=== PATIENT | female | born 1940 | race Caucasian/White ===

== ENCOUNTER 2017-09-26 18:44 | Inpatient (IN) | payer MEDICARE ==
[2017-09-26 21:34] LABS: ABS Basophils 0 10^3/ul (0-0.2); ABS Eosinophils 0.1 10^3/ul (0-0.6); ABS Lymphocytes 1.8 10^3/ul (1.0-4.8); ABS Monocytes 0.7 10^3/ul (0-0.8); ABS Neutrophils 5.5 10^3/ul (1.5-7.7); ABS Nucleated RBC 0 10^3/ul; Eosinophil % 0.9 % (0-6); Hematocrit 44 % (35-47); Hemoglobin 15.3 g/dl (12.0-16.0); Lymphocyte % 22.1 % (25-47); Mean Corpuscular HGB Conc 35 g/dl (31-36); Mean Corpuscular Hemoglobin 31 pg (27-31); Mean Corpuscular Volume 88 fL (80-97); Mean Platelet Volume 9.8 um3 (7.4-10.4); Nucleated Red Blood Cells % 0.1; Platelet Count 215 10^3/ul (150-450); Red Blood Count 5.01 10^6/ul (4.0-5.4); Red Cell Distribution Width 14 % (10.5-15); White Blood Count 8.1 10^3/ul (3.5-10.8)
[2017-09-26 21:49] LABS: EGFR Non-African American 68.6 (>60)
[2017-09-26 22:56] LABS: Urine Appearance Clear; Urine Blood Negative (Negative); Urine Color Straw; Urine Ketones Negative (Negative); Urine Protein Negative (Negative); Urine Specific Gravity 1.035 (1.010-1.030); Urine Urobilinogen Negative (Negative)
[2017-09-26] MEDS ORDERED: NS 0.9% 1000 ML* 1,000 ML IV ONE (23:07)
[2017-09-26] MEDS ORDERED: Insulin REGULAR(*) 1 UNITS UNIT IV PUSH ONE (23:09)
[2017-09-27] MEDS ORDERED: Lisinopril TAB* 10 MG PO SCH
[2017-09-27] MEDS ORDERED: hydrALAZINE IV* 20 MG/ML VIAL IV SLOW PU PRN (00:01)
[2017-09-27] MEDS ORDERED: Dextrose 50% Syringe 50 ML* 25 GM/50 ML SYRINGE IV PUSH PRN (00:02)
--- NOTE | 2017-09-27 02:53 | HP ---
HISTORY AND PHYSICAL: DATE OF ADMISSION: 09/26/17 PRIMARY CARE PROVIDER: Keerthi Gottlieb MD ADMITTING PROVIDER: Janusz Abreu MD CHIEF COMPLAINT: Family concern for being able to be safe at home given severe Alzheimer's disease, which is progressive; hypertensive urgency; hyperglycemia. HISTORY OF PRESENT ILLNESS: Lori Pressley is a 76-year-old female with past medical history of hypertension, non-insulin dependent diabetes mellitus, severe Alzheimer's disease which has been progressive, who was brought in by daughter for concern for her safe living environment. Patient;s Naveen has cancer and is unstable on his feet. They have been receiving private health aides Friday through Friday between 10am to 12pm and between 4pm and 6pm to try to help with their meds and make sure they are eating food, however, there has been even with this, strong concern by daughter that the patient has been not taking the meds as they have apparently been found in various locations in the house. The patient has been increasingly incontinent of urine , refusing to wear any diaper Depends and urinating all over the floors, spends 18 hours a day sleeping or in bed, the rest of the time awake in bed or staring off out the window. The patient denies any acute complaints today. Per daughter , Carlyn Beckham, who is her healthcare proxy after Naveen, the patient' s is increasingly worried about the patient's agitation and anger. She has been lashing out and is concerned for denial of some of her problems in terms of taking care of her and meeting her activities of daily living. She does reportedly dress herself and feed herself. The daughter is concerned that she has been losing weight. At [facility] emergency room, her workup was significant for blood glucoses of 404 and blood pressures of 200/114. She was referred to hospitalist service for admission for hypertensive urgency, hyperglycemia uncontrolled in the setting of suspected unsafe home environment in the setting of severe progressive Alzheimer's disease. Daughter is wanting to seek alternative living arrangements where there is more support in a structured environment. PAST MEDICAL HISTORY: Hypertension, severe Alzheimer's disease, hyperlipidemia , vitamin D deficiency, vitamin B12 deficiency, former smoker (approximately 5 to 10 pack years, quit in 1970s or 80s). Diabetes non-insulin dependent. MEDICATIONS: Include: 1. Lisinopril 10 mg a day. 2. Atorvastatin 40 mg p.o. q.h.s. 3. Metformin 1000 mg p.o. b.i.d. 4. Alendronate sodium 70 mg each week. 5. Aricept 10 mg p.o. daily. ALLERGIES: No known drug allergies. SOCIAL HISTORY: The patient is a former smoker approximately 5 to 10 pack years , quit in the 1970s or 1980s. Lives in a 2 bedroom house with her Naveen who has been diagnosed with cancer and is now frail. She was formerly a moderate alcohol drinker, now a minimal alcohol drinker. Her medical surrogate is Naveen followed by daughter Carlyn Beckham. She has never filled out a MOLST form and will not state her preference for code status at this time. REVIEW OF SYSTEMS: A complete 14-point review of systems is negative except as per HPI. She denies any chest pain, shortness of breath, cough, fevers, chills , nausea, vomiting, diarrhea, constipation, abdominal pain, headaches, rashes, vision changes. PHYSICAL EXAMINATION GENERAL APPEARANCE: No acute distress, lying in hospital bed. VITAL SIGNS: Temperature 97.4; pulse rate 65; respiratory rate 12 to 24; satting 99 to 100% on room air; blood pressure initially 180/57, increased to 200/114. HEENT: Normocephalic, atraumatic. Pupils equally round and reactive to light. Extraocular motions intact. Moist mucous membranes. No cervical lymphadenopathy. No scleral icterus. NECK: Supple. PULMONARY: Clear to auscultation bilaterally with no wheezing, rales, or rhonchi. CARDIOVASCULAR: Regular rate and rhythm. No murmurs, rubs or gallops. ABDOMEN: Soft, nontender, nondistended. EXTREMITIES: Warm, well perfused. No peripheral edema. NEUROLOGIC: Cranial nerves II through XII intact. Ux Developer Designer strength 5/5. Hip flexion 5/5, dorsi and plantarflexion 5/5. Sensation is intact bilaterally. She is oriented to name and hospital and town of [place]. She knows her date of , she does not know the current year or president of [facility] or the name of the hospital. SKIN: No lesions. No rashes. DIAGNOSTIC STUDIES/LAB DATA: White count 8.1, hemoglobin 15.3, hematocrit 44, MCV 88, platelets 215,000. Sodium 135, potassium 4.2, chloride 96, carbon dioxide 32, BUN 15, creatinine 0.81, glucose 404, total bili 0.9, AST 13, ALT 13 , alk phos 66, albumin 4.8. Urinalysis: Specific gravity 1.035, trace leukocyte esterase, 1+ bacteria, 3+ glucose. Imaging: None. ASSESSMENT AND PLAN: Lori Pressley is a 76-year-old female with severe dementia, hypertension, non-insulin dependent diabetes, presenting with concern for inability to take care of herself at home despite 4 hours total each weekday of private health aides and two daughters who visit on each weekend day. She is presenting with hypertensive urgency with blood pressures 200s/114 and hyperglycemia to the 400s. For her high blood pressure, we will continue her lisinopril 10, add hydralazine 10 mg IV q.2 hours p.r.n. for blood pressures above 180. Blood pressures have started to improve. For her non- insulin-dependent diabetes mellitus, we will add on A1c level, last was 7.2 in 2010. Put her on moderate dose of sliding scale insulin q.achs. She is status post 5 units of regular insulin in the emergency room. Put her on a carbohydrate consistent diet that is heart healthy as well. We will get physical therapy and occupational therapy to evaluate her and we will need to utlize our case management resources to try to arrange alternative living situation, potentially for instance [facility] might be appropriate. For her hyperlipidemia, we will continue her atorvastatin 40 mg daily. Her medical surrogate is her , Naveen Pressley. She is not willing to make a code status decision at this point in time. We will have to follow up in the morning with Naveen. [id number]/[facility] #: [id number] [facility]
[2017-09-27 07:14] LABS: EGFR Non-African American 88.4 (>60)
[2017-09-27] MEDS: Lisinopril TAB* 10 MG PO SCH (08:15)
[2017-09-27] MEDS: Insulin LISPRO* 1 UNITS UNIT SUBCUT SCH ×4 (08:15→21:35)
[2017-09-27] MEDS: Donepezil TAB* 5 MG PO SCH (08:15)
[2017-09-27] MEDS ORDERED: Alendronate (NF) 70 MG TAB PO SCH (09:00)
[2017-09-27] MEDS ORDERED: Magnesium Sulfate IV* 3 GM in NS 0.9% 100 ML* 100 ML IVPB ONE (09:12)
[2017-09-27] MEDS ORDERED: Potassium Chloride LIQUID* 20 MEQ PACKET PO ONE (09:16)
--- NOTE | 2017-09-27 15:00 | PN ---
Subjective Date of Service: 09/27/17 Interval History: Patient in no distress but very confused today which family states is at baseline. Unable to give date, location, month, year. Patient able to walk without assistance. Patient denies F/C, N/V, abdominal pain, diarrhea, CP, SOB, or other pain. Discussed plan with family and they have not come to a decision about where they would like her to go at this time. Family History: Unchanged from Admission Social History: Unchanged from Admission Past Medical History: Unchanged from Admission Objective Active Medications: Atorvastatin Calcium (Lipitor*) 40 mg PO BEDTIME [facility] Dextrose (D50w Syringe 50 Ml*) 12.5 gm IV PUSH .FOR FS < 60 - SS PRN PRN Reason: FS < 60 Donepezil HCl (Aricept Tab*) 10 mg PO DAILY [facility] Last Admin: 09/27/17 08:15 Dose: 10 mg Hydralazine HCl (Apresoline Iv*) 10 mg IV SLOW PU Q2H PRN PRN Reason: SYSTOLIC BP GREATER THAN: Insulin Human Lispro (Humalog*) 0 units SUBCUT ACHS [facility] PRN Reason: Protocol Last Admin: 09/27/17 12:17 Dose: 1 unit Lisinopril (Prinivil Tab*) 20 mg PO DAILY [facility] Last Admin: 09/27/17 08:15 Dose: 20 mg Vital Signs - 8 hr 09/27/17 09/27/17 09/27/17 07:00 07:15 08:00 Temperature 97.8 F 97.8 F Pulse Rate 81 81 Respiratory 16 16 16 Rate Blood Pressure 169/76 169/76 (mmHg) O2 Sat by Pulse 97 Oximetry 09/27/17 11:52 Temperature 98.4 F Pulse Rate 82 Respiratory 18 Rate Blood Pressure 154/79 (mmHg) O2 Sat by Pulse 95 Oximetry Oxygen Devices in Use Now: None Appearance: Patient is a 76yo female who appears stated age and is sitting in the bed in NAD. Eyes: No Scleral Icterus, PERRLA Ears/Nose/Mouth/Throat: NL Teeth, Lips, Gums, Clear Oropharnyx, Mucous Membranes Moist Neck: NL Appearance and Movements; NL JVP, Trachea Midline Respiratory: Symmetrical Chest Expansion and Respiratory Effort, Clear to Auscultation Cardiovascular: NL Sounds; No Murmurs; No JVD, RRR, No Edema Abdominal: NL Sounds; No Tenderness; No Distention, No Hepatosplenomegaly Lymphatic: No Cervical Adenopathy Extremities: No Edema, No Clubbing, Cyanosis Skin: No Rash or Ulcers, No Nodules or Sclerosis Neurological: NL Sensation, NL Gait, NL Muscle Strength and Tone, - - CN II-XII intact. Alert and Oriented only to self. Result Diagrams: 09/26/17 21:15 09/27/17 06:24 Assess/Plan/Problems-Billing Assessment: Patient is a 76yo female with a PMH for HTN and advanced dementia who is admitted with hyperglycemia and hypertension which are improving. - Patient Problems (1) Hypertensive urgency Current Visit: Yes Status: Acute Code(s): I16.0 - HYPERTENSIVE URGENCY SNOMED Code(s): 013039025 Comment: Improving, likely due to medication non-compliance. Increased Lisinopril, continue Hydralazine PRN. (2) Diabetes mellitus Current Visit: Yes Status: Acute Code(s): E11.9 - TYPE 2 DIABETES MELLITUS WITHOUT COMPLICATIONS SNOMED Code(s): 30723898 Comment: BG 400 on admission. Improving and well controlled with SSI. Will reintroduce metformin and add on Januvia. Would be candidate for third oral agent in conjunction with dietary control for a trial period before switching to Insulin. (3) Dementia Current Visit: Yes Status: Acute Code(s): F03.90 - UNSPECIFIED DEMENTIA WITHOUT BEHAVIORAL DISTURBANCE SNOMED Code(s): 86195076 Comment: Supportive Care, will likely need RADHA or SLF at discharge. (4) Hyperlipidemia Current Visit: Yes Status: Acute Code(s): E78.5 - HYPERLIPIDEMIA, UNSPECIFIED SNOMED Code(s): 61147875 Comment: Continue Lipitor (5) Vitamin D deficiency Current Visit: Yes Status: Acute Code(s): E55.9 - VITAMIN D DEFICIENCY, UNSPECIFIED SNOMED Code(s): 61166914 Comment: Continue Vitamin D. (6) Vitamin B12 deficiency Current Visit: Yes Status: Acute Code(s): E53.8 - DEFICIENCY OF OTHER SPECIFIED B GROUP VITAMINS SNOMED Code(s): 984477982 Comment: Not on Supplementation. Not likely cause or contributor to dementia. (7) Full code status Current Visit: Yes Status: Acute Code(s): Z78.9 - OTHER SPECIFIED HEALTH STATUS SNOMED Code(s): 827486877 (8) DVT prophylaxis Current Visit: Yes Status: Acute Code(s): ZTQ4165 - SNOMED Code(s): 988064719 Comment: Ambulation and HSQ. Status and Disposition: Inpatient, likely discharge to [facility] or SNF.
[2017-09-27] MEDS: CMC: SitaGLIPtin (NF) 25 MG TAB PO SCH (17:17)
[2017-09-27] MEDS: Heparin VIAL(*) 5000 UNITS/ML VIAL (FIVE THOUSAND) SUBCUT SCH (21:35)
[2017-09-27] MEDS: Atorvastatin* 40 MG TAB PO SCH (21:35)
[2017-09-27] MEDS: metFORMIN* 1,000 MG TAB PO SCH (21:35)
--- NOTE | 2017-09-27 22:15 | ED ---
Garrett Mendez Nilda, scribed for Louie Mcknight MD on 09/26/17 at 2313 . HPI Diabetic - HPI Summary HPI Summary: This patient is a 76 year old F presenting to [facility] accompanied by family with a chief complaint of constant urinary frequency and urinary incontinence for the past few days, per daughter. The patient rates the pain 0/10 in severity. Symptoms aggravated by DM medication noncompliance, and alleviated by nothing. Patient denies CP, abd pain, back pain, KENNEDY, and blurry vision. Family notes PMHx includes DM (noncompliant with Metformin BID 1000mg), Alzheimers, and UTI. NKDA. Daughter states family gives pt medications but pt hides them around the house. Daughter notes they are trying to get her into assisted care because she has defecated and urinated in bed and all over the house. has metastatic cancer and is unable to care for pt. - History Of Current Complaint Chief Complaint: EDGeneral Time Seen by Provider: 09/26/17 22:15 Hx Obtained From: Patient, Family/Standards Analyst - daughter Onset/Duration: Sudden Onset, Lasting Days, Still Present Timing: Constant Character: Alert Aggravating: Non-compliant Alleviating: Nothing Related History: Other - DM noncompliant with medications - Allergies/Home Medications Allergies/Adverse Reactions: Allergies Allergy/AdvReac Type Severity Reaction Status Date / Time No Known Allergies Allergy Verified 09/26/17 22:24 Home Medications: Home Medications Alendronate Sodium [Alendronate Sodium] 70 mg PO DAILY 09/26/17 [History Confirmed 09/26/17] Donepezil HCl [Aricept] 10 mg PO DAILY 09/26/17 [History Confirmed 09/26/17] metFORMIN* [Glucophage 1000 MG TAB *] 1,000 mg PO BID 09/26/17 [History Confirmed 09/26/17] PMH/Surg Hx/FS Hx/Imm Hx Endocrine/Hematology History: Reports: Hx Diabetes Denies: Hx Thyroid Disease Cardiovascular History: Reports: Hx Hypertension Denies: Hx Pacemaker/ICD Respiratory History: Denies: Hx Asthma, Hx Chronic Obstructive Pulmonary Disease (COPD) GI History: Denies: Hx Ulcer History: Denies: Hx Dialysis, Hx Renal Disease Musculoskeletal History: Reports: Hx Osteoporosis Denies: Hx Rheumatoid Arthritis Sensory History: Denies: Hx Hearing Aid Neurological History: Reports: Other Neuro Impairments/Disorders - Alzheimer's Psychiatric History: Denies: Hx Panic Disorder - Cancer History Hx Chemotherapy: No Hx Radiation Therapy: No - Surgical History Surgery Procedure, Year, and Place: Left knee meniscus surgery. [facility] SURG. CATARACT - Lt EYE - Immunization History Date of Tetanus Vaccine: unk Date of Influenza Vaccine: utd Infectious Disease History: No Infectious Disease History: Denies: Hx Hepatitis, Hx Human Immunodeficiency Virus (HIV), Traveled Outside the [place] in Last 30 Days - Social History Alcohol Use: Rare Substance Use Type: Reports: None Smoking Status (MU): Former Smoker Review of Systems Negative: Blurred Vision Negative: Chest Pain Positive: Other - bowel incontinence. Negative: Abdominal Pain Positive: frequency, incontinence Positive: Other - negative back pain Negative: Headache All Other Systems Reviewed And Are Negative: Yes Physical Exam - Summary Physical Exam Summary: GENERAL: Patient is a well developed and nourished F who is lying comfortable in the stretcher. Patient is not in any acute respiratory distress. HEAD AND FACE: Normocephalic EYES: PERRLA, EOMI x 2. EARS: Hearing grossly intact. MOUTH: Oropharynx within normal limits. NECK: Supple, trachea is midline, no adenopathy, no JVD, no carotid bruit. CHEST: Symmetric, no tenderness at palpation LUNGS: Clear to auscultation bilaterally. No wheezing or crackles. CVS: Regular rate and rhythm, S1 and S2 present, no murmurs or gallops appreciated. ABDOMEN: Soft, non-tender. Bowel sounds are normal. No abdominal abnormal pulsations. EXTREMITIES: Full ROM in all major joints, no edema, no cyanosis or clubbing. NEURO: Alert and oriented x 1. Cranial nerves 2-12 grossly intact. No acute neurological deficits. Speech is normal. SKIN: Dry and warm Triage Information Reviewed: Yes Vital Signs On Initial Exam: Initial Vitals Temp Pulse Resp BP Pulse Ox 96.6 F 77 16 180/57 98 09/26/17 18:48 09/26/17 18:48 09/26/17 18:48 09/26/17 18:48 09/26/17 18:48 Vital Signs Reviewed: Yes Diagnostics - Vital Signs Vital Signs Temp Pulse Resp BP Pulse Ox 09/26/17 22:25 65 24 200/114 100 09/26/17 22:23 12 09/26/17 20:49 97.4 F 77 186/97 99 09/26/17 18:48 96.6 F 77 16 180/57 98 - Laboratory Lab Results: Lab Results 09/26/17 09/26/17 09/26/17 Range/Units 21:15 21:15 22:25 WBC 8.1 (3.5-10.8) 10^3/ul RBC 5.01 (4.0-5.4) 10^6/ul Hgb 15.3 (12.0-16.0) g/dl Hct 44 (35-47) % MCV 88 (80-97) fL MCH 31 (27-31) pg MCHC 35 (31-36) g/dl RDW 14 (10.5-15) % Plt Count 215 (150-450) 10^3/ul MPV 9.8 (7.4-10.4) um3 Neut % (Auto) 67.9 (38-83) % Lymph % (Auto) 22.1 L (25-47) % [place] % (Auto) 8.6 H (0-7) % Eos % (Auto) 0.9 (0-6) % Baso % (Auto) 0.5 (0-2) % Absolute Neuts (auto) 5.5 (1.5-7.7) 10^3/ul Absolute Lymphs (auto) 1.8 (1.0-4.8) 10^3/ul Absolute Monos (auto) 0.7 (0-0.8) 10^3/ul Absolute Eos (auto) 0.1 (0-0.6) 10^3/ul Absolute Basos (auto) 0 (0-0.2) 10^3/ul Absolute Nucleated RBC 0 10^3/ul Nucleated RBC % 0.1 Sodium 135 L (139-145) mmol/L Potassium 4.2 (3.5-5.0) mmol/L Chloride 96 L (101-111) mmol/L Carbon Dioxide 32 (22-32) mmol/L Anion Gap 7 (2-11) mmol/L BUN 15 (6-24) mg/dL Creatinine 0.81 (0.51-0.95) mg/dL Est GFR ( Amer) 88.2 (>60) Est GFR (Non-Af Amer) 68.6 (>60) BUN/Creatinine Ratio 18.5 (8-20) Glucose 404 H (70-100) mg/dL Calcium 10.5 H (8.6-10.3) mg/dL Total Bilirubin 0.90 (0.2-1.0) mg/dL AST 13 (13-39) U/L ALT 13 (7-52) U/L Alkaline Phosphatase 66 (34-104) U/L Total Protein 7.7 (6.4-8.9) g/dL Albumin 4.8 (3.2-5.2) g/dL Globulin 2.9 (2-4) g/dL Albumin/Globulin Ratio 1.7 (1-3) Urine Color Straw Urine Appearance Clear Urine pH 7.0 (5-9) Ur Specific [place] 1.035 H (1.010-1.030) Urine Protein Negative (Negative) Urine Ketones Negative (Negative) Urine Blood Negative (Negative) Urine Nitrate Negative (Negative) Urine Bilirubin Negative (Negative) Urine Urobilinogen Negative (Negative) Ur Leukocyte Esterase Trace A (Negative) Urine WBC (Auto) Trace(0-5/hpf) (Absent) Urine RBC (Auto) 1+(3-5/hpf) A (Absent) Urine Bacteria 1+ A (Absent) Urine Glucose 3+(>=500 mg/dl) A (Negative) Urine Ascorbic Acid * A (Negative) Result Diagrams: 09/26/17 21:15 09/26/17 21:15 Lab Statement: Any lab studies that have been ordered have been reviewed, and results considered in the medical decision making process. Re-Evaluation - Re-Evaluation First Eval Re-Evaluation Time: 23:57 Comment: Discussed results and admission plan with pt and family. Diabetic Course/Dx - Course Assessment/Plan: 76 y/o F with Hx Alzheimers Disease, DM and should be on Metformin who has been brought in by family for urinary frequency, incontinence. Family is concerned pt is not safe at home anymore and needs to be placed. Work up remarkable for blood glucose 400. UA shows no evidence of UTI. Pt was treated with IV fluids, insulin. Pt was subsequently admitted to hospitalist for placement. Case discussed with Dr. Abreu. Results discussed in great detail with pt and family who were at bedside. Pt stable upon admission. - Diagnoses Provider Diagnoses: Hyperglycemia - Physician Notifications Discussed Care Of Patient With: Janusz Abreu - hospitalist Time Discussed With Above Provider: 23:57 Instructed by Provider To: Admit As Inpatient Discharge - Sign-Out/Discharge Documenting (check all that apply): Discharge - admit - Discharge Plan Condition: Stable Disposition: ADMITTED TO [facility] documentation as recorded by the Garrett cutler Nilda accurately reflects the service I personally performed and the decisions made by me, Louie Mcknight MD.
[2017-09-28] MEDS: Heparin VIAL(*) 5000 UNITS/ML VIAL (FIVE THOUSAND) SUBCUT SCH ×3 (05:28→21:29)
[2017-09-28 06:29] LABS: EGFR Non-African American 72.7 (>60)
[2017-09-28] MEDS: metFORMIN* 1,000 MG TAB PO SCH ×2 (08:44→21:29)
[2017-09-28] MEDS: Insulin LISPRO* 1 UNITS UNIT SUBCUT SCH ×4 (08:45→20:06)
[2017-09-28] MEDS: Donepezil TAB* 5 MG PO SCH (08:45)
[2017-09-28] MEDS: CMC: SitaGLIPtin (NF) 25 MG TAB PO SCH (08:45)
[2017-09-28] MEDS: Lisinopril TAB* 10 MG PO SCH (08:45)
--- NOTE | 2017-09-28 10:16 | PN ---
Subjective Date of Service: 09/28/17 Interval History: Patient has been agitated overnight. Had an episode where she was leaning to the right when she was walking with a negative CT scan of head. Patient also indicates that she may have been having pain in lower back but denies it. Complains of pain in right shoulder but this is intermittent. Patient denies F/C , CP, SOB, palpitations, dizziness, abdominal pain, dysuria, or other pain. Patient was found to be in sinus tachycardia without associated symptoms. Patient has not had tachycardia on previous vital signs. Family History: Unchanged from Admission Social History: Unchanged from Admission Past Medical History: Unchanged from Admission Objective Active Medications: Atorvastatin Calcium (Lipitor*) 40 mg PO BEDTIME [facility] Last Admin: 09/27/17 21:35 Dose: 40 mg Dextrose (D50w Syringe 50 Ml*) 12.5 gm IV PUSH .FOR FS < 60 - SS PRN PRN Reason: FS < 60 Donepezil HCl (Aricept Tab*) 10 mg PO DAILY [facility] Last Admin: 09/28/17 08:45 Dose: 10 mg Heparin Sodium (Porcine) (Heparin Vial(*)) 5,000 units SUBCUT Q8HR [facility] Last Admin: 09/28/17 05:28 Dose: 5,000 units Hydralazine HCl (Apresoline Iv*) 10 mg IV SLOW PU Q2H PRN PRN Reason: SYSTOLIC BP GREATER THAN: Insulin Human Lispro (Humalog*) 0 units SUBCUT ACHS [facility] PRN Reason: Protocol Last Admin: 09/28/17 08:45 Dose: 4 unit Lisinopril (Prinivil Tab*) 20 mg PO DAILY [facility] Last Admin: 09/28/17 08:45 Dose: 20 mg Metformin HCl (Glucophage*) 1,000 mg PO BID [facility] Last Admin: 09/28/17 08:44 Dose: 1,000 mg Sitagliptin Phosphate (Januvia (Nf)) 50 mg PO DAILY [facility] Last Admin: 09/28/17 08:45 Dose: 50 mg Vital Signs - 8 hr 09/28/17 09/28/17 09/28/17 03:53 07:56 08:04 Temperature 97.5 F 97.8 F Pulse Rate 86 119 Respiratory 16 16 18 Rate Blood Pressure 136/73 129/88 (mmHg) O2 Sat by Pulse 98 100 Oximetry Oxygen Devices in Use Now: None Appearance: Patient is a 76yo female who appears stated age and is sitting in the bed in NAD. Eyes: No Scleral Icterus, PERRLA Ears/Nose/Mouth/Throat: NL Teeth, Lips, Gums, Clear Oropharnyx, Mucous Membranes Moist Neck: NL Appearance and Movements; NL JVP, Trachea Midline Respiratory: Symmetrical Chest Expansion and Respiratory Effort, Clear to Auscultation Cardiovascular: NL Sounds; No Murmurs; No JVD, RRR, No Edema Abdominal: NL Sounds; No Tenderness; No Distention, No Hepatosplenomegaly Lymphatic: No Cervical Adenopathy Extremities: No Edema, No Clubbing, Cyanosis Skin: No Rash or Ulcers, No Nodules or Sclerosis Neurological: NL Sensation, NL Gait, NL Muscle Strength and Tone, - - A/Ox1. CN II-XII intact. Result Diagrams: 09/26/17 21:15 09/28/17 05:42 Additional Lab and Data: Lab Results Assess/Plan/Problems-Billing Assessment: Patient is a 76yo female with a PMH for HTN and advanced dementia who is admitted with hyperglycemia and hypertension which are improving. - Patient Problems (1) Hypertensive urgency Current Visit: Yes Status: Acute Code(s): I16.0 - HYPERTENSIVE URGENCY SNOMED Code(s): 348542560 Comment: Normotensive now, likely due to medication non-compliance. Increased Lisinopril. Hydralazine PRN. (2) Diabetes mellitus Current Visit: Yes Status: Acute Code(s): E11.9 - TYPE 2 DIABETES MELLITUS WITHOUT COMPLICATIONS SNOMED Code(s): 89032314 Comment: BG 400 on admission. Improving and well controlled with SSI. Will reintroduce metformin and add on Januvia. Would be candidate for third oral agent in conjunction with dietary control for a trial period before switching to Insulin. (3) Dementia Current Visit: Yes Status: Acute Code(s): F03.90 - UNSPECIFIED DEMENTIA WITHOUT BEHAVIORAL DISTURBANCE SNOMED Code(s): 09170287 Comment: Supportive Care, will likely need RADHA or SLF at discharge. Patient had an episode of leaning to the right while walking with no other neurological deficits. No CT head normal, unable to elaborate on this, likely due to possible back pain. (4) Hyperlipidemia Current Visit: Yes Status: Acute Code(s): E78.5 - HYPERLIPIDEMIA, UNSPECIFIED SNOMED Code(s): 34069936 Comment: Continue Lipitor (5) Tachycardia Current Visit: Yes Status: Acute Code(s): R00.0 - TACHYCARDIA, UNSPECIFIED SNOMED Code(s): 2130217 Comment: Patient persistently tachycardic this AM up to 132 with regular rate. EKG shows sinus tachycardia with LAD, LVH and LAE. Will monitor on telemetry and encourage oral intake in case this is due to dehydration. (6) Vitamin D deficiency Current Visit: Yes Status: Acute Code(s): E55.9 - VITAMIN D DEFICIENCY, UNSPECIFIED SNOMED Code(s): 25773785 Comment: Continue Vitamin D. (7) Vitamin B12 deficiency Current Visit: Yes Status: Acute Code(s): E53.8 - DEFICIENCY OF OTHER SPECIFIED B GROUP VITAMINS SNOMED Code(s): 730920052 Comment: Not on Supplementation. Not likely cause or contributor to dementia. (8) Full code status Current Visit: Yes Status: Acute Code(s): Z78.9 - OTHER SPECIFIED HEALTH STATUS SNOMED Code(s): 956508144 (9) DVT prophylaxis Current Visit: Yes Status: Acute Code(s): UFK1263 - SNOMED Code(s): 452510997 Comment: Ambulation and HSQ. Status and Disposition: Inpatient, likely discharge to [facility] or SNF.
--- NOTE | 2017-09-28 10:17 | RAD ---
Indication: Gait abnormality and confusion. CT of the brain was performed without IV contrast. Ventricular structures are midline. No midline shift is noted. There is central and cortical atrophy noted. There is no evidence of intracranial hemorrhage. No other high or low density lesion is identified. Periventricular lucency consistent with chronic ischemic White matter change is noted. Mastoid air cells and paranasal sinuses are unremarkable. IMPRESSION: Central and cortical atrophy. Chronic ischemic White matter change. No intracranial mass or hemorrhage is noted.
[2017-09-28] MEDS ORDERED: LORazepam INJ* 2 MG/ML 1 ML VIAL IV PUSH ONE (10:55)
[2017-09-28] MEDS ORDERED: LORazepam INJ* 2 MG/ML 1 ML VIAL ONE (10:57)
[2017-09-28] MEDS: Atorvastatin* 40 MG TAB PO SCH (21:29)
[2017-09-29] MEDS: Heparin VIAL(*) 5000 UNITS/ML VIAL (FIVE THOUSAND) SUBCUT SCH (05:47)
[2017-09-29] MEDS: Insulin LISPRO* 1 UNITS UNIT SUBCUT SCH ×2 (07:49→12:47)
[2017-09-29] MEDS: metFORMIN* 1,000 MG TAB PO SCH (10:08)
[2017-09-29] MEDS: Lisinopril TAB* 10 MG PO SCH (10:08)
[2017-09-29] MEDS: CMC: SitaGLIPtin (NF) 25 MG TAB PO SCH (10:08)
[2017-09-29] MEDS: Donepezil TAB* 5 MG PO SCH (10:09)
--- NOTE | 2017-09-29 11:45 | RAD ---
HISTORY: Hypertensive urgency, rule out TB COMPARISONS: None VIEWS: 1: frontal portable view of the chest at 11:25 AM FINDINGS: LINES AND TUBES: None. CARDIOMEDIASTINAL SILHOUETTE: The cardiomediastinal silhouette is normal for portable technique. PLEURA: The costophrenic angles are sharp. No pleural abnormalities are noted. LUNG PARENCHYMA: The lungs are clear. ABDOMEN: The upper abdomen is clear. There is no subphrenic gas. BONES AND SOFT TISSUES: No bone or soft tissue abnormalities are noted. IMPRESSION: NO ACTIVE CARDIOPULMONARY DISEASE. NO RADIOGRAPHIC EVIDENCE OF PULMONARY PARENCHYMAL TUBERCULOSIS.
[2017-09-29 11:54] VITALS: BP 130/58
--- NOTE | 2017-09-29 13:24 | RAD ---
INDICATION: Right posterior chest wall mass. COMPARISON: There are no prior studies available for comparison. TECHNIQUE: Multiple real-time images of the right posterior chest wall were obtained with attention to a palpable abnormality. FINDINGS: In the region of the patient's palpable abnormality in the posterior chest may there is a superficial hypoechoic soft tissue mass measuring 11.5 x 0.9 x 5.8 cm. IMPRESSION: THERE IS A SOLID MASS IN THE POSTERIOR CHEST WALL DESCRIBED. THIS MAY REPRESENT A LIPOMA ALTHOUGH THE IMAGING CHARACTERISTICS ARE NONSPECIFIC. THIS CAN BE FURTHER EVALUATED WITH A CT OR MRI OF THE CHEST CLINICALLY NEEDED.
--- NOTE | 2017-09-30 00:20 | DS ---
CC: Keerthi Gottlieb MD; Dr. Sonja Pope* DISCHARGE SUMMARY: DATE OF ADMISSION: 09/26/17 DATE OF DISCHARGE: 09/29/17 PRIMARY CARE PROVIDER: Keerthi Gottlieb MD MY ATTENDING WHILE IN THE HOSPITAL: Dr. Sonja Pope* (dictated by FATOU Pruitt). PRIMARY DISCHARGE DIAGNOSES: 1. Alzheimer's dementia. 2. Hypertensive urgency. 3. Hyperglycemia due to type 2 diabetes mellitus. SECONDARY DISCHARGE DIAGNOSES: 1. Hyperlipidemia. 2. Vitamin D deficiency. 3. B12 deficiency. STUDIES DONE WHILE IN THE HOSPITAL: EKG from 09/28/17 read as sinus tachycardia , rate of 107, left axis deviation, left ventricular hypertrophy, left atrial enlargement, left axis deviation, no other abnormalities. Brain CT from read as central and cortical atrophy, chronic ischemic white matter change, no intracranial mass or hemorrhage is noted. Chest ultrasound from 09/29/17 read as there is a solid mass in the posterior chest wall as described, this may represent lipoma, although the imaging characteristics are nonspecific thus can be further evaluated with CT or MRI of the chest as clinically needed. Chest x-ray from 09/29/17 read as no active cardiopulmonary disease, no evidence of pulmonary parenchymal tuberculosis. MEDICATIONS: At discharge: 1. Lipitor 40 mg p.o. at bedtime. 2. Jardiance 10 mg p.o. daily. 3. Lisinopril 20 mg p.o. daily. 4. Januvia 50 mg p.o. daily. 5. Alendronate 70 mg p.o. weekly. 6. Donepezil 10 mg p.o. daily. 7. Metformin 1000 mg p.o. b.i.d. New medications at discharge: 1. Jardiance. 2. Lisinopril. 3. Januvia. Medications discontinued at discharge: Lisinopril 10 mg p.o. daily. HOSPITAL COURSE: This is a brief summary of the patient's presentation. For more details, please see the history and physical from Dr. Janusz Abreu on . In brief, the patient is a 76-year-old female with past medical history significant for the above, who came in due to being unable to take care of herself at home, not taking meds, not eating food. The patient was also found to be increasingly incontinent of urine and spending increasing amount for sleeping. The patient was supposed to be taking care of her , who has stage IV cancer and has been not capable of doing this. The patient came into the emergency department and had blood pressure of 200/114 and glucose of 404 due to unsafe living environment and high blood pressure and blood sugar. The patient was admitted to the hospital. The patient's blood pressure and glucoses were easily controlled using her home metformin. The introduction of Januvia and sliding scale insulin while in the hospital. The patient had a hemoglobin A1c of 10.1. The patient was very confused while in the hospital. The patient had an episode of tachycardia, believed to be related to agitation, which resolved when the patient was able to be calmed. The patient had an episode where she was leaning to her right and she walked. The patient had a CT of her head. The patient had no neurological deficits. The patient sustained to be due to pain as the patient was also grasping that side; however, the patient never verbalized pain and had no obvious deformity or tenderness. The patient was found to have a mass on her posterior chest wall, which had no ultrasound as above. When discussed this with patient's family, this was found to be a chronic mass. The patient had a chest x-ray to rule out tuberculosis for admission to [facility] where she was discharged on 09/29/17 to the Memory Unit. The patient's laboratory data while in the hospital showed increased glucoses and decreased magnesium, which was replaced and remained normal. The patient had trace leukocyte esterase in her urine and a negative culture. PHYSICAL EXAMINATION ON DAY OF DISCHARGE: General: The patient is a 76-year- old female who appears stated age and sitting comfortably in the bed, in no acute distress. Vital Signs: At the time of discharge, temperature 98.1, pulse rate 86, respiratory rate 16, oxygen saturation 95% on room air, blood pressure 130/58. HEENT: Head: Normocephalic, atraumatic. Sclerae anicteric. No conjunctival injection. Nasal mucosa is moist. Oral mucosa moist. No oropharyngeal erythema, discharge, or exudate. Neck: Supple, nontender. No lymphadenopathy. No carotid bruits auscultated. No JVD. Cardiac: Regular rate and rhythm. No clicks, murmurs, gallops, or rubs. Pulses 2+ in the bilateral dorsalis pedis, posterior tibialis, and radial areas. No bilateral lower extremity edema noted. No calf tenderness. Respiratory: Clear to auscultation bilaterally. No wheezes, rales, or rhonchi. Good air exchange bilaterally. Abdomen: Soft, nontender, nondistended. Bowel sounds present and normoactive in all 4 quadrants. No hepatosplenomegaly. No abdominal bruits auscultated. Genitourinary: No suprapubic or CVA tenderness. Skin: Clean, dry, and intact. No rash. Lipoma mobile and nonerythematous and is in the right posterior chest. Neuro: Cranial nerves II through XII intact. No focal deficits. The patient is alert and oriented to self and speaks nonsensically. She is somewhat communicative and follows instructions. Psychiatric: Generally pleasant and cooperative with occasional agitative outbursts. DISCHARGE PLAN: The patient will be discharged to [facility]. The patient and family are in agreement with this plan. For patient's blood pressure, her lisinopril was increased and this brought her blood pressure down to normal range with no episodes of hypotension. For patient's diabetes even though her hemoglobin A1c was 10.1, a trial will be given to diet and exercise in a controlled environment as well as continue her on her metformin, which she most likely was not taken as well as starting her on Januvia and Jardiance. This medication regimen should be adjusted as needed by patient's primary care provider whom she should follow up with in 1 week. The patient should engage in activity as tolerated. The patient should have a consistent carbohydrate diet. The patient continued to have a heart-healthy diet. The patient should return to the hospital for alarming symptoms such as chest pain, shortness of breath, falls with injury. TIME SPENT: Approximately 60 minutes were spent on this discharge, 30 of which were spent [id number] with the patient obtaining history and physical and discussing treatment plan with her and her family. FATOU PRUITT [id number]/[facility] #: [id number] JOSE
== END 2017-09-29 13:30 | disposition home or self-care (01) | DRG 305 ==
LOC: ED 18:44 → MED 23:59
PROVIDERS: ADMIT Internal Medicine; ATTEND Internal Medicine
DX: I16.0 Hypertensive urgency (principal); E11.65 Type 2 diabetes mellitus with hyperglycemia; G30.9 Alzheimer's disease, unspecified; F02.80 Dementia in other diseases classified elsewhere, unspecified severity, without behavioral disturbance, psychotic disturbance, mood disturbance, and anxiety; I10 Essential (primary) hypertension; E78.5 Hyperlipidemia, unspecified; E55.9 Vitamin D deficiency, unspecified; E53.8 Deficiency of other specified B group vitamins; R91.8 Other nonspecific abnormal finding of lung field; R41.0 Disorientation, unspecified; R26.9 Unspecified abnormalities of gait and mobility; R00.0 Tachycardia, unspecified; Z87.891 Personal history of nicotine dependence; Z79.84 Long term (current) use of oral hypoglycemic drugs; Z79.899 Other long term (current) drug therapy
CPT/HCPCS: 36415; 70450; 71045; 76604; 80048; 80053; 81003; 81015; 83036; 83735; 85025; 87077; 87086; 93005; 99284; A9270-GY; G8978-GP-CI; G8979-GP-CI; G8980-GP-CI; G8987-GO-CI; G8988-GO-CI; G8989-GO-CI; J1644; J2060; J3475

== ENCOUNTER 2017-09-30 03:40 | Emergency (ER) | payer MEDICARE ==
[2017-09-30 04:30] VITALS: BP 139/61
--- NOTE | 2017-09-30 04:36 | ED ---
Silke Mendez Rebecca, scribed for Paul Lamb MD on 09/30/17 at 0353 . Laceration/Wound HPI - HPI Summary HPI Summary: Pt is a 76 y/o F who presents to ED from [facility] with a lip laceration s/p fall. Per family member, the pt had been running from staff when she fell and caught her lip on a railing. 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 Denies any other head trauma or other injuries as a result of the fall. Negative LOC. Tetanus UTD. - History of Current Complaint Stated Complaint: LIP LAC Time Seen by Provider: 09/30/17 03:49 Hx Obtained From: Patient Mechanism of Injury: Other - Fell Onset/Duration: Still Present Current Severity: Mild Pain Intensity: 3 Pain Scale Used: 0-10 Numeric Associated Signs & Symptoms: Negative - Additional Pertinent History Primary Care Physician: [id number] - Allergy/Home Medications Allergies/Adverse Reactions: Allergies Allergy/AdvReac Type Severity Reaction Status Date / Time No Known Allergies Allergy Verified 09/26/17 22:24 PMH/Surg Hx/FS Hx/Imm Hx Endocrine/Hematology History: Reports: Hx Diabetes, Other Endocrine/ Hematological Disorders - Vit D&B12 deficient Denies: Hx Thyroid Disease Cardiovascular History: Reports: Hx Hypertension Denies: Hx Pacemaker/ICD Respiratory History: Denies: Hx Asthma, Hx Chronic Obstructive Pulmonary Disease (COPD) GI History: Denies: Hx Ulcer History: Denies: Hx Dialysis, Hx Renal Disease Musculoskeletal History: Reports: Hx Osteoporosis Denies: Hx Rheumatoid Arthritis Sensory History: Denies: Hx Contacts or Glasses, Hx Hearing Aid Opthamlomology History: Denies: Hx Contacts or Glasses Neurological History: Reports: Hx Dementia, Other Neuro Impairments/Disorders - Alzheimer's Denies: Hx Seizures Psychiatric History: Denies: Hx Panic Disorder - Cancer History Hx Chemotherapy: No Hx Radiation Therapy: No - Surgical History Surgery Procedure, Year, and Place: Left knee meniscus surgery. [facility] - [facility] E[facility] - Immunization History Date of Tetanus Vaccine: unk Date of Influenza Vaccine: utd Infectious Disease History: No Infectious Disease History: Denies: Hx Hepatitis, Hx Human Immunodeficiency Virus (HIV), Traveled Outside the [place] in Last 30 Days - Family History Known Family History: Positive: Cardiac Disease, Diabetes - Social History Alcohol Use: Rare Substance Use Type: Reports: None Smoking Status (MU): Former Smoker Review of Systems Positive: Other - Lip laceration s/p fall Neurological: Other - NEGATIVE: LOC All Other Systems Reviewed And Are Negative: Yes Physical Exam - Summary Physical Exam Summary: Appearance: Well appearing, no pain distress Skin: warm, dry, some old bruising on the left elbow Head/face: normal Eyes: EOMI, ANDRES ENT: gaping 5 mm wound on the side of the lip, no underlying dental injury Neck: supple, non-tender Respiratory: CTA, breath sounds present Cardiovascular: RRR, pulses symmetrical Abdomen: non-tender, soft Bowel Sounds: present Musculoskeletal: normal, strength/ROM intact, no pain in hips Neuro: normal, sensory motor intact, A&Ox3 Triage Information Reviewed: Yes Vital Signs On Initial Exam: Initial Vitals Temp Pulse Resp BP Pulse Ox 97.6 F 89 18 151/66 99 09/30/17 03:44 09/30/17 03:44 09/30/17 03:44 09/30/17 03:44 09/30/17 03:44 Vital Signs Reviewed: Yes Procedures - Laceration/Wound Repair 1 Location: face Description: Irregular Anesthesia: 1.0%, Lido - 0.5 cc Length, Depth and Shape: 5 mm Betadine Prep?: No Irrigated w/ Saline (ccs): 20 Laceration/Wound Explored: clean, no foreign body removed Closure: Single Layer Suture Type: Other - 5-0 monocryl, simple interrupted. Number of Sutures: 2 Diagnostics - Vital Signs Vital Signs Temp Pulse Resp BP Pulse Ox 09/30/17 03:44 97.6 F 89 18 151/66 99 - Laboratory Lab Statement: Any lab studies that have been ordered have been reviewed, and results considered in the medical decision making process. Re-Evaluation - Re-Evaluation First Eval Re-Evaluation Time: 04:10 Comment: Suturing of laceration. Laceration Repair Course/Dx - Course Course Of Treatment: simple lac repair. Td utd. No sign of more serious head injury. D/C back to SNF. - Clinical Impression Provider Diagnoses: Facial laceration Discharge - Sign-Out/Discharge Documenting (check all that apply): Discharge/Admit/Transfer - Discharge - Discharge Plan Condition: Good Disposition: LONG TERM FACILITY Patient Education Materials: Laceration (ED) Referrals: Keerthi Gottlieb MD [Primary Care Provider] - Additional Instructions: Keep sutures clean and dry. Return with concern for infection. Sutures should not have to be removed. Will dissolve. - Billing Disposition and Condition Condition: STABLE Disposition: HOME The documentation as recorded by the Silke cutler Rebecca accurately reflects the service I personally performed and the decisions made by me, Paul Lamb MD.
== END 2017-09-30 04:28 ==
LOC: ED 03:40
DX: S01.511A Laceration without foreign body of lip, initial encounter (principal); W19.XXXA Unspecified fall, initial encounter; Y92.9 Unspecified place or not applicable; Z87.891 Personal history of nicotine dependence
CPT/HCPCS: 12011; 99282

== ENCOUNTER 2018-08-07 12:46 | Inpatient (IN) | payer MEDICARE ==
--- OUTSIDE RECORDS SUMMARY | 2018-08-07 13:18 | XMS REPORT | Continuity of Care Document ---
:1940 External Reference #:[id number] Author Name JamaPreeti gutierrez Care Team Providers Name Role Phone Keerthi Gottlieb MD Primary Care Physician Unavailable Payers Date Identification Numbers Payment Provider Subscriber Effective: Policy Number: [id number] [facility] Ashley Urbina Huan 2016 Options PayID: [id number] [address] [address] Attn: [place] [address] Expires: 2017 Policy Number: [facility] Ashley Corteslucila [id number] PayID: [id number] [address] [place] [address] Advance Directives Description No Information Available Problems Date Description Provider Status Onset: 02/18/2011 Type 2 diabetes mellitus Brent Lew M.D. Active Onset: 02/18/2011 Benign essential hypertension Brent Lew M.D. Active Onset: 02/18/2011 Pure hypercholesterolemia Brent Lew M.D. Active Onset: 07/07/2014 Tubular adenoma Keerthi Gottlieb M.D. Active Onset: Alzheimer's disease Raúl Mackey MD Active Family History Description No Information Available Social History Type Date Description Comments Sex Unknown Marital Status Lives With Lauryn at [place] in Memory care unit Tobacco Use Start: Unknown Never Smoked Cigarettes ETOH Use Rarely consumes alcohol Tobacco Use Start: Unknown End: Patient is a former smoker Unknown Smoking Status Reviewed: 08/03/18 Patient is a former smoker Exercise Type/Frequency Exercises regularly Exercise Type/Frequency walks 1 mile every day Allergies, Adverse Reactions, Alerts Date Description Reaction Status Severity Comments 11/08/2014 Cipro Active 04/20/2007 Cipro Inactive Medications Medication Date Status Form Strength Qnty SIG Indications Ordering Provider Check Blood 03/11 Active twice a Keerthi day Lavonne Gottlieb Shingrix 02/02 Active Suspension 50mcg 1unit intramuscu Rec s lar x 1 yvette Gottlieb M.D. repeat in 4 months Caltrate 600+D 02/02 Active Tablets 600-800mg 60tab 1 by mouth M81.0 -Unit s once a rasheed Gottlieb M.DAbby Vitamin D3 11/05 Active Capsules 1000Unit 90cap 1 by mouth s every day Lavonne Gottlieb Jardiance 10/23 Active Tablets 25mg 90tab take 1 s tablet Chery, once a day M.DAbby Lisinopril 09/30 Active Tablets 20mg 90tab 1 by mouth R51 Keerthi /2018 s every day Lavonne Gottlieb Alendronate 06/30 Active Tablets 70mg 4tabs take 1 M81.0 Brent Fuentes Sodium tablet by ingris Lew.DAbby weekly Metformin HCL 01/28 Active Tablets 1000mg 180ta 1 by mouth E11.65 Brent Fuentes /2015 bs twice a rasheed Lew M.DAbby Donepezil HCL 05/09 Active Tablets 10mg 90tab 1 tab by Raúl Davis /2014 s mouth Key daily M.DAbby Atorvastatin 04/07 Active Tablets 40mg 90tab take 1 Brent Fuentes Calcium s tablet by ingris Lew M.DAbby daily Tylenol Active Tablets 325mg 100ta po prn bs Cyanocobalamin Active Tablets Sub 1000mcg 90tab take one Keerthi /0000 s tablet Gottlieb daily M.DAbby Vitamin C ER Active Tablets ER 1000mg 1 by mouth Unknown /0000 every day Jardiance 09/30 Hx Tablets 10mg 90tab 1 by mouth Brent EAbby /2017 s every Louann, - night M.DAbby 10/23 Lipitor 09/30 Hx Tablets 40mg 90tab 1 by mouth Brent Fuentes s at bedtime Gina Lew M.D. 10/06 Januvia 09/30 Hx Tablets 50mg 90tab 1 by mouth Brent Fuentes s every day Gina Lew M.D. 10/23 Lisinopril 06/30 Hx Tablets 10mg 90tab 1 by mouth R51 Keerthi /2018 s every day Gina Gottlieb M.D. 09/30 Namenda XR 04/08 Hx Caps ER 28mg 30cap 1 by mouth G30.1 Raúl S. 24HR s every day Gina Mackey M.D. 04/08 Memantine HCL 04/08 Hx Tablets 10mg 180ta 1 tab by G30.1 . bs mouth Key, - twice a M.D. Augmentin 03/25 Hx Tablets 500-125mg 14tab 1 tablet R35.0 Luis Carlos s every 12 Seven, CPA TAX - hours x 7 Macrobid 03/21 Hx Capsules 100mg 14cap one R35.0 Luis Carlos s capsule Seven, CPA TAX - twice a 03/25 day x days Phenazopyridine 03/21 Hx Tablets 100mg 10tab 1 tablet Luis Carlos HCL s by mouth Seven, CPA TAX - three 03/24 times day as needed for 3 days. Namenda 03/07 Hx Tablets 5(28)-10( 1pack follow G30.1 Raúl S. Titration 21)mg instructio Key, - ns on M.D. 04/08 titration pack Alendronate 05/30 Hx Tablets 70mg 12tab take 1 M81.0 Keerthi s tablet by Chery, - mouth M.D. 03/06 Metformin HCL 05/30 Hx Tablets 500mg 180ta 1 by mouth E11.65 bs bid X 1 Chery, - week then M.D. 01/28 1 tb in Am and 1 tab in PM Donepezil HCL 11/08 Hx Tablets 5mg 90tab 1 every Raúl S. /2014 s day Gina Mackey M.D. 05/09 Fosamax 08/16 Hx Tablets 70mg 12tab one tablet 733.01 s weekly Gina Gottlieb M.D. 11/08 Fluconazole 08/16 Hx Tablets 100mg 2tabs 1 tab po 112.1 daily x 2 Gina Gottlieb.DAbby 10/07 Metformin HCL 08/16 Hx Tablets 500mg 30tab Take 1 250.00 s tablet by Chery - mouth M.DAbby 05/30 every Amlodipine 04/07 Hx Tablets 10mg 30tab take 1 Keerthi Bes s tablet by Chery - mouth M.DAbby 06/30 Doxycycline 10/07 Hx Capsules 100mg 2caps 2 tab X 1 911.4 cl Gina Gottlieb M.D. 04/01 Norvasc 08/19 Hx Tablets 10mg 90tab 1 po qd s Gina Gottlieb M.D. 09/13 Fosamax 08/19 Hx Tablets 70mg 12tab one tablet 733.01 s weekly Gina Gottlieb M.D. 08/16 Lisinopril 08/19 Hx Tablets 5mg 90tab take 1 I10 s tablet by Chery - ingris M.DAbby 06/30 Ergocalciferol 04/20 Hx Capsules [id number] 8caps 1 tab by mouth Gina Gottlieb every week M.DAbby 04/01 Norvasc 04/15 Hx Tablets 10mg 90tab 1 po qd s Gina Gottlieb M.D. 08/19 Fosamax 04/15 Hx Tablets 70mg 12tab one tablet 733.01 s weekly Gina Gottlieb M.D. 08/19 Lisinopril 04/15 Hx Tablets 2.5mg 90tab 1 po qd 401.9 s Gina Gottlieb M.D. 08/19 Lisinopril 03/04 Hx Tablets 5mg 60tab 1 po qd 401.9 Gina Beckham M.D. 04/15 Metformin HCL 07/10 Hx Tablets 500mg 90tab 1 po daily Gina Beckham M.D. 04/21 Ureacin-20 07/10 Hx Cream 20% 113.4 apply on 00gm soles of Chery, - feet every M.DAbby 08/16 Physical Therapy 07/04 Hx 20uni pt Brent E. ts evaluation Louann, - and Lavonne 06/06 treatment for l low back/leg pain Lipitor 06/20 Hx Tablets 40mg 90tab 1 po hs Gina Beckham M.D. 05/03 Norvasc 03/27 Hx Tablets 10mg 90tab 1 po qd Brent E. Gina Figueroa M.D. 04/15 Simvastatin 02/21 Hx Tablets 80mg 90tab 1 po qhs Brent E. Gina Figueroa M.D. 06/20 Simvastatin 10/29 Hx Tablets 20mg 90tab 1 PO qhs Brent E. s to be Louann, - taken with M.D. 02/21 40 mg. /2007 Simvastatin 10/29 Hx Tablets 40mg 90tab 1 PO QHS Brent E. s to be Louann, - taken with M.D. 02/21 20 mg. /2007 tablet Simvastatin 10/19 Hx Tablets 40mg 90tab 1 PO QHS Brent E. Gina Figueroa M.D. 10/29 Lipitor 04/20 Hx Tablets 40mg 135ta 1 06/10 tabs Brent E. /2006 bs po Gina Lew M.D. 10/19 Glyburide 04/20 Hx Tablets 5mg 60tab take 1 s tablet by Cotton, - mouth once M.D. 08/28 a day Lipitor Hx Tablets 20mg 90tab 1tab po hs Brent E. / Gina Figueroa M.D. 04/20 Norvasc Hx Tablets 5mg 90tab 1 po qd Brent E. / Gina Figueroa M.D. 03/27 Fosamax Hx Tablets 70mg 4tabs Q Week Barken, With 8 Oz MD Luis - Water And 04/20 DO Not Lay Down For One Hour After Aspirin Hx Tablets 81mg 100ta 1 PO QHS Gottlieb, 0000 Gina Murray MD 02/02 Avandia Hx Tablets 8mg 90tab 1 po qd Brent E. /0000 Gina Figueroa M.D. 06/13 Abilify Hx Tablets 10mg 1 po qd Unknown /0000 - 08/19 Multivitamins Hx Capsules 30cap 1 by mouth Unknown /0000 s every day - 02/02 Vitamin C Hx Capsules 1000mg 90cap 1 by mouth Keerthi /0000 s every day Gina Gottlieb M.D. 12/02 Vitamin D3 Super Hx Capsules 1000Unit 1 by mouth Unknown Strength /0000 every day - 11/05 Januvia Hx Tablets 50mg 1 by mouth Unknown /0000 every day - 10/26 Medications Administered in Office Medication Date Status Form Strength Qnty SIG Indications Ordering Provider Technetium TC Administered Injection Teja Davis [id number] 017 DO Miko Tetrofosmin, FACC Per Unit Dose Up To 40 Millicuries Immunizations CPT Code Status Date Vaccine Lot # [id number] Given 03/21/2017 Influenza Virus Vaccine, Quadrivalent, Split, [id number] Preservative Free 31898 Given 05/30/2016 Tdap - Tetanus/Diptheria/Acellular Pertussis [id number] 78482 Given 02/15/2016 Influenza Virus Vaccine, Quadrivalent, Split, Preservative Free 05187 Given 05/30/2015 Pneumococcal Conjugate Vaccine 13 Valent For [id number] Intramuscular Use 35685 Given 03/04/2015 Influenza Virus Vaccine, Quadrivalent, Split, Preservative Free 51926 Given 05/03/2013 Pneumonia Vaccine [id number] 14038 Given 03/27/2013 Flu Vaccine Split Virus Preservative Free For Indiv 3Yr Older Q2038 Given 03/04/2012 Fluzone Vaccine [id number] 57788 Given 07/10/2011 Zoster (Zostavax) [id number] Q2038 Given 02/18/2011 Fluzone Vaccine [id number] 52135 Given 06/13/2010 Influenza Virus 3Yrs & Over [id number] Q2038 Given 06/13/2010 Fluzone Vaccine 71124 Given 07/04/2009 Influenza Virus Vaccine, Pandemic Formulation 37532 Given 07/04/2009 Influenza Virus 3Yrs & Over 93665 Given 02/22/2008 Pneumonia Vaccine 34178 Given 10/19/2007 Pneumonia Vaccine 62783 Given 10/19/2007 Pneumonia Vaccine 39553 Given 10/19/2007 Pneumonia Vaccine [id number] 60849 Given 04/13/2007 Influenza Virus 3Yrs & Over 56305 Given 04/13/2007 Influenza Virus 3Yrs & Over 65989 Given 04/13/2007 Influenza Virus 3Yrs & Over [id number] 76334 Given 08/01/2003 Td (History By Patient) 02165 Given 03/26/1999 Pneumovax (History By Patient) Vital Signs Date Vital Result Comment 08/03/2018 10:34am Height 62 inches 5'2" Weight 113.00 lb Heart Rate 77 /min BP Systolic Sitting 110 mmHg BP Diastolic Sitting 63 mmHg O2 % BldC Oximetry 97 % BMI (Body Mass Index) 20.7 kg/m2 07/13/2018 9:55am Height 62 inches 5'2" Weight 113.00 lb Heart Rate 84 /min BP Systolic 116 mmHg BP Diastolic 68 mmHg BMI (Body Mass Index) 20.7 kg/m2 02/02/2018 9:58am Height 62 inches 5'2" Weight 116.00 lb Heart Rate 76 /min BP Systolic Sitting 120 mmHg BP Diastolic Sitting 62 mmHg O2 % BldC Oximetry 94 % BMI (Body Mass Index) 21.2 kg/m2 10/27/2017 1:58pm Height 62 inches 5'2" Weight 124.00 lb Heart Rate 80 /min BP Systolic 120 mmHg BP Diastolic 58 mmHg Respiratory Rate 16 /min BMI (Body Mass Index) 22.7 kg/m2 10/23/2017 9:38am Height 62 inches 5'2" Weight 121.00 lb Heart Rate 74 /min BP Systolic Sitting 122 mmHg BP Diastolic Sitting 66 mmHg O2 % BldC Oximetry 94 % BMI (Body Mass Index) 22.1 kg/m2 10/06/2017 4:16pm Weight 123.50 lb Heart Rate 75 /min BP Systolic 134 mmHg BP Diastolic 73 mmHg O2 % BldC Oximetry 98 % 07/08/2017 3:51pm Height 62 inches 5'2" Weight 114.50 lb Heart Rate 80 /min BP Systolic 107 mmHg BP Diastolic 78 mmHg Respiratory Rate 16 /min BMI (Body Mass Index) 20.9 kg/m2 06/30/2017 11:32am Weight 116.00 lb Heart Rate 78 /min BP Systolic Sitting 120 mmHg BP Diastolic Sitting 62 mmHg Respiratory Rate 14 /min O2 % BldC Oximetry 96 % 03/31/2017 9:04am Weight 120.00 lb Heart Rate 80 /min BP Systolic Sitting 120 mmHg BP Diastolic Sitting 72 mmHg O2 % BldC Oximetry 95 % 03/21/2017 12:58pm Weight 121.00 lb Heart Rate 88 /min BP Systolic Sitting 134 mmHg BP Diastolic Sitting 68 mmHg Body Temperature 97.4 F O2 % BldC Oximetry 98 % 03/07/2017 11:28am Height 62 inches 5'2" Weight 118.38 lb Heart Rate 80 /min BP Systolic 132 mmHg BP Diastolic 72 mmHg BMI (Body Mass Index) 21.6 kg/m2 09/30/2016 8:47am Weight 115.00 lb Heart Rate 68 /min BP Systolic Sitting 126 mmHg BP Diastolic Sitting 80 mmHg Respiratory Rate 15 /min O2 % BldC Oximetry 98 % 05/30/2016 10:49am Weight 113.12 lb Heart Rate 70 /min BP Systolic 100 mmHg BP Diastolic 60 mmHg Body Temperature 97.4 F O2 % BldC Oximetry 98 % 01/29/2016 1:36pm Weight 115.00 lb with shoes Heart Rate 72 /min BP Systolic Sitting 140 mmHg BP Diastolic Sitting 82 mmHg O2 % BldC Oximetry 97 % 11/08/2015 11:31am Height 62 inches 5'2" Weight 115.00 lb Heart Rate 72 /min BP Systolic Sitting 128 mmHg BP Diastolic Sitting 68 mmHg Respiratory Rate 14 /min BMI (Body Mass Index) 21.0 kg/m2 08/29/2015 10:20am Weight 122.00 lb Heart Rate 68 /min BP Systolic Sitting 140 mmHg BP Diastolic Sitting 56 mmHg O2 % BldC Oximetry 98 % 05/30/2015 10:57am Height 62 inches 5'2" Weight 122.00 lb Heart Rate 87 /min BP Systolic Sitting 138 mmHg BP Diastolic Sitting 62 mmHg Body Temperature 96.7 F Pain Level 0 O2 % BldC Oximetry 95 % BMI (Body Mass Index) 22.3 kg/m2 05/09/2015 10:39am Height 62 inches 5'2" Weight 122.00 lb Heart Rate 72 /min BP Systolic Sitting 144 mmHg BP Diastolic Sitting 82 mmHg Respiratory Rate 16 /min BMI (Body Mass Index) 22.3 kg/m2 11/08/2014 10:49am Height 62 inches 5'2" Weight 124.00 lb Heart Rate 76 /min BP Systolic Sitting 122 mmHg BP Diastolic Sitting 66 mmHg Respiratory Rate 16 /min BMI (Body Mass Index) 22.7 kg/m2 12/20/2013 10:46am Weight 127.00 lb Heart Rate 66 /min BP Systolic Sitting 122 mmHg BP Diastolic Sitting 78 mmHg 11/15/2013 10:31am Weight 129.00 lb Heart Rate 66 /min BP Systolic Sitting 128 mmHg BP Diastolic Sitting 84 mmHg 11/09/2013 11:10am Height 62 inches 5'2" Weight 128.00 lb Heart Rate 72 /min BP Systolic Sitting 116 mmHg BP Diastolic Sitting 60 mmHg Respiratory Rate 16 /min BMI (Body Mass Index) 23.4 kg/m2 11/08/2013 10:40am Weight 128.00 lb Heart Rate 80 /min BP Systolic Sitting 128 mmHg BP Diastolic Sitting 82 mmHg Body Temperature 98.9 F 10/20/2013 1:23pm Height 62 inches 5'2" Weight 131.00 lb Heart Rate 80 /min BP Systolic Sitting 128 mmHg BP Diastolic Sitting 62 mmHg Respiratory Rate 16 /min BMI (Body Mass Index) 24.0 kg/m2 09/14/2013 2:11pm Height 62 inches 5'2" Weight 130.00 lb Heart Rate 72 /min BP Systolic Sitting 130 mmHg BP Diastolic Sitting 68 mmHg Respiratory Rate 16 /min BMI (Body Mass Index) 23.8 kg/m2 08/16/2013 10:24am Weight 131.00 lb Heart Rate 90 /min BP Systolic Sitting 138 mmHg did not take meds yet BP Diastolic Sitting 81 mmHg did not take meds yet Body Temperature 97.2 F 05/03/2013 2:03pm Weight 132.50 lb Heart Rate 70 /min BP Systolic Sitting 124 mmHg BP Diastolic Sitting 60 mmHg 04/01/2013 1:58pm Weight 131.00 lb Heart Rate 86 /min BP Systolic Sitting 130 mmHg BP Diastolic Sitting 78 mmHg 10/07/2012 3:04pm Height 62.5 inches 5'2.50" Weight 130.00 lb Heart Rate 72 /min BP Systolic Sitting 150 mmHg BP Diastolic Sitting 70 mmHg BMI (Body Mass Index) 23.4 kg/m2 09/02/2012 9:40am Height 62.75 inches 5'2.75" Weight 129.00 lb Heart Rate 73 /min BP Systolic Sitting 130 mmHg BP Diastolic Sitting 72 mmHg BMI (Body Mass Index) 23.0 kg/m2 08/19/2012 10:04am Height 62.75 inches 5'2.75" Weight 129.00 lb Heart Rate 88 /min BP Systolic Sitting 146 mmHg BP Diastolic Sitting 72 mmHg BMI (Body Mass Index) 23.0 kg/m2 05/11/2012 10:42am Height 62.75 inches 5'2.75" Weight 130.00 lb Heart Rate 72 /min BP Systolic Sitting 124 mmHg BP Diastolic Sitting 68 mmHg BMI (Body Mass Index) 23.2 kg/m2 04/15/2012 9:34am Height 62.75 inches 5'2.75" Weight 124.00 lb Heart Rate 68 /min BP Systolic Sitting 142 mmHg BP Diastolic Sitting 82 mmHg BMI (Body Mass Index) 22.1 kg/m2 03/04/2012 10:02am Height 62.75 inches 5'2.75" Weight 128.00 lb Heart Rate 84 /min BP Systolic Sitting 156 mmHg BP Diastolic Sitting 80 mmHg BMI (Body Mass Index) 22.9 kg/m2 07/10/2011 8:20am Height 62.75 inches 5'2.75" Weight 127.00 lb Heart Rate 80 /min BP Systolic Sitting 155 mmHg BP Diastolic Sitting 90 mmHg BMI (Body Mass Index) 22.7 kg/m2 06/12/2011 8:42am Height 63 inches 5'3" Weight 128.00 lb Heart Rate 80 /min BP Systolic Sitting 148 mmHg l BP Diastolic Sitting 72 mmHg l BMI (Body Mass Index) 22.7 kg/m2 05/08/2011 8:48am Height 63 inches 5'3" Weight 125.00 lb Heart Rate 60 /min BP Systolic Sitting 125 mmHg BP Diastolic Sitting 82 mmHg BMI (Body Mass Index) 22.1 kg/m2 02/18/2011 1:55pm Height 63 inches 5'3" Weight 128.50 lb Heart Rate 80 /min BP Systolic Sitting 132 mmHg BP Diastolic Sitting 70 mmHg BMI (Body Mass Index) 22.8 kg/m2 01/08/2011 8:52am Height 62 inches 5'2" Weight 127.00 lb Heart Rate 81 /min BP Systolic 148 mmHg BP Diastolic 80 mmHg BMI (Body Mass Index) 23.2 kg/m2 06/13/2010 9:38am Weight 127.00 lb Heart Rate 80 /min BP Systolic Sitting 154 mmHg BP Diastolic Sitting 84 mmHg 12/12/2009 10:21am Weight 128.00 lb Heart Rate 76 /min BP Systolic Sitting 140 mmHg BP Diastolic Sitting 76 mmHg 07/04/2009 11:15am Heart Rate 76 /min BP Systolic Sitting 140 mmHg BP Diastolic Sitting 76 mmHg 06/20/2009 11:10am Weight 129.00 lb Heart Rate 72 /min BP Systolic Sitting 142 mmHg BP Diastolic Sitting 74 mmHg 03/27/2009 9:58am Height 62.5 inches 5'2.50" Weight 127.00 lb down 9# Heart Rate 76 /min BP Systolic Sitting 158 mmHg BP Diastolic Sitting 74 mmHg BMI (Body Mass Index) 22.9 kg/m2 09/12/2008 10:42am BP Systolic Sitting 180 mmHg Repeat BP at 10:43: 148/80 BP Diastolic Sitting 100 mmHg Repeat BP at 10:43: 148/80 02/22/2008 10:51am Height 62.5 inches 5'2.50" Weight 136.00 lb Heart Rate 72 /min BP Systolic Sitting 148 mmHg BP Diastolic Sitting 82 mmHg BMI (Body Mass Index) 24.5 kg/m2 11/24/2007 3:36pm Height 62.5 inches 5'2.50" Heart Rate 72 /min BP Systolic Sitting 114 mmHg BP Diastolic Sitting 72 mmHg 04/20/2007 12:02pm Height 62.5 inches 5'2.50" Weight 137.00 lb Heart Rate 84 /min BP Systolic Sitting 120 mmHg BP Diastolic Sitting 80 mmHg BMI (Body Mass Index) 24.7 kg/m2 Results Test Date Facility Test Result H/L Range Note Laboratory test 08/03/2018 [facility] Hemoglobin A1c 6.6 5-7 finding Urinalysis Profile 03/10/2018 [facility] Urine Color Yellow [address] [place] [address] [phone] Urine Appearance Clear Urine Specific [place] 1.035 High 1.010-1.030 Urine pH 5.0 N 5-9 Urine Urobilinogen Negative Negative Urine Ketones Negative Negative Urine Protein Negative Negative Urine Leukocytes Trace Abnormal Negative Urine Blood Negative Negative * * Abnormal Negative 2 Urine Nitrite Negative Negative Urine Bilirubin Negative Negative Urine Glucose 3+(>=500 mg/dL) Abnormal Negative Urine White Blood Cell Trace(0-5/hpf) Absent Urine Red Blood Cell Absent Absent Urine Bacteria Absent Absent Urine Squamous Epithelial Cell Present Abnormal Absent Urine Culture And 03/10/2018 [facility] Urine Culture SEE RESULT [address] [place], [place] [id number] [phone] Laboratory test 02/02/2018 [facility] In House Hemoglobin A1c 6.7 5-7 finding Lipid Profile 10/23/2017 [facility] Triglycerides 143 mg/dL 4, 5 (Trig/Chol/HDL) [address] [place] [address] [phone] Cholesterol 160 mg/dL 6 HDL Cholesterol 46.9 mg/dL 7 LDL Cholesterol 85 mg/dL 8 Laboratory test 09/27/2017 [facility] Point of Care 198 mg/dL High 70-100 [address] [place] [address] [phone] Urinalysis 09/26/2017 [facility] Urine Color Straw Profile [address] [place] [address] [phone] Urine Appearance Clear Urine Specific [place] 1.035 High 1.010-1.030 Urine pH 7.0 N 5-9 Urine Urobilinogen Negative Negative Urine Ketones Negative Negative Urine Protein Negative Negative Urine Leukocytes Trace Abnormal Negative Urine Blood Negative Negative * * Abnormal Negative 10 Urine Nitrite Negative Negative Urine Bilirubin Negative Negative Urine Glucose 3+(>=500 mg/dL) Abnormal Negative Urine White Blood Cell Trace(0-5/hpf) Absent Urine Red Blood Cell 1+(3-5/hpf) Abnormal Absent Urine Bacteria 1+ Abnormal Absent Urine Culture And 09/26/2017 [facility] Urine Culture SEE RESULT [address] [place] [address] [phone] CBC Auto Diff 09/26/2017 [facility] White Blood 8.1 10^3/uL N 3.5-[address] Count 0.8 [place] [address] [phone] Red Blood Count 5.01 10^6/uL N 4.0-5.4 Hemoglobin 15.3 g/dL N 12.0-16.0 Hematocrit 44 % N 35-47 Mean Corpuscular Volume 88 fL N 80-97 Mean Corpuscular Hemoglobin 31 pg N 27-31 Mean Corpuscular HGB Conc 35 g/dL N 31-36 Red Cell Distribution Width 14 % N 10.5-15 Platelet Count 215 10^3/uL N 150-450 Mean Platelet Volume 9.8 um3 N 7.4-10.4 Abs Neutrophils 5.5 10^3/uL N 1.5-7.7 Abs Lymphocytes 1.8 10^3/uL N 1.0-4.8 Abs Monocytes 0.7 10^3/uL N 0-0.8 Abs Eosinophils 0.1 10^3/uL N 0-0.6 Abs Basophils 0 10^3/uL N 0-0.2 Abs Nucleated RBC 0 10^3/uL Granulocyte % 67.9 % N 38-83 Lymphocyte % 22.1 % Low 25-47 Monocyte % 8.6 % High 0-7 Eosinophil % 0.9 % N 0-6 Basophil % 0.5 % N 0-2 Nucleated Red Blood Cells % 0.1 Comp Metabolic Panel 09/26/2017 [facility] Sodium 135 mmol/L Low 139-[address] [place] [address] [phone] Potassium 4.2 mmol/L N 3.5-5.0 Chloride 96 mmol/L Low 101-111 Co2 Carbon Dioxide 32 mmol/L N 22-32 Anion Gap 7 mmol/L N 2-11 Glucose 404 mg/dL High 70-100 Blood Urea Nitrogen 15 mg/dL N 6-24 Creatinine 0.81 mg/dL N 0.51-0.95 BUN/Creatinine Ratio 18.5 N 8-20 Calcium 10.5 mg/dL High 8.6-10.3 Total Protein 7.7 g/dL N 6.4-8.9 Albumin 4.8 g/dL N 3.2-5.2 Globulin 2.9 g/dL N 2-4 Albumin/Globulin Ratio 1.7 N 1-3 Total Bilirubin 0.90 mg/dL N 0.2-1.0 Alkaline Phosphatase 66 U/L N 34-104 Alt 13 U/L N 7-52 Ast 13 U/L N 13-39 Egfr Non- 68.6 >60 Egfr 88.2 >60 12 Laboratory test 09/26/2017 [facility] Hemoglobin A1c 10.5 % High 4.0-5.6 [address] (Glyco HGB) [place] [address] [phone] Laboratory test 06/30/2017 [facility] Hemoglobin A1c 7.5 High 5-7 finding Urine 04/05/2017 [facility] Ur Microalbumin < 15.[address] (mg/L) mg/[place] [address] [phone] Urine Creatinine 96.74 mg/dL N Urine Microalbumin/Creatinine TNP ug/mg N <31 14 Urinalysis Profile 04/05/2017 [facility] Urine Color Yellow N [address] [place] [address] [phone] Urine Appearance Clear N Urine Specific [place] 1.030 N 1.010-1.030 Urine pH 5.0 N 5-9 Urine Urobilinogen Negative N Negative Urine Ketones Negative N Negative Urine Protein Negative N Negative Urine Leukocytes Trace Abnormal Negative Urine Blood 1+ Abnormal Negative Urine Nitrite Negative N Negative Urine Bilirubin Negative N Negative Urine Glucose 3+(>=500 mg/dL) Abnormal Negative Urine White Blood Cell Trace(0-5/hpf) N Absent Urine Red Blood Cell Trace(0-2/hpf) N Absent Urine Bacteria Absent N Absent Urine Squamous Epithelial Cell Present Abnormal Absent Urine Culture And 04/05/2017 [facility] Urine Culture SEE RESULT [address] [place] [address] [phone] Laboratory test 03/31/2017 [facility] Hemoglobin A1c 9.4 High 5-7 finding Urine Culture And 03/21/2017 [facility] Urine Culture SEE RESULT [address] [place] [address] [phone] Ua Routine 03/21/2017 [facility] Ua Specific 1.005 [place] Ua PH 6 Ua Color yellow Ua Appera clear Ua WBC trace Ua Protein negative Ua Glucose 1000 Ua Ketones negative Ua Bilirubin negative Ua Urobilinogen 1 Ua Nitrite negative Ua Occult Blood large Lipid Profile 10/10/2016 [facility] Triglycerides 62 mg/dL N 17 (Trig/Chol/HDL) [address] [place] [address] [phone] Cholesterol 159 mg/dL N 18 HDL Cholesterol 41.3 mg/dL N 19 LDL Cholesterol 105 mg/dL N 20 Basic Metabolic Panel 10/10/2016 [facility] Sodium 141 mmol/L N 133-145 [address] [place] [address] [phone] Potassium 4.0 mmol/L N 3.5-5.0 Chloride 103 mmol/L N 101-111 Co2 Carbon Dioxide 33 mmol/L High 22-32 Anion Gap 5 mmol/L N 2-11 Glucose 116 mg/dL High 70-100 Blood Urea Nitrogen 25 mg/dL High 6-24 Creatinine 0.66 mg/dL N 0.51-0.95 BUN/Creatinine Ratio 37.9 High 8-20 Calcium 9.9 mg/dL N 8.6-10.3 Egfr Non- 87.1 N >60 Egfr 112.0 N >60 21 Laboratory test 09/30/2016 [facility] Hemoglobin A1c 6.6 5-7 finding Laboratory test 05/30/2016 [facility] Hemoglobin A1c 7.0 5-7 finding Comp Metabolic Panel 08/31/2015 [facility] Sodium 140 mmol/L N 133-145 [address] [place] [address] [phone] Potassium 3.8 mmol/L N 3.5-5.0 Chloride 102 mmol/L N 101-111 Co2 Carbon Dioxide 34 mmol/L High 22-32 Anion Gap 4 mmol/L N 2-11 Glucose 96 mg/dL N 70-100 Blood Urea Nitrogen 18 mg/dL N 6-24 Creatinine 0.64 mg/dL N 0.51-0.95 BUN/Creatinine Ratio 28.1 High 8-20 Calcium 9.9 mg/dL N 8.6-10.3 Total Protein 6.3 g/dL Low 6.4-8.9 Albumin 4.4 g/dL N 3.2-5.2 Globulin 1.9 g/dL Low 2-4 Albumin/Globulin Ratio 2.3 N 1-3 Total Bilirubin 1.00 mg/dL N 0.2-1.0 Alkaline Phosphatase 41 U/L N 34-104 Alt 20 U/L N 7-52 Ast 16 U/L N 13-39 Egfr Non- 90.5 N >60 Egfr 116.3 N >60 22 Lipid Profile 08/31/2015 [facility] Triglycerides 90 mg/dL N 23 (Trig/Chol/HDL) [address] [place] [address] [phone] Cholesterol 159 mg/dL N 24 HDL Cholesterol 47.6 mg/dL N 25 LDL Cholesterol 93 mg/dL N 26 Laboratory test 08/29/2015 [facility] Hemoglobin A1c 5.5 5-7 finding Urine Microalbumin 08/29/2015 [facility] Ur Microalbumin 9.0 mg/ L N Random [address] (mg/L) [place] [address] [phone] Urine Creatinine 108.12 mg/dL N Urine Microalbumin/Creatinine 8.3 ug/mg N <31 Laboratory test 05/30/2015 [facility] Hemoglobin A1c 9.8 High 5-7 finding Surgical 07/04/2014 [facility] S RUN DATE: [address] 07/05/ [place] [address] <SEE NOTE> [phone] Laboratory test 11/15/2013 [facility] Hemoglobin A1c 6.9 5-7 finding Creatinine 10/08/2013 [facility] Creatinine 0.64 mg/dL N 0.51- 0.[address] [place] [address] [phone] Egfr Non- 91.0 N >60 Egfr 117.0 N >60 28 Laboratory test finding 10/08/2013 TSH (Thyroid Stimulating 1.08 IU/mL N 0.34-5.60 Horm) Vitamin B12 350 pg/mL N 180-914 29 Free T4 1.04 ng/mL N 0.61-1.12 Laboratory test 08/16/2013 [facility] Hemoglobin A1c 7.6 High 5-7 finding Vitamin D, 25 07/12/2013 [facility] 25-Hydroxy Vitamin 5.3 ng/ mL Hydroxy [address] D[address] [place] [address] [phone] 25-Hydroxy Vitamin D3 31 ng/mL 25-Hydroxy Vitamin D Total 36 ng/mL 30 Lipid Profile 07/12/2013 [facility] Triglycerides 67 mg/dL 40 -200 (Trig/Chol/HDL) [address] [place] [address] [phone] Cholesterol 184 mg/dL Less than 200 HDL Cholesterol 58 mg/dL 40-60 31 Cholesterol/HDL Ratio 3.2 Average 1-4.44 LDL Cholesterol 112.6 High Less Than 100 32 Basic Metabolic Panel 07/12/2013 [facility] Sodium 139 mmol/L 133-[address] [place] [address] [phone] Potassium 4.1 mmol/L 3.5-5.0 Chloride 103 mmol/L 101-111 Co2 Carbon Dioxide 30.0 mmol/L 22-32 Anion Gap 6.0 mmol/L 2-11 Glucose 150 mg/dL High 70-100 Blood Urea Nitrogen 16 mg/dL 6-24 Creatinine 0.70 mg/dL 0.50-1.40 BUN/Creatinine Ratio 22.9 High 8-20 Calcium 9.7 mg/dL 8.1-9.9 Egfr Non- 82.0 >60 Egfr 105.5 >60 33 Urine Microalbumin 04/01/2013 [facility] Ur Microalbumin 7.0 mg/ L [address] (mg/L) [place] [address] [phone] Urine Creatinine 53.8 mg/dL Urine Microalbumin/Creatinine 13.0 Less Than 31 Laboratory test 04/01/2013 [facility] Hemoglobin A1c 7.5 High 5-7 finding HIV 1/2 AB 09/02/2012 [facility] HIV 1 2 Nonreactive Nonreactive [address] [place] [address] [phone] Syphilis Screen 09/02/2012 [facility] Syphilis IgG Nonreactive Nonreactive [address] [place] [address] [phone] RPR TNP Nonreactive RPR Titer TNP Pediatric/Maternal NO Laboratory test 09/02/2012 [facility] TSH (Thyroid 1.00 0.34- 5.[address] Stimulating miu/[place] [address] Horm) [phone] Vitamin B12 391 pg/mL 180-914 Vitamin D, 25 09/02/2012 [facility] 25-Hydroxy Vitamin 11 ng/mL Hydroxy [address] D[address] [place] [address] [phone] 25-Hydroxy Vitamin D3 19 ng/mL 25-Hydroxy Vitamin D Total 30 ng/mL 37 Laboratory test 09/02/2012 [facility] Hemoglobin A1c 7.1 High 5-7 finding Bilrubin And 05/11/2012 [facility] Total Bilirubin 1.2 mg/dL 0.4-1.5 Indirect [address] [place] [address] [phone] Direct Bilirubin 0.1 mg/dL 0.1-0.5 Indirect Bilirubin 1.1 mg/dL High 0.3-1.0 Pthi 04/16/2012 [facility] PTH Intact 3.3 PMOL/L 1.3-9.0 [address] [place] [address] [phone] Calcium (PTH Intact) 10.0 mg/dL High 8.1-9.9 Vitamin D, 25 04/16/2012 [facility] 25-Hydroxy Vitamin <4.0 ng/ mL Hydroxy [address] [address] [phone] 25-Hydroxy Vitamin D3 30 ng/mL 25-Hydroxy Vitamin D Total 30 ng/mL 38 Lipid Profile 04/16/2012 [facility] Triglycerides 60 mg/dL 40 -200 (Trig/Chol/HDL) [address] [place] [address] [phone] Cholesterol 193 mg/dL Less than 200 39 HDL Cholesterol 64 mg/dL High 40-60 40 Cholesterol/HDL Ratio 3.0 AVERAGE 1-4.44 LDL Cholesterol 117.0 mg/dL High Less Than 100 41 Comp Metabolic Panel 04/16/2012 [facility] Sodium 139 mmol/L 133-145 [address] [place] [address] [phone] Potassium 4.0 mmol/L 3.5-5.0 Chloride 102 mmol/L 101-111 Co2 Carbon Dioxide 30.0 mmol/L 22-32 Anion Gap 7.0 mmol/L 2-11 Glucose 116 mg/dL High 70-100 Blood Urea Nitrogen 13 mg/dL 6-24 Creatinine 0.50 mg/dL 0.50-1.40 BUN/Creatinine Ratio 26.0 High 8-20 Calcium 9.6 mg/dL 8.1-9.9 Total Protein 6.6 GM/DL 6.2-8.1 Albumin 4.5 GM/DL 3.2-5.2 Globulin 2.1 GM/DL 2-4 Albumin/Globulin Ratio 2.1 1-3 Total Bilirubin 1.4 mg/dL High 0.1-1.0 42 Alkaline Phosphatase 60 U/L 30-110 Alt 24 U/L 14-54 Ast 21 U/L 12-42 Egfr Non- 121.3 >60 Egfr 156.0 >60 43 Urine Microalbumin 04/15/2012 [facility] Ur Microalbumin 8.0 mg/ L [address] (Mg/L) [place] [address] [phone] Urine Creatinine 112.0 mg/dL Urine Microalbumin/Creatinine 7.1 UG/MG Less Than 31 Laboratory test 03/04/2012 [facility] Hemoglobin A1c 6.9 5-7 finding Laboratory test 07/10/2011 [facility] Hemoglobin A1c 7.4 High 5-7 finding Syphilis Screen 06/12/2011 [facility] RPR NON-REACT Nonreactive [address] [place] [address] [phone] RPR Titer TNP Pediatric/Maternal NO Laboratory test finding 06/12/2011 [facility] BUN 20 mg/dL 6- [address] [place] [address] [phone] CPK (Creatine Kinase) 82 U/L 0-170 Laboratory test 02/04/2011 [facility] Hemoglobin A1c 7.2 % High Less [address] Than 6[address]0 [place] [address] [phone] CBC Auto Diff 02/04/2011 [facility] White Blood 4.8 CUMM 4.8- 10.[address] [place] [address] [phone] Red Cell Count 4.49 CUMM 4.2-5.4 Hemoglobin 14.1 g/dL 12.0-16.0 Hematocrit 40 % 35-47 Mean Corpuscular Volume 90 um3 79-97 Mean Corpuscular Hemoglob 31 pg 27-31 Mean Corpuscular HGB Cone 35 g/dL 32-36 Redcell Distribution WDTH 14 % 10.5-15 Platelet Count 169 CUMM 150-450 Mean Platelet Volume 11.6 um3 High 7.4-10.4 Gran % 68.4 % 38-83 Lymph % 20.8 % Low 25-47 Mononuclear % 8.7 % 1-9 Eosinophil % 1.8 % 0-6 Basophil % 0.3 % 0-2 Abs Lymphs 1.0 1.0-4.8 Abs Mononuclear 0.4 0-0.8 Absolute Neutrophil Count 3.3 1.5-7.7 Abs Eosinophils 0.1 0-0.6 Abs Basophils 0 0-0.2 Lipid Profile 02/04/2011 [facility] Triglyceride 90 mg/dL 40- 200 (Trig/Chol/HDL) [address] [place] [address] [phone] Cholesterol 180 mg/dL Less Than 200 46 High Density Lipoprotein 51 mg/dL 40-60 47 Cholesterol/HDL Ratio 3.53 AVERAGE 1-4.44 Low Density Lipoprotein 111 mg/dL High Less Than 100 48 Comp Metabolic Panel 02/04/2011 [facility] Sodium 139 mmol/L 135-145 [address] [place] [address] [phone] Potassium 3.5 mmol/L 3.5-5.0 Chloride 103 mmol/L 101-111 Co2 (Carbon Dioxide) 30.0 mmol/L 22-32 Anion Gap 6.0 mmol/L 2-11 49 Glucose 115 mg/dL High 70-100 BUN 15 mg/dL 6-24 Creatinine 0.5 mg/dL Low 0.50-1.40 One Over Creatinine 2.00 BUN/Creatinine Ratio 30.0 High 8-20 Calcium 9.6 mg/dL 8.1-9.9 Total Protein 6.6 GM/DL 6.2-8.1 Albumin 4.5 GM/DL 3.2-5.2 Globulin 2.1 GM/DL 2-4 Albumin/Globulin Ratio 2.1 1-3 Bilirubin Total 1.2 mg/dL 0.4-1.5 50 Alkaline Phosphatase 57 U/L 30-110 Alt (SGPT) 18 U/L 14-54 Ast (Sgot) 16 U/L 12-42 eGFR Non- 121.6 > 60 eGFR 156.4 > [address] [facility] 02/04/2011 [facility] TSH 1.90 MIU/ML 0.34- 5.60 Panel [address] [place] [address] [phone] Basic Metabolic 06/06/2010 [facility] Sodium 138 mmol/L 135- 145 Panel [address] [place] [address] [phone] Potassium 3.7 mmol/L 3.5-5.0 Chloride 104 mmol/L 101-111 Co2 (Carbon Dioxide) 30.0 mmol/L 22-32 Anion Gap 4.0 mmol/L 2-11 52 Glucose 107 mg/dL High 70-100 BUN 19 mg/dL 6-24 Creatinine 0.60 mg/dL 0.50-1.40 One Over Creatinine 1.60 BUN/Creatinine Ratio 31.7 High 8-20 Calcium 9.6 mg/dL 8.1-9.9 eGFR Non- 105.0 > 60 eGFR 127.1 > 60 53 Laboratory test 06/06/2010 [facility] Hemoglobin A1c 6.7 % High Less Than 54 finding [address] [facility] 6.0 [place] [address] [phone] Lipid Profile 06/06/2010 [facility] Triglyceride 79 mg/dL 40- 200 (Trig/Chol/HDL) [address] [place] [address] [phone] Cholesterol 178 mg/dL Less Than 200 55 High Density Lipoprotein 44 mg/dL 40-60 56 Cholesterol/HDL Ratio 4.05 AVERAGE 1-4.44 Low Density Lipoprotein 118 mg/dL High Less Than 100 57 Laboratory test finding 06/06/2010 [facility] Ast (Sgot) 20 U/L 12-42 [address] [place] [address] [phone] Alt (SGPT) 23 U/L 14-54 [facility] 12/06/2009 [facility] TSH 1.40 MIU/ML 0.34- 5.60 Panel [address] [place] [address] [phone] CMP Panel 12/06/2009 [facility] Sodium 136 mmol/L 135-145 [address] [place] [address] [phone] Potassium 4.1 mmol/L 3.5-5.0 Chloride 101 mmol/L 101-111 Co2 (Carbon Dioxide) 29.0 mmol/L 22-32 Anion Gap 6.0 mmol/L 2-11 58 Glucose 120 mg/dL High 70-100 59 BUN 17 mg/dL 6-24 Creatinine 0.60 mg/dL 0.50-1.40 One Over Creatinine 1.60 BUN/Creatinine Ratio 28.3 High 8-20 Calcium 9.3 mg/dL 8.1-9.9 60 Total Protein 6.3 GM/DL 6.2-8.1 Albumin 4.3 GM/DL 3.2-5.2 Globulin 2.0 GM/DL 2-4 Albumin/Globulin Ratio 2.2 1-3 Bilirubin Total 1.2 mg/dL 0.4-1.5 61 Alkaline Phosphatase 47 U/L 30-110 Alt (SGPT) 20 U/L 14-54 Ast (Sgot) 21 U/L 12-42 eGFR Non- 105.0 > 60 eGFR 127.1 > 60 62 Lipid Panel 12/06/2009 [facility] Triglyceride 90 mg/dL 40- [address] [place] [address] [phone] Cholesterol 192 mg/dL Less Than 200 63 High Density Lipoprotein 47 mg/dL 40-60 64 Cholesterol/HDL Ratio 4.09 AVERAGE 1-4.44 Low Density Lipoprotein 127 mg/dL High Less Than 100 65 CBC W/Manual 12/06/2009 [facility] White Blood 4.1 CUMM Low 4.8-10.[address] [place] [address] [phone] Red Cell Count 4.40 CUMM 4.2-5.4 Hemoglobin 13.4 g/dL 12.0-16.0 Hematocrit 40 % 35-47 Mean Corpuscular Volume 90 um3 79-97 Mean Corpuscular Hemoglob 31 pg 27-31 Mean Corpuscular HGB Cone 34 g/dL 32-36 Redcell Distribution WDTH 13 % 10.5-15 Platelet Count 159 CUMM 150-450 Mean Platelet Volume 10.8 um3 High 7.4-10.4 Polysegmented Neutrophil 66 % 38-83 Lymphocyte 22 % Low 25-47 Monocyte 8 % 0-13 Eosinophil 4 % 0-6 Absolute Neutrophil Count 2.7 RBC Morphology NORMAL Laboratory test 12/06/2009 [facility] Hemoglobin A1c 6.4 % High Less [address] [place] [address] [phone] Surgical 06/28/2009 [facility] Surgical ------- [address] Pathology ------- [place] [address] -- <SEE [phone] NOTE> Lipid Profile 06/13/2009 [facility] Triglyceride 77 40-200 68 (Trig/Chol/HDL) [address] mg/[place] [address] [phone] Cholesterol 211 mg/dL High Less Than 200 69 High Density Lipoprotein 55 mg/dL 40-60 70 Cholesterol/HDL Ratio 3.84 AVERAGE 1-4.44 Low Density Lipoprotein 141 mg/dL High Less Than 100 71 Comp Metabolic Panel 03/22/2009 [facility] Sodium 139 mmol/L 135-[address] [place] [address] [phone] Potassium 4.2 mmol/L 3.5-5.0 Chloride 104 mmol/L 101-111 Co2 (Carbon Dioxide) 30.0 mmol/L 22-32 Anion Gap 5.0 mmol/L 2-11 72 Glucose 77 mg/dL 70-100 73 BUN 20 mg/dL 6-24 Creatinine 0.60 mg/dL 0.50-1.40 One Over Creatinine 1.60 BUN/Creatinine Ratio 33.3 High 8-20 Calcium 10.0 mg/dL High 8.1-9.9 74 Total Protein 6.3 GM/DL 6.2-8.1 Albumin 4.4 GM/DL 3.2-5.2 Globulin 1.9 GM/DL Low 2-4 Albumin/Globulin Ratio 2.3 1-3 Bilirubin Total 1.2 mg/dL 0.4-1.5 75 Alkaline Phosphatase 41 U/L 30-110 Alt (SGPT) 16 U/L 14-54 Ast (Sgot) 18 U/L 12-42 eGFR Non- 105.4 > 60 eGFR 127.5 > 60 76 Lipid Profile 03/22/2009 [facility] Triglyceride 81 mg/dL 40- 200 (Trig/Chol/HDL) [address] [place] [address] [phone] Cholesterol 202 mg/dL High Less Than 200 77 High Density Lipoprotein 53 mg/dL 40-60 78 Cholesterol/HDL Ratio 3.81 AVERAGE 1-4.44 Low Density Lipoprotein 133 mg/dL High Less Than 100 79 Laboratory test 03/22/2009 [facility] TSH 1.09 MIU/ML 0.34- 5.[address] [place] [address] [phone] CBC With Manual 03/22/2009 [facility] White Blood 4.4 CUMM Low 4.8-10.[address] [place] [address] [phone] Red Cell Count 4.19 CUMM Low 4.2-5.4 Hemoglobin 12.6 g/dL 12.0-16.0 Hematocrit 38 % 35-47 Mean Corpuscular Volume 90 um3 79-97 Mean Corpuscular Hemoglob 30 pg 27-31 Mean Corpuscular HGB Cone 34 g/dL 32-36 Redcell Distribution WDTH 13 % 10.5-15 Platelet Count 168 CUMM 150-450 Mean Platelet Volume 10.2 um3 7.4-10.4 Polysegmented Neutrophil 64 % 38-83 Lymphocyte 23 % Low 25-47 Monocyte 9 % 0-13 Eosenophil 4 % 0-6 Absolute Neutrophil Count 2.8 Anisocytosis SLIGHT Laboratory test 03/22/2009 [facility] Hemoglobin A1c 6.3 % High Less Than [address] 6[address] [place] [address] [phone] Lipid Profile 09/12/2008 [facility] Triglyceride 113 40-200 (Trig/Chol/HDL) [address] mg/dL [place], [place] [phone] Cholesterol 202 mg/dL High Less Than 200 81 High Density Lipoprotein 51 mg/dL 40-60 82 Cholesterol/HDL Ratio 3.96 AVERAGE 1-4.44 Low Density Lipoprotein 128 mg/dL High Less Than 100 83 Laboratory test 09/12/2008 [facility] Glucose 121 mg/dL High 70-100 [address] [place] [address] [phone] Hemoglobin A1c 6.5 % High <6.0 85 Lipid Profile 07/18/2008 [facility] Triglyceride 137 mg/dL 40 -200 86 (Trig/Chol/HDL) [address] [place] [address] [phone] Cholesterol 206 mg/dL High Less Than 200 87 High Density Lipoprotein 49 mg/dL 40-60 88 Cholesterol/HDL Ratio 4.20 AVERAGE 1-4.44 Low Density Lipoprotein 130 mg/dL High Less Than 100 89 Liver Function 07/18/2008 [facility] Total Protein 6.3 GM/DL 6.2-8.[address] [place] [address] [phone] Albumin 4.2 GM/DL 3.2-5.2 Globulin 2.1 GM/DL 2-4 Albumin/Globulin Ratio 2.0 1-3 Bilirubin Total 1.0 mg/dL 0.4-1.5 Bilirubin Direct 0.1 mg/dL 0.1-0.5 Indirect Bilirubin 0.9 mg/dL High 0.1-0.75 Alkaline Phosphatase 43 U/L 30-110 Alt (SGPT) 16 U/L 14-54 Ast (Sgot) 17 U/L 12-42 Laboratory test 07/18/2008 [facility] Glucose 141 mg/dL High 70-100 90 finding [address] [place] [address] [phone] Hemoglobin A1c 6.7 % High <6.0 91 Lipid Profile 04/18/2008 [facility] Triglyceride 109 mg/dL 40 -200 92 (Trig/Chol/HDL) [address] [place] [address] [phone] Cholesterol 207 mg/dL High Less Than 200 93 High Density Lipoprotein 44 mg/dL 40-60 94 Cholesterol/HDL Ratio 4.70 AVERAGE High 1-4.44 Low Density Lipoprotein 141 mg/dL High Less Than 100 95 Laboratory test finding 04/18/2008 [facility] Alt (SGPT) 18 U/L 14-54 [address] [place] [address] [phone] Ast (Sgot) 19 U/L 12-42 Basic Metabolic Panel 02/15/2008 [facility] Sodium 141 mmol/L 135-145 96 [address] [place] [address] [phone] Potassium 4.4 mmol/L 3.5-5.0 Chloride 106 mmol/L 101-111 Co2 (Carbon Dioxide) 31.0 mmol/L 22-32 Anion Gap 4.0 mmol/L 2-11 97 Glucose 60 mg/dL Low 70-100 98 BUN 21 mg/dL 6-24 Creatinine 0.8 mg/dL 0.5-1.4 One Over Creatinine 1.25 BUN/Creatinine Ratio 26.3 High 8-20 Calcium 9.8 mg/dL 8.1-9.9 99 Laboratory test finding 02/15/2008 [facility] Alt (SGPT) 18 U/L 14-54 [address] [place] [address] [phone] Ast (Sgot) 20 U/L 12-42 Hemoglobin A1c 6.6 % High <6.0 100 Lipid Profile 02/15/2008 [facility] Triglyceride 120 mg/dL 40 -200 (Trig/Chol/HDL) [address] [place] [address] [phone] Cholesterol 222 mg/dL High Less Than 200 101 High Density Lipoprotein 44 mg/dL 40-60 102 Cholesterol/HDL Ratio 5.05 AVERAGE High 1-4.44 Low Density Lipoprotein 154 mg/dL High Less Than 100 103 Laboratory test 10/12/2007 [facility] Alt (SGPT) 24 U/L 14- 54 104 finding [address] [place] [address] [phone] Ast (Sgot) 23 U/L 12-42 Hemoglobin A1c 6.4 % High <6.0 105 Lipid Profile 10/12/2007 [facility] Triglyceride 96 mg/dL 40- 200 (Trig/Chol/HDL) [address] [place] [address] [phone] Cholesterol 235 mg/dL High Less Than 200 106 High Density Lipoprotein 47 mg/dL 40-60 107 Cholesterol/HDL Ratio 5.00 AVERAGE High 1-4.44 Low Density Lipoprotein 169 mg/dL High Less Than 100 108 Basic Metabolic Panel 10/12/2007 [facility] Sodium 140 mmol/L 135-145 [address] [place] [address] [phone] Potassium 5.3 mmol/L High 3.5-5.0 Chloride 106 mmol/L 101-111 Co2 (Carbon Dioxide) 31.0 mmol/L 22-32 Anion Gap 3.0 mmol/L 2-11 109 Glucose 129 mg/dL High 70-105 BUN 15 mg/dL 6-24 Creatinine 0.7 mg/dL 0.5-1.4 One Over Creatinine 1.42 BUN/Creatinine Ratio 21.4 High 8-20 Calcium 9.8 mg/dL 8.7-10.2 CBC W/ Electronic 04/13/2007 [facility] White Blood 4.5 CUMM Low 4.8-10.8 [address] [place] [address] [phone] Abs Basophils 0 0-0.2 Abs Eosinophils 0 0-0.6 Absolute Neutrophil Count 3.0 1.5-7.7 Abs Lymphs 1.0 1.0-4.8 Abs Mononuclear 0.4 0-0.8 Basophil % 0.4 % 0-2 Hematocrit 38 % 35-47 Hemoglobin 13.1 g/dL 12.0-16.0 Eosinophil % 0.8 % 0-6 Gran % 66.8 % 38-83 Lymph % 22.7 % 20-45 Mean Corpuscular HGB Cone 34 g/dL 32-36 Mean Corpuscular Hemoglob 31 pg 27-31 Mean Corpuscular Volume 90 um3 79-97 Mean Platelet Volume 10.4 um3 7.4-10.4 Mononuclear % 9.3 % High 1-9 Platelet Count 187 CUMM 150-450 Red Cell Count 4.23 CUMM 4.2-5.4 Redcell Distribution WDTH 14 % 10.5-15 Laboratory test 04/13/2007 [facility] TSH 0.79 MIU/ML 0.34- 5.60 [address] [place], [place] [address] [phone] Lipid Profile 04/13/2007 [facility] Cholestero 5.72 High 1- 4.44 (Trig/Chol/HDL) [address] l/[place] [address] Ratio [phone] Cholesterol 286 mg/dL High Less Than 200 112 Triglyceride 130 mg/dL 40-200 High Density Lipoprotein 50 mg/dL 40-60 Low Density Lipoprotein 210 mg/dL High Less Than 100 113 Comp Metabolic Panel 04/13/2007 [facility] One Over Creatinine 1.[address] [place], [place] [id number] [phone] Anion Gap 5.0 mmol/L 2-11 114 Albumin/Globulin Ratio 2.0 1-3 Albumin 4.2 GM/DL 3.2-5.2 Alkaline Phosphatase 39 U/L 30-110 Alt (SGPT) 18 U/L 14-54 Ast (Sgot) 20 U/L 12-42 BUN 21 mg/dL 6-24 Calcium 9.4 mg/dL 8.7-10.2 Chloride 99 mmol/L Low 101-111 Co2 (Carbon Dioxide) 30.0 mmol/L 22-32 Globulin 2.1 GM/DL 2-4 Glucose 152 mg/dL High 70-105 Potassium 4.3 mmol/L 3.5-5.0 Sodium 134 mmol/L Low 135-145 Bilirubin Total 0.8 mg/dL 0.4-1.5 Total Protein 6.3 GM/DL 6.2-8.1 BUN/Creatinine Ratio 30.0 High 8-20 Creatinine 0.7 mg/dL 0.5-1.4 1 [id number] 2 *Ascorbic acid is present which may interfere with detection of blood. 3 SEE RESULT BELOW Name: SHANEASHLEEASHLEY C : [address]: Keerthi Gottlieb MD Acct: [id number] Unit: [id number] AGE: 77 Location: [facility] Re03/10/18 SEX: F Status: REG REF SPEC: [id number] ABDIRASHID: 03/10/18-[address] [facility] [address]: Keerthi Gottlieb MD REQ: [id number] RECD: 03/10/18 STATUS: COMP _ SOURCE: URINE SPDESC: ORDERED: Urine Culture Procedure Result Reported Site Urine Culture Final 03/11/18- 1320 ML Organism 1 STREP GROUP B [place] Count 10-25,000 (Moderate) CFU/ML Organism 2 NORMAL GERRY [place] Count 10-25,000 (Moderate) CFU/ML Susceptibility testing of penicillins and other B-lactams approved by FDA for treatment of Streptococcus pyogenes (Group A Strep) and Streptococcus agalactiae (Group B Strep) is not necessary for clinical purposes and need not be done routinely, since as with vancomycin, resistant strains have not been recognized. (CLSI D454-P27;p.66) Positive isolates will be saved for one week. Please call the Microbiology Laboratory if further susceptibility testing is needed. * ML - Main Lab . END OF REPORT DEPARTMENT OF PATHOLOGY, [address] [place] [address] Cortes Cormier M.D. Director [facility] # [id number] Desirable: <150 Borderline High: 150-199 High: 200-499 Very High: >500 6 Desirable: <200 Borderline High: 200-239 High: >239 7 Low: <40 Desirable: 40-60 High: >60 8 Desirable: <100 Near Optimal: 100-129 Borderline High: 130-159 High: 160-189 Very High: >189 9 Preschool Assistant Principal: [id number] *Ascorbic acid is present which may interfere with detection of blood. 11 SEE RESULT BELOW Name: ASHLEY PRESSLEY : [address]: Sonja Grayson MD Acct: [id number] Unit: [id number] AGE: 76 Location: [place] [address]-01 Re09/26/17 SEX: F Status: ADM IN SPEC: [id number] ABDIRASHID: 09/26/[address] [facility] [address]: Rc LAINEZ REQ: [id number] RECD: 09/26/17 STATUS: EVARISTO REILLY DR: Keerthi Mcknight MD _ SOURCE: URINE SPDESC: ORDERED: Urine Culture Procedure Result Reported Site Urine Culture Final 09/28/17- 1038 ML Organism 1 STREP GROUP B [place] Count 25-50,000 (Moderate) CFU/ML Susceptibility testing of penicillins and other B-lactams approved by FDA for treatment of Streptococcus pyogenes (Group A Strep) and Streptococcus agalactiae (Group B Strep) is not necessary for clinical purposes and need not be done routinely, since as with vancomycin, resistant strains have not been recognized. (CLSI C477-G00;p.66) Positive isolates will be saved for one week. Please call the Microbiology Laboratory if further susceptibility testing is needed. * ML - Main Lab . END OF REPORT DEPARTMENT OF PATHOLOGY, [address] [place] [address] Cortes Cormier M.D. Director [facility] # [id number] 12 Because ethnic data is not always readily available, this report includes an eGFR for both -Americans and non- Americans. The National Kidney Disease Education Program (NKDEP) does not endorse the use of the MDRD equation for patients that are not between the ages of 18 and 70, are , have extremes of body size, muscle mass, or nutritional status, or are non- or non-. According to the National Kidney Foundation, irrespective of diagnosis, the stage of the disease is based on the level of kidney function: Stage Description GFR(mL/min/1.73 m(2)) 1 Kidney damage with normal or decreased GFR 90 2 Kidney damage with mild decrease in GFR 60-89 3 Moderate decrease in GFR 30-59 4 Severe decrease in GFR 15-29 5 Kidney failure <15 (or dialysis) 13 Therapeutic target for the treatment of diabetes mellitus patients is <7% HBA1C, and in selective patients <6.0%. Please refer to [place] [employer] diabetic care guidelines for further information. 14 Unable to calculate due to low microalbumin 15 SEE RESULT BELOW Name: ASHLEY PRESSLEY : [address]: Keerthi Gottlieb MD Acct: [id number] Unit: [id number] AGE: 76 Location: [facility] Re04/05/17 SEX: F Status: REG REF SPEC: [id number] ABDIRASHID: 04/05/[address]: Keerthi Gottlieb MD REQ: [id number] RECD: 04/05/17 STATUS: COMP _ SOURCE: URINE SPDESC: ORDERED: Urine Culture Procedure Result Reported Site Urine Culture Final 04/06/17- 1210 ML No growth of clinically significant organisms * ML - [facility] ([facility]) . END OF REPORT * ML=Testing performed at Main Lab DEPARTMENT OF PATHOLOGY, [address] [place], [place] [address] Cortes Cormier M.D. Director [facility] # [id number] 16 SEE RESULT BELOW Name: SHANEASHLEEASHLEY : [address]: Luis Carlos Amezcua NP Acct: [id number] Unit: [id number] AGE: 76 Location: [facility] Re03/21/17 SEX: F Status: REG REF SPEC: [id number] ABDIRASHID: 03/21/17[facility] DR: Luis Carlos Amezcua NP REQ: [id number] RECD: 03/21/17 STATUS: COMP _ SOURCE: URINE SPDESC: ORDERED: Urine Culture COMMENTS: [id number] Procedure Result Reported Site Urine Culture Final 03/24/17- 0820 ML Organism 1 ESCHERICHIA COLI [place] Count 10-25,000 (Moderate) CFU/ML Organism 2 STREP GROUP B [place] Count >100,000 (Many) CFU/ML Organism 3 NORMAL GERRY [place] Count 25-50,000 (Moderate) CFU/ML Susceptibility testing of penicillins and other B-lactams approved by FDA for treatment of Streptococcus pyogenes (Group A Strep) and Streptococcus agalactiae (Group B Strep) is not necessary for clinical purposes and need not be done routinely, since as with vancomycin, resistant strains have not been recognized. (CLSI X913-K94;p.66) Positive isolates will be saved for one week. Please call the Microbiology Laboratory if further susceptibility testing is needed. 1. ESCHERICHIA COLI M.I.C. RX --------- ------ Ampicillin 8 S Cefazolin <=4 S Cefepime <=1 S Ceftriaxone <=1 S Ciprofloxacin <=0.25 S Gentamicin <=1 S CONTINUED ON NEXT PAGE * ML=Testing performed at Main Lab DEPARTMENT OF PATHOLOGY, [address] [place] [address] Cortes Cormier M.D. Director [facility] # [id number] Patient: HUANDIONGarcia Mcgee [id number] (Continued) Specimen: [id number] Collected: 03/21/17 Received: 03/21/17 (Continued) Procedure Result Reported Site Urine Culture Final (continued) 03/24/17819 1. ESCHERICHIA COLI (continued) M.I.C. RX --------- ------ Levofloxacin <=0.12 S Meropenem <=0.25 S Nitrofurantoin <=16 S Tetracycline 2 S Pipercillin/Tazobactam <=4 S Trimethoprim/Sulfamethoxazole <=20 S Amoxicillin/Clavulanic Acid 4 S Aztreonam <=1 S Contact the Microbiology Department for any additional antibiotic reporting. * ML - MAIN LAB ([facility]) . END OF REPORT * ML=Testing performed at Main Lab DEPARTMENT OF PATHOLOGY, [address] [place] [address] Cortes Cormier M.D. Director [facility] # [id number] 17 Desirable <150 Borderline high 150-199 High 200-499 Very High >500 18 Desirable <200 Borderline high 200-239 High >239 19 Low <40 Desirable: 40-60 High: >60 20 Desirable: <100 mg/dL Near Optimal: 100-129 mg/dL Borderline High: 130-159 mg/dL High: 160-189 mg/dL Very High: >189 mg/dL 21 Because ethnic data is not always readily available, this report includes an eGFR for both -Americans and non- Americans. The National Kidney Disease Education Program (NKDEP) does not endorse the use of the MDRD equation for patients that are not between the ages of 18 and 70, are , have extremes of body size, muscle mass, or nutritional status, or are non- or non-. According to the National Kidney Foundation, irrespective of diagnosis, the stage of the disease is based on the level of kidney function: Stage Description GFR(mL/min/1.73 m(2)) 1 Kidney damage with normal or decreased GFR 90 2 Kidney damage with mild decrease in GFR 60-89 3 Moderate decrease in GFR 30-59 4 Severe decrease in GFR 15-29 5 Kidney failure <15 (or dialysis) 22 Because ethnic data is not always readily available, this report includes an eGFR for both -Americans and non- Americans. The National Kidney Disease Education Program (NKDEP) does not endorse the use of the MDRD equation for patients that are not between the ages of 18 and 70, are , have extremes of body size, muscle mass, or nutritional status, or are non- or non-. According to the National Kidney Foundation, irrespective of diagnosis, the stage of the disease is based on the level of kidney function: Stage Description GFR(mL/min/1.73 m(2)) 1 Kidney damage with normal or decreased GFR 90 2 Kidney damage with mild decrease in GFR 60-89 3 Moderate decrease in GFR 30-59 4 Severe decrease in GFR 15-29 5 Kidney failure <15 (or dialysis) 23 Desirable <150 Borderline high 150-199 High 200-499 Very High >500 24 Desirable <200 Borderline high 200-239 High >239 25 Low <40 Desirable: 40-60 High: >60 26 Desirable: <100 mg/dL Near Optimal: 100-129 mg/dL Borderline High: 130-159 mg/dL High: 160-189 mg/dL Very High: >189 mg/dL 27 RUN DATE: 07/05/14 [facility] LAB LIVE PAGE 1 RUN TIME: [address] [place] [id number] Specimen Inquiry Name: ASHLEY PRESSLEY : [address]: Sachin Bunch MD Acct: [id number] Unit: [id number] AGE: 73 Location: [facility] Re07/04/14 SEX: F Status: REG REF SPEC: [id number] ABDIRASHID: [id number]/[id number] [facility] DR: Sachin Bunch MD REQ: [id number] RECD: 07/04/14 STATUS: FAMILIA REILLY DR: Keerthi Gottlieb MD _ ORDERED: LEVEL IV FINAL DIAGNOSIS Colon, ileocecal nodule, biopsy: -- Tubular adenoma. -- No high grade dysplasia or malignancy. CLINICAL HISTORY Screening colonoscopy with personal history of colon polyps. Usual bowel habit - every day with no blood. Negative family history for colorectal carcinoma POST-OPERATIVE DIAGNOSIS Screening colonoscopy to cecum with ease - ileocecal valve sessile; right colon polyp GROSS DESCRIPTION The specimen is received in formalin labeled, Ileocecal Nodule, and consists of a 0.5 x 0.4 x 0.1 cm aggregate of multiple herrera-pink irregular soft tissue fragments, which is submitted entirely in one cassette. Signed (signature on file) Cortes Cormier MD 1356 END OF REPORT * ML=Testing performed at Main Lab DEPARTMENT OF PATHOLOGY, [address] [place] [address] Cortes Cormier M.D. Director [facility] # [id number] 28 Because ethnic data is not always readily available, this report includes an eGFR for both -Americans and non- Americans. The National Kidney Disease Education Program (NKDEP) does not endorse the use of the MDRD equation for patients that are not between the ages of 18 and 70, are , have extremes of body size, muscle mass, or nutritional status, or are non- or non-. According to the National Kidney Foundation, irrespective of diagnosis, the stage of the disease is based on the level of kidney function: Stage Description GFR(mL/min/1.73 m(2)) 1 Kidney damage with normal or decreased GFR 90 2 Kidney damage with mild decrease in GFR 60-89 3 Moderate decrease in GFR 30-59 4 Severe decrease in GFR 15-29 5 Kidney failure <15 (or dialysis) 29 Normal Range 180 to 914 Indeterminate Range 145 to 180 Deficient Range <145 30 -- REFERENCE VALUE -- 25-HYDROXY D TOTAL (D2+D3) Optimum levels in the healthy population are 20-50, patients with bone disease may benefit from higher levels within this range. Test Performed by: [place] [address] Configuration Manager: Gabriel Montana III, M.D. 31 HDL Interpretation: Undesirable: High Risk: Less than 40 mg/dL Desirable: Low Risk: Greater than 60 mg/dL 32 LDL Interpretation: Low Risk Optimal Level: LDL Less than 100 mg/dL Near or Above Optimal: LDL 100-129 mg/dL Borderline High Risk: LDL 130-159 mg/dL High Risk: LDL 160-189 mg/dL Very High Risk: LDL Greater than 189 mg/dL 33 Because ethnic data is not always readily available, this report includes an eGFR for both -Americans and non- Americans. The National Kidney Disease Education Program (NKDEP) does not endorse the use of the MDRD equation for patients that are not between the ages of 18 and 70, are , have extremes of body size, muscle mass, or nutritional status, or are non- or non-. According to the National Kidney Foundation, irrespective of diagnosis, the stage of the disease is based on the level of kidney function: Stage Description GFR(mL/min/1.73 m(2)) 1 Kidney damage with normal or decreased GFR 90 2 Kidney damage with mild decrease in GFR 60-89 3 Moderate decrease in GFR 30-59 4 Severe decrease in GFR 15-29 5 Kidney failure <15 (or dialysis) 34 Microalbuminuria in a random sample is defined as: Microalbumin/Creatinine ratio of 30-299 ug/mg. 35 It is recognized that currently available assays for the detection of antibodies to HIV-1 and/or HIV-2 may not detect all infected individuals. HIV antibodies may be undetectable in some stages of the infection and in some clinical conditions. The performance of this assay has not been established for populations of infants or children. Assayed by Chemiluminescence Microparticle Immunoassay on the Siemens Advia Centaur CP. Values obtained with different methods or kits cannot be used interchangeably.The diagnostic specificity of the ADVIA Centaur 1/O/2 Enhanced assay in the low risk population was 99.90% (6052/6058) with a 95% confidence interval of 99.78 to 99.96%. 36 Warning: A positive result is not useful for establishing a diagnosis of syphilis. In most situations, such a result may reflect a prior treated infection; a negative result can exclude a diagnosis of syphilis except for incubating or early primary disease. 37 -- REFERENCE VALUE -- 25-HYDROXY D TOTAL (D2+D3) Optimum levels in the normal population are 25-80 Test Performed by: [place] [address] Configuration Manager: Gabriel Montana III, M.D. 38 -- REFERENCE VALUE -- 25-HYDROXY D TOTAL (D2+D3) Optimum levels in the normal population are 25-80 Test Performed by: [place] [address] Configuration Manager: Gabriel Montana III, M.D. R 39 Desirable: Less than 200 MG/DL Borderline-High Risk: 200-239 MG/DL High-Risk: 240 MG/DL and over 40 HDL Interpretation: Undesirable: High Risk: Less than 40 MG/DL Desirable: Low Risk: Greater than 60 MG/DL 41 LDL Interpretation: Low Risk Optimal Level: LDL Less than 100 MG/DL Near or Above Optimal: LDL 100-129 MG/DL Borderline High Risk: LDL 130-159 MG/DL High Risk: LDL 160-189 MG/DL Very High Risk: LDL Greater than 189 MG/DL 42 A metabolite of Naproxen, O-desmethylnaproxen, has been shown to interfere with the Dorothy- method for measuring total bilirubin. Samples from patients who have taken Naproxen have shown spurious elevation in total bilirubin levels. 43 Because ethnic data is not always readily available, this report includes an eGFR for both -Americans and non- Americans. The National Kidney Disease Education Program (NKDEP) does not endorse the use of the MDRD equation for patients that are not between the ages of 18 and 70, are , have extremes of body size, muscle mass, or nutritional status, or are non- or non-. According to the National Kidney Foundation, irrespective of diagnosis, the stage of the disease is based on the level of kidney function: Stage Description GFR(mL/min/1.73 m(2)) 1 Kidney damage with normal or decreased GFR 90 2 Kidney damage with mild decrease in GFR 60-89 3 Moderate decrease in GFR 30-59 4 Severe decrease in GFR 15-29 5 Kidney failure <15 (or dialysis) 44 Microalbuminuria in a random sample is defined as: Microalbumin/Creatinine ratio of 30-299 ug/mg. 45 THERAPEUTIC TARGET FOR THE TREATMENT OF DIABETES MELLITUS PATIENTS IS <7% HBA1C, AND IN SELECTIVE PATIENTS <6.0%. PLEASE REFER TO [place] DIABETIC CARE GUIDELINES FOR FURTHER INFORMATION. 46 CHOLESTEROL INTERPRETATION: Desirable: Less than 200 MG/DL Borderline-High Risk: 200-239 MG/DL High-Risk: 240 MG/DL and over 47 HDL INTERPRETATION: Undesirable: High Risk: Less than 40 MG/DL Desirable: Low Risk: Greater than 60 MG/DL 48 LDL INTERPRETATION: Low Risk Optimal Level: LDL Less than 100 MG/DL Near or Above Optimal: LDL 100-129 MG/DL Borderline High Risk: LDL 130-159 MG/DL High Risk: LDL 160-189 MG/DL Very High Risk: LDL Greater than 189 MG/DL 49 Anion gap measurement may be of limited value in the presence of any alkalosis, especially in a combined acid base disorder. . 50 A metabolite of Naproxen, O-desmethylnaproxen, has been shown to interfere with the Jendrassik-Vasyl method for measuring total bilirubin. Samples from patients who have taken Naproxen have shown spurious elevation in total bilirubin levels. 51 Because ethnic data is not always readily available, this report includes an eGFR for both -Americans and non- Americans. The National Kidney Disease Education Program (NKDEP) does not endorse the use of the MDRD equation for patients that are not between the ages of 18 and 70, are , have extremes of body size, muscle mass, or nutritional status, or are non- or non-. According to the National Kidney Foundation, irrespective of diagnosis, the stage of the disease is based on the level of kidney function: Stage Description GFR(mL/min/1.73 m(2)) 1 Kidney damage with normal or decreased GFR 90 2 Kidney damage with mild decrease in GFR 60-89 3 Moderate decrease in GFR 30-59 4 Severe decrease in GFR 15-29 5 Kidney failure <15 (or dialysis) 52 Anion gap measurement may be of limited value in the presence of any alkalosis, especially in a combined acid base disorder. . 53 Because ethnic data is not always readily available, this report includes an eGFR for both -Americans and non- Americans. The National Kidney Disease Education Program (NKDEP) does not endorse the use of the MDRD equation for patients that are not between the ages of 18 and 70, are , have extremes of body size, muscle mass, or nutritional status, or are non- or non-. According to the National Kidney Foundation, irrespective of diagnosis, the stage of the disease is based on the level of kidney function: Stage Description GFR(mL/min/1.73 m(2)) 1 Kidney damage with normal or decreased GFR 90 2 Kidney damage with mild decrease in GFR 60-89 3 Moderate decrease in GFR 30-59 4 Severe decrease in GFR 15-29 5 Kidney failure <15 (or dialysis) 54 THERAPEUTIC TARGET FOR THE TREATMENT OF DIABETES MELLITUS PATIENTS IS <7% HBA1C, AND IN SELECTIVE PATIENTS <6.0%. PLEASE REFER TO [place] DIABETIC CARE GUIDELINES FOR FURTHER INFORMATION. 55 CHOLESTEROL INTERPRETATION: Desirable: Less than 200 MG/DL Borderline-High Risk: 200-239 MG/DL High-Risk: 240 MG/DL and over 56 HDL INTERPRETATION: Undesirable: High Risk: Less than 40 MG/DL Desirable: Low Risk: Greater than 60 MG/DL 57 LDL INTERPRETATION: Low Risk Optimal Level: LDL Less than 100 MG/DL Near or Above Optimal: LDL 100-129 MG/DL Borderline High Risk: LDL 130-159 MG/DL High Risk: LDL 160-189 MG/DL Very High Risk: LDL Greater than 189 MG/DL 58 Anion gap measurement may be of limited value in the presence of any alkalosis, especially in a combined acid base disorder. . 59 Note change in reference range as of 01/28/08. The change was based on recommendations from the [place] [employer]. 60 Please note change in reference range effective 07 . 61 A metabolite of Naproxen, O-desmethylnaproxen, has been shown to interfere with the Jendrassik-Vasyl method for measuring total bilirubin. Samples from patients who have taken Naproxen have shown spurious elevation in total bilirubin levels. 62 Because ethnic data is not always readily available, this report includes an eGFR for both -Americans and non- Americans. The National Kidney Disease Education Program (NKDEP) does not endorse the use of the MDRD equation for patients that are not between the ages of 18 and 70, are , have extremes of body size, muscle mass, or nutritional status, or are non- or non-. According to the National Kidney Foundation, irrespective of diagnosis, the stage of the disease is based on the level of kidney function: Stage Description GFR(mL/min/1.73 m(2)) 1 Kidney damage with normal or decreased GFR 90 2 Kidney damage with mild decrease in GFR 60-89 3 Moderate decrease in GFR 30-59 4 Severe decrease in GFR 15-29 5 Kidney failure <15 (or dialysis) 63 CHOLESTEROL INTERPRETATION: Desirable: Less than 200 MG/DL Borderline-High Risk: 200-239 MG/DL High-Risk: 240 MG/DL and over 64 HDL INTERPRETATION: Undesirable: High Risk: Less than 40 MG/DL Desirable: Low Risk: Greater than 60 MG/DL 65 LDL INTERPRETATION: Low Risk Optimal Level: LDL Less than 100 MG/DL Near or Above Optimal: LDL 100-129 MG/DL Borderline High Risk: LDL 130-159 MG/DL High Risk: LDL 160-189 MG/DL Very High Risk: LDL Greater than 189 MG/DL 66 THERAPEUTIC TARGET FOR THE TREATMENT OF DIABETES MELLITUS PATIENTS IS <7% HBA1C, AND IN SELECTIVE PATIENTS <6.0%. PLEASE REFER TO [place] DIABETIC CARE GUIDELINES FOR FURTHER INFORMATION. 67 ---- RUN DATE: 06/30/09 [facility] NMI LIVE PAGE 1 RUN TIME: 1206 Specimen Inquiry RUN USER: INTERFACE -- Name: ASHLEY PRESSLEY Everardo Status: REG REF Re06/28/09 Age/Sex: 68/F Unit#: [id number] Location: [address] [place] [address].B. : [birth year] -- Specimen: [id number] SOUT Spec Date: 06/28/[address]: Sachin jenkins MD Spec Type: SURGICAL P Received: 06/29/09-1032 Copies to: Brent Lew III, MD SPECIMEN 1) BIOPSY SIGMOID NODULE AT 35 CM 2) BIOPSY DISTAL RECTAL POLYP AT 2 CM HISTORY POST-OP DIAGNOSIS: Moderate sigmoid diverticulosis, colon nodules CLINICAL INFORMATION: Colon polyps, negative family history, denies GI sy mptoms GROSS DESCRIPTION 1) Specimen received in formalin labelled Ashley Shaneashlee, Sigmoid Nodule at 35 cm. and consists of one fragment of herrera-brown tissue measuring 0.3 x 0.3 x 0.3 cm. Submitted entirely, one cassette labelled one. 2) Specimen received in formalin labelled Ashley Petrillose, Distal Rectal Polyp and consists of three fragments of herrera-yellow tissue, each measuring 0.2 x 0.2 x 0.2 cm. Submitted entirely, one cassette labelled two. DIAGNOSIS 1) Colon, sigmoid nodule at 35 cm., biopsy: Hyperplastic polyp. 2) Colon, distal rectal polyp at 2 cm., biopsy: Hyperplastic polyp. Signed Electronically by: CORTES CORMIER MD 06/30/09 1205 -- -- DEPARTMENT OF PATHOLOGY, [address] [place] [address] [facility] Permit #[id number] Cortes Cormier M.D. Director Cassy Gaitan M.D. Publications Editor Dir wright -- 68 PATIENT MAY HAVE RESULTS PER DOCTOR'S AUTHORIZATION. Questions regarding this report should be directed to your doctor. 69 CHOLESTEROL INTERPRETATION: Desirable: Less than 200 MG/DL Borderline-High Risk: 200-239 MG/DL High-Risk: 240 MG/DL and over 70 HDL INTERPRETATION: Undesirable: High Risk: Less than 40 MG/DL Desirable: Low Risk: Greater than 60 MG/DL 71 LDL INTERPRETATION: Low Risk Optimal Level: LDL Less than 100 MG/DL Near or Above Optimal: LDL 100-129 MG/DL Borderline High Risk: LDL 130-159 MG/DL High Risk: LDL 160-189 MG/DL Very High Risk: LDL Greater than 189 MG/DL 72 Anion gap measurement may be of limited value in the presence of any alkalosis, especially in a combined acid base disorder. . 73 Note change in reference range as of 01/28/08. The change was based on recommendations from the [place] [employer]. 74 Please note change in reference range effective 07 . 75 A metabolite of Naproxen, O-desmethylnaproxen, has been shown to interfere with the Jendrassik-Hazleton method for measuring total bilirubin. Samples from patients who have taken Naproxen have shown spurious elevation in total bilirubin levels. 76 Because ethnic data is not always readily available, this report includes an eGFR for both -Americans and non- Americans. The National Kidney Disease Education Program (NKDEP) does not endorse the use of the MDRD equation for patients that are not between the ages of 18 and 70, are , have extremes of body size, muscle mass, or nutritional status, or are non- or non-. According to the National Kidney Foundation, irrespective of diagnosis, the stage of the disease is based on the level of kidney function: Stage Description GFR(mL/min/1.73 m(2)) 1 Kidney damage with normal or decreased GFR 90 2 Kidney damage with mild decrease in GFR 60-89 3 Moderate decrease in GFR 30-59 4 Severe decrease in GFR 15-29 5 Kidney failure <15 (or dialysis) 77 CHOLESTEROL INTERPRETATION: Desirable: Less than 200 MG/DL Borderline-High Risk: 200-239 MG/DL High-Risk: 240 MG/DL and over 78 HDL INTERPRETATION: Undesirable: High Risk: Less than 40 MG/DL Desirable: Low Risk: Greater than 60 MG/DL 79 LDL INTERPRETATION: Low Risk Optimal Level: LDL Less than 100 MG/DL Near or Above Optimal: LDL 100-129 MG/DL Borderline High Risk: LDL 130-159 MG/DL High Risk: LDL 160-189 MG/DL Very High Risk: LDL Greater than 189 MG/DL 80 THERAPEUTIC TARGET FOR THE TREATMENT OF DIABETES MELLITUS PATIENTS IS <7% HBA1C, AND IN SELECTIVE PATIENTS <6.0%. PLEASE REFER TO [place] [employer] DIABETIC CARE GUIDELINES FOR FURTHER INFORMATION. 81 CHOLESTEROL INTERPRETATION: Desirable: Less than 200 MG/DL Borderline-High Risk: 200-239 MG/DL High-Risk: 240 MG/DL and over 82 HDL INTERPRETATION: Undesirable: High Risk: Less than 40 MG/DL Desirable: Low Risk: Greater than 60 MG/DL 83 LDL INTERPRETATION: Low Risk Optimal Level: LDL Less than 100 MG/DL Near or Above Optimal: LDL 100-129 MG/DL Borderline High Risk: LDL 130-159 MG/DL High Risk: LDL 160-189 MG/DL Very High Risk: LDL Greater than 189 MG/DL 84 Note change in reference range as of 01/28/08. The change was based on recommendations from the [place] [employer]. 85 THERAPEUTIC TARGET FOR THE TREATMENT OF DIABETES MELLITUS PATIENTS IS <7% HBA1C, AND IN SELECTIVE PATIENTS <6.0%. PLEASE REFER TO [place] [employer] DIABETIC CARE GUIDELINES FOR FURTHER INFORMATION. 86 FASTING PATIENT MAY HAVE RESULTS PER DOCTOR'S AUTHORIZATION. Questions regarding this report should be directed to your doctor. 87 CHOLESTEROL INTERPRETATION: Desirable: Less than 200 MG/DL Borderline-High Risk: 200-239 MG/DL High-Risk: 240 MG/DL and over 88 HDL INTERPRETATION: Undesirable: High Risk: Less than 40 MG/DL Desirable: Low Risk: Greater than 60 MG/DL 89 LDL INTERPRETATION: Low Risk Optimal Level: LDL Less than 100 MG/DL Near or Above Optimal: LDL 100-129 MG/DL Borderline High Risk: LDL 130-159 MG/DL High Risk: LDL 160-189 MG/DL Very High Risk: LDL Greater than 189 MG/DL 90 Note change in reference range as of 01/28/08. The change was based on recommendations from the [place] [employer]. 91 THERAPEUTIC TARGET FOR THE TREATMENT OF DIABETES MELLITUS PATIENTS IS <7% HBA1C, AND IN SELECTIVE PATIENTS <6.0%. PLEASE REFER TO [place] [employer] DIABETIC CARE GUIDELINES FOR FURTHER INFORMATION. 92 FASTING PATIENT MAY HAVE RESULTS PER DOCTOR'S AUTHORIZATION. Questions regarding this report should be directed to your doctor. 93 CHOLESTEROL INTERPRETATION: Desirable: Less than 200 MG/DL Borderline-High Risk: 200-239 MG/DL High-Risk: 240 MG/DL and over 94 HDL INTERPRETATION: Undesirable: High Risk: Less than 40 MG/DL Desirable: Low Risk: Greater than 60 MG/DL 95 LDL INTERPRETATION: Low Risk Optimal Level: LDL Less than 100 MG/DL Near or Above Optimal: LDL 100-129 MG/DL Borderline High Risk: LDL 130-159 MG/DL High Risk: LDL 160-189 MG/DL Very High Risk: LDL Greater than 189 MG/DL 96 PATIENT MAY HAVE RESULTS PER DOCTOR'S AUTHORIZATION. Questions regarding this report should be directed to your doctor. 97 Anion gap measurement may be of limited value in the presence of any alkalosis, especially in a combined acid base disorder. . 98 Note change in reference range as of 01/28/08. The change was based on recommendations from the [place] [employer]. 99 Please note change in reference range effective 07 . 100 THERAPEUTIC TARGET FOR THE TREATMENT OF DIABETES MELLITUS PATIENTS IS <7% HBA1C, AND IN SELECTIVE PATIENTS <6.0%. PLEASE REFER TO [place] DIABETIC CARE GUIDELINES FOR FURTHER INFORMATION. 101 CHOLESTEROL INTERPRETATION: Desirable: Less than 200 MG/DL Borderline-High Risk: 200-239 MG/DL High-Risk: 240 MG/DL and over 102 HDL INTERPRETATION: Undesirable: High Risk: Less than 40 MG/DL Desirable: Low Risk: Greater than 60 MG/DL 103 LDL INTERPRETATION: Low Risk Optimal Level: LDL Less than 100 MG/DL Near or Above Optimal: LDL 100-129 MG/DL Borderline High Risk: LDL 130-159 MG/DL High Risk: LDL 160-189 MG/DL Very High Risk: LDL Greater than 189 MG/DL 104 FASTING PATIENT MAY HAVE RESULTS PER DOCTOR'S AUTHORIZATION. Questions regarding this report should be directed to your doctor. 105 THERAPEUTIC TARGET FOR THE TREATMENT OF DIABETES MELLITUS PATIENTS IS <7% HBA1C, AND IN SELECTIVE PATIENTS <6.0%. PLEASE REFER TO [facility] DIABETIC CARE GUIDELINES FOR FURTHER INFORMATION. 106 CHOLESTEROL INTERPRETATION: Desirable: Less than 200 MG/DL Borderline-High Risk: 200-239 MG/DL High-Risk: 240 MG/DL and over 107 HDL INTERPRETATION: Undesirable: High Risk: Less than 40 MG/DL Desirable: Low Risk: Greater than 60 MG/DL 108 LDL INTERPRETATION: Low Risk Optimal Level: LDL Less than 100 MG/DL Near or Above Optimal: LDL 100-129 MG/DL Borderline High Risk: LDL 130-159 MG/DL High Risk: LDL 160-189 MG/DL Very High Risk: LDL Greater than 189 MG/DL 109 Anion gap measurement may be of limited value in the presence of any alkalosis, especially in a combined acid base disorder. . 110 PATIENT MAY HAVE RESULTS PER DOCTOR'S AUTHORIZATION. Questions regarding this report should be directed to your doctor. 111 FASTING PATIENT MAY HAVE RESULTS PER DOCTOR'S AUTHORIZATION. Questions regarding this report should be directed to your doctor. 112 Classification: High . 113 CALCULATED LDL APPROXIMATES THE VALUE OF A DIRECT LDL MEASUREMENT. Classification: Very High . 114 Anion gap measurement may be of limited value in the presence of any alkalosis, especially in a combined acid base disorder. . Procedures Date Code Description Status 09/28/2017 27653 EKG, Interpretation Only Completed 05/08/2017 [id number] Mammogram Completed 06/12/2016 79723 Stress Test Completed 06/12/2016 68433 Myocardial Perfusion Imaging Tomographic (Spect) Completed Multiple Studies 05/30/2016 13405 EKG Tracing & Interpretation Completed 07/18/2015 [id number] Diabetic Retinal Eye Exam Completed 06/22/2015 [id number] Bone Mineral Density Test Completed 06/22/2015 [id number] Mammogram Completed 07/04/2014 [id number] Colonoscopy Completed 02/14/2014 [id number] Mammogram Completed 02/04/2013 83492 EKG, Interpretation Only Completed 01/15/2013 [id number] Diabetic Retinal Eye Exam Completed 03/19/2012 [id number] Bone Mineral Density Test Completed 11/01/2011 [id number] Mammogram Completed 03/01/2011 91340 Arthroscopy,Knee,Meniscectomy Media & Lateral Completed 03/01/2011 77825 Arthroscopy,Knee,Meniscectomy Media & Lateral Completed 06/25/2004 [id number] Colonoscopy Completed Encounters Type Date Location Provider Dx Diagnosis Office Visit 02/02/2018 [facility] Keerthi Gottlieb, E11.9 Type 2 diabetes 10:10a Medicine - M.D. mellitus without [place] complications I10 Essential (primary) hypertension L60.3 Nail dystrophy M81.0 Age-related osteoporosis w/o current pathological fracture Office Visit 10/27/2017 1:45p [facility] Ramonita Davis G30.9 [facility] M.D. disease, unspecified I10 Essential (primary) hypertension E11.9 Type 2 diabetes mellitus without complications Office Visit 10/23/2017 [facility] Internal Keerthi E11.9 Type 2 diabetes 9:50a Janell Gottlieb M.D. 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 R73.9 Hyperglycemia, unspecified Office Visit 09/27/2017 11:21a [facility] [place] I16.0 Hypertensive Assoc,maxine Robbins [place] urgency Hospitalists G30.9 Alzheimer's disease, unspecified 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 Raúl Davis G30.1 [facility] Lavonne Mackey disease with late onset R63.4 Abnormal weight loss Office Visit 06/30/2017 11:50a [facility] Internal Keerthi E11.9 Type 2 diabetes Janell Gottlieb M.D. mellitus without [place] complications I10 Essential (primary) hypertension R51 Headache R31.9 Hematuria, unspecified M81.0 Age-related osteoporosis w/o current pathological fracture Office Visit 03/31/2017 9:10a [facility] Internal Keerthi E11.9 Type 2 diabetes Janell Gottlieb M.D. mellitus without [place] complications I10 Essential (primary) hypertension R31.9 Hematuria, unspecified Z12.31 Encntr screen mammogram for malignant neoplasm of breast Office Visit 03/21/2017 1:00p [facility] Internal Luis Carlos Seven, R35.0 Frequency of Medicine - CPA TAX micturition [place] Z23 Encounter for immunization Office 03/07/2017 [facility] Raúl Davis G30.1 Alzheimer's disease Visit 10:30a [facility] [place], with late onset M.D. Office 10/04/2016 [facility] Dermatology [place] L81.4 Other melanin Visit 11:10a MD Nicole hyperpigmentation L82.1 Other seborrheic keratosis Office Visit 09/30/2016 8:50a [facility] Internal Keerthi E11.9 Type 2 diabetes Janell Gottlieb M.D. mellitus without [place] complications I10 Essential (primary) hypertension E78.2 Mixed hyperlipidemia Z12.83 Encounter for screening for malignant neoplasm of skin Office Visit 05/30/2016 10:50a [facility] Internal Keerthi E11.9 Type 2 diabetes Janell Gottlieb M.D. mellitus without [place] complications M81.0 Age-related osteoporosis w/o current pathological fracture I10 Essential (primary) hypertension E78.2 Mixed hyperlipidemia Z23 Encounter for immunization R94.31 Abnormal electrocardiogram [ECG] [EKG] Office Visit 01/29/2016 1:20p [facility] Internal Keerthi E11.9 Type 2 diabetes Janell Gottlieb M.D. mellitus without [place] complications Office Visit 11/08/2015 11:45a Alli Davis G30.1 Alzheimer's disease Neurologic [place] Mackey with late onset Services [facility] Office Visit 08/29/2015 10:30a [facility] Internal Keerthi E11.65 Type 2 diabetes Janell Gottlieb M.D. 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 disease with late onset Office Visit 11/08/2014 10:45a Alli Davis 331.0 Alzheimers [facility] M.D. Disease Office Visit 12/20/2013 10:50a [facility] Internal Keerthi 250.00 Diabetes Mellitus Janell Gottlieb M.D. W/O Compl Type II [place] Or Unspec Controlled Office Visit 11/15/2013 10:30a [facility] Internal Keerthi 250.00 Diabetes Mellitus Janell Gottlieb M.D. W/O Compl Type II [place] Or Unspec Controlled 780.79 Malaise And Fatigue Other Office Visit 11/09/2013 11:00a Alli Davis 331.83 Mild Cognitive Services [facility] M.D. Impairment So Stated 780.79 Malaise And Fatigue Other Office Visit 11/08/2013 10:30a [facility] Internal Keerthi Gottlieb, 986 Toxic Effect Of Medicine Gina Banerjee Carbon Monoxide [place] 251.1 Hypoglycemia Other Spec Office Visit 10/20/2013 1:30p Alli Davis 331.83 Mild [facility] M.D. 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 Impairment So Stated 783.21 Loss Of Weight 435.9 TIA Ischemia Cerebral Transient Unspec Office Visit 08/16/2013 10:30a [facility] Internal Keerthi 250.02 Gale Gottlieb M.D. Mellitus W/O [place] Compl Type II Or Unspec Type Uncontrol 272.2 Hyperlipidemia Mixed 733.01 Osteoporosis Senile 112.1 Candidiasis The Vulva & Vagina Office Visit 05/03/2013 2:10p [facility] [place] 250.02 Gale Gottlieb M.D. Mellitus W/O [place] Compl Type II Or Unspec Type Uncontrol 331.83 Mild Cognitive Impairment So Stated V06.6 Streptococcus Pneumonia & Influenz Vaccination & Inoculation V03.82 Streptococcus Pneumoniae Vaccination Spec Other Office Visit 04/01/2013 2:10p aMrissa [place] 250.02 Gale Gottlieb M.D. Mellitus W/O [place] Compl Type II Or Unspec Type Uncontrol 401.9 Hypertension Unspec 272.2 Hyperlipidemia Mixed 268.9 Vitamin D Deficiency Unspec Office Visit 10/07/2012 3:10p [facility] Keerthi V70.0 Examination Janell Gottlieb M.D. [facility] Routine AT [facility] Care Facility 331.83 Mild Cognitive Impairment So Stated 911.4 Injury Superficial Insect Bite Trunk Nonvenomous W/O Infect V76.43 Screening Malignant Neoplasm Skin Office Visit 09/02/2012 9:00a [facility] Keerthi Gottlieb 780.93 Memory Loss Janell Lavonne [place] 250.00 Diabetes Mellitus W/O Compl Type II Or Unspec Controlled 401.9 Hypertension Unspec 272.2 Hyperlipidemia Mixed Office Visit 08/19/2012 10:10a [facility] Gottlieb 780.93 Memory Loss [facility] Lavonne [place] 401.9 Hypertension Unspec 733.01 Osteoporosis Senile 269.1 Vitamin Deficiency Other Office Visit 05/11/2012 10:50a [facility] [place] 733.01 Osteoporosis Janell Gottlieb M.D. Senile [place] 790.6 Abnormal Blood Chemistry Other Office Visit 04/15/2012 9:50a [facility] Keerthi 250.00 Diabetes Mellitus Janell Gottlieb M.D. W/O Compl Type II [place] Or Unspec Controlled 401.9 Hypertension Unspec 733.01 Osteoporosis Senile Office Visit 03/04/2012 10:10a [facility] [place] 250.00 Diabetes Mellitus Janell Gottlieb M.D. W/O Compl Type II [place] Or Unspec Controlled 700 Corns & Callosities 272.2 Hyperlipidemia Mixed 401.9 Hypertension Unspec V04.81 Need For Prophylactic Vaccination & Inoculation/Influenza V49.81 Postmenopausal Status Asymptomatic (Age-Related,Natural) Office Visit 07/10/2011 8:30a [facility] [place] 250.00 Diabetes Mellitus Janell Gottlieb M.D. W/O Compl Type II [place] Or Unspec Controlled 401.1 Hypertension Benign 272.2 Hyperlipidemia Mixed 700 Corns & Callosities v04.89 Need For Prophylactic Vaccination & Inoculation Other Virus Office Visit 06/12/2011 8:45a [facility] Keerthi 401.1 Hypertension Benign Janell Gottlieb M.D. [place] 250.00 Diabetes Mellitus W/O Compl Type II Or Unspec Controlled 780.93 Memory Loss Office Visit 05/08/2011 8:30a DO Not Use [employer] Keerthi V72.83 Examination AT Horacio Gottlieb M.D. Preoperative Other Spec 250.00 Diabetes Mellitus W/O Compl Type II Or Unspec Controlled 401.1 Hypertension Benign 272.2 Hyperlipidemia Mixed 366.10 Cataract Senile Unspec Office Visit 02/18/2011 1:40p DO Not Use [employer] Brent Fuentes V72.81 Examination AT Horacio Lew M.D. Preoperative Cardiovascular 719.46 Pain Joint Lower Leg 250.00 Diabetes Mellitus W/O Compl Type II Or Unspec Controlled 401.1 Hypertension Benign 272.0 Hypercholesterolemia Pure V04.81 Need For Prophylactic Vaccination & Inoculation/Influenza Office Visit 01/16/2011 8:00a Orthopedic Jimmie Temple, 836.0 Dislocation Knee Services Of M.D. Tear Of Medial C.M.A. Cartilage Or Meniscus Curr Office Visit 01/08/2011 8:45a Orthopedic Jimmie Temple 836.0 Dislocation Knee Services Of M.DAbby Tear Of Medial C.M.A. Cartilage Or Meniscus Curren Office Visit 06/13/2010 9:40a DO Not Use [employer] Consultant AT Brent Fuentes V04.81 Need For Horacio Lew M.D. Prophylactic Vaccination & Inoculation/Influe nza 250.00 Diabetes Mellitus W/O Compl Type II Or Unspec Controlled 401.1 Hypertension Benign 272.0 Hypercholesterolemia Pure Office Visit 12/12/2009 10:20a DO Not Use [employer] Brent Fuentes 250.00 Diabetes Mellitus AT Horacio Lew M.D. W/O Compl Type II Or Unspec Controlled 401.1 Hypertension Benign 272.0 Hypercholesterolemia Pure Office Visit 07/04/2009 10:40a DO Not Use [employer] Consult[employer] AT Brent Lew, 729.5 Pain In Limb Horacio Banerjee 724.2 Lumbago V04.81 Need For Prophylactic Vaccination & Inoculation/Influenza Office Visit 06/20/2009 DO Not Use [employer] Consultant Brent Fuentes 272.0 Hypercholesterolemia Pure 11:00a AT Horacio Lew M.D. 250.00 Diabetes Mellitus W/O Compl Type II Or Unspec Controlled 401.1 Hypertension Benign Office Visit 03/27/2009 10:00a DO Not Use [employer] Consultant Brent EAbby 250.00 Diabetes Mellitus AT Horacio Lew M.D. W/O Compl Type II Or Unspec Controlled 401.1 Hypertension Benign 272.0 Hypercholesterolemia Pure Office Visit 09/12/2008 9:45a [facility] Brent E. 427.31 Atrial Fibrillation Assoc AT Lavonne Lew [facility] 250.00 Diabetes Mellitus W/O Compl Type II Or Unspec Controlled V58.61 Anticoagulants Senior Living (Current) Use Encounter Office Visit 02/22/2008 [facility] Brent E. 272.0 Hypercholesterolemia Pure 10:45a Assoc AT Lavonne Lew [facility] 250.00 Diabetes Mellitus W/O Compl Type II Or Unspec Controlled 401.1 Hypertension Benign V03.82 Streptococcus Pneumoniae Vaccination Spec Other Office Visit 11/24/2007 2:45p [facility] Brent E. 922.1 Contusion Chest Assoc AT Lavonne Lew [facility] Office Visit 10/19/2007 10:30a [facility] Med Brent E. 250.00 Diabetes Mellitus Assoc AT Lavonne Lew W/O Compl Type II [facility] Or Unspec Controlled 272.0 Hypercholesterolemia Pure 401.1 Hypertension Benign V03.82 Streptococcus Pneumoniae Vaccination Spec Other Office Visit 04/20/2007 11:30a [facility] Med Brent E. 250.00 Diabetes Mellitus Assoc AT Lavonne Lew W/O Compl Type II [facility] Or Unspec Controlled 272.0 Hypercholesterolemia Pure 401.1 Hypertension Benign Plan of Treatment Future Appointment(s):02/15/2019 11:10 am - Keerthi Gottlieb M.D. at [facility] Internal Medicine - Itnppuauu73/09/2019 3:45 pm - Raúl Mackey M.D. at [facility] [id number]/03/2018 - Keerthi Gottlieb M.D.E11.9 Type 2 diabetes mellitus without complicationsFollow up:6 months for this and medicare [id number] Essential (primary) hypertensionNew Orders:EKG, Ordered: E78.5 Hyperlipidemia, [id number] Other specified epidermal thickeningReferral:Parish Rivera MD, HohvmyzrxoyS55.0 Age-related osteoporosis without current pathological fractuComments:Advised on weight bearing exercise, calcium intake. Should get 30 minutes sunlight during summer. Repeat DEXA every 2 years at maximum which is due now , discussed with daughter
--- OUTSIDE RECORDS SUMMARY | 2018-08-07 13:19 | XMS REPORT | Continuity of Care Document ---
:1940 External Reference #:[id number] Author Name Inez Mohanney Care Team Providers Name Role Phone Keerthi Gottlieb MD Primary Care Physician Unavailable Payers Type Date Identification Numbers Payment Provider Subscriber Effective: Policy Number: [id number] [facility] Today Ashley Pressley 2016 Options PayID: [id number] [address] [address] Attn: [place] [address] Expires: 2017 Policy Number: [employer] Ashley Urbina [id number] [facility] Huan PayID: [id number] [address] [place] [address] Advance Directives Description No Information Available Problems [...] Unknown Marital Status Lives With Lauryn at [facility] in Memory care unit Tobacco Use Start: Unknown Never Smoked Cigarettes ETOH Use Rarely consumes alcohol Tobacco Use Start: Unknown End: Patient is a former smoker Unknown Smoking Status Reviewed: 07/13/18 Patient is a former smoker Exercise Type/Frequency [...] 1unit intramuscu Rec s lar x 1 Chery then Lavonne repeat in 4 months Caltrate 600+D 02/02 [...] E11.65 Brent Fuentes /2015 bs twice a Louann day M.DAbby Donepezil HCL 05/09 Active Tablets 10mg 90tab 1 tab by Raúl Davis /2014 s mouth Key daily M.DAbby Atorvastatin 04/07 Active Tablets 40mg 90tab take 1 Brent Fuentes Calcium s tablet by inrgis Lew M.DAbby daily Tylenol Active Tablets 325mg 100ta po prn bs Cyanocobalamin Active Tablets Sub 1000mcg 90tab take one Keerthi /0000 s tablet Gottlieb, daily M.DAbby Vitamin C ER Active Tablets [...] R35.0 Luis Carlos s every 12 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 Namenda 03/07 Hx Tablets 5(28)-10( 1pack follow G30.1 Raúl S. Titration 21)mg instructio Key, - ns on M.D. 04/08 titration pack Alendronate 05/30 Hx Tablets 70mg 12tab take 1 M81.0 Keerthi s tablet by Chery, - mouth M.D. 03/06 weekly Metformin HCL 05/30 Hx Tablets 500mg 180ta 1 by mouth E11.65 bs bid X 1 Chery, - week then M.D. 01/28 1 tb in Am and 1 tab in PM Donepezil HCL 11/08 Hx Tablets 5mg 90tab 1 every Raúl S. day Gina Mackey M.D. 05/09 Fosamax 08/16 [...] 100mg 2caps 2 tab X 1 911.4 Keerthi Hycl Gina Gottlieb M.D. 04/01 Norvasc 08/19 Hx Tablets 10mg 90tab 1 po qd s Gina Gottlieb M.D. 09/13 Fosamax 08/19 Hx Tablets 70mg 12tab one tablet 733.01 s weekly Gina Gottlieb M.D. 08/16 Lisinopril 08/19 Hx Tablets 5mg 90tab take 1 I10 s tablet by Chery - ingris M.DAbby 06/30 Ergocalciferol 04/20 Hx Capsules 69412Umen 8caps 1 tab by mouth Gina Gottlieb every week M.DAbby 04/01 Norvasc 04/15 Hx Tablets 10mg 90tab 1 po qd s Gina Gottlieb M.D. 08/19 Fosamax 04/15 Hx Tablets 70mg 12tab one tablet 733.01 s weekly Gina Gottlieb M.D. 08/19 Lisinopril 04/15 Hx Tablets 2.5mg 90tab 1 po qd 401.9 Keerthi /2012 s Gina Gottlieb M.D. 08/19 Lisinopril 03/04 Hx Tablets 5mg 60tab 1 po qd 401.9 Keerthi /2012 Gina Beckham M.D. 04/15 Metformin HCL 07/10 Hx Tablets 500mg 90tab 1 po daily Gina Beckham M.D. 04/21 Ureacin-20 07/10 Hx Cream 20% 113.4 apply on 00gm soles of Chery, - feet every M.D. 08/16 Physical Therapy 07/04 Hx 20uni pt [...] 40mg 135ta 1 06/10 tabs Brent E. bs po Gina Londono M.D. 10/19 Glyburide 04/20 Hx Tablets 5mg 60tab take 1 s tablet by Cotton, - mouth once M.D. 08/28 a day Lipitor Hx Tablets 20mg 90tab 1tab po hs Brent E. / Gina Figueroa M.D. 04/20 Norvasc Hx Tablets 5mg 90tab 1 po qd Brent E. / Gina Figueroa M.D. 03/27 Fosamax Hx Tablets 70mg 4tabs Q Week Barkjatin With 8 Oz MD Luis - Water And 04/20 DO Not Lay Down For One Hour After Aspirin Hx Tablets 81mg 100ta 1 PO QHS Gottlieb, 0000 Gina Murray MD 02/02 Avandia Hx Tablets 8mg 90tab 1 po qd Brent E. / Gina Figueroa M.D. 06/13 Abilify Hx Tablets [...] CPT Code Status Date Vaccine Lot # [id number] Given 03/21/2017 Influenza Virus Vaccine, Quadrivalent, Split, [id number] Preservative Free 74749 Given 05/30/2016 Tdap - Tetanus/Diptheria/Acellular Pertussis [id number] 88245 Given 02/15/2016 Influenza Virus Vaccine, Quadrivalent, Split, Preservative Free 06933 Given 05/30/2015 Pneumococcal Conjugate Vaccine 13 Valent For [id number] Intramuscular Use 70568 Given 03/04/2015 Influenza Virus Vaccine, Quadrivalent, Split, Preservative Free 68563 Given 05/03/2013 Pneumonia Vaccine [id number] 21328 Given 03/27/2013 Flu Vaccine Split Virus Preservative Free For Indiv 3Yr Older Q2038 Given 03/04/2012 Fluzone Vaccine [id number] 73952 Given 07/10/2011 Zoster (Zostavax) [id number] Q2038 Given 02/18/2011 Fluzone Vaccine [id number] 43478 Given 06/13/2010 Influenza Virus 3Yrs & Over [id number] Q2038 Given 06/13/2010 Fluzone Vaccine 43836 Given 07/04/2009 Influenza Virus Vaccine, Pandemic Formulation 51194 Given 07/04/2009 Influenza Virus 3Yrs & Over 04869 Given 02/22/2008 Pneumonia Vaccine 13755 Given 10/19/2007 Pneumonia Vaccine 35158 Given 10/19/2007 Pneumonia Vaccine 48724 Given 10/19/2007 Pneumonia Vaccine [id number] 73801 Given 04/13/2007 Influenza Virus 3Yrs & Over 86623 Given 04/13/2007 Influenza Virus 3Yrs & Over 51404 Given 04/13/2007 Influenza Virus 3Yrs & Over 93444 27449 Given 08/01/2003 Td (History By Patient) 91190 Given 03/26/1999 Pneumovax (History By Patient) Vital Signs Date Vital Result Comment 07/13/2018 9:55am Height 62 inches 5'2" Weight [...] Date Facility Test Result H/L Range Note Urinalysis Profile 03/10/2018 [facility] Urine Color Yellow [address] [place] [address] [phone] Urine Appearance Clear Urine Specific [place] 1.035 High 1.010-1.030 Urine pH 5.0 N [...] Present Abnormal Absent Urine Culture And 03/10/2018 [facility] Urine Culture SEE RESULT [address] [place] [address] [phone] Laboratory test 02/02/2018 [facility] Hemoglobin A1c 6.7 5-7 finding Lipid Profile 10/23/2017 [facility] Triglycerides 143 mg/dL 4, 5 (Trig/Chol/HDL) [address] [place] [address] [phone] Cholesterol 160 mg/dL 6 HDL Cholesterol 46.9 mg/dL 7 LDL Cholesterol 85 mg/dL 8 Laboratory test 09/27/2017 [facility] Point of Care 198 mg/dL High 70-100 [address] [place] [address] [phone] Urinalysis 09/26/2017 [facility] Urine Color Straw Profile [address] [place] [address] [phone] Urine Appearance Clear Urine Specific [place] 1.035 High 1.010-1.030 Urine pH 7.0 N [...] 1+ Abnormal Absent Urine Culture And 09/26/2017 [facility] Urine Culture SEE RESULT [address] [place] [address] [phone] CBC Auto Diff 09/26/2017 [facility] White Blood 8.1 10^3/uL N 3.5-[address] Count 0.8 [place] [address] [phone] Red Blood Count 5.01 10^6/uL N 4.0-5.4 [...] Cells % 0.1 Comp Metabolic Panel 09/26/2017 [facility] Sodium 135 mmol/L Low 139-[address] [place] [address] [phone] Potassium 4.2 mmol/L N 3.5-5.0 Chloride 96 [...] Egfr 88.2 >60 12 Laboratory test 09/26/2017 [facility] Hemoglobin A1c 10.5 % High 4.0-5.6 [address] (Glyco HGB) [place] [address] [phone] Laboratory test 06/30/2017 [facility] Hemoglobin A1c 7.5 High 5-7 finding Urine Culture And 04/05/2017 [facility] Urine Culture SEE [address] [place] [address] BELOW [phone] Urinalysis 04/05/2017 [facility] Urine Color Yellow N Profile [address] [place] [address] [phone] Urine Appearance Clear N Urine Specific [place] 1.030 N 1.010-1.030 Urine pH 5.0 N [...] Squamous Epithelial Cell Present Abnormal Absent Urine Microalbumin 04/05/2017 [facility] Ur Microalbumin < 15.0 N Random [address] (mg/L) mg/[place] [address] [phone] Urine Creatinine 96.74 mg/dL N Urine Microalbumin/Creatinine TNP ug/mg N <31 15 Laboratory test 03/31/2017 [facility] Hemoglobin A1c 9.4 High 5-7 finding Urine Culture And 03/21/2017 [facility] Urine Culture SEE RESULT [address] [place], [place] [id number] [phone] Ua Routine 03/21/2017 [facility] Ua Specific 1.005 [place] Ua PH 6 Ua Color yellow Ua Appera clear Ua WBC trace Ua Protein negative Ua Glucose 1000 Ua Ketones negative Ua Bilirubin negative Ua Urobilinogen 1 Ua Nitrite negative Ua Occult Blood large Lipid Profile 10/10/2016 [facility] Triglycerides 62 mg/dL N 17 (Trig/Chol/HDL) [address] [place] [address] [phone] Cholesterol 159 mg/dL N 18 HDL Cholesterol 41.3 mg/dL N 19 LDL Cholesterol 105 mg/dL N 20 Basic Metabolic Panel 10/10/2016 [facility] Sodium 141 mmol/L N 133-[address] [place] [address] [phone] Potassium 4.0 mmol/L N 3.5-5.0 Chloride 103 mmol/L N 101-111 Co2 Carbon Dioxide 33 mmol/L High 22-32 Anion Gap 5 mmol/L N 2-11 Glucose 116 mg/dL High 70-100 Blood Urea Nitrogen 25 mg/dL High 6-24 Creatinine 0.66 mg/dL N 0.51-0.95 BUN/Creatinine Ratio 37.9 High 8-20 Calcium 9.9 mg/dL N 8.6-10.3 Egfr Non- 87.1 N >60 Egfr 112.0 N >60 21 Laboratory test 09/30/2016 [facility] Hemoglobin A1c 6.6 5-7 finding Laboratory test 05/30/2016 [facility] Hemoglobin A1c 7.0 5-7 finding Comp Metabolic Panel 08/31/2015 [facility] Sodium 140 mmol/L N 133-145 [address] [place] [address] [phone] Potassium 3.8 mmol/L N 3.5-5.0 Chloride 102 [...] 116.3 N >60 22 Lipid Profile 08/31/2015 [facility] Triglycerides 90 mg/dL N 23 (Trig/Chol/HDL) [address] [place] [address] [phone] Cholesterol 159 mg/dL N 24 HDL Cholesterol 47.6 mg/dL N 25 LDL Cholesterol 93 mg/dL N 26 Laboratory test 08/29/2015 [facility] Hemoglobin A1c 5.5 5-7 finding Urine Microalbumin 08/29/2015 [facility] Ur Microalbumin 9.0 mg/ L N Random [address] (mg/L) [place] [address] [phone] Urine Creatinine 108.12 mg/dL N Urine Microalbumin/Creatinine 8.3 ug/mg N <31 Laboratory test 05/30/2015 [facility] Hemoglobin A1c 9.8 High 5-7 finding Surgical 07/04/2014 [facility] S RUN DATE: Pathology [address] 07/05/ [place] [address] <SEE NOTE> [phone] Laboratory test 11/15/2013 [facility] Hemoglobin A1c 6.9 5-7 finding Creatinine 10/08/2013 [facility] Creatinine 0.64 mg/dL N 0.51- 0.[address] [place] [address] [phone] Egfr Non- 91.0 N >60 Egfr 117.0 N >60 28 Laboratory test finding 10/08/2013 TSH (Thyroid Stimulating 1.08 IU/mL N 0.34-5.60 Horm) Vitamin B12 350 pg/mL N 180-914 29 Free T4 1.04 ng/mL N 0.61-1.12 Laboratory test 08/16/2013 [facility] Hemoglobin A1c 7.6 High 5-7 finding Vitamin D, 25 07/12/2013 [facility] 25-Hydroxy Vitamin 5.3 ng/ mL Hydroxy [address] [place] [address] [phone] 25-Hydroxy Vitamin D3 31 ng/mL 25-Hydroxy Vitamin D Total 36 ng/mL 30 Lipid Profile 07/12/2013 [facility] Triglycerides 67 mg/dL 40 -200 (Trig/Chol/HDL) [address] [place] [address] [phone] Cholesterol 184 mg/dL Less than 200 HDL Cholesterol 58 mg/dL 40-60 31 Cholesterol/HDL Ratio 3.2 Average 1-4.44 LDL Cholesterol 112.6 High Less Than 100 32 Basic Metabolic Panel 07/12/2013 [facility] Sodium 139 mmol/L 133-[address] [place] [address] [phone] Potassium 4.1 mmol/L 3.5-5.0 Chloride 103 mmol/L 101-111 Co2 Carbon Dioxide 30.0 mmol/L 22-32 Anion Gap 6.0 mmol/L 2-11 Glucose 150 mg/dL High 70-100 Blood Urea Nitrogen 16 mg/dL 6-24 Creatinine 0.70 mg/dL 0.50-1.40 BUN/Creatinine Ratio 22.9 High 8-20 Calcium 9.7 mg/dL 8.1-9.9 Egfr Non- 82.0 >60 Egfr 105.5 >60 33 Urine Microalbumin 04/01/2013 [facility] Ur Microalbumin 7.0 mg/ L [address] (mg/L) [place] [address] [phone] Urine Creatinine 53.8 mg/dL Urine Microalbumin/Creatinine 13.0 Less Than 31 Laboratory test 04/01/2013 [facility] Hemoglobin A1c 7.5 High 5-7 finding Laboratory test 09/02/2012 [facility] Hemoglobin A1c 7.1 High 5-7 finding Vitamin D, 25 09/02/2012 [facility] 25-Hydroxy Vitamin 11 ng/mL Hydroxy [address] [place] [address] [phone] 25-Hydroxy Vitamin D3 19 ng/mL 25-Hydroxy Vitamin D Total 30 ng/mL 35 Laboratory test 09/02/2012 [facility] TSH (Thyroid 1.00 0.34- 5.[address] Stimulating miu/[place] [address] Horm) [phone] Vitamin B12 391 pg/mL 180-914 Syphilis 09/02/2012 [facility] Syphilis IgG Nonreactive Nonreactive [address] [place], [place] [phone] RPR TNP Nonreactive RPR Titer TNP Pediatric/Maternal NO HIV 1/2 AB 09/02/2012 [facility] HIV 1 2 Nonreactive Nonreactive [address] [place] [address] [phone] Bilrubin And 05/11/2012 [facility] Total 1.2 mg/dL 0.4-1.[address] [place] [address] [phone] Direct Bilirubin 0.1 mg/dL 0.1-0.5 Indirect Bilirubin 1.1 mg/dL High 0.3-1.0 Pthi 04/16/2012 [facility] PTH Intact 3.3 PMOL/L 1.3-9.[address] [place] [address] [phone] Calcium (PTH Intact) 10.0 mg/dL High 8.1-9.9 Vitamin D, 25 04/16/2012 [facility] 25-Hydroxy Vitamin <4.0 ng/ mL Hydroxy [address] [place] [address] [phone] 25-Hydroxy Vitamin D3 30 ng/mL 25-Hydroxy Vitamin D Total 30 ng/mL 38 Lipid Profile 04/16/2012 [facility] Triglycerides 60 mg/dL 40 -200 (Trig/Chol/HDL) [address] [place] [address] [phone] Cholesterol 193 mg/dL Less than 200 39 HDL Cholesterol 64 mg/dL High 40-60 40 Cholesterol/HDL Ratio 3.0 AVERAGE 1-4.44 LDL Cholesterol 117.0 mg/dL High Less Than 100 41 Comp Metabolic Panel 04/16/2012 [facility] Sodium 139 mmol/L 133-[address] [place] [address] [phone] Potassium 4.0 mmol/L 3.5-5.0 Chloride 102 mmol/L [...] Egfr 156.0 >60 43 Urine Microalbumin 04/15/2012 [facility] Ur Microalbumin 8.0 mg/ L [address] (Mg/L) [place] [address] [phone] Urine Creatinine 112.0 mg/dL Urine Microalbumin/Creatinine 7.1 UG/MG Less Than 31 Laboratory test 03/04/2012 [facility] Hemoglobin A1c 6.9 5-7 finding Laboratory test 07/10/2011 [facility] Hemoglobin A1c 7.4 High 5-7 finding Syphilis Screen 06/12/2011 [facility] RPR NON-REACT Nonreactive [address] [place] [address] [phone] RPR Titer TNP Pediatric/Maternal NO Laboratory test finding 06/12/2011 [facility] BUN 20 mg/dL 6- 24 [address] [place] [address] [phone] CPK (Creatine Kinase) 82 U/L 0-170 [facility] 02/04/2011 [facility] TSH 1.90 MIU/ML 0.34- 5.60 Panel [address] [place] [address] [phone] Comp Metabolic 02/04/2011 [facility] Sodium 139 mmol/L 135- 145 Panel [address] [place] [address] [phone] Potassium 3.5 mmol/L 3.5-5.0 Chloride 103 mmol/L 101-111 Co2 (Carbon Dioxide) 30.0 mmol/L 22-32 Anion Gap 6.0 mmol/L 2-11 45 Glucose 115 mg/dL High 70-100 BUN 15 mg/dL 6-24 Creatinine 0.5 mg/dL Low 0.50-1.40 One Over Creatinine 2.00 BUN/Creatinine Ratio 30.0 High 8-20 Calcium 9.6 mg/dL 8.1-9.9 Total Protein 6.6 GM/DL 6.2-8.1 Albumin 4.5 GM/DL 3.2-5.2 Globulin 2.1 GM/DL 2-4 Albumin/Globulin Ratio 2.1 1-3 Bilirubin Total 1.2 mg/dL 0.4-1.5 46 Alkaline Phosphatase 57 U/L 30-110 Alt (SGPT) 18 U/L 14-54 Ast (Sgot) 16 U/L 12-42 eGFR Non- 121.6 > 60 eGFR 156.4 > 60 47 Lipid Profile 02/04/2011 [facility] Triglyceride 90 mg/dL 40- 200 (Trig/Chol/HDL) [address] [place] [address] [phone] Cholesterol 180 mg/dL Less Than 200 48 High Density Lipoprotein 51 mg/dL 40-60 49 Cholesterol/HDL Ratio 3.53 AVERAGE 1-4.44 Low Density Lipoprotein 111 mg/dL High Less Than 100 50 CBC Auto Diff 02/04/2011 [facility] White Blood 4.8 CUMM 4.8- 10.[address] [place] [address] [phone] Red Cell Count 4.49 CUMM 4.2-5.4 Hemoglobin [...] Eosinophils 0.1 0-0.6 Abs Basophils 0 0-0.2 Laboratory test 02/04/2011 [facility] Hemoglobin A1c 7.2 % High Less Than [address] 6[address]0 [place] [address] [phone] Basic Metabolic 06/06/2010 [facility] Sodium 138 135-[address] mmol/[place] [address] [phone] Potassium 3.7 mmol/L 3.5-5.0 Chloride 104 mmol/L 101-111 Co2 (Carbon Dioxide) 30.0 mmol/L 22-32 Anion Gap 4.0 mmol/L 2-11 52 Glucose 107 mg/dL High 70-100 BUN 19 mg/dL 6-24 Creatinine 0.60 mg/dL 0.50-1.40 One Over Creatinine 1.60 BUN/Creatinine Ratio 31.7 High 8-20 Calcium 9.6 mg/dL 8.1-9.9 eGFR Non- 105.0 > 60 eGFR 127.1 > 60 53 Laboratory test 06/06/2010 [facility] Hemoglobin A1c 6.7 % High Less Than [address] [place] [address] [phone] Lipid Profile 06/06/2010 [facility] Triglyceride 79 mg/dL 40- 200 (Trig/Chol/HDL) [address] [place] [address] [phone] Cholesterol 178 mg/dL Less Than 200 55 High Density Lipoprotein 44 mg/dL 40-60 56 Cholesterol/HDL Ratio 4.05 AVERAGE 1-4.44 Low Density Lipoprotein 118 mg/dL High Less Than 100 57 Laboratory test finding 06/06/2010 [facility] Ast (Sgot) 20 U/L 12-42 [place] [address] [phone] Alt (SGPT) 23 U/L 14-54 Laboratory test 12/06/2009 [facility] Hemoglobin A1c 6.4 % High Less [address] [place] [address] [phone] CBC W/Manual 12/06/2009 [facility] White Blood 4.1 CUMM Low 4.8-10.[address] [place] [address] [phone] Red Cell Count 4.40 CUMM 4.2-5.4 Hemoglobin [...] Absolute Neutrophil Count 2.7 RBC Morphology NORMAL Lipid Panel 12/06/2009 [facility] Triglyceride 90 mg/dL 40- [address] [place] [address] [phone] Cholesterol 192 mg/dL Less Than 200 59 High Density Lipoprotein 47 mg/dL 40-60 60 Cholesterol/HDL Ratio 4.09 AVERAGE 1-4.44 Low Density Lipoprotein 127 mg/dL High Less Than 100 61 CMP Panel 12/06/2009 [facility] Sodium 136 mmol/L 135-[address] [place] [address] [phone] Potassium 4.1 mmol/L 3.5-5.0 Chloride 101 mmol/L 101-111 Co2 (Carbon Dioxide) 29.0 mmol/L 22-32 Anion Gap 6.0 mmol/L 2-11 62 Glucose 120 mg/dL High 70-100 63 BUN 17 mg/dL 6-24 Creatinine 0.60 mg/dL 0.50-1.40 One Over Creatinine 1.60 BUN/Creatinine Ratio 28.3 High 8-20 Calcium 9.3 mg/dL 8.1-9.9 64 Total Protein 6.3 GM/DL 6.2-8.1 Albumin 4.3 GM/DL 3.2-5.2 Globulin 2.0 GM/DL 2-4 Albumin/Globulin Ratio 2.2 1-3 Bilirubin Total 1.2 mg/dL 0.4-1.5 65 Alkaline Phosphatase 47 U/L 30-110 Alt (SGPT) 20 U/L 14-54 Ast (Sgot) 21 U/L 12-42 eGFR Non- 105.0 > 60 eGFR 127.1 > [address] Lew[facility] 12/06/2009 [facility] TSH 1.40 0.34-5.60 Lab Panel MIU/[place] [address] [phone] Surgical 06/28/2009 [facility] Surgical [address] Pathology ------ [place] [address] <SEE NOTE> [phone] Lipid Profile 06/13/2009 [facility] Triglyceride 77 mg/dL 40- 200 68 (Trig/Chol/HDL [address] ) [place] [address] [phone] Cholesterol 211 mg/dL High Less Than 200 69 High Density Lipoprotein 55 mg/dL 40-60 70 Cholesterol/HDL Ratio 3.84 AVERAGE 1-4.44 Low Density Lipoprotein 141 mg/dL High Less Than 100 71 Comp Metabolic Panel 03/22/2009 [facility] Sodium 139 mmol/L 135-145 [address] [place] [address] [phone] Potassium 4.2 mmol/L 3.5-5.0 Chloride 104 mmol/L [...] 127.5 > 60 76 Lipid Profile 03/22/2009 [facility] Triglyceride 81 mg/dL 40- 200 (Trig/Chol/HDL) [address] [place] [address] [phone] Cholesterol 202 mg/dL High Less Than 200 77 High Density Lipoprotein 53 mg/dL 40-60 78 Cholesterol/HDL Ratio 3.81 AVERAGE 1-4.44 Low Density Lipoprotein 133 mg/dL High Less Than 100 79 Laboratory test 03/22/2009 [facility] TSH 1.09 MIU/ML 0.34- 5.[address] [place] [address] [phone] CBC With Manual 03/22/2009 [facility] White Blood 4.4 CUMM Low 4.8-10.[address] [place] [address] [phone] Red Cell Count 4.19 CUMM Low 4.2-5.4 [...] Count 2.8 Anisocytosis SLIGHT Laboratory test 03/22/2009 [facility] Hemoglobin A1c 6.3 % High Less Than [address] [place] [address] [phone] Lipid Profile 09/12/2008 [facility] Triglyceride 113 40-200 (Trig/Chol/HDL) [address] mg/[place] [address] [phone] Cholesterol 202 mg/dL High Less Than 200 81 High Density Lipoprotein 51 mg/dL 40-60 82 Cholesterol/HDL Ratio 3.96 AVERAGE 1-4.44 Low Density Lipoprotein 128 mg/dL High Less Than 100 83 Laboratory test 09/12/2008 [facility] Glucose 121 mg/dL High 70-100 [address] [place] [address] [phone] Hemoglobin A1c 6.5 % High <6.0 85 Lipid Profile 07/18/2008 [facility] Triglyceride 137 mg/dL 40 -200 86 (Trig/Chol/HDL) [address] [place] [address] [phone] Cholesterol 206 mg/dL High Less Than 200 87 High Density Lipoprotein 49 mg/dL 40-60 88 Cholesterol/HDL Ratio 4.20 AVERAGE 1-4.44 Low Density Lipoprotein 130 mg/dL High Less Than 100 89 Liver Function 07/18/2008 [facility] Total Protein 6.3 GM/DL 6.2-8.[address] [place] [address] [phone] Albumin 4.2 GM/DL 3.2-5.2 Globulin 2.1 GM/DL 2-4 Albumin/Globulin Ratio 2.0 1-3 Bilirubin Total 1.0 mg/dL 0.4-1.5 Bilirubin Direct 0.1 mg/dL 0.1-0.5 Indirect Bilirubin 0.9 mg/dL High 0.1-0.75 Alkaline Phosphatase 43 U/L 30-110 Alt (SGPT) 16 U/L 14-54 Ast (Sgot) 17 U/L 12-42 Laboratory test 07/18/2008 [facility] Glucose 141 mg/dL High 70-100 90 finding [address] [place], [place] [address] [phone] Hemoglobin A1c 6.7 % High <6.0 91 Lipid Profile 04/18/2008 [facility] Triglyceride 109 mg/dL 40 -200 92 (Trig/Chol/HDL) [address] [place], [place] [address] [phone] Cholesterol 207 mg/dL High Less Than 200 93 High Density Lipoprotein 44 mg/dL 40-60 94 Cholesterol/HDL Ratio 4.70 AVERAGE High 1-4.44 Low Density Lipoprotein 141 mg/dL High Less Than 100 95 Laboratory test finding 04/18/2008 [facility] Alt (SGPT) 18 U/L 14-54 [address] [place] [address] [phone] Ast (Sgot) 19 U/L 12-42 Basic Metabolic Panel 02/15/2008 [facility] Sodium 141 mmol/L 135-145 96 [address] [place] [address] [phone] Potassium 4.4 mmol/L 3.5-5.0 Chloride 106 mmol/L 101-111 Co2 (Carbon Dioxide) 31.0 mmol/L 22-32 Anion Gap 4.0 mmol/L 2-11 97 Glucose 60 mg/dL Low 70-100 98 BUN 21 mg/dL 6-24 Creatinine 0.8 mg/dL 0.5-1.4 One Over Creatinine 1.25 BUN/Creatinine Ratio 26.3 High 8-20 Calcium 9.8 mg/dL 8.1-9.9 99 Lipid Profile 02/15/2008 [facility] Triglyceride 120 mg/dL 40 -200 (Trig/Chol/HDL) [address] [place] [address] [phone] Cholesterol 222 mg/dL High Less Than 200 100 High Density Lipoprotein 44 mg/dL 40-60 101 Cholesterol/HDL Ratio 5.05 AVERAGE High 1-4.44 Low Density Lipoprotein 154 mg/dL High Less Than 100 102 Laboratory test finding 02/15/2008 [facility] Alt (SGPT) 18 U/L 14-[address] [place] [address] [phone] Ast (Sgot) 20 U/L 12-42 Hemoglobin A1c 6.6 % High <6.0 103 Basic Metabolic 10/12/2007 [facility] Sodium 140 mmol/L 135- [address] [place] [address] [phone] Potassium 5.3 mmol/L High 3.5-5.0 Chloride 106 mmol/L 101-111 Co2 (Carbon Dioxide) 31.0 mmol/L 22-32 Anion Gap 3.0 mmol/L 2-11 105 Glucose 129 mg/dL High 70-105 BUN 15 mg/dL 6-24 Creatinine 0.7 mg/dL 0.5-1.4 One Over Creatinine 1.42 BUN/Creatinine Ratio 21.4 High 8-20 Calcium 9.8 mg/dL 8.7-10.2 Lipid Profile 10/12/2007 [facility] Triglyceride 96 mg/dL 40- 200 (Trig/Chol/HDL) [address] [place] [address] [phone] Cholesterol 235 mg/dL High Less Than 200 106 High Density Lipoprotein 47 mg/dL 40-60 107 Cholesterol/HDL Ratio 5.00 AVERAGE High 1-4.44 Low Density Lipoprotein 169 mg/dL High Less Than 100 108 Laboratory test finding 10/12/2007 [facility] Alt (SGPT) 24 U/L 14-[address] [place] [address] [phone] Ast (Sgot) 23 U/L 12-42 Hemoglobin A1c 6.4 % High <6.0 109 CBC W/ Electronic 04/13/2007 [facility] White Blood 4.5 CUMM Low 4.8-10.[address] [place] [address] [phone] Abs Basophils 0 0-0.2 Abs Eosinophils 0 [...] WDTH 14 % 10.5-15 Laboratory test 04/13/2007 [facility] TSH 0.79 MIU/ML 0.34- 5.60 [address] [place] [address] [phone] Lipid Profile 04/13/2007 [facility] Cholestero 5.72 High 1- 4.44 (Trig/Chol/HDL) [address] l/[place] [address] Ratio [phone] Cholesterol 286 mg/dL High Less Than 200 112 Triglyceride 130 mg/dL 40-200 High Density Lipoprotein 50 mg/dL 40-60 Low Density Lipoprotein 210 mg/dL High Less Than 100 113 Comp Metabolic Panel 04/13/2007 [facility] One Over Creatinine 1.[address] [place], [place] [id number] [phone] Anion Gap 5.0 mmol/L 2-11 114 Albumin/Globulin [...] High 8-20 Creatinine 0.7 mg/dL 0.5-1.4 1 [id number] 2 *Ascorbic acid is present which may interfere with detection of blood. 3 SEE RESULT BELOW Name: JOHNASHLEEASHLEY C : [address]: Keerthi Gottlieb MD Acct: [id number] Unit: [id number] AGE: 77 Location: [facility] Re03/10/18 SEX: F Status: REG REF SPEC: [id number] ABDIRASHID: 03/10/18-[address]: Keerthi Gottlieb MD REQ: [id number] RECD: 03/10/18 STATUS: COMP _ SOURCE: URINE SPDESC: ORDERED: Urine Culture Procedure Result Reported Site Urine Culture Final 03/11/18- 1320 ML Organism 1 STREP GROUP B [place] Count 10-25,000 (Moderate) CFU/ML Organism 2 NORMAL GERRY [place] Count 10-25,000 (Moderate) CFU/ML Susceptibility testing of penicillins and other B-lactams approved by FDA for treatment of Streptococcus pyogenes (Group A Strep) and Streptococcus agalactiae (Group B Strep) is not necessary for clinical purposes and need not be done routinely, since as with vancomycin, resistant strains have not been recognized. (CLSI Z693-C28;p.66) Positive isolates will be saved for one week. Please call the Microbiology Laboratory if further susceptibility testing is needed. * ML - Main Lab . END OF REPORT DEPARTMENT OF PATHOLOGY, [address] [place] [address] Cortes Cormier M.D. Director [facility] # [id number] 5 Desirable: <150 Borderline High: 150-199 High: 200-499 Very High: >500 6 Desirable: <200 Borderline High: 200-239 High: >239 7 Low: <40 Desirable: 40-60 High: >60 8 Desirable: <100 Near Optimal: 100-129 Borderline High: 130-159 High: 160-189 Very High: >189 9 Arcade Technician: [id number] 10 *Ascorbic acid is present which may interfere with detection of blood. 11 SEE RESULT BELOW Name: ASHLEY PRESSLEY : [address]: Sonja Grayson MD Acct: [id number] Unit: [id number] AGE: 76 Location: [place] [address] Re09/26/17 SEX: F Status: ADM IN SPEC: [id number] ABDIRASHID: 09/26/17 [facility] DR: cR LAINEZ REQ: [id number] RECD: 09/26/17 STATUS: EVARISTO REILLY DR: Keerthi Mcknight MD _ SOURCE: URINE SPDESC: ORDERED: Urine Culture Procedure Result Reported Site Urine Culture Final 09/28/17- 1038 ML Organism 1 STREP GROUP B [place] Count 25-50,000 (Moderate) CFU/ML Susceptibility testing of penicillins and other B-lactams approved by FDA for treatment of Streptococcus pyogenes (Group A Strep) and Streptococcus agalactiae (Group B Strep) is not necessary for clinical purposes and need not be done routinely, since as with vancomycin, resistant strains have not been recognized. (CLSI L621-D95;p.66) Positive isolates will be saved for one week. Please call the Microbiology Laboratory if further susceptibility testing is needed. * ML - Main Lab . END OF REPORT DEPARTMENT OF PATHOLOGY, [address] [place] [address] Cortes Cormier M.D. Director [facility] # [id number] 12 Because ethnic data is not always [...] in selective patients <6.0%. Please refer to [place] [employer] Association diabetic care guidelines for further information. 14 SEE RESULT BELOW Name: ASHLEY PRESSLEY : [address]: Keerthi Gottlieb MD Acct: [id number] Unit: [id number] AGE: 76 Location: [facility] Re04/05/17 SEX: F Status: REG REF SPEC: [id number] ABDIRASHID: 04/05/17-[address]: Keerthi Gottlieb MD REQ: [id number] RECD: 04/05/17 STATUS: COMP _ SOURCE: URINE SPDESC: ORDERED: Urine Culture Procedure Result Reported Site Urine Culture Final 04/06/17- 1210 ML No growth of clinically significant organisms * ML - [facility] ([facility]) . END OF REPORT * ML=Testing performed at Main Lab DEPARTMENT OF PATHOLOGY, [address] [place] [address] Cortes Cormier M.D. Director [facility] # [id number] Unable to calculate due to low microalbumin 16 SEE RESULT BELOW Name: ASHLEY PRESSLEY : [address]: Luis Carlos Amezcua NP Acct: [id number] Unit: [id number] AGE: 76 Location: [facility] Re03/21/17 SEX: F Status: REG REF SPEC: [id number] ABDIRASHID: 03/21/[address]: Luis Carlos Amezcua [employer] FINANCING SPECIALIST REQ: [id number] RECD: 03/21/17 STATUS: COMP _ SOURCE: URINE SPDESC: ORDERED: Urine Culture COMMENTS: [id number] Procedure Result Reported Site Urine Culture Final 03/24/17- 0820 ML Organism 1 ESCHERICHIA COLI [place] Count 10-25,000 (Moderate) CFU/ML Organism 2 STREP GROUP B [place] Count >100,000 (Many) CFU/ML Organism 3 NORMAL GERRY [place] Count 25-50,000 (Moderate) CFU/ML Susceptibility testing of penicillins and other B-lactams approved by FDA for treatment of Streptococcus pyogenes (Group A Strep) and Streptococcus agalactiae (Group B Strep) is not necessary for clinical purposes and need not be done routinely, since as with vancomycin, resistant strains have not been recognized. (CLSI B614-R61;p.66) Positive isolates will be saved for one week. Please call the Microbiology Laboratory if further susceptibility testing is needed. 1. ESCHERICHIA COLI M.I.C. RX --------- ------ Ampicillin 8 S Cefazolin <=4 S Cefepime <=1 S Ceftriaxone <=1 S Ciprofloxacin <=0.25 S Gentamicin <=1 S CONTINUED ON NEXT PAGE * ML=Testing performed at Main Lab DEPARTMENT OF PATHOLOGY, [address] [place] [address] Cortes Cormier M.D. Director [facility] # [id number] Patient: ASHLEY PRESSLEY [id number] (Continued) Specimen: [id number] Collected: 03/21/17 Received: 03/21/17 (Continued) Procedure Result Reported Site Urine Culture Final (continued) 03/24/17819 1. ESCHERICHIA COLI (continued) M.I.C. RX --------- ------ Levofloxacin <=0.12 S Meropenem <=0.25 S Nitrofurantoin <=16 S Tetracycline 2 S Pipercillin/Tazobactam <=4 S Trimethoprim/Sulfamethoxazole <=20 S Amoxicillin/Clavulanic Acid 4 S Aztreonam <=1 S Contact the Microbiology Department for any additional antibiotic reporting. * ML - MAIN LAB ([facility]) . END OF REPORT * ML=Testing performed at Main Lab DEPARTMENT OF PATHOLOGY, [address] [place] [address] Cortes Cormier M.D. Director [facility] # [id number] 17 Desirable <150 Borderline high 150-199 High [...] High: >189 mg/dL 27 RUN DATE: 07/05/14 [facility] LAB LIVE PAGE 1 RUN TIME: 1356 [address] [place], [place] [address] Specimen Inquiry Name: ASHLEY PRESSLEY : [address]: Sachin Bunch MD Acct: [id number] Unit: [id number] AGE: 73 Location: [facility] Re07/04/14 SEX: F Status: REG REF SPEC: [id number] ABDIRASHID: 07/04/14-0935 [facility] DR: Sachin Bunch MD REQ: [id number] RECD: 07/04/14-1215 STATUS: FAMILIA REILLY DR: Keerthi Gottlieb MD [...] performed at Main Lab DEPARTMENT OF PATHOLOGY, [address] [place] [address] Cortes Cormier M.D. Director [facility] # [id number] 28 Because ethnic data is not always [...] levels within this range. Test Performed by: [address] [address] Film Projector Operator: Gabriel Montana III, M.D. 31 HDL Interpretation: [...] as: Microalbumin/Creatinine ratio of 30-299 ug/mg. 35 -- REFERENCE VALUE -- 25-HYDROXY D TOTAL (D2+D3) Optimum levels in the normal population are 25-80 Test Performed by: [address] [address] Film Projector Operator: Gabriel Montana III, M.D. 36 Warning: A positive result is not useful for establishing a diagnosis of syphilis. In most situations, such a result may reflect a prior treated infection; a negative result can exclude a diagnosis of syphilis except for incubating or early primary disease. 37 It is recognized that currently available assays [...] 95% confidence interval of 99.78 to 99.96%. 38 -- REFERENCE VALUE -- 25-HYDROXY D TOTAL (D2+D3) Optimum levels in the normal population are 25-80 Test Performed by: [place] [address] Film Projector Operator: Gabriel Montana III, M.D. R 39 Desirable: [...] as: Microalbumin/Creatinine ratio of 30-299 ug/mg. 45 Anion gap measurement may be of limited value in the presence of any alkalosis, especially in a combined acid base disorder. . 46 A metabolite of Naproxen, O-desmethylnaproxen, has been shown to interfere with the Jendrassik-Vasyl method for measuring total bilirubin. Samples from patients who have taken Naproxen have shown spurious elevation in total bilirubin levels. 47 Because ethnic data is not always readily [...] 15-29 5 Kidney failure <15 (or dialysis) 48 CHOLESTEROL INTERPRETATION: Desirable: Less than 200 MG/DL Borderline-High Risk: 200-239 MG/DL High-Risk: 240 MG/DL and over 49 HDL INTERPRETATION: Undesirable: High Risk: Less than 40 MG/DL Desirable: Low Risk: Greater than 60 MG/DL 50 LDL INTERPRETATION: Low Risk Optimal Level: LDL Less than 100 MG/DL Near or Above Optimal: LDL 100-129 MG/DL Borderline High Risk: LDL 130-159 MG/DL High Risk: LDL 160-189 MG/DL Very High Risk: LDL Greater than 189 MG/DL 51 THERAPEUTIC TARGET FOR THE TREATMENT OF DIABETES MELLITUS PATIENTS IS <7% HBA1C, AND IN SELECTIVE PATIENTS <6.0%. PLEASE REFER TO [place] [employer]ATION DIABETIC CARE GUIDELINES FOR FURTHER INFORMATION. 52 Anion gap measurement may be of [...] IN SELECTIVE PATIENTS <6.0%. PLEASE REFER TO [place] [employer]ATION DIABETIC CARE GUIDELINES FOR FURTHER [...] Risk: LDL Greater than 189 MG/DL 58 THERAPEUTIC TARGET FOR THE TREATMENT OF DIABETES MELLITUS PATIENTS IS <7% HBA1C, AND IN SELECTIVE PATIENTS <6.0%. PLEASE REFER TO [place] [employer] DIABETIC CARE GUIDELINES FOR FURTHER INFORMATION. 59 CHOLESTEROL INTERPRETATION: Desirable: Less than 200 MG/DL Borderline-High Risk: 200-239 MG/DL High-Risk: 240 MG/DL and over 60 HDL INTERPRETATION: Undesirable: High Risk: Less than 40 MG/DL Desirable: Low Risk: Greater than 60 MG/DL 61 LDL INTERPRETATION: Low Risk Optimal Level: LDL Less than 100 MG/DL Near or Above Optimal: LDL 100-129 MG/DL Borderline High Risk: LDL 130-159 MG/DL High Risk: LDL 160-189 MG/DL Very High Risk: LDL Greater than 189 MG/DL 62 Anion gap measurement may be of limited value in the presence of any alkalosis, especially in a combined acid base disorder. . 63 Note change in reference range as of 01/28/08. The change was based on recommendations from the [place] [employer]. 64 Please note change in reference range effective 07 . 65 A metabolite of Naproxen, O-desmethylnaproxen, has been shown to interfere with the Jendrassik-Vasyl method for measuring total bilirubin. Samples from patients who have taken Naproxen have shown spurious elevation in total bilirubin levels. 66 Because ethnic data is not always readily [...] 15-29 5 Kidney failure <15 (or dialysis) 67 ---- RUN DATE: 06/30/09 [facility] NMI LIVE PAGE 1 RUN TIME: 1206 Specimen Inquiry RUN USER: INTERFACE -- [id number] Status: REG REF Re06/28/09 Age/Sex: 68/F Unit#: [id number] Location: [address] [place] [address]. : [birth year] -- Specimen: [id number] [id number] Spec Date: 06/28/[address]: Sachin jenkins MD Spec Type: SURGICAL P Received: 06/29/09-1032 Copies to: Brent Lew III, MD SPECIMEN 1) BIOPSY SIGMOID NODULE AT 35 CM 2) BIOPSY DISTAL RECTAL POLYP AT 2 CM HISTORY POST-OP DIAGNOSIS: Moderate sigmoid diverticulosis, colon nodules CLINICAL INFORMATION: Colon polyps, negative family history, denies GI sy mptoms GROSS DESCRIPTION 1) Specimen received in formalin labelled Ashley Pressley, Sigmoid Nodule at 35 cm. and consists of one fragment of herrera-brown tissue measuring 0.3 x 0.3 x 0.3 cm. Submitted entirely, one cassette labelled one. 2) Specimen received in formalin labelled Ashley Pressley, Distal Rectal Polyp and consists of three fragments of herrera-yellow tissue, each measuring 0.2 x 0.2 x 0.2 cm. Submitted entirely, one cassette labelled two. DIAGNOSIS 1) Colon, sigmoid nodule at 35 cm., biopsy: Hyperplastic polyp. 2) Colon, distal rectal polyp at 2 cm., biopsy: Hyperplastic polyp. Signed Electronically by: CORTES CORMIER MD 06/30/09 1205 -- -- DEPARTMENT OF PATHOLOGY, [address] [place] [address] [facility] Permit #[id number] Cortes Cormier M.D. Director Cassy Gaitan M.D. Supervisor Ovens Dir wright -- 68 PATIENT MAY HAVE [...] change was based on recommendations from the [place] [employer]. 74 Please note change in reference range effective 07 . 75 A metabolite of Naproxen, O-desmethylnaproxen, has been shown to interfere with the Jendrassik-[place] method for measuring total bilirubin. Samples from [...] IN SELECTIVE PATIENTS <6.0%. PLEASE REFER TO [place] DIAB[employer] ASSOCIATION DIABETIC CARE GUIDELINES FOR FURTHER [...] change was based on recommendations from the [place] Diabetes [employer]. 85 THERAPEUTIC TARGET FOR THE TREATMENT OF DIABETES MELLITUS PATIENTS IS <7% HBA1C, AND IN SELECTIVE PATIENTS <6.0%. PLEASE REFER TO [place] DI[employer] ASSOCIATION DIABETIC CARE GUIDELINES FOR FURTHER [...] change was based on recommendations from the [place] [employer]. 91 THERAPEUTIC TARGET FOR THE TREATMENT OF DIABETES MELLITUS PATIENTS IS <7% HBA1C, AND IN SELECTIVE PATIENTS <6.0%. PLEASE REFER TO [place] [employer] ASSOCIATION DIABETIC CARE GUIDELINES FOR FURTHER [...] change was based on recommendations from the [place] [employer]. 99 Please note change in reference range effective 07 . 100 CHOLESTEROL INTERPRETATION: Desirable: Less than 200 MG/DL Borderline-High Risk: 200-239 MG/DL High-Risk: 240 MG/DL and over 101 HDL INTERPRETATION: Undesirable: High Risk: Less than 40 MG/DL Desirable: Low Risk: Greater than 60 MG/DL 102 LDL INTERPRETATION: Low Risk Optimal Level: LDL Less than 100 MG/DL Near or Above Optimal: LDL 100-129 MG/DL Borderline High Risk: LDL 130-159 MG/DL High Risk: LDL 160-189 MG/DL Very High Risk: LDL Greater than 189 MG/DL 103 THERAPEUTIC TARGET FOR THE TREATMENT OF DIABETES MELLITUS PATIENTS IS <7% HBA1C, AND IN SELECTIVE PATIENTS <6.0%. PLEASE REFER TO [place] DI[employer] ASSOCIATION DIABETIC CARE GUIDELINES FOR FURTHER INFORMATION. 104 FASTING PATIENT MAY HAVE RESULTS PER DOCTOR'S AUTHORIZATION. Questions regarding this report should be directed to your doctor. 105 Anion gap measurement may be of limited value in the presence of any alkalosis, especially in a combined acid base disorder. . 106 CHOLESTEROL INTERPRETATION: Desirable: Less than 200 [...] Risk: LDL Greater than 189 MG/DL 109 THERAPEUTIC TARGET FOR THE TREATMENT OF DIABETES MELLITUS PATIENTS IS <7% HBA1C, AND IN SELECTIVE PATIENTS <6.0%. PLEASE REFER TO [place] DIAB[employer] ASSOCIATION DIABETIC CARE GUIDELINES FOR FURTHER INFORMATION. 110 PATIENT MAY HAVE RESULTS PER DOCTOR'S [...] . Procedures Date Code Description Status 09/28/2017 24770 EKG, Interpretation Only Completed 05/08/2017 [id number] Mammogram Completed 06/12/2016 61959 Stress Test Completed 06/12/2016 65058 Myocardial Perfusion Imaging Tomographic (Spect) Completed Multiple Studies 05/30/2016 40937 EKG Tracing & Interpretation Completed 07/18/2015 [id number] Diabetic Retinal Eye Exam Completed 06/22/2015 [id number] Bone Mineral Density Test Completed 06/22/2015 [id number] Mammogram Completed 07/04/2014 [id number] Colonoscopy Completed 02/14/2014 [id number] Mammogram Completed 02/04/2013 47970 EKG, Interpretation Only Completed 01/15/2013 [id number] Diabetic Retinal Eye Exam Completed 03/19/2012 [id number] Bone Mineral Density Test Completed 11/01/2011 [id number] Mammogram Completed 03/01/2011 26698 Arthroscopy,Knee,Meniscectomy Media & Lateral Completed 03/01/2011 00424 Arthroscopy,Knee,Meniscectomy Media & Lateral Completed 06/25/2004 [id number] Colonoscopy Completed Encounters Type Date Location Provider Dx Diagnosis Office Visit 02/02/2018 Marissa Gottlieb, E11.9 Type 2 diabetes 10:10a Janell Fuentes M.D. mellitus without [place] complications I10 Essential (primary) hypertension L60.3 Nail dystrophy M81.0 Age-related osteoporosis w/o current pathological fracture Office Visit 10/27/2017 1:45p [place] Ramonita Davis G30.9 [facility] Marissa Mackey M.D. disease, unspecified I10 Essential (primary) hypertension E11.9 Type 2 diabetes mellitus without complications Office Visit 10/23/2017 [facility] Internal Keerthi E11.9 Type 2 diabetes 9:50a Janell Gottlieb M.D. 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 R73.9 Hyperglycemia, unspecified Office Visit 09/27/2017 11:21a [facility] I16.0 Hypertensive Assoc,FATOU [place] urgency Hospitalists G30.9 Alzheimer's disease, unspecified 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 mellitus without [place] complications I10 Essential (primary) hypertension R51 Headache R31.9 Hematuria, unspecified M81.0 Age-related osteoporosis w/o current pathological fracture Office Visit 03/31/2017 9:10a [facility] Internal Keerthi E11.9 Type 2 diabetes Janell Gottlieb M.D. mellitus without [place] complications I10 Essential (primary) hypertension R31.9 Hematuria, unspecified Z12.31 Encntr screen mammogram for malignant neoplasm of breast Office Visit 03/21/2017 1:00p [facility] Internal Luis Carlos Seven, R35.0 Frequency of Medicine - [employer] FINANCING SPECIALIST micturition [place] Z23 Encounter for immunization Office 03/07/2017 Neuro[facility]ist Raúl Davis G30.1 Alzheimer's disease Visit 10:30a Clinic linn Mackey late onset M.D. Office 10/04/2016 [facility] Dermat[facility] [place] L81.4 Other melanin Visit 11:10a MD Nicole hyperpigmentation L82.1 Other seborrheic keratosis Office Visit 09/30/2016 8:50a [facility] Internal Keerthi E11.9 Type 2 diabetes Janell Gottlieb M.D. mellitus without [place] complications I10 Essential (primary) hypertension E78.2 Mixed hyperlipidemia Z12.83 Encounter for screening for malignant neoplasm of skin Office Visit 05/30/2016 10:50a [facility] Internal Keerthi E11.9 Type 2 diabetes Janell Gottlieb M.D. mellitus without [place] complications M81.0 Age-related osteoporosis w/o current pathological fracture I10 Essential (primary) hypertension E78.2 Mixed hyperlipidemia Z23 Encounter for immunization R94.31 Abnormal electrocardiogram [ECG] [EKG] Office Visit 01/29/2016 1:20p [facility] Internal Keerthi E11.9 Type 2 diabetes Janell Gottlieb M.D. mellitus without [place] complications Office Visit 11/08/2015 11:45a Alli Davis G30.1 Alzheimer's disease Neurologic Lavonne Mackey with late onset [facility] Office Visit 08/29/2015 10:30a [facility] Internal Keerthi E11.65 Type 2 diabetes Janell Gottlieb M.D. mellitus with [place] hyperglycemia E78.2 Mixed hyperlipidemia I10 Essential (primary) hypertension Office Visit 05/30/2015 11:10a [facility] Internal Keerthilisbeth Gottlieb, Z00.00 Encntr for Medicine - MKelli general adult [place] medical exam w/o abnormal findings E11.65 Type 2 diabetes mellitus with hyperglycemia E78.2 Mixed hyperlipidemia M85.89 Oth disrd of bone density and structure, multiple sites Z23 Encounter for immunization Z12.31 Encntr screen mammogram for malignant neoplasm of breast I10 Essential (primary) hypertension Office Visit 05/09/2015 10:45a Alli Davis G30.1 [facility] Lavonne Mackey disease with late onset Office Visit 11/08/2014 10:45a Alli Davis 331.0 Alzheimers [facility] Lavonne Mackey Disease Office Visit 12/20/2013 10:50a [facility] Internal Keerthi 250.00 Diabetes Mellitus Medicine - Gottlieb, M.D. W/O Compl Type II [place] Or Unspec Controlled Office Visit 11/15/2013 10:30a [facility] Internal Keerthi 250.00 Diabetes Mellitus Janell Gottlieb M.D. 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 Impairment So Stated 435.9 TIA Ischemia Cerebral Transient Unspec Office Visit 09/14/2013 2:00p [place] 331.83 [facility] Marissa Mackey M.D. Impairment So Stated 783.21 Loss Of Weight 435.9 TIA Ischemia Cerebral Transient Unspec Office Visit 08/16/2013 10:30a [facility] Internal Keerthi 250.02 Diabetes Janell Gottlieb M.D. Mellitus W/O [place] Compl Type II Or Unspec Type Uncontrol 272.2 Hyperlipidemia Mixed 733.01 Osteoporosis Senile 112.1 Candidiasis The Vulva & Vagina Office Visit 05/03/2013 2:10p [facility] Internal Keerthi 250.02 Diabetes Janell Gottlieb M.D. Mellitus W/O [place] Compl Type II Or Unspec Type Uncontrol 331.83 Mild Cognitive Impairment So Stated V06.6 Streptococcus Pneumonia & Influenz Vaccination & Inoculation V03.82 Streptococcus Pneumoniae Vaccination Spec Other Office Visit 04/01/2013 2:10p [facility] Internal Keerthi 250.02 Diabetes Janell Gottlieb M.D. Mellitus W/O [place] Compl Type II Or Unspec Type Uncontrol 401.9 Hypertension Unspec 272.2 Hyperlipidemia Mixed 268.9 Vitamin D Deficiency Unspec Office Visit 10/07/2012 3:10p [facility] Internal Keerthi V70.0 Examination Janell Gottlieb M.D. [facility] [place] Routine AT Health Care Facility 331.83 Mild Cognitive Impairment So Stated 911.4 Injury Superficial Insect Bite Trunk Nonvenomous W/O Infect V76.43 Screening Malignant Neoplasm Skin Office Visit 09/02/2012 9:00a [facility]issa Internal Keerthi Gottlieb, 780.93 Memory Loss Medicine - [place] 250.00 Diabetes Mellitus W/O Compl Type II Or Unspec Controlled 401.9 Hypertension Unspec 272.2 Hyperlipidemia Mixed Office Visit 08/19/2012 10:10a [facility] Keerthi Gottlieb, 780.93 Memory Loss Medicine - [place] 401.9 Hypertension Unspec 733.01 Osteoporosis Senile 269.1 Vitamin Deficiency Other Office Visit 05/11/2012 10:50a [facility] Ke[place] 733.01 Osteoporosis Janell Gottlieb M.D. Senile [place] 790.6 Abnormal Blood Chemistry Other Office Visit 04/15/2012 9:50a [facility] Keerthi 250.00 Diabetes Mellitus Janell Gottlieb M.D. W/O Compl Type II [place] Or Unspec Controlled 401.9 Hypertension Unspec 733.01 Osteoporosis Senile Office Visit 03/04/2012 10:10a [facility] Keer[place] 250.00 Diabetes Mellitus Janell Gottlieb M.D. W/O Compl Type II [place] Or Unspec Controlled 700 Corns & Callosities 272.2 Hyperlipidemia Mixed 401.9 Hypertension Unspec V04.81 Need For Prophylactic Vaccination & Inoculation/Influenza V49.81 Postmenopausal Status Asymptomatic (Age-Related,Natural) Office Visit 07/10/2011 8:30a [facility] Keer[place] 250.00 Diabetes Mellitus Janell Gottleib M.D. W/O Compl Type II [place] Or Unspec Controlled 401.1 Hypertension Benign 272.2 Hyperlipidemia Mixed 700 Corns & Callosities v04.89 Need For Prophylactic Vaccination & Inoculation Other Virus Office Visit 06/12/2011 8:45a [facility] Ke[place] 401.1 Hypertension Benign Janell Gottlieb M.D. [place] 250.00 Diabetes Mellitus W/O Compl Type II Or Unspec Controlled 780.93 Memory Loss Office Visit 05/08/2011 8:30a DO Not Use Marketing Professor Keerthi V72.83 Examination AT Horacio Gottlieb M.D. Preoperative Other Spec 250.00 Diabetes Mellitus W/O Compl Type II Or Unspec Controlled 401.1 Hypertension Benign 272.2 Hyperlipidemia Mixed 366.10 Cataract Senile Unspec Office Visit 02/18/2011 1:40p DO Not Use Marketing Professor Brent Fuentes V72.81 Examination AT Horacio Lew M.D. Preoperative Cardiovascular 719.46 Pain Joint Lower Leg 250.00 Diabetes Mellitus W/O Compl Type II Or Unspec Controlled 401.1 Hypertension Benign 272.0 Hypercholesterolemia Pure V04.81 Need For Prophylactic Vaccination & Inoculation/Influenza Office Visit 01/16/2011 8:00a Orthopedic Jimmie Temple, 836.0 Dislocation Knee Services Of M.D. Tear Of Medial C.M.A. Cartilage Or Meniscus Curren Office Visit 01/08/2011 8:45a Orthopedic Jimmie Temple, 836.0 Dislocation Knee Services Of M.D. Tear Of Medial C.M.A. Cartilage Or Meniscus Curren Office Visit 06/13/2010 9:40a DO Not Use Marketing Professor AT Brent Fuentes V04.81 Need For Horacio Lew M.D. Prophylactic Vaccination & Inoculation/Influe nza 250.00 Diabetes Mellitus W/O Compl Type II Or Unspec Controlled 401.1 Hypertension Benign 272.0 Hypercholesterolemia Pure Office Visit 12/12/2009 10:20a DO Not Use Marketing Professor Brent Fuentes 250.00 Diabetes Mellitus AT Horacio Lew M.D. W/O Compl Type II Or Unspec Controlled 401.1 Hypertension Benign 272.0 Hypercholesterolemia Pure Office Visit 07/04/2009 10:40a DO Not Use Marketing Professor AT Brent Lew, 729.5 Pain In Limb Horacio Banerjee 724.2 Lumbago V04.81 Need For Prophylactic Vaccination & Inoculation/Influenza Office Visit 06/20/2009 DO Not Use Marketing Professor Bretn Fuentes 272.0 Hypercholesterolemia Pure 11:00a AT Horacio Lew M.D. 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 W/O Compl Type II Or Unspec Controlled 401.1 Hypertension Benign 272.0 Hypercholesterolemia Pure Office Visit 09/12/2008 9:45a [place] [facility] Brent Fuentes 427.31 Atrial Fibrillation Assoc AT [place]onne Lew [facility] 250.00 Diabetes Mellitus W/O Compl Type II Or Unspec Controlled V58.61 Anticoagulants Long-Term (Current) Use Encounter Office Visit 02/22/2008 [place] [facility] Brent E. 272.0 Hypercholesterolemia Pure 10:45a Assoc AT [place]onne Lew [facility] 250.00 Diabetes Mellitus W/O Compl Type II Or Unspec Controlled 401.1 Hypertension Benign V03.82 Streptococcus Pneumoniae Vaccination Spec Other Office Visit 11/24/2007 2:45p [place] [facility] Brent E. 922.1 Contusion Chest Assoc AT Lavonne Lew [facility] Office Visit 10/19/2007 10:30a [place] [facility] Brent E. 250.00 Diabetes Mellitus Assoc AT Lavonne Lew W/O Compl Type II [facility] Or Unspec Controlled 272.0 Hypercholesterolemia Pure 401.1 Hypertension Benign V03.82 Streptococcus Pneumoniae Vaccination Spec Other Office Visit 04/20/2007 11:30a [place] [facility] Brent E. 250.00 Diabetes Mellitus Assoc AT Lavonne Lew W/O Compl Type II [facility] Or Unspec Controlled 272.0 Hypercholesterolemia Pure 401.1 Hypertension Benign Plan of Treatment Future Appointment(s):01/15/2019 3:45 pm - Raúl Mackey M.D. at [facility] Qhmhud5008/03/2018 10:50 am - Keerthi Gottlieb M.D. at [facility] - [id number]/04/2019 - Raúl Mackey M.D.G30.9 Alzheimer' s disease, unspecifiedFollow up:6 months
--- NOTE | 2018-08-07 13:20 | ED ---
Lower Extremity - HPI Summary HPI Summary: Patient is a 77-year-old female who presents emergency department for a right hip injury after a mechanical fall. Patient has a history of dementia and lives at home with her at [place]. Patient's states they were walking into the kitchen to have lunch when patient fell. states that patient was walking behind him that believes she turned causing her to fall. He does not believe she hit her head and there was no loss of consciousness or seizure activity. Patient has had no recent illness, fever, cough, abdominal pain, vomiting, diarrhea, chest pain or shortness of breath. Patient was feeling well today until fall. She is not anticoagulated. Symptoms are moderate in severity. Movement makes symptoms worse. Rest makes symptoms better. Associated symptoms of abrasion to right arm. - History of Current Complaint Chief Complaint: EDExtremityLower Stated Complaint: FALL HIP PAIN Time Seen by Provider: 08/07/18 13:04 Hx Obtained From: Patient Pain Intensity: 8 - Allergies/Home Medications Allergies/Adverse Reactions: Allergies Allergy/AdvReac Type Severity Reaction Status Date / Time ciprofloxacin [From Cipro] Allergy Unknown Verified 08/07/18 12:58 Reaction Details Home Medications: Home Medications Acetaminophen [Acetaminophen Extra Strength] 1,000 mg PO Q4HR PRN MDD 3000 mg [History Confirmed 08/07/18] Alendronate (NF) [Fosamax (NF)] 70 mg PO WEEKLY 08/07/18 [History Confirmed 06/27] Ascorbic Acid TAB* [Vitamin C TAB*] 1,000 mg PO QAM 08/07/18 [History Confirmed 08/07/18] Tevin/D3/Mag11/Zinc/Galley Stripper/Yobani/Bor [Caltrate 600+D Plus] 1 tab PO DAILY 08/07/18 [ History Confirmed 08/07/18] Cholecalciferol (Vitamin D3) [Vitamin D3] 1,000 units PO QAM 08/07/18 [History Confirmed 08/07/18] Cyanocobalamin TAB* [Vitamin B12 TAB*] 1,000 mcg PO QAM 08/07/18 [History Confirmed 08/07/18] Empaglifozin (NF) [Jardiance] 25 mg PO DAILY 08/07/18 [History Confirmed ] PMH/Surg Hx/FS Hx/Imm Hx Previously Healthy: Yes Endocrine/Hematology History: Reports: Hx Diabetes, Other Endocrine/ Hematological Disorders - Vit D&B12 deficient Denies: Hx Thyroid Disease Cardiovascular History: Reports: Hx Hypertension Denies: Hx Pacemaker/ICD Respiratory History: Denies: Hx Asthma, Hx Chronic Obstructive Pulmonary Disease (COPD) GI History: Denies: Hx Ulcer History: Denies: Hx Dialysis, Hx Renal Disease Musculoskeletal History: Reports: Hx Osteoporosis Denies: Hx Rheumatoid Arthritis Sensory History: Denies: Hx Contacts or Glasses, Hx Hearing Aid Opthamlomology History: Denies: Hx Contacts or Glasses Neurological History: Reports: Hx Dementia, Other Neuro Impairments/Disorders - Alzheimer's Denies: Hx Seizures Psychiatric History: Denies: Hx Panic Disorder - Cancer History Hx Chemotherapy: No Hx Radiation Therapy: No - Surgical History Surgery Procedure, Year, and Place: Left knee meniscus surgery. [facility]. CATARACT - Lt EYE - Immunization History Date of Tetanus Vaccine: unk Date of Influenza Vaccine: utd Immunizations Up to Date: Yes Infectious Disease History: No Infectious Disease History: Denies: Hx Hepatitis, Hx Human Immunodeficiency Virus (HIV), Traveled Outside the [place] in Last 30 Days - Family History Known Family History: Positive: Cardiac Disease, Diabetes - Social History Occupation: Retired Lives: With Family Alcohol Use: Rare Substance Use Type: Reports: None Smoking Status (MU): Former Smoker Review of Systems Constitutional: Negative Cardiovascular: Negative Negative: Chest Pain Respiratory: Negative Negative: Shortness Of Breath, Cough Gastrointestinal: Negative Negative: Abdominal Pain, Vomiting, Diarrhea Genitourinary: Negative Positive: Other - right hip pain Positive: Other - abrasion right arm Neurological: Negative Negative: Headache, Weakness, Paresthesia, Numbness, Syncope All Other Systems Reviewed And Are Negative: Yes Physical Exam Triage Information Reviewed: Yes Vital Signs On Initial Exam: Initial Vitals Temp Pulse Resp BP Pulse Ox 97.5 F 73 19 177/70 100 08/07/18 12:55 08/07/18 12:55 08/07/18 12:55 08/07/18 12:55 08/07/18 12:55 Vital Signs Reviewed: Yes Appearance: Positive: Well-Appearing - Pt. lying in bed in NAD. present. Skin: Positive: Warm, Dry Head/Face: Positive: Normal Head/Face Inspection Eyes: Positive: Normal, EOMI Neck: Positive: Supple Respiratory/Lung Sounds: Positive: Clear to Auscultation, Breath Sounds Present Cardiovascular: Positive: Normal, RRR Abdomen Description: Positive: Nontender, Soft Musculoskeletal: Positive: Other - Right leg is slightly shortened and externally rotated. Good pedial pulse. No pain on palpation to ankle/foot. Pain to right knee. Neurological: Positive: Normal, CN Intact II-III Psychiatric: Positive: Affect/Mood Appropriate Diagnostics - Vital Signs Vital Signs Temp Pulse Resp BP Pulse Ox 08/07/18 12:55 97.5 F 73 19 177/70 100 - Laboratory Result Diagrams: 08/07/18 14:34 08/07/18 14:34 Lab Statement: Any lab studies that have been ordered have been reviewed, and results considered in the medical decision making process. Lower Extremity Course/Dx - Course Course Of Treatment: 1320: Patient presenting with likely right hip fracture after mechanical fall. She is afebrile with stable vital signs. Patient evaluated in hallway at this time. Her pain is minimal at rest. Has been states she is at her baseline mental status. Pending x-rays and blood work. ECG done at 1406 shows a sinus rhtyhm of 66bpm, left axis devaiation, no ST elevation or depression. Labs unremarkable. Hip x-ray shows a slightly displaced femoral neck fracture. I spoke with on-call orthopedics, Dr. House, and he plans to take patient to the OR tomorrow if medically. Hospitalist consult for admission, Dr. Ennis, who accepts pt. to her service. Pain controlled with a dose of morphin. - Diagnoses Differential Diagnosis/HQI/PQRI: Positive: Contusion, Dislocation, Fracture ( Closed), Sprain, Strain Provider Diagnoses: Femoral neck fracture Discharge - Sign-Out/Discharge Documenting (check all that apply): Patient Departure Patient Received Moderate/Deep Sedation with Procedure: No - Discharge Plan Condition: Stable Disposition: ADMITTED TO [facility] Referrals: Keerthi Gottlieb MD [Primary Care Provider] - - Billing Disposition and Condition Condition: STABLE Disposition: Admitted to [facility]
[2018-08-07] MEDS ORDERED: Ondansetron INJ* 2 MG/ML VIAL IV ONE (14:22)
[2018-08-07] MEDS ORDERED: Morphine VIAL* 10 MG/ML 1 ML VIAL IV ONE (14:22)
[2018-08-07 14:52] LABS: Hematocrit 47 % (35-47); Hemoglobin 15.9 g/dl (12.0-16.0); Mean Corpuscular HGB Conc 34 g/dl (31-36); Mean Corpuscular Hemoglobin 30 pg (27-31); Mean Corpuscular Volume 89 fL (80-97); Red Blood Count 5.26 10^6/ul (4.00-5.40); Red Cell Distribution Width 14 % (10.5-15); White Blood Count 10.8 10^3/ul (3.5-10.8)
[2018-08-07 15:00] LABS: Activated Partial Thrombo Time 30.8 seconds (26.0-36.3); INR 0.94 (0.77-1.02)
[2018-08-07 15:07] LABS: Albumin 4.6 g/dL (3.2-5.2); Albumin/Globulin Ratio 1.8 (1-3); BUN/Creatinine Ratio 28.1 (8-20); Calcium 10.4 mg/dL (8.6-10.3); EGFR African American 108.6 (>60); EGFR Non-African American 89.7 (>60); Globulin 2.6 g/dL (2-4); Total Bilirubin 1.2 mg/dL (0.2-1.0); Total Protein 7.2 g/dL (6.4-8.9)
[2018-08-07 15:08] LABS: Troponin I 0.01 ng/mL (<0.04)
[2018-08-07 15:12] LABS: ABS Basophils 0 10^3/ul (0-0.2); ABS Eosinophils 0.1 10^3/ul (0-0.6); ABS Lymphocytes 1.3 10^3/ul (1.0-4.8); ABS Monocytes 0.6 10^3/ul (0-0.8); ABS Neutrophils 8.7 10^3/ul (1.5-7.7); ABS Nucleated RBC 0 10^3/ul; Eosinophil % 0.9 %; Lymphocyte % 12.2 %; Mean Platelet Volume 10.9 fL (7.4-10.4); Nucleated Red Blood Cells % 0.3; Platelet Count 291 10^3/ul (150-450)
[2018-08-07 15:24] LABS: Potassium 4.2 mmol/L (3.5-5.0)
[2018-08-07 15:28] LABS: Urine Appearance Clear; Urine Bilirubin Negative (Negative); Urine Blood Negative (Negative); Urine Color Yellow; Urine Glucose 3+(>=500 mg/dL) (Negative); Urine Ketones 1+ (Negative); Urine Nitrite Negative (Negative); Urine Protein Negative (Negative); Urine Specific Gravity 1.026 (1.010-1.030); Urine Urobilinogen Negative (Negative)
[2018-08-07] MEDS ORDERED: Buffered Lidocaine 1% SYRIN* 1 ML/SYRINGE INTRADERM ONE (17:17)
[2018-08-07] MEDS ORDERED: Ondansetron INJ* 2 MG/ML VIAL IV PRN (17:43)
[2018-08-07] MEDS ORDERED: Acetaminophen TAB* 325 MG PO PRN (17:43)
[2018-08-07] MEDS ORDERED: NS 0.9% 1000 ML** 1,000 ML IV SCH (17:45)
[2018-08-07] MEDS ORDERED: Dextrose 50% Syringe 50 ML* 25 GM/50 ML SYRINGE IV PUSH PRN (17:49)
[2018-08-07] MEDS ORDERED: hydrALAZINE IV* 20 MG/ML VIAL IV SLOW PU PRN (18:22)
[2018-08-07] MEDS: Morphine VIAL* 4 MG/ML VIAL (1 ml vial) IV PRN (18:23)
[2018-08-07] MEDS: Atorvastatin* 40 MG TAB PO SCH (21:53)
[2018-08-07] MEDS: oxyCODONE/Acetamin 5/325 MG* TAB PO PRN (21:54)
[2018-08-07] MEDS: Insulin LISPRO* 1 UNITS UNIT SUBCUT SCH (21:57)
[2018-08-07] MEDS ORDERED: Heparin VIAL(*) 5000 UNITS/ML VIAL (FIVE THOUSAND) SUBCUT SCH (22:00)
--- NOTE | 2018-08-07 22:18 | HP ---
CC: Dr. Keerthi Gottlieb * HISTORY AND PHYSICAL: DATE OF ADMISSION: 08/07/18 PRIMARY CARE PROVIDER: Dr. Keerthi Gottlieb. ATTENDING PHYSICIAN: Dr. Amie Ennis * (dictated by Caroline Ball NP). CHIEF COMPLAINT: Mechanical fall with subsequent hip pain. HISTORY OF PRESENT ILLNESS: Ms. Pressley is a 77-year-old female with a past medical history of diabetes, hypertension, hyperlipidemia, and dementia, who presents to the emergency room today after a mechanical fall. The patient resides at [place] with her . I will note that the patient is severely demented and is unable to provide any of the history, so the history is obtained from the patient's and daughter. The patient was walking with her earlier today when she went to turn around a corner, and she fell to the ground. He believes she lost her balance while turning. The reports that there was no loss of consciousness and she did not hit her head. After the fall, she was noted to have an abrasion on her right forearm and she was complaining of right hip pain. Her reports that prior to this fall she was in her normal state of health and did nothing out of the norm this morning. Her family reports that she has not had any recent falls other than this fall. In the emergency room, the patient had lab work, which was essentially unremarkable. She had an x-ray of her right hip and pelvis, which showed a slightly displaced fracture of the right femoral neck. The emergency room physician contacted Dr. House from Orthopedics, who was in to see the patient in the emergency room. He will plan to take her to the OR in the morning for a hemiarthroplasty. On my exam, the patient denies any pain. She has no recollection of the fall today and is not able to provide any subjective information other than reporting that she feels okay. Because of her hip fracture and the need for surgical intervention, the hospitalist service was asked to evaluate for admission. PAST MEDICAL HISTORY: 1. Diabetes mellitus type 2. 2. Hypertension. 3. Hyperlipidemia. 4. Dementia. PAST SURGICAL HISTORY: Unknown. HOME MEDICATIONS: 1. Acetaminophen 1000 mg p.o. q.4 hours p.r.n. pain. 2. Fosamax 70 mg p.o. weekly. 3. Ascorbic acid 1000 mg p.o. daily. 4. Atorvastatin 40 mg p.o. at bedtime. 5. Caltrate 600 plus D 1 tab p.o. daily. 6. Vitamin D3 of 1000 units p.o. daily. 7. Vitamin B12 of 1000 mcg p.o. daily. 8. Aricept 10 mg p.o. daily. 9. Jardiance 25 mg p.o. daily. 10. Lisinopril 20 mg p.o. daily. 11. Metformin 1000 mg p.o. b.i.d. ALLERGIES: CIPROFLOXACIN. FAMILY HISTORY: Unobtainable. SOCIAL HISTORY: The patient is a former smoker, who quit in 1969 or 1979. Her family denies any alcohol or recreational drug use. She lives at [place] with her . Her , Maurice, will be her surrogate decision maker in the event she is unable to make her own decisions. REVIEW OF SYSTEMS: An 11-point review of systems was performed and all the pertinent positive and negative findings are in the HPI. All other systems are negative. PHYSICAL EXAMINATION GENERAL: Ms. Pressley is a well-developed, well-nourished, elderly white woman, lying in bed, in no acute distress. She appears her stated age. VITAL SIGNS: Temp 97.5, heart rate 67, respiratory rate 23, oxygen saturation 100% on room air, and blood pressure 176/85. HEENT: Head is atraumatic, normocephalic. Visual walton are grossly intact. Pupils are equal, round, and reactive to light and accommodation. Oral mucous membranes are moist and without lesions. NECK: Thyroid not palpable. Trachea midline. No lymphadenopathy. RESPIRATORY: Symmetrical chest expansion. No chest wall deformities. Lungs are clear to auscultation throughout. No rhonchi, wheezes or rales. CARDIOVASCULAR: Regular rate and rhythm. S1, S2 present. No murmurs, rubs or gallops. ABDOMEN: Soft, nontender to palpation. Bowel sounds are normoactive throughout. EXTREMITIES: Skin warm and smooth bilaterally. No edema. No clubbing or cyanosis. Pedal pulses 2+ bilaterally. MUSCULOSKELETAL: There is no pain on light palpation of the right hip and there is no obvious deformity. NEURO: Awake, alert, and oriented to self only. Cranial nerves II through XII grossly intact. Moves all extremities. SKIN: There is a small abrasion on the posterior right forearm. DIAGNOSTIC STUDIES/LAB DATA: WBC 1.8, RBC 5.26, hemoglobin 15.9, hematocrit 47 , platelets 291. INR 0.94. Sodium 137, potassium 4.2, chloride 100, carbon dioxide 25, BUN 18, creatinine 0.64, glucose 148. Troponin 0.01. Urinalysis positive for 1+ ketones and 3+ glucose. Chest x-ray reads as no evidence for acute disease. EKG shows normal sinus rhythm with a rate of 66, QTc 467. There are peaked T waves, but no ischemic changes. Right hip pelvis x-ray reads as slightly displaced fracture of the right femoral neck. Right knee x-ray reads as limited study. No fracture is seen. ASSESSMENT AND PLAN: Ms. Pressley is a 77-year-old female with a past medical history of diabetes, hypertension, hyperlipidemia, and dementia, who presents to the emergency room today after a mechanical fall and was found to have a right femoral neck fracture. The patient will be admitted inpatient for: 1. Right femoral neck fracture. At this point, the patient's pain is well controlled. I have ordered morphine and Percocet in the event that she needs those the overnight. The patient was seen in the ER by Dr. House from Orthopedics, who will plan to take her to the emergency room tomorrow morning. The patient will be n.p.o. after midnight, pending surgery. According to the revised cardiac risk index, the patient has a score of 0 points indicating a 3.9 % risk of major cardiac event. The patient has a MET score of 4.64. EKG personally reviewed noted above, but shows normal sinus rhythm with no ischemic changes. She does not require any further cardiac workup. The patient has been medically optimized for surgery tomorrow with Dr. House. 2. Diabetes. In the emergency room, the patient had a glucose of 148. I will check a hemoglobin A1c, but at this point, I will hold the metformin and Jardiance. I have placed her fingerstick a.c. h.s., and sliding scale lispro. 3. Hypertension. The patient was noted to be hypertensive upon arrival to the emergency room with systolics in the 170s and 180s, though at this point, the systolics are in the 140s to 150s. I have ordered p.r.n. hydralazine for systolic pressure greater than 170. At this point, I will hold her lisinopril for surgery tomorrow and this can likely be restarted postop day #1. 4. Hyperlipidemia. I will continue her atorvastatin. 5. Dementia. I will continue her Aricept. 6. FEN. The patient does not require any electrolyte repletion at this time. I do not think she is dry though I think, because of her condition, her p.o. intake will be decreased, so I have ordered gentle IV hydration with normal saline at 75 mL per hour overnight. She can have a consistent carb diet. 7. Code status. The patient will be a full code. 8. DVT prophylaxis. According to the DVT Risk Assessment, the patient scores a 4, making her high risk. I have ordered 1 dose of heparin for tonight though further doses will be held pending her 8 o'clock surgery tomorrow morning and further anticoagulation will need to be determined by Ortho. TIME SPENT: Approximately, 60 minutes were spent on this admission, greater than half of that time spent [id number] with the patient and her family obtaining my history, performing my physical exam, and reviewing the plan of care. This case has been reviewed with my attending, Dr. Ennis, who is in agreement with the plan of care. CAROLINE BALL, [place] [id number]/CPS #: [id number] JOSE
[2018-08-08] MEDS: oxyCODONE/Acetamin 5/325 MG* TAB PO PRN (03:28)
[2018-08-08 05:24] LABS: ABS Basophils 0 10^3/ul (0-0.2); ABS Eosinophils 0 10^3/ul (0-0.6); ABS Lymphocytes 1.5 10^3/ul (1.0-4.8); ABS Monocytes 1.2 10^3/ul (0-0.8); ABS Neutrophils 7.7 10^3/ul (1.5-7.7); ABS Nucleated RBC 0 10^3/ul; Eosinophil % 0.4 %; Hematocrit 43 % (35-47); Hemoglobin 14.4 g/dl (12.0-16.0); Lymphocyte % 14.1 %; Mean Corpuscular HGB Conc 34 g/dl (31-36); Mean Corpuscular Hemoglobin 30 pg (27-31); Mean Corpuscular Volume 89 fL (80-97); Mean Platelet Volume 9.5 fL (7.4-10.4); Nucleated Red Blood Cells % 0; Platelet Count 177 10^3/ul (150-450); Red Blood Count 4.81 10^6/ul (4.00-5.40); Red Cell Distribution Width 14 % (10.5-15); White Blood Count 10.5 10^3/ul (3.5-10.8)
[2018-08-08 05:32] LABS: Activated Partial Thrombo Time 34.3 seconds (26.0-36.3); INR 0.97 (0.77-1.02)
[2018-08-08 05:44] LABS: BUN/Creatinine Ratio 33.9 (8-20); Calcium 9.1 mg/dL (8.6-10.3); EGFR African American 119.3 (>60); EGFR Non-African American 98.6 (>60); Potassium 3.8 mmol/L (3.5-5.0)
[2018-08-08] MEDS: Insulin LISPRO* 1 UNITS UNIT SUBCUT SCH ×4 (07:27→18:13)
[2018-08-08] MEDS: Donepezil TAB* 5 MG PO SCH (07:27)
[2018-08-08] MEDS ORDERED: ceFAZolin 2 GM PREMIX in ORs 2 GM/50 ML BAG IVPB ONE (07:58)
[2018-08-08] MEDS ORDERED: Propofol* 10 MG/ML 20 ML BTL ONE ×2 (08:11→09:43)
[2018-08-08] MEDS ORDERED: Lidocaine 2% PF * 5 ML VIAL ONE (08:13)
[2018-08-08] MEDS ORDERED: fentaNYL* 50 MCG/ML 2 ML VIAL (100 MCG VIAL) ONE ×2 (08:14→10:48)
[2018-08-08] MEDS ORDERED: Bupivacaine 0.25% EPI 200,000* 30 ML SDV ONE (09:08)
[2018-08-08] MEDS ORDERED: Phenylephrine INJ* 10 MG/ML 1 ML VIAL (10 MG) ONE (09:43)
[2018-08-08] MEDS ORDERED: Naloxone* 0.4 MG/ML 1 ML VIAL IV PRN (09:47)
[2018-08-08] MEDS ORDERED: Acetaminophen IV 1GM/100ML * 100 ML ONE (11:15)
[2018-08-08] MEDS ORDERED: hydrALAZINE IV* 20 MG/ML VIAL ONE (11:37)
--- NOTE | 2018-08-08 12:25 | OP ---
DATE OF OPERATION: 08/08/18 - ROOM #336 DATE OF : 38 SURGEON: Terrence House MD. GLASS CHECKER: DONTE Paredes. ANESTHESIOLOGIST: Dr. Jay Coreas. ANESTHESIA: Spinal. PRE-OP DIAGNOSIS: Right displaced femoral neck fracture. POST-OP DIAGNOSIS: Right displaced femoral neck fracture. OPERATIVE PROCEDURE: Right hip hemiarthroplasty using Hoyt Accolade system. COMPONENTS USED: Size 5 stem, 127-degree angle, 35 mm neck length, size 28 head with 0 offset, and size 44 outer diameter shell to go with a 28 mm head. CONDITION: The patient tolerated the procedure well. INDICATIONS: Mrs. Pressley is a 77-year-old female, household ambulator, who was in her usual state of reasonable health when she slipped and fell and presented to the [facility] Emergency Room for an evaluation. Her right lower extremity was shortened and externally rotated. Appropriate x-rays were obtained, which revealed she had a displaced femoral neck fracture on both AP and lateral planes. The patient was seen in the emergency room by myself and I spoke to the patient's family who was in attendance, and due to the fact that the patient is a household ambulator, the plan was for her to be scheduled for surgical intervention in the form of a right hip hemiarthroplasty. She was seen and admitted to the medicine service and I personally spoke to Dr. Amie Ennis, the hospitalist on-call, and Dr. Ennis verified the patient was suitable for surgical intervention the following morning. DESCRIPTION OF PROCEDURE: On the morning of surgery, she was seen in the preoperative holding area and I placed my initials on the patient's right hip to indicate the right hip was the correct hip, verified that all necessary equipment for the procedure was available for my use. The patient was taken to the operating room and after anesthesia was administered, the patient was positioned in the correct position ; lateral decubitus position, right side up, and then prepped and draped in the usual sterile fashion. Standard modified Mcdonough incision was used to approach the right hip. Skin was incised with #10 blade, followed by second #10 blade for superficial and deep subcu. The tensor fascia darline was identified and split along the length of the incision. I then placed the Charnley retractor and then my orthodontist assistant, Carie Hernandez, flexed and internally rotated the right hip to place the short external rotators on stretch. They were taken down to protect the underlying sciatic nerve. I then proceeded with corkscrew to remove the femoral head and then proceeded to prepare the proximal femur in standard fashion. We verified that we needed a size 5 femoral stem and then with a size 0 neck and 44 head, we found that the hip was stable in extension. Our limb lengths were approximately equal. Flexion to 90 degrees, hip was stable. Adduction across the midline, the hip was stable. Internal rotation to 25 degrees, the hip was stable. We then proceeded to place the actual femoral component in place and verified that it was in very good position and alignment. We then impacted the 28 head and then the 44 outer diameter head and then reduced the hip. Our stability was intact and then we irrigated the wound a final time, repaired the short external rotators of the greater trochanter with nonabsorbable suture, followed by closing the tensor fascia darline with interrupted nonabsorbable suture in [id number] fashion, followed by 0 Vicryl and 2-0 Vicryl, followed by skin david to skin. An abduction brace was placed and the patient was then awakened and transported off of the operating room table to the stretcher and the recovery room, having tolerated the procedure well. [id number]/[facility] #: [id number] JOSE
--- NOTE | 2018-08-08 13:02 | PN ---
Subjective Date of Service: 08/08/18 Interval History: Ms. Pressley seen in examined at bedside. accompanying her in room. She has just returned from the OR and is s/p hemiarthoplasty for her right femoral neck fracture. She endorses persistent pain at the right hip site, stating that it hasn't gone away since coming out of the OR. Dressing is c/d/i. She denies fever/chills, CP, SOB, abd pain, n/v. Family History: Unchanged from Admission Social History: Unchanged from Admission Past Medical History: Unchanged from Admission Objective Active Medications: Acetaminophen (Tylenol Tab*) 650 mg PO Q4H PRN PRN Reason: FEVER/PAIN Atorvastatin Calcium (Lipitor*) 40 mg PO BEDTIME [facility] Last Admin: 08/07/18 21:53 Dose: 40 mg Dextrose (D50w Syringe 50 Ml*) 12.5 gm IV PUSH .FOR FS < 60 - SS PRN PRN Reason: FS < 60 Donepezil HCl (Aricept Tab*) 10 mg PO DAILY [facility] Last Admin: 08/08/18 07:27 Dose: Not Given Hydralazine HCl (Apresoline Iv*) 5 mg IV SLOW PU Q6H PRN PRN Reason: SYSTOLIC BP GREATER THAN: Last Admin: 08/08/18 11:38 Dose: 5 mg Lactated Ringer's (Lactated Ringers 1000 Ml Bag*) 1,000 mls @ 125 mls/hr IV PER RATE [facility] Insulin Human Lispro (Humalog*) 0 units SUBCUT [facility]; Protocol Last Admin: 08/08/18 12:33 Dose: Not Given Morphine Sulfate (Morphine Vial*) 2 mg IV Q4H PRN PRN Reason: PAIN - MILD Last Admin: 08/07/18 18:23 Dose: 2 mg Ondansetron HCl (Zofran Inj*) 4 mg IV Q4H PRN PRN Reason: NAUSEA/VOMITING Oxycodone/Acetaminophen (Percocet 5/325 Tab*) 1 tab PO Q4H PRN PRN Reason: Pain Last Admin: 08/08/18 03:28 Dose: 1 tab Rivaroxaban (Xarelto(*)) 10 mg PO DAILY [facility] Vital Signs - 8 hr 08/08/18 08/08/18 08/08/18 07:27 08:00 10:33 Temperature 97.7 F Pulse Rate 101 Respiratory 16 16 Rate Blood Pressure (mmHg) O2 Sat by Pulse 76 Oximetry 08/08/18 08/08/18 08/08/18 10:38 10:40 10:45 Temperature Pulse Rate 86 73 72 Respiratory Rate Blood Pressure 154/85 164/82 175/89 (mmHg) O2 Sat by Pulse 97 98 98 Oximetry 08/08/18 08/08/18 08/08/18 10:50 10:55 11:00 Temperature Pulse Rate 85 82 83 Respiratory Rate Blood Pressure 171/90 192/88 179/91 (mmHg) O2 Sat by Pulse 98 98 98 Oximetry 08/08/18 08/08/18 08/08/18 11:05 11:10 11:15 Temperature Pulse Rate 79 81 59 Respiratory Rate Blood Pressure 169/105 179/83 176/86 (mmHg) O2 Sat by Pulse 98 98 100 Oximetry 08/08/18 08/08/18 08/08/18 11:30 11:45 12:00 Temperature 98.6 F Pulse Rate 58 78 67 Respiratory Rate Blood Pressure 196/72 192/113 165/86 (mmHg) O2 Sat by Pulse 100 97 95 Oximetry 08/08/18 12:34 Temperature 97.8 F Pulse Rate 79 Respiratory 18 Rate Blood Pressure 129/60 (mmHg) O2 Sat by Pulse 98 Oximetry Oxygen Devices in Use Now: None Appearance: Older female, lying in bed, alert, NAD Eyes: No Scleral Icterus, PERRLA Ears/Nose/Mouth/Throat: Clear Oropharnyx, Mucous Membranes Moist Neck: NL Appearance and Movements; NL JVP Respiratory: Symmetrical Chest Expansion and Respiratory Effort, Clear to Auscultation Cardiovascular: NL Sounds; No Murmurs; No JVD, RRR Abdominal: NL Sounds; No Tenderness; No Distention Extremities: No Edema, No Clubbing, Cyanosis, - - right hip dressing c/d/i, positive distal sensation/movement, DP 2+ Neurological: NL Sensation, NL Muscle Strength and Tone, - - Alert, oriented to self, calm, cooperative Lines/Tubes/Other Access: Clean, Dry and Intact Peripheral IV Result Diagrams: 08/08/18 05:17 08/08/18 05:17 Microbiology and Other Data: Microbiology 08/07/18 15:07 Nasal Screen MRSA (PCR) - Final Nasal Mrsa Not Detected Assess/Plan/Problems-Billing Assessment: Ms. Pressley is a 77 yo female, with a PMH significant for DM2, HTN, HLD, and dementia, who presented to the ED on 08/07/18 after a mechanical fall and was found to have a right femoral neck fracture. - Patient Problems (1) Fracture of femoral neck, right, closed Code(s): S72.001A - FRACTURE OF UNSP PART OF NECK OF RIGHT FEMUR, INIT Comment : POD #0, management per ortho PT/OT consults Pain management, bowel regimen Will schedule ATC Tylenol, given reports of pain, and add prn cyclobenzaprine and tramadol (2) Diabetes mellitus Code(s): E11.9 - TYPE 2 DIABETES MELLITUS WITHOUT COMPLICATIONS Comment: Controlled Continue Lispro SSI AC and FSBG ACHS Resume metformin and Jardiance upon discharge (3) HTN (hypertension) Code(s): I10 - ESSENTIAL (PRIMARY) HYPERTENSION Comment: Somewhat hypertensive Continue prn hydralazine, may need to resume home lisinopril tomorrow. (4) Hyperlipidemia Code(s): E78.5 - HYPERLIPIDEMIA, UNSPECIFIED Comment: Continue atorvastatin. (5) Dementia Code(s): F03.90 - UNSPECIFIED DEMENTIA WITHOUT BEHAVIORAL DISTURBANCE Comment : Continue donepezil Supportive care (6) DVT prophylaxis Comment: Per ortho Patient is ordered rivaroxaban. (7) Full code status Code(s): Z78.9 - OTHER SPECIFIED HEALTH STATUS Status and Disposition: Inpatient admission. Dispo will be determined in accordance with ortho. May require BHUEPNDRA prior to return to [place]. Attending: David Lopez
[2018-08-08] MEDS: Lactated Ringers 1000 ML Bag* 1,000 ML IV SCH (13:20)
[2018-08-08] MEDS ORDERED: traMADol TAB* 50 MG PO PRN (13:29)
[2018-08-08] MEDS: Acetaminophen TAB* 325 MG PO SCH ×2 (13:36→22:28)
[2018-08-08] MEDS: Rivaroxaban TAB(*) 10 MG PO SCH (13:43)
[2018-08-08] MEDS: Cyclobenzaprine TAB* 10 MG PO PRN (13:44)
[2018-08-08] MEDS ORDERED: Docusate CAP* 100 MG PO PRN (13:48)
[2018-08-08] MEDS ORDERED: Magnesium Hydroxide LIQ* 30 ML UDC PO PRN (13:48)
[2018-08-08] MEDS: Morphine VIAL* 4 MG/ML VIAL (1 ml vial) IV PRN ×2 (15:13→21:23)
[2018-08-08] MEDS ORDERED: Morphine INJ* 2 MG/ML 1 ML SYRINGE (TWO MG - NEW SYRINGE VERSION) IV ONE (16:57)
[2018-08-08] MEDS: ceFAZolin 1 GM* X 3 DOSES POST-OP Q8H (AddVan) IVPB SCH ×2 (17:15)
[2018-08-08] MEDS ORDERED: NS 0.9% 500 ML* 500 ML IV ONE ×2 (18:27→20:46)
[2018-08-08] MEDS ORDERED: Metoprolol Tartrate IV* 1 MG/ML 5 ML VIAL IV ONE (18:28)
--- NOTE | 2018-08-08 18:44 | PN ---
Hospitalist Progress Note Date of Service: 08/08/18 Patient with tachycardia; reported left shoulder pain to nurse but denies chest or shoulder pain during provider assessment. EKG shows sinus tachycardia but no other distress noted. Not hypoxic, resting comfortably. Denies pain. Plan for IV bolus, one time dose of metoprolol.
[2018-08-08] MEDS: Atorvastatin* 40 MG TAB PO SCH (22:28)
[2018-08-09] MEDS: Lactated Ringers 1000 ML Bag* 1,000 ML IV SCH ×2 (00:08→08:03)
[2018-08-09] MEDS: ceFAZolin 1 GM* X 3 DOSES POST-OP Q8H (AddVan) IVPB SCH ×4 (01:51→09:27)
[2018-08-09] MEDS: oxyCODONE/Acetamin 5/325 MG* TAB PO PRN ×3 (03:34→19:24)
[2018-08-09 05:17] LABS: Hematocrit 37 % (35-47); Hemoglobin 12.3 g/dl (12.0-16.0)
[2018-08-09 05:41] LABS: BUN/Creatinine Ratio 21.2 (8-20); Calcium 8.3 mg/dL (8.6-10.3); Potassium 3.6 mmol/L (3.5-5.0)
[2018-08-09] MEDS: Acetaminophen TAB* 325 MG PO SCH ×3 (06:33→21:43)
[2018-08-09] MEDS: Insulin LISPRO* 1 UNITS UNIT SUBCUT SCH ×3 (08:15→17:46)
[2018-08-09] MEDS ORDERED: Senna TAB PO PRN (09:13)
--- NOTE | 2018-08-09 09:14 | PN ---
Subjective Date of Service: 08/09/18 Interval History: No overnight events. Patient has safety personnel at the bedside. Denies any pain. Has no appetite. (tray is present but hasn't eaten) Is pleasantly confused talking about the scenery on the TV. AAOx 1 Family History: Unchanged from Admission Social History: Unchanged from Admission Past Medical History: Unchanged from Admission Objective Active Medications: Acetaminophen (Tylenol Tab*) 975 mg PO Q8H [facility] Last Admin: 08/09/18 06:33 Dose: Not Given Atorvastatin Calcium (Lipitor*) 40 mg PO BEDTIME [facility] Last Admin: 08/08/18 22:28 Dose: 40 mg Cyclobenzaprine HCl (Flexeril Tab*) 10 mg PO TID PRN PRN Reason: SPASMS - MUSCLE Last Admin: 08/08/18 13:44 Dose: 10 mg Dextrose (D50w Syringe 50 Ml*) 12.5 gm IV PUSH .FOR FS < 60 - SS PRN PRN Reason: FS < 60 Docusate Sodium (Colace Cap*) 100 mg PO BID PRN PRN Reason: CONSTIPATION Donepezil HCl (Aricept Tab*) 10 mg PO DAILY [facility] Last Admin: 08/08/18 07:27 Dose: Not Given Hydralazine HCl (Apresoline Iv*) 5 mg IV SLOW PU Q6H PRN PRN Reason: SYSTOLIC BP GREATER THAN: Last Admin: 08/08/18 11:38 Dose: 5 mg Lactated Ringer's (Lactated Ringers 1000 Ml Bag*) 1,000 mls @ 125 mls/hr IV PER RATE [facility] Last Admin: 08/09/18 08:03 Dose: 125 mls/hr Cefazolin Sodium 1 gm/ Sodium (Chloride) 50 mls @ 200 mls/hr IVPB Q8H [facility] Stop: 08/09/18 09:14 Last Admin: 08/09/18 01:51 Dose: 200 mls/hr Insulin Human Lispro (Humalog*) 0 units SUBCUT [facility]; Protocol Last Admin: 08/09/18 08:15 Dose: Not Given Magnesium Hydroxide (Milk Of Magnesia Liq*) 30 ml PO Q4H PRN PRN Reason: CONSTIPATION Morphine Sulfate (Morphine Vial*) 2 mg IV Q4H PRN PRN Reason: PAIN - MILD Last Admin: 08/08/18 21:23 Dose: 2 mg Ondansetron HCl (Zofran Inj*) 4 mg IV Q4H PRN PRN Reason: NAUSEA/VOMITING Oxycodone/Acetaminophen (Percocet 5/325 Tab*) 1 tab PO Q4H PRN PRN Reason: Pain Last Admin: 08/09/18 03:34 Dose: 1 tab Rivaroxaban (Xarelto(*)) 10 mg PO DAILY [facility] Last Admin: 08/08/18 13:43 Dose: 10 mg Tramadol HCl (Ultram*) 50 mg PO Q6H PRN PRN Reason: PAIN Vital Signs - 8 hr 08/09/18 08/09/18 08/09/18 02:33 03:32 03:34 Temperature 98.0 F Pulse Rate 127 Respiratory 16 Rate Blood Pressure 153/68 (mmHg) O2 Sat by Pulse 97 99 Oximetry 08/09/18 08/09/18 08/09/18 05:45 08:01 08:20 Temperature 98.2 F Pulse Rate 134 Respiratory 16 16 Rate Blood Pressure 145/85 (mmHg) O2 Sat by Pulse 95 Oximetry Oxygen Devices in Use Now: None Ears/Nose/Mouth/Throat: Mucous Membranes Moist Neck: Trachea Midline Respiratory: Symmetrical Chest Expansion and Respiratory Effort, Clear to Auscultation Cardiovascular: - - systolic murmur, tachycardia Abdominal: NL Sounds; No Tenderness; No Distention, No Hepatosplenomegaly Extremities: No Edema, - - bandage with some serosanginous fluid over right hip. Ice pack in place. +1 DPs Neurological: - - AAOx 1 - oriented to self. Pleasantly confused. Having a hard time answering questions appropriately Result Diagrams: 08/09/18 05:01 08/09/18 05:00 Microbiology and Other Data: Microbiology 08/07/18 15:07 Nasal Screen MRSA (PCR) - Final Nasal Mrsa Not Detected Assess/Plan/Problems-Billing Assessment: Ms. Pressley is a 77 yo female, with a PMH significant for dementia, DM and HTN, who presented to the ED from [place] after a mechanical fall and was found to have a right femoral neck fracture s/p repair on 08/08 - Patient Problems (1) Fracture of femoral neck, right, closed Current Visit: Yes Status: Acute Code(s): S72.001A - FRACTURE OF UNSP PART OF NECK OF RIGHT FEMUR, INIT SNOMED Code(s): 705829856 Comment: POD #1, management per ortho - Dr. Laura - PT/OT consults Pain management, bowel regimen Will schedule ATC Tylenol, given reports of pain, and add prn cyclobenzaprine and tramadol Patient from [facility] dementia unit (2) HTN (hypertension) Current Visit: Yes Status: Chronic Code(s): I10 - ESSENTIAL (PRIMARY) HYPERTENSION SNOMED Code(s): 81152608 Comment: A. Slightly elevated. Lisinopril on hold Plan With her tachycardia will start her on low dose metoprolol and then add resume lisinopril after a few days if she tolerates it. (3) Full code status Current Visit: No Status: Acute Code(s): Z78.9 - OTHER SPECIFIED HEALTH STATUS SNOMED Code(s): 030433263 (4) Tachycardia Current Visit: No Status: Acute Code(s): R00.0 - TACHYCARDIA, UNSPECIFIED SNOMED Code(s): 7641587 Comment: A. Continues to be tachycardic. Asymptomatic. EKG shows sinus tachycardia Patient persistently tachycardic this AM up to 132 with regular rate. Not taking much PO. On IVfs. Labs show mild AG metabolic acidosis. May have some starvation ketoacidosis. Plan Will d/c IVFs for now to see if this will help allow for an appetite and PO Check TSH Will start low dose metoprolol Repeat labs in AM (5) Dementia Current Visit: No Status: Chronic Code(s): F03.90 - UNSPECIFIED DEMENTIA WITHOUT BEHAVIORAL DISTURBANCE SNOMED Code(s): 78026836 Comment: Continue donepezil Supportive care (6) Diabetes mellitus Current Visit: No Status: Chronic Code(s): E11.9 - TYPE 2 DIABETES MELLITUS WITHOUT COMPLICATIONS SNOMED Code(s): 30954928 Comment: Controlled Continue Lispro SSI AC Resume metformin and Jardiance upon discharge (7) Hyperlipidemia Current Visit: No Status: Chronic Code(s): E78.5 - HYPERLIPIDEMIA, UNSPECIFIED SNOMED Code(s): 75809883 Comment: Continue atorvastatin. (8) DVT prophylaxis Current Visit: No Status: Acute Code(s): UPG9536 - SNOMED Code(s): 248072372 Comment: Per ortho Patient on rivaroxaban Status and Disposition: Inpatient admission. May need BHUPENDRA prior to returning to [facility] dementia unit. Dispo per Ortho
[2018-08-09] MEDS: Rivaroxaban TAB(*) 10 MG PO SCH (09:27)
[2018-08-09] MEDS: Donepezil TAB* 5 MG PO SCH (09:27)
[2018-08-09 09:42] LABS: Troponin I 0.02 ng/mL (<0.04)
[2018-08-09 09:46] LABS: TSH (Thyroid Stimulating Horm) 0.6 mcIU/mL (0.34-5.60)
[2018-08-09] MEDS: Metoprolol Tartrate TAB* 25 MG PO SCH ×2 (10:38→21:42)
[2018-08-09 10:46] LABS: Magnesium 1.5 mg/dL (1.9-2.7)
[2018-08-09] MEDS ORDERED: Magnesium Sulfate IV* 3 GM in NS 0.9% 100 ML* 100 ML IVPB ONE (13:30)
[2018-08-09] MEDS: Cyclobenzaprine TAB* 10 MG PO PRN ×2 (13:43→21:41)
[2018-08-09] MEDS: Morphine VIAL* 4 MG/ML VIAL (1 ml vial) IV PRN (16:38)
[2018-08-09] MEDS ORDERED: Metoprolol Tartrate IV* 1 MG/ML 5 ML VIAL IV ONE (18:25)
[2018-08-09] MEDS ORDERED: Metoprolol Tartrate IV* 1 MG/ML 5 ML VIAL ONE (18:27)
[2018-08-09] MEDS: Magnesium Hydroxide LIQ* 30 ML UDC PO SCH (21:41)
[2018-08-09] MEDS: Atorvastatin* 40 MG TAB PO SCH (21:41)
[2018-08-09] MEDS: Docusate CAP* 100 MG PO SCH (21:42)
[2018-08-09] MEDS ORDERED: Haloperidol INJ IV/IM* 5 MG/ML AMP IV SLOW PU PRN (22:08)
[2018-08-10] MEDS ORDERED: Metoprolol Tartrate IV* 1 MG/ML 5 ML VIAL IV PRN (04:54)
[2018-08-10 06:09] LABS: ABS Basophils 0 10^3/ul (0-0.2); ABS Eosinophils 0 10^3/ul (0-0.6); ABS Lymphocytes 0.8 10^3/ul (1.0-4.8); ABS Monocytes 1.5 10^3/ul (0-0.8); ABS Neutrophils 11.4 10^3/ul (1.5-7.7); ABS Nucleated RBC 0 10^3/ul; Eosinophil % 0 %; Hematocrit 32 % (35-47); Hemoglobin 10.9 g/dl (12.0-16.0); Lymphocyte % 5.7 %; Mean Corpuscular HGB Conc 34 g/dl (31-36); Mean Corpuscular Hemoglobin 30 pg (27-31); Mean Corpuscular Volume 90 fL (80-97); Mean Platelet Volume 9.1 fL (7.4-10.4); Nucleated Red Blood Cells % 0; Platelet Count 207 10^3/ul (150-450); Red Blood Count 3.61 10^6/ul (4.00-5.40); Red Cell Distribution Width 14 % (10.5-15); White Blood Count 13.6 10^3/ul (3.5-10.8)
[2018-08-10 06:31] LABS: BUN/Creatinine Ratio 21.4 (8-20); Calcium 8.5 mg/dL (8.6-10.3); EGFR African American 126.7 (>60); EGFR Non-African American 104.7 (>60); Magnesium 2.4 mg/dL (1.9-2.7); Potassium 3.7 mmol/L (3.5-5.0)
[2018-08-10] MEDS: Acetaminophen TAB* 325 MG PO SCH ×3 (06:50→21:17)
--- NOTE | 2018-08-10 07:42 | PN ---
Progress Note - Progress Note Date of Service: 08/10/18 Note: s: pod # 2. pt confused. denies pain in right hip. O: Vs stable. H/H 10.9/32. WBC 13.6 dressing to right hip changed sitting in chair. some minimal bloody drainage noted. May need to be reenforced when pt up or lying in bed. A: s/p right hip hemiarthroplasty P: continue pt. weight bear as tolerated. probably a candidate for short term rehab. Carie Hernandez. PAC
[2018-08-10] MEDS: Insulin LISPRO* 1 UNITS UNIT SUBCUT SCH ×3 (08:43→18:31)
[2018-08-10] MEDS: Docusate CAP* 100 MG PO SCH ×2 (08:43→21:17)
[2018-08-10] MEDS: Magnesium Hydroxide LIQ* 30 ML UDC PO SCH ×2 (08:43→21:26)
[2018-08-10] MEDS: Rivaroxaban TAB(*) 10 MG PO SCH (08:43)
[2018-08-10] MEDS: Metoprolol Tartrate TAB* 25 MG PO SCH ×2 (08:44→21:17)
[2018-08-10] MEDS: Donepezil TAB* 5 MG PO SCH (08:44)
--- NOTE | 2018-08-10 12:22 | CONS ---
EMERGENCY ROOM CONSULT NOTE: DATE OF CONSULT: 08/07/18 HISTORY OF PRESENT ILLNESS: I was called to see this pleasant 77-year-old mildly confused female who has a history of slipping and falling and sustaining an injury to her right hip. The patient was described as a household ambulator by her family. The patient has a history of [id number] diabetes mellitus and mild hypertension. The patient was seen in the emergency room and the patient was somewhat confused. I spoke to the patient's and daughter. The daughter is the patient's power of assistant district attorney. PHYSICAL EXAMINATION: This is a well-developed, well-nourished, confused female , oriented to person, but not place or time. The patient's HEENT is entirely within normal limits. Chest was clear to auscultation. The patient complained of pain at her right lower extremity. The patient had minimal bruising of her right proximal thigh; however, her overall limb length was mildly shortened and slightly externally rotated. Abdomen was soft and tender to palpation. Positive bowel sounds were noted. DIAGNOSTIC STUDIES/LAB DATA: The x-rays of the patient's right lower extremity were evaluated and she had a displaced subcapital hip fracture on both AP and lateral planes. IMPRESSION AND PLAN: A lengthy discussion was held with the patient, daughter, and and due to the fact that she was a household ambulator and would not tolerate bed to chair treatment, the plan was to perform a right hip hemiarthroplasty. I explained at great length the procedure of right hip hemiarthroplasty with the patient's family and stated that she would have a lateral incision to her right hip after which we would then dislocate the hip and remove the fractured femoral head and then prepare the proximal femur and then place a hemiarthroplasty prosthesis into the proximal femur. The patient' s family was in agreement with this plan. I spoke to the primary care physician that she was admitted to, Dr. Amie Ennis, and the patient was scheduled for surgical intervention the following day that was 08/08/18. The patient should be n.p.o. after midnight. She was typed and crossed for 2 units of PRBC and the plan is to have a right hip hemiarthroplasty performed. [id number]/[facility] #: [id number] MTDD
--- NOTE | 2018-08-10 18:10 | PN ---
Subjective Date of Service: 08/10/18 Interval History: Patient seen and examined at bedside. Denies fever, chills, shortness of breath , chest discomfort, N/V/D. Tele: Sinus rhythm to sinus tach, rate 90-120's. Family History: Unchanged from Admission Social History: Unchanged from Admission Past Medical History: Unchanged from Admission Objective Active Medications: Acetaminophen (Tylenol Tab*) 975 mg PO Q8H [facility] Atorvastatin Calcium (Lipitor*) 40 mg PO BEDTIME [facility] Cyclobenzaprine HCl (Flexeril Tab*) 10 mg PO TID PRN Reason: SPASMS - MUSCLE Dextrose (D50w Syringe 50 Ml*) 12.5 gm IV PUSH .FOR FS < 60 - SS PRN Reason: FS < 60 Docusate Sodium (Colace Cap*) 100 mg PO BID [facility] Donepezil HCl (Aricept Tab*) 10 mg PO DAILY [facility] Haloperidol Lactate (Haldol Inj Iv/Im*) 2 mg IV SLOW PU Q6H PRN Reason: AGITATION Hydralazine HCl (Apresoline Iv*) 5 mg IV SLOW PU Q6H PRN Reason: SYSTOLIC BP GREATER THAN: Insulin Human Lispro (Humalog*) 0 units SUBCUT [facility]; Protocol Magnesium Hydroxide (Milk Of Magnesia Liq*) 30 ml PO Q4H PRN Reason: CONSTIPATION Magnesium Hydroxide (Milk Of Magnesia Liq*) 30 ml PO BID [facility] Metoprolol Tartrate (Lopressor Tab*) 12.5 mg PO Q12HR [facility] Metoprolol Tartrate (Lopressor Iv*) 5 mg IV Q6H PRN Reason: BLOOD PRESSURE Morphine Sulfate (Morphine Vial*) 2 mg IV Q4H PRN Reason: PAIN - MILD Ondansetron HCl (Zofran Inj*) 4 mg IV Q4H PRN Reason: NAUSEA/VOMITING Oxycodone/Acetaminophen (Percocet 5/325 Tab*) 1 tab PO Q4H PRN Reason: Pain Rivaroxaban (Xarelto(*)) 10 mg PO DAILY [facility] Senna (Senokot Tab*) 1 tab PO BEDTIME PRN Reason: CONSTIPATION Tramadol HCl (Ultram*) 50 mg PO Q6H PRN Reason: PAIN Vital Signs - 8 hr 08/10/18 08/10/18 08/10/18 11:38 13:04 16:00 Temperature 97.4 F Pulse Rate 98 Respiratory 17 17 Rate Blood Pressure 97/48 (mmHg) O2 Sat by Pulse 98 98 Oximetry 08/10/18 17:19 Temperature 97.4 F Pulse Rate 106 Respiratory 15 Rate Blood Pressure 126/54 (mmHg) O2 Sat by Pulse 99 Oximetry Oxygen Devices in Use Now: None Appearance: NAD, laying in bed Ears/Nose/Mouth/Throat: Mucous Membranes Moist Respiratory: Symmetrical Chest Expansion and Respiratory Effort, Clear to Auscultation Cardiovascular: NL Sounds; No Murmurs; No JVD, RRR Abdominal: NL Sounds; No Tenderness; No Distention Extremities: - - Mild right LE edema Skin: - - Dressing to right hip Neurological: NL Muscle Strength and Tone, - - Alert and Oriented to Person Nutrition: Taking PO's Result Diagrams: 08/10/18 06:02 08/10/18 06:02 Microbiology and Other Data: Microbiology 08/07/18 15:07 Nasal Screen MRSA (PCR) - Final Nasal Mrsa Not Detected Assess/Plan/Problems-Billing Assessment: Ms. Pressley is a 77 yo female, with a PMH significant for dementia, DM and HTN, who presented to the ED from [place] after a mechanical fall and was found to have a right femoral neck fracture s/p hemiarthroplasty on 08/08 - Patient Problems (1) Fracture of femoral neck, right, closed Code(s): S72.001A - FRACTURE OF UNSP PART OF NECK OF RIGHT FEMUR, INIT SNOMED Code(s): 084527069 Comment: - POD #2, S/P right hip hemiarthroplasty - Management per ortho, Dr. House - Continue PT/OT, Pain management, bowel regimen - Continue ATC Tylenol, prn cyclobenzaprine and tramadol (2) HTN (hypertension) Code(s): I10 - ESSENTIAL (PRIMARY) HYPERTENSION SNOMED Code(s): 17544469 Comment: - Mostly normotensive, SBP 90-150's - Continue metoprolol and resume lisinopril after a few days if she tolerates it (3) Dementia Code(s): F03.90 - UNSPECIFIED DEMENTIA WITHOUT BEHAVIORAL DISTURBANCE SNOMED Code(s): 52672621 Comment: - Continue donepezil - Supportive care (4) Diabetes mellitus Code(s): E11.9 - TYPE 2 DIABETES MELLITUS WITHOUT COMPLICATIONS SNOMED Code(s) : 63612895 Comment: - Controlled, glucose 150-220's - Continue Lispro SSI AC - Resume metformin and Jardiance upon discharge (5) Hyperlipidemia Code(s): E78.5 - HYPERLIPIDEMIA, UNSPECIFIED SNOMED Code(s): 39747650 Comment: - Continue atorvastatin (6) DVT prophylaxis Code(s): GZY6440 - SNOMED Code(s): 557897092 Comment: - Rivaroxaban, per orthopedics (7) Full code status Code(s): Z78.9 - OTHER SPECIFIED HEALTH STATUS SNOMED Code(s): 104519863 Status and Disposition: Inpatient admission. May need BHUPENDRA prior to returning to [place] dementia unit.
[2018-08-10] MEDS: Atorvastatin* 40 MG TAB PO SCH (21:17)
[2018-08-11 05:17] LABS: ABS Basophils 0 10^3/ul (0-0.2); ABS Eosinophils 0.1 10^3/ul (0-0.6); ABS Monocytes 1.1 10^3/ul (0-0.8); ABS Neutrophils 8.9 10^3/ul (1.5-7.7); ABS Nucleated RBC 0 10^3/ul; Eosinophil % 0.7 %; Hematocrit 26 % (35-47); Hemoglobin 8.9 g/dl (12.0-16.0); Lymphocyte % 9.2 %; Mean Corpuscular HGB Conc 34 g/dl (31-36); Mean Corpuscular Hemoglobin 30 pg (27-31); Mean Corpuscular Volume 89 fL (80-97); Mean Platelet Volume 9.2 fL (7.4-10.4); Nucleated Red Blood Cells % 0; Platelet Count 210 10^3/ul (150-450); Red Blood Count 2.95 10^6/ul (4.00-5.40); Red Cell Distribution Width 15 % (10.5-15); White Blood Count 11.1 10^3/ul (3.5-10.8)
[2018-08-11] MEDS: Acetaminophen TAB* 325 MG PO SCH ×3 (05:58→21:32)
--- NOTE | 2018-08-11 07:30 | PN ---
Progress Note - Progress Note Date of Service: 08/11/18 Note: S: pod#3. doing well. denies right hip pain. much more calm this am. O: vs stable WBC 11.1. H/H 8.9 dressing some minimal drainage. Moving ankle without difficulty. No calf tenderness to palpation. A: s/p right hip hemiarthroplasty P:change or re enforce dressing as needed. continue pt. weight bearing as tolerated right lower extremity with the walker.
[2018-08-11] MEDS: Rivaroxaban TAB(*) 10 MG PO SCH (08:54)
[2018-08-11] MEDS: Metoprolol Tartrate TAB* 25 MG PO SCH ×2 (08:54→21:31)
[2018-08-11] MEDS: Magnesium Hydroxide LIQ* 30 ML UDC PO SCH ×2 (08:54→21:22)
[2018-08-11] MEDS: Donepezil TAB* 5 MG PO SCH (08:54)
[2018-08-11] MEDS: Insulin LISPRO* 1 UNITS UNIT SUBCUT SCH ×3 (08:54→18:29)
[2018-08-11] MEDS: Docusate CAP* 100 MG PO SCH ×2 (08:55→21:21)
--- NOTE | 2018-08-11 16:41 | PN ---
Subjective Date of Service: 08/11/18 Interval History: Patient seen and examined at bedside. Resting peacefully. In no acute distress. Denies fever, chills, sob, dyspnea, chest pain, palpitations, N/V/D. Pt with mild confusion, reports "My is in the room so it wouldn't be appropriate for you to look at my stomach." is not present. Tele: Sinus rhythm to Sinus tach, rate 80-100's. No keeping tele on and keeps removing it. Family History: Unchanged from Admission Social History: Unchanged from Admission Past Medical History: Unchanged from Admission Objective Active Medications: Acetaminophen (Tylenol Tab*) 975 mg PO Q8H [facility] Atorvastatin Calcium (Lipitor*) 40 mg PO BEDTIME [facility] Cyclobenzaprine HCl (Flexeril Tab*) 10 mg PO TID PRN Reason: SPASMS - MUSCLE Dextrose (D50w Syringe 50 Ml*) 12.5 gm IV PUSH .FOR FS < 60 - SS PRN Reason: FS < 60 Docusate Sodium (Colace Cap*) 100 mg PO BID [facility] Donepezil HCl (Aricept Tab*) 10 mg PO DAILY [facility] Haloperidol Lactate (Haldol Inj Iv/Im*) 2 mg IV SLOW PU Q6H PRN Reason: AGITATION Hydralazine HCl (Apresoline Iv*) 5 mg IV SLOW PU Q6H PRN Reason: SYSTOLIC BP GREATER THAN: Insulin Human Lispro (Humalog*) 0 units SUBCUT AC [facility]; Protocol Magnesium Hydroxide (Milk Of Magnesia Liq*) 30 ml PO Q4H PRN Reason: CONSTIPATION Magnesium Hydroxide (Milk Of Magnesia Liq*) 30 ml PO BID [facility] Metoprolol Tartrate (Lopressor Tab*) 12.5 mg PO Q12HR [facility] Metoprolol Tartrate (Lopressor Iv*) 5 mg IV Q6H PRN Reason: BLOOD PRESSURE Morphine Sulfate (Morphine Vial*) 2 mg IV Q4H PRN Reason: PAIN - MILD Ondansetron HCl (Zofran Inj*) 4 mg IV Q4H PRN Reason: NAUSEA/VOMITING Oxycodone/Acetaminophen (Percocet 5/325 Tab*) 1 tab PO Q4H PRN Reason: Pain Rivaroxaban (Xarelto(*)) 10 mg PO DAILY [facility] Senna (Senokot Tab*) 1 tab PO BEDTIME PRN Reason: CONSTIPATION Tramadol HCl (Ultram*) 50 mg PO Q6H PRN Reason: PAIN Vital Signs - 8 hr 08/11/18 08/11/18 08/11/18 12:14 15:25 16:00 Temperature 98.3 F 97.4 F Pulse Rate 106 102 Respiratory 14 16 Rate Blood Pressure 125/57 139/56 (mmHg) O2 Sat by Pulse 97 100 100 Oximetry Oxygen Devices in Use Now: None Appearance: NAD, laying in bed Eyes: PERRLA Ears/Nose/Mouth/Throat: Clear Oropharnyx, Mucous Membranes Moist Neck: Trachea Midline Respiratory: Clear to Auscultation Cardiovascular: NL Sounds; No Murmurs; No JVD, RRR Extremities: No Edema - Moderate amount of non-pitting edema RLE. Neurological: Alert and Oriented x 3 Nutrition: Taking PO's Result Diagrams: 08/11/18 04:46 08/10/18 06:02 Microbiology and Other Data: Microbiology 08/07/18 15:07 Nasal Screen MRSA (PCR) - Final Nasal Mrsa Not Detected Assess/Plan/Problems-Billing Assessment: Ms. Pressley is a 77 yo female, with a PMH significant for dementia, DM and HTN, who presented to the ED from [place] after a mechanical fall and was found to have a right femoral neck fracture s/p hemiarthroplasty on 08/08 - Patient Problems (1) Fracture of femoral neck, right, closed Code(s): S72.001A - FRACTURE OF UNSP PART OF NECK OF RIGHT FEMUR, INIT SNOMED Code(s): 995244006 Comment: - POD #3, S/P right hip hemiarthroplasty - Management per orthoDr. House - Continue PT/OT, Pain management, bowel regimen - Continue ATC Tylenol and tramadol (2) Acute blood loss anemia Code(s): D62 - ACUTE POSTHEMORRHAGIC ANEMIA SNOMED Code(s): 288881428 Comment: - Asymptomatic - Secondary to surgery, S/P right hemiarthroplasty - Recheck HH in the AM (3) Tachycardia Code(s): R00.0 - TACHYCARDIA, UNSPECIFIED SNOMED Code(s): 4737735 Comment: - Continues to be mildly tachycardic. Asymptomatic. - EKG shows sinus tachycardia - Continue low dose metoprolol (4) HTN (hypertension) Code(s): I10 - ESSENTIAL (PRIMARY) HYPERTENSION SNOMED Code(s): 43599861 Comment: - Mostly normotensive, SBP 120-130's - Continue metoprolol and resume lisinopril at discharge if BP allows (5) Dementia Code(s): F03.90 - UNSPECIFIED DEMENTIA WITHOUT BEHAVIORAL DISTURBANCE SNOMED Code(s): 06675268 Comment: - With confusion - Continue donepezil - Supportive care (6) Diabetes mellitus Code(s): E11.9 - TYPE 2 DIABETES MELLITUS WITHOUT COMPLICATIONS SNOMED Code(s) : 29528379 Comment: - Controlled, glucose 140-220's - HgA1c 6.6 - Continue Lispro SSI AC - Resume metformin and Jardiance upon discharge (7) Hyperlipidemia Code(s): E78.5 - HYPERLIPIDEMIA, UNSPECIFIED SNOMED Code(s): 59374830 Comment: - Continue atorvastatin (8) DVT prophylaxis Code(s): ASA8400 - SNOMED Code(s): 991871281 Comment: - Rivaroxaban, per orthopedics - Wearing SCD's bilaterally (9) Full code status Code(s): Z78.9 - OTHER SPECIFIED HEALTH STATUS SNOMED Code(s): 199567160 Status and Disposition: Inpatient admission. Stable for discharge to [facility] in the AM. Attending: Daljit Marei
[2018-08-11] MEDS ORDERED: Insulin LISPRO* 1 UNITS UNIT SUBCUT ONE (18:21)
[2018-08-11] MEDS: Atorvastatin* 40 MG TAB PO SCH (21:31)
--- NOTE | 2018-08-12 00:41 | DS ---
CC: Dr. Keerthi Gottlieb; [facility] * DISCHARGE SUMMARY: DATE OF ADMISSION: 08/07/18 DATE OF DISCHARGE: 08/12/18 ATTENDING PHYSICIAN: Dr. Daljit Marie * (dictated by Arabella Franklin NP). PRIMARY CARE PROVIDER: Dr. Keerthi Gottlieb. PRIMARY DIAGNOSES: 1. Right femoral neck fracture, status post right hemiarthroplasty. 2. Postoperative acute blood loss anemia. SECONDARY DIAGNOSES: 1. Diabetes. 2. Hypertension. 3. Hyperlipidemia. 4. Dementia. CONSULTATIONS WHILE IN THE HOSPITAL: Dr. Terrence House with Orthopedic Surgery. PROCEDURES WHILE IN THE HOSPITAL: Status post right hip hemiarthroplasty on 07/[address] Terrence House. STUDIES WHILE IN THE HOSPITAL: 1. Chest x-ray on 08/07/18. Radiologist's impression: No evidence for acute disease. 2. Right hip and pelvis x-ray on 08/07/18. Radiologist's impression: Slightly displaced fracture of the right femoral neck. 3. Right knee x-ray on 08/07/18. Radiologist's impression: Limited study, no fracture is seen. 4. Pelvis x-ray on 08/08/18. Radiologist's impression: Anatomic alignment of a right hip prosthesis in the AP projection. Incidentally noted is calcified atherosclerosis of the bilateral superficial femoral arteries. DISCHARGE MEDICATIONS: New home medications: 1. Colace 100 mg by mouth twice daily. 2. Milk of magnesia 30 mL by mouth every 6 hours as needed for constipation. 3. Xarelto 10 mg by mouth daily. 4. Senna 1 tablet by mouth at bedtime as needed for constipation. 5. Tramadol 50 mg by mouth every 6 hours as needed for pain. 6. Acetaminophen 1000 mg by mouth every 8 hours around the clock. Continued home medications: 1. Atorvastatin 40 mg by mouth at bedtime. 2. Lisinopril 20 mg by mouth every day. 3. Aricept 10 mg by mouth every day. 4. Metformin 1000 mg by mouth twice daily. 5. Vitamin D3 1000 units by mouth every morning. 6. Vitamin C 1000 mg by mouth every morning. 7. Jardiance 25 mg by mouth every day. 8. Fosamax 70 mg by mouth weekly. 9. Vitamin B12 1000 mcg by mouth every morning. 10. Caltrate 600 plus D plus tablet 1 tablet by mouth daily. HISTORY OF PRESENT ILLNESS/HOSPITAL COURSE: Ms. Pressley is a 77-year-old female with past medical history significant for diabetes, hypertension, hyperlipidemia, and dementia, who presented to the emergency room after a mechanical fall at [place] where she resides. The patient was walking with her when she turned around a corner and fell to the ground. There was no reported loss of consciousness and she did not hit her head. After the fall , she was noted to have an abrasion on her right forearm and was complaining of right hip pain. According to her who was with her at the time of fall, she had no complaints and was in her usual state of health prior to the fall. Due to the fall and reports of pain, she was brought to the emergency room for further evaluation of her symptoms. While in the emergency room, she had lab work that was essentially unremarkable. She had an x-ray of her right hip and pelvis showing a slightly displaced fracture of the right femoral neck. She was seen in consultation by Dr. Terrence House with Orthopedic Surgery, who planned to take her to the operating room in the morning for a hemiarthroplasty. She was referred to the hospitalist service for evaluation and admission. During her hospitalization, she underwent a right hip hemiarthroplasty on with Dr. House. Postoperatively, she has been doing well. She has been working with Physical Therapy/Occupational Therapy. Her pain has been well controlled on acetaminophen around the clock. She was noted to have acute blood loss anemia postoperatively, and her HH has been stable. Her blood pressures have been normotensive. Her lisinopril has been held during her stay. Her glucoses had been well controlled with the exception of the one glucose that was over range, I suspect this was secondary to a dietary indiscretion, as all the others had previously been well controlled and her last hemoglobin A1c was 6.6. She had a negative urinalysis. It was felt that she will need subacute rehab at discharge. She has been offered a bed at [facility]. Ms. Pressley is stable for discharge to [facility] on 08/12/18. Vital signs are as follows: Temperature 97.4, heart rate 102, respiratory rate 16, O2 sat 100% on room air, blood pressure 139/56. DISCHARGE PLAN: Ms. Pressley will be discharged to [facility]. Activity: As tolerated. She should have physical therapy/occupational therapy evaluations and treatment. She should be on a regular diet. In regards to her right hip hemiarthroplasty, hip precautions should be followed. She should be seen in followup by Orthopedic Surgery. Please contract Dr. House's office to schedule a followup. She should have sutures out in 12 to 14 days. Monitor the incision site for signs of infection. In regards to her blood pressure, she has been normotensive during her stay. Her lisinopril has been held, but may be able to be resume tomorrow morning if blood pressure allows. Continue to monitor her blood pressures and titrate her medications accordingly. In regards to pain control, she should be continued on around the clock Tylenol and tramadol as needed. For her diabetes, she will be resumed on her home Jardiance and metformin. I recommend checking glucoses a.c. and h.s. for at least 5 days after admission and then per [facility] provider. She should be seen in followup by [facility] provider within 3 days of her admission. She will return to the emergency room for any chest pain, shortness of breath. She will be continued on Xarelto for DVT prophylaxis in the postoperative period. This is a summarized report of a complex medical history and hospital stay. For further details, please see the entire medical record. TIME SPENT: Time for this discharge was approximately 50 minutes, greater than half of that was spent preparing the chart. CONDITION ON DISCHARGE: Stable. Reviewed by TONYA KENT 08/12/18 0716 [id number]/[facility] #: [id number] JOSE
[2018-08-12 06:09] LABS: Hematocrit 29 % (35-47); Hemoglobin 9.6 g/dl (12.0-16.0)
[2018-08-12] MEDS: Acetaminophen TAB* 325 MG PO SCH (06:23)
[2018-08-12 07:56] VITALS: BP 170/78
[2018-08-12] MEDS: Magnesium Hydroxide LIQ* 30 ML UDC PO SCH (09:37)
[2018-08-12] MEDS: Insulin LISPRO* 1 UNITS UNIT SUBCUT SCH (09:50)
[2018-08-12] MEDS: Docusate CAP* 100 MG PO SCH (09:51)
[2018-08-12] MEDS: Metoprolol Tartrate TAB* 25 MG PO SCH (09:51)
[2018-08-12] MEDS: Rivaroxaban TAB(*) 10 MG PO SCH (09:51)
[2018-08-12] MEDS: Donepezil TAB* 5 MG PO SCH (09:51)
== END 2018-08-12 11:40 | DRG 470 ==
LOC: ED 12:46 → SSU 17:43
PROVIDERS: ADMIT Internal Medicine; ATTEND Internal Medicine
PROC: 0SRR0JZ Replacement of Right Hip Joint, Femoral Surface with Synthetic Substitute, Open Approach (ICD-10-PCS; principal; 2018-08-08 08:00)
DX: S72.011A Unspecified intracapsular fracture of right femur, initial encounter for closed fracture (principal); E87.2 Acidosis; D62 Acute posthemorrhagic anemia; E11.9 Type 2 diabetes mellitus without complications; I10 Essential (primary) hypertension; M81.0 Age-related osteoporosis without current pathological fracture; E78.5 Hyperlipidemia, unspecified; W01.0XXA Fall on same level from slipping, tripping and stumbling without subsequent striking against object, initial encounter; G30.9 Alzheimer's disease, unspecified; F02.80 Dementia in other diseases classified elsewhere, unspecified severity, without behavioral disturbance, psychotic disturbance, mood disturbance, and anxiety; S50.811A Abrasion of right forearm, initial encounter; R00.0 Tachycardia, unspecified; R41.0 Disorientation, unspecified; Z98.42 Cataract extraction status, left eye; Z88.1 Allergy status to other antibiotic agents; Z82.49 Family history of ischemic heart disease and other diseases of the circulatory system; Z83.3 Family history of diabetes mellitus; Z87.891 Personal history of nicotine dependence; Y92.009 Unspecified place in unspecified non-institutional (private) residence as the place of occurrence of the external cause; Z79.01 Long term (current) use of anticoagulants; Z79.84 Long term (current) use of oral hypoglycemic drugs
CPT/HCPCS: 36415; 71045; 72170; 80048; 80053; 81003; 82947; 83036; 83735; 84443; 84484; 85014; 85018; 85025; 85610; 85730; 87641; 88305; 88311; 93005; 99284; A9270-GY; C1776; G8978-GP-CL; G8979-GP-CK; G8987-GO-CM; G8988-GO-CJ; J0360; J0690; J1630; J1644; J2270; J2405; J2704; J3010; J3475; J3490

== ENCOUNTER 2018-08-17 11:43 | Inpatient (IN) | payer MEDICARE ==
[2018-08-17] MEDS ORDERED: NS 0.9% 1000 ML** 1,000 ML IV ONE ×2 (12:06→17:39)
[2018-08-17] MEDS ORDERED: Acetaminophen SUPP* 650 MG SUPP PR ONE (12:21)
--- NOTE | 2018-08-17 12:26 | ED ---
Altered Mental Status - HPI Summary HPI Summary: A 77 y/o female brought in by [facility] ambulance presents to [facility] with a chief complaint of increased AMS and elevated sodium today. Per daughter, the patient had a fever. At triage her temperature was 98.5 and she rated her pain as a 0/ 10 in severity. She has a Hx of Alzheimer's. She reportedly fell while at [place]. She had hip surgery the morning of 08/15/18. - History Of Current Complaint Chief Complaint: EDAltMentalStatus Stated Complaint: AMS Time Seen by Provider: 08/17/18 11:59 Hx Obtained From: Patient, Family/Controller Instructor, EMS Hx From Patient Unobtainable Due To: Altered Mental Status Onset/Duration: Unknown, Suddenly Timing: Constant, Lasting Hours Severity Initially: Mild Severity Currently: Mild Character: Responsiveness Aggravating Factor(s): Nothing Alleviating Factor(s): Nothing Associated Signs And Symptoms: Positive: Fever - Allergies/Home Medications Allergies/Adverse Reactions: Allergies Allergy/AdvReac Type Severity Reaction Status Date / Time ciprofloxacin [From Cipro] Allergy Unknown Verified 08/07/18 12:58 Reaction Details Home Medications: Home Medications Docusate CAP* [Colace Cap*] 100 mg PO 0900,2100 08/17/18 [History Confirmed 04/27] Donepezil TAB* [Aricept 5 MG TAB*] 10 mg PO DAILY 08/17/18 [History Confirmed ] Magnesium Hydroxide LIQ* [Milk of Magnesia LIQ*] 30 ml PO Q6H PRN 08/17/18 [ History Confirmed 08/17/18] Sennosides [Senna Lax] 8.6 mg PO BEDTIME PRN 08/17/18 [History Confirmed ] metFORMIN* [Glucophage 1000 MG TAB *] 1,000 mg PO 0900,1800 08/17/18 [History Confirmed 08/17/18] traMADol TAB* [Ultram*] 50 mg PO 0900,2100 PRN 08/17/18 [History Confirmed 08/17] traMADol TAB* [Ultram*] 50 mg PO BID PRN 08/17/18 [History Confirmed 08/17/18] PMH/Surg Hx/FS Hx/Imm Hx Endocrine/Hematology History: Reports: Hx Diabetes, Other Endocrine/ Hematological Disorders - Vit D&B12 deficient Denies: Hx Thyroid Disease Cardiovascular History: Reports: Hx Hypercholesterolemia, Hx Hypertension Denies: Hx Pacemaker/ICD Respiratory History: Denies: Hx Asthma, Hx Chronic Obstructive Pulmonary Disease (COPD) GI History: Denies: Hx Ulcer History: Denies: Hx Dialysis, Hx Renal Disease Musculoskeletal History: Reports: Hx Arthritis, Hx Osteoporosis Denies: Hx Rheumatoid Arthritis Sensory History: Reports: Hx Cataracts - left eye, Hx Contacts or Glasses - Pt does not wear often Denies: Hx Hearing Aid Opthamlomology History: Reports: Hx Cataracts - left eye, Hx Contacts or Glasses - Pt does not wear often Neurological History: Reports: Hx Dementia, Other Neuro Impairments/Disorders - Alzheimer's Denies: Hx Seizures Psychiatric History: Denies: Hx Panic Disorder - Cancer History Hx Chemotherapy: No Hx Radiation Therapy: No - Surgical History Surgery Procedure, Year, and Place: Left knee meniscus surgery. [facility] SURG. 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 Patient is not in any acute respiratory distress. HEAD AND FACE: Normocephalic EYES: PERRLA, EOMI x 2. EARS: Hearing grossly intact. MOUTH: mucous membranes dry. NECK: Supple, trachea is midline, no adenopathy, no JVD, no carotid bruit. CHEST: Symmetric, no tenderness at palpation LUNGS: Clear to auscultation bilaterally. No wheezing or crackles. CVS: Regular rate and rhythm, S1 and S2 present, no murmurs or gallops appreciated. ABDOMEN: Soft, non-tender. Bowel sounds are normal. No abdominal abnormal pulsations. EXTREMITIES: Full ROM in all major joints, no edema, no cyanosis or clubbing. Right Hip incision is clean dry intact, david in place, some ecchymosis, no drainage. NEURO: Altered mental status. SKIN: Dry and warm Triage Information Reviewed: Yes Vital Signs On Initial Exam: Initial Vitals Temp Pulse Resp BP Pulse Ox 98.5 F 122 20 141/74 99 08/17/18 11:58 08/17/18 11:58 08/17/18 11:58 08/17/18 11:58 08/17/18 11:58 Vital Signs Reviewed: Yes Diagnostics - Vital Signs Vital Signs Temp Pulse Resp BP Pulse Ox 08/17/18 12:08 100.2 F 08/17/18 11:58 98.5 F 122 20 141/74 99 - Laboratory Result Diagrams: 08/18/18 04:21 08/18/18 04:21 Lab Statement: Any lab studies that have been ordered have been reviewed, and results considered in the medical decision making process. - Radiology CXR Radiology Interpretation Completed By: Radiologist Summary of Radiographic Findings: NO ACTIVE CARDIOPULMONARY DISEASE. ED physician has reviewed this imaging report. - CT Brain CT Interpretation Completed By: Radiologist Summary of CT Findings: No acute intracranial process evident. Advanced involutional change and stigmata of chronic small vessel ischemic disease. ED physician has reviewed this imaging report. - EKG 12:42 Cardiac Rate: Tachycardia - 126 bpm EKG Rhythm: Sinus Tachycardia Summary of EKG Findings: EKG at 12:42 showed sinus tachycardia at 126 bpm with occasional PVCs and Q waves in inferior leads, ST depressions diffusely. Altered Mental Statu Course/Dx - Course Course Of Treatment: A 77 y/o female brought in by [facility] ambulance presents to [facility] with a chief complaint of increased AMS and elevated sodium today. Workup is remarkable. The physical exam revealed Right Hip incision is clean dry intact , david in place, some ecchymosis, no drainage, AMS and dry mucous membranes.The patient's GCS was less than 15. EKG at 12:42 showed sinus tachycardia at 126 bpm with occasional PVCs and Q waves in inferior leads, ST depressions diffusely. In the ED course the patient was given Tylenol OR and sodium chloride IV. Bloodwork, chemistries and toxicology obtained. At 12:39 Sodium of 171 and Troponin of 0.07. The patient tested negative for influenza A and influenza B. CXR impression: NO ACTIVE CARDIOPULMONARY DISEASE. Brain CT impression: No acute intracranial process evident. Advanced involutional change and stigmata of chronic small vessel ischemic disease. The patient will be admitted. Case discussed with Dr. Valles, fleecer. I discussed results with patient. The patient agrees with this plan. - Diagnoses Provider Diagnoses: Hypernatremia - Provider Notifications Discussed Care Of Patient With: Emiliano Valles Time Discussed With Above Provider: 14:36 Instructed by Provider To: Admit As Inpatient - Critical Care Time Critical Care Time: 30-74 min Discharge - Sign-Out/Discharge Documenting (check all that apply): Patient Departure - admit Patient Received Moderate/Deep Sedation with Procedure: No - Discharge Plan Condition: Fair Disposition: ADMITTED TO [facility] - Billing Disposition and Condition Condition: FAIR Disposition: Admitted to [facility] - Attestation Statements Document Initiated by Timi: Yes Documenting Scribe: Jesus Schneider Provider For Whom Jazmynee is Documenting (Include Credential): Louie Mcknight MD Scribe Attestation: Jesus Mendez, scribed for Louie Mcknight MD on 08/18/18 at 0913. Scribe Documentation Reviewed: Yes Provider Attestation: The documentation as recorded by the Jesus cutler accurately reflects the service I personally performed and the decisions made by Ozzie newman MD Status of Scribe Document: Viewed
[2018-08-17 13:03] LABS: Influenza A Molecular NEGATIVE (Negative); Influenza B Molecular NEGATIVE (Negative)
[2018-08-17 13:10] LABS: ALT 12 U/L (7-52); AST 8 U/L (13-39); Albumin 3.7 g/dL (3.2-5.2); Albumin/Globulin Ratio 1.2 (1-3); Alkaline Phosphatase 64 U/L (34-104); BUN/Creatinine Ratio 57.5 (8-20); Blood Urea Nitrogen 65 mg/dL (6-24); CO2 Carbon Dioxide 20 mmol/L (22-32); Calcium 10.9 mg/dL (8.6-10.3); EGFR African American 56.3 (>60); EGFR Non-African American 46.6 (>60); Glucose 333 mg/dL (70-100); Magnesium 2.6 mg/dL (1.9-2.7); Potassium 3.7 mmol/L (3.5-5.0); Total Protein 6.7 g/dL (6.4-8.9)
[2018-08-17 13:15] LABS: INR 1.07 (0.77-1.02); Troponin I 0.07 ng/mL (<0.04)
[2018-08-17 13:18] LABS: Anion Gap 24 mmol/L (2-11); Chloride 127 mmol/L (101-111); Sodium 171 mmol/L (135-145)
[2018-08-17 13:22] LABS: Hematocrit 36 % (35-47); Hemoglobin 10.9 g/dl (12.0-16.0); Mean Corpuscular HGB Conc 31 g/dl (31-36); Mean Corpuscular Hemoglobin 29 pg (27-31); Mean Corpuscular Volume 95 fL (80-97); Mean Platelet Volume 8.5 fL (7.4-10.4); Platelet Count 450 10^3/ul (150-450); Red Blood Count 3.73 10^6/ul (4.00-5.40); Red Cell Distribution Width 17 % (10.5-15); White Blood Count 17.9 10^3/ul (3.5-10.8)
[2018-08-17 13:34] LABS: Acetaminophen < 15 mcg/mL; Salicylate < 2.50 mg/dL (<30)
[2018-08-17 13:47] LABS: ABS Basophils 0 10^3/ul (0-0.2); ABS Eosinophils 0 10^3/ul (0-0.6); ABS Lymphocytes 1.2 10^3/ul (1.0-4.8); ABS Monocytes 1.5 10^3/ul (0-0.8); ABS Neutrophils 15.3 10^3/ul (1.5-7.7); ABS Nucleated RBC 0 10^3/ul; Eosinophil % 0 %; Lymphocyte % 6.4 %; Nucleated Red Blood Cells % 0.1
[2018-08-17 13:49] LABS: TSH (Thyroid Stimulating Horm) 0.44 mcIU/mL (0.34-5.60)
[2018-08-17] MEDS ORDERED: Vancomycin(*) 1,000 MG in NS 0.9% 250 ML* 250 ML IVPB ONE (14:41)
[2018-08-17] MEDS ORDERED: ED Piperacillin/Tazobac 3.375 3.375 GM/100 ML PREMIX.SET IVPB ONE (14:41)
[2018-08-17] MEDS ORDERED: D5W 1000 ML BAG* 1,000 ML IV SCH (15:00)
[2018-08-17 15:02] LABS: Urine Appearance Cloudy; Urine Bacteria Absent (Absent); Urine Bilirubin Negative (Negative); Urine Blood 2+ (Negative); Urine Color Yellow; Urine Glucose 3+(>=500 mg/dL) (Negative); Urine Ketones 2+ (Negative); Urine Nitrite Negative (Negative); Urine Protein Negative (Negative); Urine Red Blood Cell Trace(0-2/hpf) (Absent); Urine Specific Gravity 1.024 (1.010-1.030); Urine Urobilinogen Negative (Negative); Urine White Blood Cell 1+(6-10/hpf) (Absent)
[2018-08-17] MEDS ORDERED: NS 0.9% 250 ML* 250 ML ONE (15:27)
--- NOTE | 2018-08-17 17:02 | HP ---
H&P (Free Text) History and Physical: History and Physical -- Critical Care Limitations in history/physical: encephalopathy HPI: 77y F w/pmhx of Dementia, HTN, HLD, DM; recent admission for right femoral neck fracture s/p right hemiarthroplasty last week, discharged 08/12. She was discharged to rehab/PR, awake, BP stable, mild anemia. She comes back 4-5 days later with lethargy, change in mental status, high sodium and low grade fevers at PR. She is in ER, tachycardic, hypertensive, lethargic and not well responsive but able to hold airway and ventilating on her own. Unable to obtain history from her due to encephalopathy. CT brain demonstrated no acute pathology. Family at bedside states she was confused before previous discharge and remained intermittenly more confused at PR on top of baseline dementia, and also they noted decreasing PO intake there. NH was also very warm and hot and patient would keep taking her clothes off. They did not notice a cough/sputum/n/ v/diarrhea or any other complaints from patient prior to today. In ER, she was given IVF NS bolus 250cc. Started on sepsis protocol given SIRS criteria, IV Abx ordered. CLinically nontoxic appearing. BP 150s, HR 120-140s. HR improved with IVF. BG 300s. EKG with lateral mild <1mm ST depressions with twave flattening, similar ST dep as last time I was called for ICU eval given encephalopathy, hypernatremia, SANDOR, possibel sepsis ROS: ROS limited due to encephalopathy PMHx: Dementia, HTN, HLD, DM; recent admission for right femoral neck fracture s /p right hemiarthroplasty PSHx: right femoral neck fracture s/p right hemiarthroplasty Family History: unknown Social History: Alcohol-none, Former Smoker, Drug use-none; Lives at [employer]. Surrogate decision maker is Allergies: Allergies Allergy/AdvReac Type Severity Reaction Status Date / Time ciprofloxacin [From Cipro] Allergy Unknown Verified 08/07/18 12:58 Reaction Details Home Medications: Atorvastatin* [Lipitor 40 MG*] 40 mg PO BEDTIME #30 tab 09/29/17 [Rx Confirmed 08/17/18] Lisinopril TAB* [Prinivil TAB 10 MG*] 20 mg PO DAILY #60 tab 09/29/17 [Rx Confirmed 08/17/18] Alendronate (NF) [Fosamax (NF)] 70 mg PO WEEKLY 08/07/18 [History Confirmed 04/27] Ascorbic Acid TAB* [Vitamin C TAB*] 1,000 mg PO QAM 08/07/18 [History Confirmed 08/17/18] Tevin/D3/Mag11/Zinc/Hair Dryer/Yobani/Bor [Caltrate 600+D Plus Tablet] 1 tab PO DAILY 08/07 [History Confirmed 08/17/18] Cyanocobalamin TAB* [Vitamin B12 TAB*] 1,000 mcg PO QAM 08/07/18 [History Confirmed 08/17/18] Empaglifozin (NF) [Jardiance] 25 mg PO DAILY 08/07/18 [History Confirmed ] Acetaminophen [Acetaminophen Extra Strength] 1,000 mg PO Q8H #0 MDD 3000 mg 10/25 [Rx Confirmed 08/17/18] Rivaroxaban TAB(*) [Xarelto 10 mg (*)] 10 mg PO DAILY tab 08/11/18 [Rx Confirmed 08/17/18] Docusate CAP* [Colace Cap*] 100 mg PO 0900,2100 08/17/18 [History Confirmed 04/27] Donepezil TAB* [Aricept 5 MG TAB*] 10 mg PO DAILY 08/17/18 [History Confirmed ] Magnesium Hydroxide LIQ* [Milk of Magnesia LIQ*] 30 ml PO Q6H PRN 08/17/18 [ History Confirmed 08/17/18] Sennosides [Senna Lax] 8.6 mg PO BEDTIME PRN 08/17/18 [History Confirmed ] metFORMIN* [Glucophage 1000 MG TAB *] 1,000 mg PO 0900,1800 08/17/18 [History Confirmed 08/17/18] traMADol TAB* [Ultram*] 50 mg PO 0900,2100 PRN 08/17/18 [History Confirmed 08/17] traMADol TAB* [Ultram*] 50 mg PO BID PRN 08/17/18 [History Confirmed 08/17/18] Tele: sinus tachy Vitals: Vital Signs Temp 99.0 F 08/17/18 17:02 Pulse 110 08/17/18 17:02 Resp 14 08/17/18 17:02 BP 92/65 08/17/18 17:00 Pulse Ox 96 08/17/18 17:02 Intake & Output 08/16/18 08/17/18 08/17/18 18:59 06:59 18:59 Intake Total 0 Output Total 1550 Balance -1550 Weight 48.5 kg Intake: Oral 0 Output: Phillips 1550 O2/Vent: NC 2 L Infusions: d5w 100cc/hr Current Medications: Atorvastatin Calcium (Lipitor*) 40 mg PO BEDTIME AUTUMN Dextrose (D50w Syringe 50 Ml*) 12.5 gm IV PUSH .FOR FS < 60 - SS PRN PRN Reason: FS < 60 Docusate Sodium (Colace Cap*) 100 mg PO 0900,2100 [facility] Donepezil HCl (Aricept Tab*) 10 mg PO DAILY [facility] Enoxaparin Sodium (Lovenox(*)) 30 mg SUBCUT Q12H [facility] Dextrose (D5w 1000 Ml Bag*) 1,000 mls @ 100 mls/hr IV PER RATE [facility] Last Admin: 08/17/18 16:11 Dose: 100 mls/hr Cefepime HCl (Maxipime 1 Gm In Dextrose Duplex (*)) 1 gm in 50 mls @ 100 mls/ hr IV Q24H [facility] Last Admin: 08/17/18 17:19 Dose: 100 mls/hr Lactated Ringer's (Lactated Ringers 500 Ml Bag*) 500 mls @ 500 mls/hr IV ONCE ONE Stop: 08/17/18 17:55 Last Admin: 08/17/18 17:21 Dose: 500 mls/hr Insulin Human Lispro (Humalog*) 0 units SUBCUT FS Q4 ICU AUTUMN; Protocol Physical Exam: General: lethargic, not arousable, not alert, no distress, no diaphoresis Head: normocephalic, atraumatic HEENT: no pallor, no icterus, DRY MM Neck: soft, supple, no jvd CVS: tachy, regular, no murmur Resp: bilateral air entry, no RRW, no acc muscle use Abdomen: soft, nontender, nondistended, BS+ Ext: pulses+, warm, no edema; Right hip surgical site intact/david in place/ eccymosis+/no hematoma/swelling Skin: intact Neuro: lethargic, not alert, pupils reactive, moving ext to pain and spontenaously Labs: Laboratory Results - last 24 hr 08/17/18 08/17/18 08/17/18 12:39 12:39 12:39 WBC 17.9 H RBC 3.73 L Hgb 10.9 L Hct 36 MCV 95 MCH 29 MCHC 31 RDW 17 H Plt Count 450 MPV 8.5 Neut % (Auto) 85.3 Lymph % (Auto) 6.4 [place] % (Auto) 8.2 Eos % (Auto) 0 Baso % (Auto) 0.1 Absolute Neuts (auto) 15.3 H Absolute Lymphs (auto) 1.2 Absolute Monos (auto) 1.5 H Absolute Eos (auto) 0 Absolute Basos (auto) 0 Absolute Nucleated RBC 0 Nucleated RBC % 0.1 INR (Anticoag Therapy) 1.07 H VBG pH VBG pCO2 VBG pO2 VBG HCO3 VBG O2 Saturation VBG Base Excess Sodium 171 H* Potassium 3.7 Chloride 127 H Carbon Dioxide 20 L Anion Gap 24 H BUN 65 H Creatinine 1.13 H Est GFR ( Amer) 56.3 Est GFR (Non-Af Amer) 46.6 BUN/Creatinine Ratio 57.5 H Glucose 333 H POC Glucose (mg/dL) Lactic Acid Calcium 10.9 H Magnesium 2.6 Total Bilirubin 1.40 H AST 8 L ALT 12 Alkaline Phosphatase 64 Ammonia Troponin I 0.07 H* Total Protein 6.7 Albumin 3.7 Globulin 3.0 Albumin/Globulin Ratio 1.2 TSH 0.44 Urine Color Urine Appearance Urine pH Ur Specific [place] Urine Protein Urine Ketones Urine Blood Urine Nitrate Urine Bilirubin Urine Urobilinogen Ur Leukocyte Esterase Urine WBC (Auto) Urine RBC (Auto) Urine Bacteria Urine Glucose Salicylates < 2.50 Acetaminophen < 15 Influenza A (Rapid) Influenza B (Rapid) 08/17/18 08/17/18 08/17/18 12:39 12:39 12:51 WBC RBC Hgb Hct MCV MCH MCHC RDW Plt Count MPV Neut % (Auto) Lymph % (Auto) [place] % (Auto) Eos % (Auto) Baso % (Auto) Absolute Neuts (auto) Absolute Lymphs (auto) Absolute Monos (auto) Absolute Eos (auto) Absolute Basos (auto) Absolute Nucleated RBC Nucleated RBC % INR (Anticoag Therapy) VBG pH VBG pCO2 VBG pO2 VBG HCO3 VBG O2 Saturation VBG Base Excess Sodium Potassium Chloride Carbon Dioxide Anion Gap BUN Creatinine Est GFR ( Amer) Est GFR (Non-Af Amer) BUN/Creatinine Ratio Glucose POC Glucose (mg/dL) Lactic Acid 1.4 Calcium Magnesium Total Bilirubin AST ALT Alkaline Phosphatase Ammonia 69 H Troponin I Total Protein Albumin Globulin Albumin/Globulin Ratio TSH Urine Color Urine Appearance Urine pH Ur Specific [place] Urine Protein Urine Ketones Urine Blood Urine Nitrate Urine Bilirubin Urine Urobilinogen Ur Leukocyte Esterase Urine WBC (Auto) Urine RBC (Auto) Urine Bacteria Urine Glucose Salicylates Acetaminophen Influenza A (Rapid) Negative Influenza B (Rapid) Negative 08/17/18 08/17/18 08/17/18 14:09 14:38 16:31 WBC RBC Hgb Hct MCV MCH MCHC RDW Plt Count MPV Neut % (Auto) Lymph % (Auto) [place] % (Auto) Eos % (Auto) Baso % (Auto) Absolute Neuts (auto) Absolute Lymphs (auto) Absolute Monos (auto) Absolute Eos (auto) Absolute Basos (auto) Absolute Nucleated RBC Nucleated RBC % INR (Anticoag Therapy) VBG pH 7.34 VBG pCO2 43 VBG pO2 37.0 VBG HCO3 21.7 L VBG O2 Saturation 53.0 L VBG Base Excess -2.6 L Sodium Potassium Chloride Carbon Dioxide Anion Gap BUN Creatinine Est GFR ( Amer) Est GFR (Non-Af Amer) BUN/Creatinine Ratio Glucose POC Glucose (mg/dL) 309 H Lactic Acid Calcium Magnesium Total Bilirubin AST ALT Alkaline Phosphatase Ammonia Troponin I Total Protein Albumin Globulin Albumin/Globulin Ratio TSH Urine Color Yellow Urine Appearance Cloudy Urine pH 5.0 Ur Specific [place] 1.024 Urine Protein Negative Urine Ketones 2+ A Urine Blood 2+ A Urine Nitrate Negative Urine Bilirubin Negative Urine Urobilinogen Negative Ur Leukocyte Esterase Negative Urine WBC (Auto) 1+(6-10/hpf) A Urine RBC (Auto) Trace(0-2/hpf) Urine Bacteria Absent Urine Glucose 3+(>=500 mg/dl) A Salicylates Acetaminophen Influenza A (Rapid) Influenza B (Rapid) Imaging: cxr 08/17 - no infiltrate ct lilly 08/17 - no acute pathology Assessment: 77y F w/pmhx of Dementia, HTN, HLD, DM; recent admission for right femoral neck fracture s/p right hemiarthroplasty last week, discharged 08/12. She was discharged to rehab/NH, awake, BP stable, mild anemia. She comes back 4-5 days later with lethargy, change in mental status, high sodium and low grade fevers at PR. She is in ER, tachycardic, hypertensive, lethargic and not well responsive but able to hold airway and ventilating on her own. Unable to obtain history from her due to encephalopathy. CT brain demonstrated no acute pathology. Family at bedside states she was confused before previous discharge and remained intermittenly more confused at PR on top of baseline dementia, and also they noted decreasing PO intake there. NH was also very warm and hot and patient would keep taking her clothes off. in ER, low grade temp 100.6, WBC 17, tachycardic, delirious, started on IVF and IV abx for sepsis, noted elevated BG 333. -Metabolic encephalopathy -Hypernatremia 2/2 to poor po intake -SANDOR -r/o Sepsis -Hyperglycemia -Anemia -Recent Right femoral hemiarthroplasty 08/2018 Plan: Neuro- -lethargic, opens eyes barely but not waking completely. baseline dementia but relatively functional. -CT brain negative for acute pathology -hypernatremia, possible sepsis unknown source with pre-renal azotemia+, recent surgery; all may be adding to metabolic/toxic encephalopathy -cont aricept once awake -asp prec, HOB elevated, End-tidal monitoring -avoid bdz, delirium prec CVS- -sinus tachycardia improving; BP low 100s now -rebolus LR 500cc, additional 1000cc NS now -D5w infusion + 40kcl @ 100cc/hr -IV abx -hg stable -; repeat CBC at 9pm to see if concentrated and trend after IVF -sepsis protocol started; trend troponins -hold any antihypertensives Resp- -no resp distress, on NC -CXR 08/17 without acute focal process/infiltrate -end-tidal monitoring -asp precautions ID- tmax 100.6, wbc 17. -CXR clear of focal infiltrate. Urinalysis cloudy wiht ketones/blood/1+wbc/ glucose, no bacteria. -blood and urine culture sent -IV cefepime 1gm daily, s/p vanco x1 GI- NPO, asp prec Renal- elevated BUN/Cr ratio, >40, Cr 1.13, severe hypernatremia+, hypokalemia+ -suspect all from poor po intake, osmotic loss from hyperglycemia, as well as heated environment (as per family) -LR and NS boluses given; making good urine now, phillips+ -started D5W + 40meq KCL @ 100cc/hr -check BMP at 9pm, trend LA; follow Na trend, will not overaggressively correct. Heme- anemia, hg 10-11; may be concentrated also. check cbc at 9pm. -plt okay -was on xarelto 10mg po for post hip proph; unable to take PO; start lovenox 30mg SC q12h for post hip proph Endo- Maintain BG<200, insulin protocol as needed Musculsk- pressure ulcer prophylaxis. Right Hip surgical site intact, david++ , no bleeding or hematoma. eccymosis mild but no collection noted. Wounds- Rght hip surgical site wound care Nutrition- NPO for encephalopathy DVT prophylaxis: SCD, lovenox sq GI prophylaxis: none indicated Central Line: no Arterial Line: no Phillips Cathetor: yes Disposition: Patient requires Critical Care/ICU for encephalopathy, hypernatremia, r/o sepsis Patient Clinical Status: guarded/critical Code Status: DNR as per family Total Critical Care time is 50 minutes, excluding procedures/teaching Emiliano Valles MD Foreclosure Field Inspector (Electronically Signed)
[2018-08-17] MEDS ORDERED: Dextrose 50% Syringe 50 ML* 25 GM/50 ML SYRINGE IV PUSH PRN (17:17)
[2018-08-17] MEDS: Cefepime 1 GM in Dextrose(*) 1 GM/50 ML BAG IV SCH (17:19)
[2018-08-17] MEDS ORDERED: D5W IVPB SCH ×3 (17:24→22:31)
[2018-08-17] MEDS ORDERED: POTASSIUM CHLORIDE TPN IVPB SCH ×3 (17:24→22:31)
[2018-08-17] MEDS ORDERED: NS 0.9% 1000 ML** 2,000 ML IV ONE (17:28)
[2018-08-17 19:31] LABS: Hematocrit 30 % (35-47); Hemoglobin 9.6 g/dl (12.0-16.0); Mean Corpuscular HGB Conc 32 g/dl (31-36); Mean Corpuscular Hemoglobin 31 pg (27-31); Mean Corpuscular Volume 97 fL (80-97); Mean Platelet Volume 7.8 fL (7.4-10.4); Platelet Count 353 10^3/ul (150-450); Red Blood Count 3.15 10^6/ul (4.00-5.40); Red Cell Distribution Width 17 % (10.5-15); White Blood Count 16.1 10^3/ul (3.5-10.8)
[2018-08-17 19:45] LABS: BUN/Creatinine Ratio 58.3 (8-20); Blood Urea Nitrogen 63 mg/dL (6-24); CO2 Carbon Dioxide 20 mmol/L (22-32); Calcium 9.7 mg/dL (8.6-10.3); EGFR African American 59.4 (>60); EGFR Non-African American 49.1 (>60); Glucose 321 mg/dL (70-100); Potassium 3.7 mmol/L (3.5-5.0)
[2018-08-17 19:46] LABS: Anion Gap 19 mmol/L (2-11); Chloride 130 mmol/L (101-111); Sodium 169 mmol/L (135-145)
[2018-08-17 19:47] LABS: Troponin I 0.08 ng/mL (<0.04)
[2018-08-17] MEDS: Atorvastatin* 40 MG TAB PO SCH (19:47)
[2018-08-17] MEDS: Docusate CAP* 100 MG PO SCH (19:47)
[2018-08-17 20:08] LABS: ABS Basophils 0 10^3/ul (0-0.2); ABS Eosinophils 0 10^3/ul (0-0.6); ABS Lymphocytes 1.1 10^3/ul (1.0-4.8); ABS Monocytes 1.5 10^3/ul (0-0.8); ABS Neutrophils 13.4 10^3/ul (1.5-7.7); ABS Nucleated RBC 0 10^3/ul; Eosinophil % 0 %; Nucleated Red Blood Cells % 0.1
[2018-08-17] MEDS: Insulin LISPRO* 1 UNITS UNIT SUBCUT SCH (20:54)
[2018-08-17] MEDS: HYDROmorphone INJ* 0.5 MG/0.5 ML SYRINGE IV SLOW PU PRN (22:02)
[2018-08-18] MEDS: Insulin LISPRO* 1 UNITS UNIT SUBCUT SCH ×5 (00:06→21:29)
[2018-08-18 01:43] LABS: Troponin I 0.08 ng/mL (<0.04)
[2018-08-18] MEDS: HYDROmorphone INJ* 0.5 MG/0.5 ML SYRINGE IV SLOW PU PRN ×3 (02:10→20:19)
[2018-08-18 04:40] LABS: Hematocrit 34 % (35-47); Hemoglobin 10.3 g/dl (12.0-16.0); Mean Corpuscular HGB Conc 31 g/dl (31-36); Mean Corpuscular Hemoglobin 30 pg (27-31); Mean Corpuscular Volume 97 fL (80-97); Mean Platelet Volume 8.1 fL (7.4-10.4); Platelet Count 313 10^3/ul (150-450); Red Blood Count 3.47 10^6/ul (4.00-5.40); Red Cell Distribution Width 18 % (10.5-15); White Blood Count 17.4 10^3/ul (3.5-10.8)
[2018-08-18 04:57] LABS: Calcium 9.3 mg/dL (8.6-10.3); EGFR African American 86.4 (>60); EGFR Non-African American 71.4 (>60); Magnesium 2.2 mg/dL (1.9-2.7); Potassium 3.8 mmol/L (3.5-5.0)
[2018-08-18] MEDS: Donepezil TAB* 5 MG PO SCH (07:58)
[2018-08-18] MEDS: Docusate CAP* 100 MG PO SCH ×2 (07:58→20:22)
[2018-08-18] MEDS ORDERED: Enoxaparin(*) 60 MG/0.6 ML SYR SUBCUT SCH (08:00)
[2018-08-18] MEDS ORDERED: D5W 20 MEQ KCL 1000 ML BAG* 1,000 ML IV SCH ×2 (09:00→20:13)
--- NOTE | 2018-08-18 12:00 | PN ---
Progress Note - Progress Note Date of Service: 08/18/18 Note: Progress Note -- Critical Care 24 hour events: -awake, semi-alert, confused, deliriuous -afebrile, bP stable, making urine - at bedside Tele: sinus tachy Vitals: Vital Signs Temp 98.1 F 08/18/18 11:01 Pulse 109 08/18/18 11:01 Resp 11 08/18/18 11:47 BP 123/70 08/18/18 11:01 Pulse Ox 100 08/18/18 11:01 Intake & Output 08/17/18 08/18/18 08/18/18 18:59 06:59 18:59 Intake Total 260 2839 Output Total 1550 1349 430 Balance -1290 1490 -430 Weight 48.5 kg 50.7 kg Intake: IV Fluids 260 2784 D5W 589 D5W 40 meq KCl 718 LR 502 NS (0.9%) 975 Vancomycin 260 IVPB 55 ABX - CEFEPIME 55 Oral 0 Output: Urine 0 Phillips 1550 1349 430 Other: Estimated Void Large # Voids 1 O2/Vent: RA Infusions: d5w + 20meq kcl 100cc/hr Current Medications: Atorvastatin Calcium (Lipitor*) 40 mg PO BEDTIME [facility] Last Admin: 08/17/18 19:47 Dose: Not Given Dextrose (D50w Syringe 50 Ml*) 12.5 gm IV PUSH .FOR FS < 60 - SS PRN PRN Reason: FS < 60 Docusate Sodium (Colace Cap*) 100 mg PO 0900,2100 [facility] Last Admin: 08/18/18 07:58 Dose: Not Given Donepezil HCl (Aricept Tab*) 10 mg PO DAILY [facility] Last Admin: 08/18/18 07:58 Dose: Not Given Enoxaparin Sodium (Lovenox(*)) 30 mg SUBCUT 0800,2000 [facility] Hydromorphone HCl (Dilaudid Inj*) 0.5 mg IV SLOW PU Q4H PRN PRN Reason: PAIN Last Admin: 08/18/18 10:33 Dose: 0.5 mg Cefepime HCl (Maxipime 1 Gm In Dextrose Duplex (*)) 1 gm in 50 mls @ 100 mls/ hr IV Q24H [facility] Last Admin: 08/17/18 17:19 Dose: 100 mls/hr Potassium Chloride/Dextrose (D5w 20 Meq Kcl 1000 Ml Bag*) 1,000 mls @ 100 mls/ hr IV PER RATE [facility] Last Admin: 08/18/18 09:25 Dose: 100 mls/hr Insulin Human Lispro (Humalog*) 0 units SUBCUT FS Q4 ICU [facility]; Protocol Last Admin: 08/18/18 07:49 Dose: 3 units Physical Exam: General: awake, semi-alert, follows more commands, no distress, no diaphoresis Head: normocephalic, atraumatic HEENT: no pallor, no icterus, DRY MM Neck: soft, supple, no jvd CVS: tachy, regular, no murmur Resp: bilateral air entry, no RRW, no acc muscle use Abdomen: soft, nontender, nondistended, BS+ Ext: pulses+, warm, no edema; Right hip surgical site intact/david in place/ eccymosis+/no hematoma/swelling Skin: intact Neuro: awake, no distress, moves all ext equally, doesnt follow all commands Labs: Laboratory Results - last 24 hr 08/17/18 08/17/18 08/17/18 12:39 12:39 12:39 WBC 17.9 H RBC 3.73 L Hgb 10.9 L Hct 36 MCV 95 MCH 29 MCHC 31 RDW 17 H Plt Count 450 MPV 8.5 Neut % (Auto) 85.3 Lymph % (Auto) 6.4 Atkinson % (Auto) 8.2 Eos % (Auto) 0 Baso % (Auto) 0.1 Absolute Neuts (auto) 15.3 H Absolute Lymphs (auto) 1.2 Absolute Monos (auto) 1.5 H Absolute Eos (auto) 0 Absolute Basos (auto) 0 Absolute Nucleated RBC 0 Nucleated RBC % 0.1 INR (Anticoag Therapy) 1.07 H VBG pH VBG pCO2 VBG pO2 VBG HCO3 VBG O2 Saturation VBG Base Excess Sodium 171 H* Potassium 3.7 Chloride 127 H Carbon Dioxide 20 L Anion Gap 24 H BUN 65 H Creatinine 1.13 H Est GFR ( Amer) 56.3 Est GFR (Non-Af Amer) 46.6 BUN/Creatinine Ratio 57.5 H Glucose 333 H POC Glucose (mg/dL) Lactic Acid Calcium 10.9 H Phosphorus Magnesium 2.6 Total Bilirubin 1.40 H AST 8 L ALT 12 Alkaline Phosphatase 64 Ammonia Troponin I 0.07 H* Total Protein 6.7 Albumin 3.7 Globulin 3.0 Albumin/Globulin Ratio 1.2 TSH 0.44 Urine Color Urine Appearance Urine pH Ur Specific [place] Urine Protein Urine Ketones Urine Blood Urine Nitrate Urine Bilirubin Urine Urobilinogen Ur Leukocyte Esterase Urine WBC (Auto) Urine RBC (Auto) Urine Bacteria Urine Glucose Salicylates < 2.50 Acetaminophen < 15 Influenza A (Rapid) Influenza B (Rapid) 08/17/18 08/17/18 08/17/18 12:39 12:39 12:51 WBC RBC Hgb Hct MCV MCH MCHC RDW Plt Count MPV Neut % (Auto) Lymph % (Auto) Atkinson % (Auto) Eos % (Auto) Baso % (Auto) Absolute Neuts (auto) Absolute Lymphs (auto) Absolute Monos (auto) Absolute Eos (auto) Absolute Basos (auto) Absolute Nucleated RBC Nucleated RBC % INR (Anticoag Therapy) VBG pH VBG pCO2 VBG pO2 VBG HCO3 VBG O2 Saturation VBG Base Excess Sodium Potassium Chloride Carbon Dioxide Anion Gap BUN Creatinine Est GFR ( Amer) Est GFR (Non-Af Amer) BUN/Creatinine Ratio Glucose POC Glucose (mg/dL) Lactic Acid 1.4 Calcium Phosphorus Magnesium Total Bilirubin AST ALT Alkaline Phosphatase Ammonia 69 H Troponin I Total Protein Albumin Globulin Albumin/Globulin Ratio TSH Urine Color Urine Appearance Urine pH Ur Specific [place] Urine Protein Urine Ketones Urine Blood Urine Nitrate Urine Bilirubin Urine Urobilinogen Ur Leukocyte Esterase Urine WBC (Auto) Urine RBC (Auto) Urine Bacteria Urine Glucose Salicylates Acetaminophen Influenza A (Rapid) Negative Influenza B (Rapid) Negative 08/17/18 08/17/18 08/17/18 14:09 14:38 16:31 WBC RBC Hgb Hct MCV MCH MCHC RDW Plt Count MPV Neut % (Auto) Lymph % (Auto) Atkinson % (Auto) Eos % (Auto) Baso % (Auto) Absolute Neuts (auto) Absolute Lymphs (auto) Absolute Monos (auto) Absolute Eos (auto) Absolute Basos (auto) Absolute Nucleated RBC Nucleated RBC % INR (Anticoag Therapy) VBG pH 7.34 VBG pCO2 43 VBG pO2 37.0 VBG HCO3 21.7 L VBG O2 Saturation 53.0 L VBG Base Excess -2.6 L Sodium Potassium Chloride Carbon Dioxide Anion Gap BUN Creatinine Est GFR ( Amer) Est GFR (Non-Af Amer) BUN/Creatinine Ratio Glucose POC Glucose (mg/dL) 309 H Lactic Acid Calcium Phosphorus Magnesium Total Bilirubin AST ALT Alkaline Phosphatase Ammonia Troponin I Total Protein Albumin Globulin Albumin/Globulin Ratio TSH Urine Color Yellow Urine Appearance Cloudy Urine pH 5.0 Ur Specific [place] 1.024 Urine Protein Negative Urine Ketones 2+ A Urine Blood 2+ A Urine Nitrate Negative Urine Bilirubin Negative Urine Urobilinogen Negative Ur Leukocyte Esterase Negative Urine WBC (Auto) 1+(6-10/hpf) A Urine RBC (Auto) Trace(0-2/hpf) Urine Bacteria Absent Urine Glucose 3+(>=500 mg/dl) A Salicylates Acetaminophen Influenza A (Rapid) Influenza B (Rapid) 08/17/18 08/17/18 08/17/18 18:49 19:14 19:14 WBC 16.1 H RBC 3.15 L Hgb 9.6 L Hct 30 L MCV 97 MCH 31 MCHC 32 RDW 17 H Plt Count 353 MPV 7.8 Neut % (Auto) 83.4 Lymph % (Auto) 7.0 Atkinson % (Auto) 9.6 Eos % (Auto) 0 Baso % (Auto) 0 Absolute Neuts (auto) 13.4 H Absolute Lymphs (auto) 1.1 Absolute Monos (auto) 1.5 H Absolute Eos (auto) 0 Absolute Basos (auto) 0 Absolute Nucleated RBC 0 Nucleated RBC % 0.1 INR (Anticoag Therapy) VBG pH VBG pCO2 VBG pO2 VBG HCO3 VBG O2 Saturation VBG Base Excess Sodium 169 H* Potassium 3.7 Chloride 130 H Carbon Dioxide 20 L Anion Gap 19 H BUN 63 H Creatinine 1.08 H Est GFR ( Amer) 59.4 Est GFR (Non-Af Amer) 49.1 BUN/Creatinine Ratio 58.3 H Glucose 321 H POC Glucose (mg/dL) Lactic Acid 1.8 Calcium 9.7 Phosphorus Magnesium Total Bilirubin AST ALT Alkaline Phosphatase Ammonia Troponin I 0.08 H* Total Protein Albumin Globulin Albumin/Globulin Ratio TSH Urine Color Urine Appearance Urine pH Ur Specific [place] Urine Protein Urine Ketones Urine Blood Urine Nitrate Urine Bilirubin Urine Urobilinogen Ur Leukocyte Esterase Urine WBC (Auto) Urine RBC (Auto) Urine Bacteria Urine Glucose Salicylates Acetaminophen Influenza A (Rapid) Influenza B (Rapid) 08/17/18 08/18/18 08/18/18 19:55 00:01 01:06 WBC RBC Hgb Hct MCV MCH MCHC RDW Plt Count MPV Neut % (Auto) Lymph % (Auto) Atkinson % (Auto) Eos % (Auto) Baso % (Auto) Absolute Neuts (auto) Absolute Lymphs (auto) Absolute Monos (auto) Absolute Eos (auto) Absolute Basos (auto) Absolute Nucleated RBC Nucleated RBC % INR (Anticoag Therapy) VBG pH VBG pCO2 VBG pO2 VBG HCO3 VBG O2 Saturation VBG Base Excess Sodium Potassium Chloride Carbon Dioxide Anion Gap BUN Creatinine Est GFR ( Amer) Est GFR (Non-Af Amer) BUN/Creatinine Ratio Glucose POC Glucose (mg/dL) 307 H 290 H Lactic Acid Calcium Phosphorus Magnesium Total Bilirubin AST ALT Alkaline Phosphatase Ammonia Troponin I 0.08 H* Total Protein Albumin Globulin Albumin/Globulin Ratio TSH Urine Color Urine Appearance Urine pH Ur Specific [place] Urine Protein Urine Ketones Urine Blood Urine Nitrate Urine Bilirubin Urine Urobilinogen Ur Leukocyte Esterase Urine WBC (Auto) Urine RBC (Auto) Urine Bacteria Urine Glucose Salicylates Acetaminophen Influenza A (Rapid) Influenza B (Rapid) 08/18/18 08/18/18 08/18/18 04:21 04:21 04:21 WBC 17.4 H RBC 3.47 L Hgb 10.3 L Hct 34 L MCV 97 MCH 30 MCHC 31 RDW 18 H Plt Count 313 MPV 8.1 Neut % (Auto) Lymph % (Auto) Atkinson % (Auto) Eos % (Auto) Baso % (Auto) Absolute Neuts (auto) Absolute Lymphs (auto) Absolute Monos (auto) Absolute Eos (auto) Absolute Basos (auto) Absolute Nucleated RBC Nucleated RBC % INR (Anticoag Therapy) VBG pH VBG pCO2 VBG pO2 VBG HCO3 VBG O2 Saturation VBG Base Excess Sodium 163 H* Potassium 3.8 Chloride 130 H Carbon Dioxide 23 Anion Gap 10 BUN 46 H Creatinine 0.78 Est GFR ( Amer) 86.4 Est GFR (Non-Af Amer) 71.4 BUN/Creatinine Ratio 59.0 H Glucose 302 H POC Glucose (mg/dL) Lactic Acid Calcium 9.3 Phosphorus 3.0 Magnesium 2.2 Total Bilirubin AST ALT Alkaline Phosphatase Ammonia 47 Troponin I Total Protein Albumin Globulin Albumin/Globulin Ratio TSH Urine Color Urine Appearance Urine pH Ur Specific [place] Urine Protein Urine Ketones Urine Blood Urine Nitrate Urine Bilirubin Urine Urobilinogen Ur Leukocyte Esterase Urine WBC (Auto) Urine RBC (Auto) Urine Bacteria Urine Glucose Salicylates Acetaminophen Influenza A (Rapid) Influenza B (Rapid) 08/18/18 07:31 WBC RBC Hgb Hct MCV MCH MCHC RDW Plt Count MPV Neut % (Auto) Lymph % (Auto) Atkinson % (Auto) Eos % (Auto) Baso % (Auto) Absolute Neuts (auto) Absolute Lymphs (auto) Absolute Monos (auto) Absolute Eos (auto) Absolute Basos (auto) Absolute Nucleated RBC Nucleated RBC % INR (Anticoag Therapy) VBG pH VBG pCO2 VBG pO2 VBG HCO3 VBG O2 Saturation VBG Base Excess Sodium Potassium Chloride Carbon Dioxide Anion Gap BUN Creatinine Est GFR ( Amer) Est GFR (Non-Af Amer) BUN/Creatinine Ratio Glucose POC Glucose (mg/dL) 265 H Lactic Acid Calcium Phosphorus Magnesium Total Bilirubin AST ALT Alkaline Phosphatase Ammonia Troponin I Total Protein Albumin Globulin Albumin/Globulin Ratio TSH Urine Color Urine Appearance Urine pH Ur Specific [place] Urine Protein Urine Ketones Urine Blood Urine Nitrate Urine Bilirubin Urine Urobilinogen Ur Leukocyte Esterase Urine WBC (Auto) Urine RBC (Auto) Urine Bacteria Urine Glucose Salicylates Acetaminophen Influenza A (Rapid) Influenza B (Rapid) Imaging: cxr 08/17 - no infiltrate ct lilly 08/17 - no acute pathology Assessment: 77y F w/pmhx of Dementia, HTN, HLD, DM; recent admission for right femoral neck fracture s/p right hemiarthroplasty last week, discharged 08/12. She was discharged to rehab/ME, awake, BP stable, mild anemia. She comes back 4-5 days later with lethargy, change in mental status, high sodium and low grade fevers at ME. She is in ER, tachycardic, hypertensive, lethargic and not well responsive but able to hold airway and ventilating on her own. Unable to obtain history from her due to encephalopathy. CT brain demonstrated no acute pathology. Family at bedside states she was confused before previous discharge and remained intermittenly more confused at ME on top of baseline dementia, and also they noted decreasing PO intake there. NH was also very warm and hot and patient would keep taking her clothes off. in ER, low grade temp 100.6, WBC 17, tachycardic, delirious, started on IVF and IV abx for sepsis, noted elevated BG 333. -Metabolic encephalopathy -Hypernatremia 2/2 to poor po intake -SANDOR -r/o Sepsis -Hyperglycemia, not DKA or HONK -Anemia -Recent Right femoral hemiarthroplasty 08/2018 Plan: Neuro- -improving mental status; more awake, confused, not oriented, restless. not at baseline yet as per family. -CT brain negative for acute pathology -hypernatremia, possible sepsis unknown source with pre-renal azotemia+, recent surgery; all may be adding to metabolic/toxic encephalopathy -cont aricept once awake -asp prec, HOB elevated -avoid bdz, delirium prec CVS- -sinus tachycardia improving -cont d5w + 20meq 100cc/hr -IV abx; low suspicioin for sepsis -hg stable - -hold antihypertensives Resp- -no resp distress, on RA -CXR 08/17 without acute focal process/infiltrate -airway seems better managed by her, awake and passed swallow. cont asp precautions ID- afebrile, wbc 17. -CXR clear of focal infiltrate. Urinalysis cloudy wiht ketones/blood/1+wbc/ glucose, no bacteria. -blood and urine culture sent -IV cefepime 1gm daily (day#2), s/p vanco x1; if neg by tomorrow and wbc dec, no source, can limit IV abx to 3 days. GI- passsed swallow; start diabetic puree with nectar thick. asp prec Renal- -Sandor 2/2 to pre-renal azotemia and hypovolemia; Cr improved, BUN still elevated -Hypernatremia; Na improving 171->163 -K 3.8; added 20meq to D5w -suspect all from poor po intake, osmotic loss from hyperglycemia, as well as heated environment (as per family) -phillips+; may consider d/c later today; good urien output noted Heme- -anemia, hg 10-11;stable -plt okay -was on xarelto 10mg po for post hip proph; lovenox 30mg SC q12h for post hip proph due to renal insuff and poor po intake; change to xarelto 10mg po tomorrow if alert and taking po adequately Endo-Maintain BG<200, insulin protocol as needed; on ISS; add lantus 5u qdaily, change FS to ACHS with meals Musculsk- pressure ulcer prophylaxis. Right Hip surgical site intact, david++ , no bleeding or hematoma. eccymosis mild but no collection noted. -cont dvt proph with on sq lovenox 30mg q12h Wounds- Rght hip surgical site wound care DVT prophylaxis: SCD, lovenox sq bid GI prophylaxis: none indicated Central Line: no Arterial Line: no Phillips Cathetor: yes Disposition: may be able to be transferred to medical floor later today Patient Clinical Status: guarded, improving Code Status: DNR as per family verbally, they will read thru RENÉE Valles MD Physician Ophthalmologist (Electronically Signed)
[2018-08-18] MEDS: Insulin GLARGINE(*) 1 UNITS UNIT SUBCUT SCH (12:20)
[2018-08-18] MEDS: Cefepime 1 GM in Dextrose(*) 1 GM/50 ML BAG IV SCH (16:26)
--- NOTE | 2018-08-18 17:50 | PN ---
Progress Note - Progress Note Date of Service: 08/18/18 Note: noted Entercoccus feacalis in Urine Cx Pending sensitivity afebrile, BP stable change IV cefepime to Zosyn , pending sensivity Emiliano Valles MD
[2018-08-18] MEDS ORDERED: ZOSYN 3.375 GM x ONE DOSE over 30 miuntes IVPB ×2 (18:00)
[2018-08-18] MEDS ORDERED: Piperacillin/Tazobac ADVAN(*) 3.375 GM in NS 0.9% 100 ML* 100 ML IVPB SCH (18:00)
[2018-08-18 19:31] LABS: Calcium 9.4 mg/dL (8.6-10.3); EGFR African American 108.6 (>60); EGFR Non-African American 89.7 (>60)
[2018-08-18] MEDS: D5W 1000 ML BAG* 1,000 ML IV SCH (20:19)
[2018-08-18] MEDS: Enoxaparin(*) 30 MG/0.3 ML SYR SUBCUT SCH (20:20)
[2018-08-18] MEDS: Atorvastatin* 40 MG TAB PO SCH (20:22)
[2018-08-18] MEDS: Piperacillin/Tazobac ADVAN(*) 3.375 GM in NS 0.9% 100 ML* 100 ML IVPB SCH (23:02)
[2018-08-19] MEDS: Insulin LISPRO* 1 UNITS UNIT SUBCUT SCH ×6 (00:38→21:28)
[2018-08-19] MEDS: HYDROmorphone INJ* 0.5 MG/0.5 ML SYRINGE IV SLOW PU PRN (02:09)
[2018-08-19] MEDS: D5W 1000 ML BAG* 1,000 ML IV SCH (03:00)
[2018-08-19 04:44] LABS: Hematocrit 29 % (35-47); Hemoglobin 9.2 g/dl (12.0-16.0); Mean Corpuscular HGB Conc 32 g/dl (31-36); Mean Corpuscular Hemoglobin 30 pg (27-31); Mean Corpuscular Volume 95 fL (80-97); Mean Platelet Volume 8.2 fL (7.4-10.4); Platelet Count 237 10^3/ul (150-450); Red Blood Count 3.07 10^6/ul (4.00-5.40); Red Cell Distribution Width 17 % (10.5-15); White Blood Count 11.5 10^3/ul (3.5-10.8)
[2018-08-19 05:02] LABS: BUN/Creatinine Ratio 42.4 (8-20); Calcium 8.9 mg/dL (8.6-10.3); EGFR African American 104.8 (>60); EGFR Non-African American 86.6 (>60); Potassium 3.5 mmol/L (3.5-5.0)
[2018-08-19] MEDS: Piperacillin/Tazobac ADVAN(*) 3.375 GM in NS 0.9% 100 ML* 100 ML IVPB SCH ×2 (06:18→15:05)
[2018-08-19] MEDS: Donepezil TAB* 5 MG PO SCH (08:46)
[2018-08-19] MEDS: Docusate CAP* 100 MG PO SCH (08:47)
[2018-08-19] MEDS: Enoxaparin(*) 30 MG/0.3 ML SYR SUBCUT SCH ×2 (08:47→20:38)
[2018-08-19] MEDS ORDERED: HYDROmorphone INJ1* 1 MG/ML SYRINGE IV SLOW PU PRN (09:00)
[2018-08-19] MEDS: Insulin GLARGINE(*) 1 UNITS UNIT SUBCUT SCH (12:54)
--- NOTE | 2018-08-19 15:38 | PN ---
Subjective Interval History: Transferred from ICU yesterday. Fever 100.4 last night. ICU noted yesterday that E. feacalis was growing from urine, so cefepime was switched to Zosyn. at bedside reports patient is now near her baseline. Patient denies symptoms or pain. Objective Active Medications: Dextrose (D50w Syringe 50 Ml*) 12.5 gm IV PUSH .FOR FS < 60 - SS PRN PRN Reason: FS < 60 Donepezil HCl (Aricept Tab*) 10 mg PO DAILY [facility] Last Admin: 08/19/18 08:46 Dose: 10 mg Enoxaparin Sodium (Lovenox(*)) 30 mg SUBCUT 0800,1999 [facility] Last Admin: 08/19/18 08:47 Dose: 30 mg Dextrose (D5w 1000 Ml Bag*) 1,000 mls @ 150 mls/hr IV PER RATE [facility] Last Admin: 08/19/18 03:00 Dose: 150 mls/hr Ampicillin Sodium 1 gm/ Sodium (Chloride) 50 mls @ 200 mls/hr IVPB Q6H [facility] Insulin Glargine (Lantus(*)) 8 units SUBCUT Q24H [facility] Insulin Human Lispro (Humalog*) 0 units SUBCUT ACHS [facility]; Protocol Last Admin: 08/19/18 12:54 Dose: 4 units Vital Signs - 8 hr 08/19/18 08/19/18 08/19/18 08:00 08:40 09:33 Temperature Pulse Rate Respiratory 18 18 16 Rate Blood Pressure (mmHg) O2 Sat by Pulse Oximetry 08/19/18 08/19/18 08/19/18 10:29 11:22 13:55 Temperature 97.7 F Pulse Rate 97 104 Respiratory 18 18 Rate Blood Pressure 145/62 140/60 (mmHg) O2 Sat by Pulse 99 Oximetry Oxygen Devices in Use Now: None Appearance: calm, alert, responds to questions but not with appropriate answer; nontoxic Ears/Nose/Mouth/Throat: Mucous Membranes Moist Respiratory: - - clear anteriorly Cardiovascular: RRR Abdominal: - - soft, nontender, no suprapubic tenderness Extremities: No Edema Result Diagrams: 08/19/18 04:30 08/19/18 04:30 Microbiology and Other Data: Microbiology 08/17/18 12:39 Aerobic Blood Culture - Preliminary Blood Venous No Growth Day 2 Anaerobic Blood Culture - Preliminary No Growth Day 2 08/17/18 12:39 Aerobic Blood Culture - Preliminary Blood Venous No Growth Day 2 Anaerobic Blood Culture - Preliminary No Growth Day 2 08/17/18 14:38 Urine Culture - Final Urine Enterococcus Faecalis 08/17/18 16:14 Nasal Screen MRSA (PCR) - Final Nasal Mrsa Not Detected 08/17/18 12:37 Influenza Types A,B Antigen - Final Nasal Specimen received for Influenza A/B Molecular testing Assess/Plan/Problems-Billing Assessment: 77W with dementia, DM, recent admission for R femoral neck fracture s/p R hemiarthroplasty and discharged 08/12 to rehab, returns with lethargy, AMS, and fevers. She was found to have hypernatremia with UCx growing E. faecalis sensitive to ampicillin. notes that long-term was very hot and that she was frequently left sitting in feces. - Patient Problems (1) Hypernatremia Comment: Had decreased PO, increased sweating, hyperglycemia. Na improving appropriately on IVF. - cont D5W, currently at 100cc/hr - can decrease to 50cc/hr once Na at 145 - cont to monitor mental status and BMP closely (2) Altered mental state Comment: Improving with treatment of hypernatremia and infection. (3) Urinary tract infection Comment: E. faecalis sensitive to ampicillin. WBC downtrending. - narrow Zosyn (08/18-08/19) -> to ampicillin - remove Hernandez (4) Dementia Comment: - Continue donepezil - Supportive care, window bed (5) Diabetes mellitus Comment: Would avoid empaglifozin on discharge given UTI and frailty. - continue Lispro SSI AC with long acting insulin for control inpatient - Resume metformin and consider sitagliptin (or Janumet combo) on DC (6) Fracture of femoral neck, right, closed Current Visit: Yes Comment: Holding home Xaralto given poor PO (taking given recent hip surgery) - cont lovenox and restart Xarelto when good PO Status and Disposition: Return to [facility] when hyponatremia resolved and off IV fluids .
[2018-08-19] MEDS ORDERED: Ampicillin ADVAN(*) 1 GM in NS 0.9% 50 ML* 50 ML IVPB SCH (16:00)
[2018-08-19] MEDS ORDERED: Dextrose 50% Syringe 50 ML* 25 GM/50 ML SYRINGE IV PUSH PRN (16:33)
[2018-08-19 16:47] LABS: BUN/Creatinine Ratio 39.2 (8-20); EGFR African American 141.1 (>60); EGFR Non-African American 116.6 (>60); Potassium 3.2 mmol/L (3.5-5.0)
[2018-08-19] MEDS ORDERED: Potassium Acid Phosphate TAB* 500 MG PO ONE (21:25)
[2018-08-20] MEDS: D5W 1000 ML BAG* 1,000 ML IV SCH ×2 (00:22→07:45)
[2018-08-20] MEDS: Ampicillin ADVAN(*) 1 GM in NS 0.9% 50 ML* 50 ML IVPB SCH ×4 (03:10→21:33)
[2018-08-20 05:59] LABS: Hematocrit 27 % (35-47); Hemoglobin 9.2 g/dl (12.0-16.0); Mean Corpuscular HGB Conc 33 g/dl (31-36); Mean Corpuscular Hemoglobin 31 pg (27-31); Mean Corpuscular Volume 92 fL (80-97); Mean Platelet Volume 8.4 fL (7.4-10.4); Platelet Count 187 10^3/ul (150-450); Red Blood Count 2.99 10^6/ul (4.00-5.40); Red Cell Distribution Width 16 % (10.5-15); White Blood Count 9.8 10^3/ul (3.5-10.8)
[2018-08-20 06:19] LABS: BUN/Creatinine Ratio 27.5 (8-20); Calcium 8.5 mg/dL (8.6-10.3); EGFR African American 186.8 (>60); EGFR Non-African American 154.4 (>60); Magnesium 1.8 mg/dL (1.9-2.7); Phosphorus 1.9 mg/dL (2.5-5.0); Potassium 2.9 mmol/L (3.5-5.0)
[2018-08-20] MEDS ORDERED: Potassium Phosphate IV* 5 MMOLE in NS 0.9% 250 ML* 250 ML IVPB ONE (08:24)
[2018-08-20] MEDS ORDERED: Magnesium Sulfate 1 GM IV* 1 GM/100 ML BAG IV ONE (08:27)
[2018-08-20] MEDS ORDERED: Potassium Chloride LIQUID* 20 MEQ PACKET PO ONE (09:00)
[2018-08-20] MEDS ORDERED: NS 0.9% 50 ML* 50 ML ONE (09:12)
[2018-08-20] MEDS: Insulin LISPRO* 1 UNITS UNIT SUBCUT SCH ×4 (09:21→21:33)
[2018-08-20] MEDS: Insulin GLARGINE(*) 1 UNITS UNIT SUBCUT SCH (09:22)
[2018-08-20] MEDS: Enoxaparin(*) 30 MG/0.3 ML SYR SUBCUT SCH ×2 (09:23→21:31)
[2018-08-20] MEDS: Donepezil TAB* 5 MG PO SCH (09:27)
[2018-08-20] MEDS ORDERED: Senna TAB PO PRN (10:55)
[2018-08-20] MEDS ORDERED: Polyethylene Glycol 3350 BTL* 238 GM BTL PO PRN (10:55)
[2018-08-20] MEDS ORDERED: Polyethylene Glycol 3350* 17 GM PACKET PO PRN (11:29)
[2018-08-20] MEDS ORDERED: Bisacodyl SUPP* 10 MG SUPP PR PRN (12:30)
[2018-08-20 13:44] LABS: BUN/Creatinine Ratio 21.1 (8-20); Calcium 8.9 mg/dL (8.6-10.3); EGFR African American 124.1 (>60); EGFR Non-African American 102.6 (>60); Phosphorus 2.4 mg/dL (2.5-5.0); Potassium 3.3 mmol/L (3.5-5.0)
--- NOTE | 2018-08-20 16:40 | PN ---
Subjective Interval History: Pt denies complaints. notes patient is at baseline mental status. Hernandez placed again overnight - retaining urine after discontinued. Will do bladder training today. Na dropped significantly overnight, so in 24 hour went from 162 -> 147, which is an overcorrection for chronic hypernatremia but I suspect pt is actually presenting acutely. Stopping D5W drip now and will continue to monitor closely. Has required a lot of electrolyte repletion. Objective Active Medications: Bisacodyl (Dulcolax Supp*) 10 mg HI DAILY PRN PRN Reason: CONSTIPATION Last Admin: 08/20/18 12:45 Dose: 10 mg Dextrose (D50w Syringe 50 Ml*) 12.5 gm IV PUSH .FOR FS < 60 - SS PRN PRN Reason: FS < 60 Donepezil HCl (Aricept Tab*) 10 mg PO DAILY [facility] Last Admin: 08/20/18 09:27 Dose: 10 mg Enoxaparin Sodium (Lovenox(*)) 30 mg SUBCUT 0800,2000 [facility] Last Admin: 08/20/18 09:23 Dose: 30 mg Ampicillin Sodium 1 gm/ Sodium (Chloride) 50 mls @ 200 mls/hr IVPB 0300,0900, 1500,2100 [facility] Last Admin: 08/20/18 14:51 Dose: 200 mls/hr Insulin Glargine (Lantus(*)) 8 units SUBCUT Q24H [facility] Last Admin: 08/20/18 09:22 Dose: 8 unit Insulin Human Lispro (Humalog*) 0 units SUBCUT ACHS [facility]; Protocol Last Admin: 08/20/18 12:45 Dose: 1 units Polyethylene Glycol/Electrolytes (Miralax*) 17 gm PO DAILY PRN PRN Reason: CONSTIPATION Potassium Chloride (Klor-Con Liquid*) 20 meq PO ONCE ONE Stop: 08/21/18 16:36 Senna (Senokot Tab*) 1 tab PO DAILY PRN PRN Reason: CONSTIPATION Vital Signs - 8 hr 08/20/18 11:35 Temperature 97.5 F Pulse Rate 114 Respiratory 16 Rate Blood Pressure 106/57 (mmHg) O2 Sat by Pulse 99 Oximetry Oxygen Devices in Use Now: None Appearance: well appearing, sitting in chair, minimally interactive but alert and will respond when asked Ears/Nose/Mouth/Throat: Mucous Membranes Moist Respiratory: Clear to Auscultation Abdominal: NL Sounds; No Tenderness; No Distention Extremities: No Edema Result Diagrams: 08/20/18 05:51 08/20/18 13:12 Microbiology and Other Data: Microbiology 08/17/18 14:38 Urine Urine Culture - Final Enterococcus Faecalis Assess/Plan/Problems-Billing Assessment: 77W with dementia, DM, recent admission for R femoral neck fracture s/p R hemiarthroplasty and discharged 3/ to rehab, returns with lethargy, AMS, and fevers. She was found to have hypernatremia with UCx growing E. faecalis sensitive to ampicillin. notes that half-way was very hot and that she was frequently left sitting in feces. - Patient Problems (1) Hypernatremia Comment: Had decreased PO, increased sweating, hyperglycemia. Na improving appropriately on IVF. - holding D5W after rapid decrease, can restart at 50cc/hr if stable on repeat tonight - cont to monitor mental status and BMP closely (2) Altered mental state Comment: Improving with treatment of hypernatremia and infection. (3) Urinary tract infection Comment: E. faecalis sensitive to ampicillin. WBC downtrending. - a/p cefepime 08/17, then Zosyn (08/18-08/19) -> to ampicillin (08/19 - ); can switch to amox PO 875 bid until 08/22 - remove Hernandez (4) Dementia Comment: - Continue donepezil - Supportive care, window bed (5) Diabetes mellitus Comment: Would avoid empaglifozin on discharge given UTI and frailty. - continue Lispro SSI AC with long acting insulin for control inpatient - Resume metformin and consider sitagliptin (or Janumet combo) on DC (6) Fracture of femoral neck, right, closed Comment: Holding home Xaralto given poor PO (taking given recent hip surgery) - cont lovenox and restart Xarelto when good PO - appreciate PT, to rehab on DC Status and Disposition: Return to [facility] when hyponatremia resolved and off IV fluids .
[2018-08-20 20:20] LABS: Calcium 8.7 mg/dL (8.6-10.3); Magnesium 2.2 mg/dL (1.9-2.7); Potassium 3.3 mmol/L (3.5-5.0)
[2018-08-20 20:26] LABS: BUN/Creatinine Ratio 23.9 (8-20); EGFR Non-African American 131.4 (>60); Phosphorus 2.4 mg/dL (2.5-5.0)
[2018-08-21] MEDS ORDERED: D5W KCl 40 MEQ 1000 ML* 1,000 ML IV SCH (02:00)
[2018-08-21] MEDS: Ampicillin ADVAN(*) 1 GM in NS 0.9% 50 ML* 50 ML IVPB SCH ×4 (03:29→21:50)
[2018-08-21 06:25] LABS: Hematocrit 30 % (33-41); Hemoglobin 9.8 g/dL (12.0-16.0); Mean Corpuscular HGB Conc 33 g/dL (31-36); Mean Corpuscular Hemoglobin 30 pg (27-31); Mean Corpuscular Volume 91 fL (80-97); Mean Platelet Volume 9.1 fL (7.4-10.4); Platelet Count 169 10^3/uL (150-450); Red Blood Count 3.24 10^6 /uL (3.70-4.87); Red Cell Distribution Width 16 % (10.5-15); White Blood Count 10.9 10^3/uL (3.5-10.8)
[2018-08-21 06:58] LABS: Calcium 8.5 mg/dL (8.6-10.3); Potassium 3.3 mmol/L (3.5-5.0)
[2018-08-21 07:04] LABS: BUN/Creatinine Ratio 28.2 (8-20); EGFR African American 192.3 (>60); Phosphorus 2.5 mg/dL (2.5-5.0)
[2018-08-21] MEDS: Enoxaparin(*) 30 MG/0.3 ML SYR SUBCUT SCH (09:07)
[2018-08-21] MEDS: Insulin LISPRO* 1 UNITS UNIT SUBCUT SCH ×4 (09:07→22:01)
[2018-08-21] MEDS: Donepezil TAB* 5 MG PO SCH (09:07)
[2018-08-21] MEDS: Insulin GLARGINE(*) 1 UNITS UNIT SUBCUT SCH (09:07)
[2018-08-21] MEDS: KCL 20 MEQ/100 ML IVPREMIX* 20 MEQ/100 ML BAG IV SCH ×2 (09:47→13:16)
[2018-08-21 15:48] LABS: BUN/Creatinine Ratio 31.1 (8-20); Calcium 8.9 mg/dL (8.6-10.3); EGFR African American 163.1 (>60); EGFR Non-African American 134.8 (>60); Phosphorus 1.9 mg/dL (2.5-5.0); Potassium 4.1 mmol/L (3.5-5.0)
[2018-08-21] MEDS ORDERED: Potassium Chloride LIQUID* 20 MEQ PACKET PO ONE (16:35)
--- NOTE | 2018-08-21 18:41 | PN ---
Subjective Interval History: Pt still at baseline mental status and stable. As today this evening, her sodium has just reached the upper level of normal (145). Her electrolytes have improved (Mg, Phos, K) and are requiring less repletion. Objective Active Medications: Bisacodyl (Dulcolax Supp*) 10 mg [place] DAILY PRN PRN Reason: CONSTIPATION Last Admin: 08/20/18 12:45 Dose: 10 mg Dextrose (D50w Syringe 50 Ml*) 12.5 gm IV PUSH .FOR FS < 60 - SS PRN PRN Reason: FS < 60 Donepezil HCl (Aricept Tab*) 10 mg PO DAILY [facility] Last Admin: 08/21/18 09:07 Dose: 10 mg Enoxaparin Sodium (Lovenox(*)) 30 mg SUBCUT 0800,2000 [facility] Last Admin: 08/21/18 09:07 Dose: 30 mg Ampicillin Sodium 1 gm/ Sodium (Chloride) 50 mls @ 200 mls/hr IVPB 0300,0900, 1500,2100 [facility] Last Admin: 08/21/18 15:21 Dose: 200 mls/hr Potassium Chloride/Dextrose (D5w Kcl 40 Meq 1000 Ml*) 1,000 mls @ 50 mls/hr IV PER RATE [facility] Last Admin: 08/21/18 02:19 Dose: 50 mls/hr Insulin Glargine (Lantus(*)) 8 units SUBCUT Q24H [facility] Last Admin: 08/21/18 09:07 Dose: 8 unit Insulin Human Lispro (Humalog*) 0 units SUBCUT ACHS [facility]; Protocol Last Admin: 08/21/18 16:54 Dose: 4 units Polyethylene Glycol/Electrolytes (Miralax*) 17 gm PO DAILY PRN PRN Reason: CONSTIPATION Last Admin: 08/20/18 17:48 Dose: 17 gm Senna (Senokot Tab*) 1 tab PO DAILY PRN PRN Reason: CONSTIPATION Vital Signs - 8 hr 08/21/18 11:58 Temperature 98.0 F Pulse Rate 105 Respiratory 20 Rate Blood Pressure 152/60 (mmHg) O2 Sat by Pulse 100 Oximetry Oxygen Devices in Use Now: None Result Diagrams: 08/21/18 06:09 08/21/18 15:20 Microbiology and Other Data: Microbiology 08/17/18 14:38 Urine Urine Culture - Final Enterococcus Faecalis Assess/Plan/Problems-Billing Assessment: 77W with dementia, DM2, recent admission for R femoral neck fracture s/p R hemiarthroplasty and discharged / to rehab, returns with lethargy, AMS, and fevers. She was found to have hypernatremia with UCx growing E. faecalis sensitive to ampicillin. notes that care home was very hot and that she was frequently left sitting in feces. - Patient Problems (1) Hypernatremia Comment: Had decreased PO, increased sweating, hyperglycemia. Na improving appropriately on IVF. - may be able to stop IVF tomorrow (08/22) and get ready for DC back to rehab, pending AM labs - cont to monitor mental status and BMP closely (2) Urinary tract infection Comment: E. faecalis sensitive to ampicillin. - s/p cefepime 08/17, then Zosyn (08/18-08/19) -> to ampicillin (08/19 - ); can switch to amox PO 875 bid until 08/23 (3) Dementia Comment: - Continue donepezil - Supportive care, window bed (4) Diabetes mellitus Comment: Would avoid empaglifozin on discharge given UTI and frailty. - continue Lispro SSI AC with long acting insulin for control inpatient - Resume metformin and consider sitagliptin (or Janumet combo) on DC (5) Fracture of femoral neck, right, closed Comment: Was on AC for DVT ppx s/p surgery - stop lovenox and restart Xarelto given better PO - appreciate PT, to rehab on DC Status and Disposition: Return to [facility] when hyponatremia resolved and off IV fluids .
[2018-08-21] MEDS ORDERED: Potassium Phosphate IV* 5 MMOLE in NS 0.9% 250 ML* 250 ML IVPB ONE (18:55)
[2018-08-22] MEDS: Ampicillin ADVAN(*) 1 GM in NS 0.9% 50 ML* 50 ML IVPB SCH ×4 (03:10→21:46)
[2018-08-22 05:34] LABS: ABS Basophils 0 10^3/ul (0-0.2); ABS Eosinophils 0.1 10^3/ul (0-0.6); ABS Lymphocytes 1.1 10^3/ul (1.0-4.8); ABS Monocytes 0.9 10^3/ul (0-0.8); ABS Neutrophils 9.6 10^3/ul (1.5-7.7); ABS Nucleated RBC 0 10^3/ul; Eosinophil % 0.7 %; Hematocrit 29 % (33-41); Hemoglobin 9.6 g/dL (12.0-16.0); Lymphocyte % 9.7 %; Mean Corpuscular HGB Conc 33 g/dL (31-36); Mean Corpuscular Hemoglobin 30 pg (27-31); Mean Corpuscular Volume 92 fL (80-97); Mean Platelet Volume 9.3 fL (7.4-10.4); Nucleated Red Blood Cells % 0; Platelet Count 198 10^3/uL (150-450); Red Blood Count 3.18 10^6 /uL (3.70-4.87); Red Cell Distribution Width 16 % (10.5-15); White Blood Count 11.8 10^3/uL (3.5-10.8)
[2018-08-22 05:46] LABS: BUN/Creatinine Ratio 21.4 (8-20); Calcium 8.7 mg/dL (8.6-10.3); EGFR African American 176.6 (>60); EGFR Non-African American 145.9 (>60); Magnesium 1.9 mg/dL (1.9-2.7); Phosphorus 2.2 mg/dL (2.5-5.0); Potassium 3.7 mmol/L (3.5-5.0)
[2018-08-22] MEDS: Insulin LISPRO* 1 UNITS UNIT SUBCUT SCH ×4 (08:30→21:45)
[2018-08-22] MEDS: Donepezil TAB* 5 MG PO SCH (08:30)
[2018-08-22] MEDS: Rivaroxaban TAB(*) 10 MG PO SCH (08:30)
[2018-08-22] MEDS: Insulin GLARGINE(*) 1 UNITS UNIT SUBCUT SCH (08:31)
--- NOTE | 2018-08-22 16:17 | PN ---
Subjective Date of Service: 08/22/18 Interval History: Denies any complaints Objective Active Medications: Bisacodyl (Dulcolax Supp*) 10 mg [place] DAILY PRN PRN Reason: CONSTIPATION Last Admin: 08/20/18 12:45 Dose: 10 mg Dextrose (D50w Syringe 50 Ml*) 12.5 gm IV PUSH .FOR FS < 60 - SS PRN PRN Reason: FS < 60 Donepezil HCl (Aricept Tab*) 10 mg PO DAILY [facility] Last Admin: 08/22/18 08:30 Dose: 10 mg Ampicillin Sodium 1 gm/ Sodium (Chloride) 50 mls @ 200 mls/hr IVPB 0300,0900, 1500,2100 [facility] Last Admin: 08/22/18 15:29 Dose: 200 mls/hr Potassium Chloride/Dextrose (D5w Kcl 40 Meq 1000 Ml*) 1,000 mls @ 50 mls/hr IV PER RATE [facility] Last Admin: 08/21/18 02:19 Dose: 50 mls/hr Insulin Glargine (Lantus(*)) 8 units SUBCUT Q24H [facility] Last Admin: 08/22/18 08:31 Dose: 8 unit Insulin Human Lispro (Humalog*) 0 units SUBCUT ACHS [facility]; Protocol Last Admin: 08/22/18 11:50 Dose: 4 units Polyethylene Glycol/Electrolytes (Miralax*) 17 gm PO DAILY PRN PRN Reason: CONSTIPATION Last Admin: 08/20/18 17:48 Dose: 17 gm Rivaroxaban (Xarelto(*)) 10 mg PO DAILY [facility] Last Admin: 08/22/18 08:30 Dose: 10 mg Senna (Senokot Tab*) 1 tab PO DAILY PRN PRN Reason: CONSTIPATION Vital Signs - 8 hr 08/22/18 08/22/18 11:01 15:11 Temperature 98.2 F Pulse Rate 98 107 Respiratory 16 Rate Blood Pressure 123/61 141/71 (mmHg) O2 Sat by Pulse 95 99 Oximetry Oxygen Devices in Use Now: None Eyes: No Scleral Icterus Neck: NL Appearance and Movements; NL JVP Respiratory: Symmetrical Chest Expansion and Respiratory Effort Cardiovascular: NL Sounds; No Murmurs; No JVD Extremities: No Edema Neurological: Alert and Oriented x 3 Result Diagrams: 08/22/18 05:23 08/22/18 05:23 Microbiology and Other Data: Microbiology 08/17/18 14:38 Urine Urine Culture - Final Enterococcus Faecalis Assess/Plan/Problems-Billing Assessment: 77W with dementia, DM2, recent admission for R femoral neck fracture s/p R hemiarthroplasty and discharged / to rehab, returns with lethargy, AMS, and fevers. She was found to have hypernatremia with UCx growing E. faecalis sensitive to ampicillin. notes that [facility] was very hot and that she was frequently left sitting in feces. - Patient Problems (1) Hypernatremia Current Visit: Yes Status: Acute Code(s): E87.0 - HYPEROSMOLALITY AND HYPERNATREMIA SNOMED Code(s): 235086614 Comment: Had decreased PO, increased sweating, hyperglycemia. Na improving appropriately on IVF. -will stop ivf - cont to monitor mental status and BMP closely (2) Altered mental state Current Visit: Yes Status: Acute Code(s): R41.82 - ALTERED MENTAL STATUS, UNSPECIFIED SNOMED Code(s): 438453799 Comment: Improving with treatment of hypernatremia and infection. (3) Fracture of femoral neck, right, closed Current Visit: Yes Status: Acute Code(s): S72.001A - FRACTURE OF UNSP PART OF NECK OF RIGHT FEMUR, INIT SNOMED Code(s): 430430084 Comment: Was on AC for DVT ppx s/p surgery - stop lovenox and restart Xarelto given better PO - appreciate PT, to rehab on DC (4) Urinary tract infection Current Visit: Yes Status: Acute Comment: E. faecalis sensitive to ampicillin. - s/p cefepime 08/17, then Zosyn (08/18-08/19) -> to ampicillin (08/19 - ) (5) Diabetes mellitus Current Visit: Yes Status: Chronic Code(s): E11.9 - TYPE 2 DIABETES MELLITUS WITHOUT COMPLICATIONS SNOMED Code(s): 39536891 Comment: - continue Lispro SSI AC with long acting insulin for control inpatient Status and Disposition: .
[2018-08-23] MEDS ORDERED: Morphine 4 MG/ML VIAL (1 ml) 4 MG/ML VIAL IV ONE (01:58)
[2018-08-23] MEDS: Ampicillin ADVAN(*) 1 GM in NS 0.9% 50 ML* 50 ML IVPB SCH ×3 (03:07→15:06)
[2018-08-23] MEDS: Insulin GLARGINE(*) 1 UNITS UNIT SUBCUT SCH (08:09)
[2018-08-23] MEDS: Insulin LISPRO* 1 UNITS UNIT SUBCUT SCH ×4 (08:09→22:55)
[2018-08-23] MEDS: Donepezil TAB* 5 MG PO SCH (08:11)
[2018-08-23] MEDS: Rivaroxaban TAB(*) 10 MG PO SCH (08:17)
[2018-08-23 08:46] LABS: ABS Basophils 0 10^3/ul (0-0.2); ABS Eosinophils 0.1 10^3/ul (0-0.6); ABS Lymphocytes 1.2 10^3/ul (1.0-4.8); ABS Monocytes 1.2 10^3/ul (0-0.8); ABS Nucleated RBC 0 10^3/ul; Eosinophil % 0.9 %; Hematocrit 30 % (33-41); Hemoglobin 9.7 g/dL (12.0-16.0); Lymphocyte % 9.7 %; Mean Corpuscular HGB Conc 33 g/dL (31-36); Mean Corpuscular Hemoglobin 30 pg (27-31); Mean Corpuscular Volume 92 fL (80-97); Mean Platelet Volume 9.7 fL (7.4-10.4); Nucleated Red Blood Cells % 0.1; Platelet Count 257 10^3/uL (150-450); Red Blood Count 3.23 10^6 /uL (3.70-4.87); Red Cell Distribution Width 16 % (10.5-15); White Blood Count 12.5 10^3/uL (3.5-10.8)
--- NOTE | 2018-08-23 12:50 | PN ---
Subjective Date of Service: 08/23/18 Interval History: No acute events overnight.More confused today compared to yesterday. Objective Active Medications: Bisacodyl (Dulcolax Supp*) 10 mg [place] DAILY PRN PRN Reason: CONSTIPATION Last Admin: 08/20/18 12:45 Dose: 10 mg Dextrose (D50w Syringe 50 Ml*) 12.5 gm IV PUSH .FOR FS < 60 - SS PRN PRN Reason: FS < 60 Donepezil HCl (Aricept Tab*) 10 mg PO DAILY [facility] Last Admin: 08/23/18 08:11 Dose: 10 mg Ampicillin Sodium 1 gm/ Sodium (Chloride) 50 mls @ 200 mls/hr IVPB 0300,0900, 1500,2100 [facility] Last Admin: 08/23/18 08:07 Dose: 200 mls/hr Insulin Glargine (Lantus(*)) 8 units SUBCUT Q24H [facility] Last Admin: 08/23/18 08:09 Dose: 8 unit Insulin Human Lispro (Humalog*) 0 units SUBCUT ACHS [facility]; Protocol Last Admin: 08/23/18 11:51 Dose: 2 units Polyethylene Glycol/Electrolytes (Miralax*) 17 gm PO DAILY PRN PRN Reason: CONSTIPATION Last Admin: 08/20/18 17:48 Dose: 17 gm Rivaroxaban (Xarelto(*)) 10 mg PO DAILY [facility] Last Admin: 08/23/18 08:17 Dose: 10 mg Senna (Senokot Tab*) 1 tab PO DAILY PRN PRN Reason: CONSTIPATION Vital Signs - 8 hr 08/23/18 08/23/18 08/23/18 06:13 07:21 11:33 Temperature 98.1 F 98.7 F Pulse Rate 98 104 Respiratory 16 18 19 Rate Blood Pressure 129/59 113/55 (mmHg) O2 Sat by Pulse 95 93 Oximetry Oxygen Devices in Use Now: None Eyes: No Scleral Icterus Neck: NL Appearance and Movements; NL JVP Respiratory: Symmetrical Chest Expansion and Respiratory Effort Cardiovascular: NL Sounds; No Murmurs; No JVD Extremities: No Edema Neurological: Alert and Oriented x 3, - Result Diagrams: 08/23/18 08:39 08/22/18 05:23 Microbiology and Other Data: Microbiology 08/17/18 14:38 Urine Urine Culture - Final Enterococcus Faecalis Assess/Plan/Problems-Billing Assessment: 77W with dementia, DM2, recent admission for R femoral neck fracture s/p R hemiarthroplasty and discharged 3/6 to rehab, returns with lethargy, AMS, and fevers. She was found to have hypernatremia with UCx growing E. faecalis sensitive to ampicillin. notes that longterm was very hot and that she was frequently left sitting in feces. - Patient Problems (1) Hypernatremia Current Visit: Yes Status: Acute Code(s): E87.0 - HYPEROSMOLALITY AND HYPERNATREMIA SNOMED Code(s): 799087570 Comment: Had decreased PO, increased sweating, hyperglycemia. Na improving appropriately on IVF. -will stop ivf - cont to monitor mental status and BMP closely (2) Altered mental state Current Visit: Yes Status: Acute Code(s): R41.82 - ALTERED MENTAL STATUS, UNSPECIFIED SNOMED Code(s): 494254304 Comment: Improving with treatment of hypernatremia and infection. (3) Fracture of femoral neck, right, closed Current Visit: Yes Status: Acute Code(s): S72.001A - FRACTURE OF UNSP PART OF NECK OF RIGHT FEMUR, INIT SNOMED Code(s): 550425199 Comment: Was on AC for DVT ppx s/p surgery - stop lovenox and restart Xarelto given better PO - appreciate PT, to rehab on DC -Pt still has david that need to be removed.Discuss with Dr Laura in am prior to removal (4) Urinary tract infection Current Visit: Yes Status: Acute Comment: E. faecalis sensitive to ampicillin. - s/p cefepime 08/17, then Zosyn (08/18-08/19) -> to ampicillin (08/19 - ) (5) Diabetes mellitus Current Visit: Yes Status: Chronic Code(s): E11.9 - TYPE 2 DIABETES MELLITUS WITHOUT COMPLICATIONS SNOMED Code(s): 58804428 Comment: - continue Lispro SSI AC with long acting insulin for control inpatient
[2018-08-23] MEDS: Amoxicillin PO (*) 875 MG TAB PO SCH (22:55)
[2018-08-24 06:22] LABS: Hematocrit 28 % (33-41); Hemoglobin 9.2 g/dL (12.0-16.0); Mean Corpuscular HGB Conc 33 g/dL (31-36); Mean Corpuscular Hemoglobin 30 pg (27-31); Mean Corpuscular Volume 92 fL (80-97); Mean Platelet Volume 9.6 fL (7.4-10.4); Platelet Count 301 10^3/uL (150-450); Red Blood Count 3.03 10^6 /uL (3.70-4.87); Red Cell Distribution Width 16 % (10.5-15); White Blood Count 9.5 10^3/uL (3.5-10.8)
[2018-08-24 06:42] LABS: Calcium 8.9 mg/dL (8.6-10.3); EGFR African American 204.4 (>60); EGFR Non-African American 168.9 (>60); Potassium 3.7 mmol/L (3.5-5.0)
[2018-08-24 07:00] LABS: ABS Basophils 0 10^3/ul (0-0.2); ABS Eosinophils 0.1 10^3/ul (0-0.6); ABS Lymphocytes 1.3 10^3/ul (1.0-4.8); ABS Monocytes 1.1 10^3/ul (0-0.8); ABS Nucleated RBC 0 10^3/ul; Eosinophil % 1.5 %; Lymphocyte % 13.4 %; Nucleated Red Blood Cells % 0.1
[2018-08-24] MEDS: Insulin LISPRO* 1 UNITS UNIT SUBCUT SCH ×4 (08:32→20:45)
[2018-08-24] MEDS: Rivaroxaban TAB(*) 10 MG PO SCH (08:33)
[2018-08-24] MEDS: Amoxicillin PO (*) 875 MG TAB PO SCH ×2 (08:33→20:45)
[2018-08-24] MEDS: Insulin GLARGINE(*) 1 UNITS UNIT SUBCUT SCH (08:33)
[2018-08-24] MEDS: Donepezil TAB* 5 MG PO SCH (08:33)
--- NOTE | 2018-08-24 18:11 | PN ---
Subjective Date of Service: 08/24/18 Interval History: Pt is confused, but talkative. Does not know where she is. She denies SOB, CP , fever, cough. She denies abd pain, n/v/d/c. She c/o pain in the R hip. Objective Active Medications: Amoxicillin (Amoxicillin Po (*)) 875 mg PO BID [facility] Bisacodyl (Dulcolax Supp*) 10 mg [place] DAILY PRN Dextrose (D50w Syringe 50 Ml*) 12.5 gm IV PUSH .FOR FS < 60 - SS PRN Donepezil HCl (Aricept Tab*) 10 mg PO DAILY [facility] Insulin Glargine (Lantus(*)) 8 units SUBCUT Q24H [facility] Insulin Human Lispro (Humalog*) 0 units SUBCUT ACHS [facility]; Protocol Polyethylene Glycol/Electrolytes (Miralax*) 17 gm PO DAILY PRN Rivaroxaban (Xarelto(*)) 10 mg PO DAILY [facility] Senna (Senokot Tab*) 1 tab PO DAILY PRN Vital Signs: Temp Pulse Resp BP Pulse Ox 98.0 F 103 16 129/60 94 08/24/18 15:38 08/24/18 15:38 08/24/18 15:38 08/24/18 15:38 08/24/18 15:38 Oxygen Devices in Use Now: None Appearance: Pt is laying flat in bed. She is confused, but in no acute distress. Eyes: No Scleral Icterus, PERRLA Ears/Nose/Mouth/Throat: NL Teeth, Lips, Gums, Clear Oropharnyx, Mucous Membranes Moist Neck: NL Appearance and Movements; NL JVP, Trachea Midline Respiratory: Symmetrical Chest Expansion and Respiratory Effort, Clear to Auscultation Cardiovascular: NL Sounds; No Murmurs; No JVD, RRR, No Edema Abdominal: NL Sounds; No Tenderness; No Distention, No Hepatosplenomegaly Lymphatic: No Cervical Adenopathy Extremities: No Edema, No Clubbing, Cyanosis, - - R hip TTP with david intact Neurological: - - Alert. Oriented to self only. Result Diagrams: 08/24/18 06:16 08/24/18 06:16 Microbiology and Other Data: Microbiology 08/17/18 14:38 Urine Urine Culture - Final Enterococcus Faecalis Assess/Plan/Problems-Billing Assessment: 77W with dementia, DM2, recent admission for R femoral neck fracture s/p R hemiarthroplasty and discharged / to rehab, returns with lethargy, AMS, and fevers. She was found to have hypernatremia with UCx growing E. faecalis sensitive to ampicillin. notes that longterm was very hot and that she was frequently left sitting in feces. - Patient Problems (1) Urinary tract infection Comment: -E. faecalis sensitive to ampicillin. -s/p cefepime 08/17, then Zosyn (08/18-08/19) -> to ampicillin (08/19 - 08/23) -> Amox (2) Fracture of femoral neck, right, closed Comment: -Was on AC for DVT ppx s/p surgery -Xarelto, since pt tolerating PO -Appreciate PT, to rehab on DC -Pt still has david that need to be removed; discuss with Dr Laura in am prior to removal (3) Altered mental state Comment: -Resolved; improved with treatment of hypernatremia and infection (4) Hypernatremia Comment: -Had decreased PO, increased sweating, hyperglycemia -Resolved -Cont to monitor mental status and BMP closely (5) Diabetes mellitus Comment: -continue Lispro SSI AC with long acting insulin for control inpatient (6) DVT prophylaxis Comment: - Rivaroxaban, per orthopedics - Wearing SCD's bilaterally (7) Full code status Status and Disposition: Inpatient. Discharge when stable.
[2018-08-25 06:32] LABS: Hematocrit 30 % (33-41); Hemoglobin 9.9 g/dL (12.0-16.0)
[2018-08-25 07:17] LABS: BUN/Creatinine Ratio 35.9 (8-20); Calcium 8.9 mg/dL (8.6-10.3); EGFR African American 192.3 (>60); Potassium 3.6 mmol/L (3.5-5.0)
[2018-08-25] MEDS: Donepezil TAB* 5 MG PO SCH (08:20)
[2018-08-25] MEDS: Insulin LISPRO* 1 UNITS UNIT SUBCUT SCH ×2 (08:20→12:35)
[2018-08-25] MEDS: Insulin GLARGINE(*) 1 UNITS UNIT SUBCUT SCH (08:20)
[2018-08-25] MEDS: Rivaroxaban TAB(*) 10 MG PO SCH (08:20)
[2018-08-25] MEDS: Amoxicillin PO (*) 875 MG TAB PO SCH (08:20)
--- NOTE | 2018-08-25 13:03 | DS ---
DISCHARGE SUMMARY: DATE OF ADMISSION: 08/17/18 DATE OF DISCHARGE: 08/25/18 PRIMARY CARE PROVIDER: Dr. Keerthi Gottlieb. ORTHOPEDIST: Dr. Terrence House ATTENDING PHYSICIAN: Dr. Leonora Deshpande.* (DICTATED BY FATOU HAMMER) PRIMARY DIAGNOSES: 1. Hypernatremia. 2. Urinary tract infection. 3. Status post right femoral hemiarthroplasty, 08/08/18. SECONDARY DIAGNOSES: 1. Hypertension. 2. Diabetes mellitus type 2. 3. Hyperlipidemia. 4. Dementia. STUDIES WHILE IN THE HOSPITAL: Chest x-ray on 08/17/18, impression: No active cardiopulmonary disease. Head CT 08/17/18, impression: No acute intracranial process evident. Advanced involutional change and stigmata of chronic small vessel ischemic disease. DISCHARGE MEDICATIONS: Home medications: 1. Tramadol 50 mg p.o. b.i.d. p.r.n. 2. Sennosides 8.6 mg p.o. at bedtime p.r.n. 3. Metformin 1000 mg p.o. b.i.d. 4. Alendronate 70 mg p.o. weekly. 5. Cyanocobalamin 1000 mcg p.o. q.a.m. 6. Acetaminophen 1000 mg p.o. q.8 hours maximum daily dose 3000 mg. 7. Magnesium hydroxide 30 mL p.o. q.6 hours p.r.n. 8. Caltrate 600 plus D plus tablet 1 tab p.o. daily. 9. Ascorbic acid 1000 mg p.o. q.a.m. 10. Empagliflozin 25 mg p.o. daily. 11. Donepezil 10 mg p.o. daily. 12. Lisinopril 20 mg p.o. daily. 13. Atorvastatin 40 mg p.o. at bedtime. 14. Rivaroxaban 10 mg p.o. daily. 15. Docusate 100 mg b.i.d. New home medication: Amoxicillin 875 mg p.o. b.i.d. x3 doses starting tonight. HISTORY OF PRESENT ILLNESS/HOSPITAL COURSE: Ms. Pressley is a 77-year-old female with the past medical history as described above who was recently discharged on 08/12/18 after a repair of a right femoral neck fracture. She was discharged to a rehab facility. She then presented days later with lethargy , altered mental status, hypernatremia. In the ER, she was found to be tachycardic, hypertensive and was lethargic. The family noted that the patient was more confused than normal, although it is noted that the patient does have baseline dementia. She was admitted for treatment of severe dehydration resulting in hypernatremia, metabolic encephalopathy and SANDOR. It is noted that the patient met sepsis criteria. Urine culture was obtained and showed Enterococcus faecalis. Sensitivity was performed so that the antibiotics could be narrowed. The patient was given 1 dose of cefepime and then transferred to Zosyn and then to ampicillin. Ultimately, the patient ended up on amoxicillin p.o. for discharge. The patient's hypernatremia was resolved with IV fluids. Her altered mental status also resolved with the treatment of hypernatremia and infection. The patient had david in the right hip from her surgery at the beginning of August. The orthopedic office was consulted and stated that the david were due to be removed on 08/19/18. Prior to discharge on the 08/25/18 , david were removed and the site was assessed for any concerns. The patient tolerated staple removal well. At the time of discharge, the patient denies any chest pain, shortness of breath, abdominal pain, nausea, vomiting, diarrhea , or constipation. She denies cough or fever. She denies changes in bowel or bladder habits. She has no suprapubic pain. She denies pain in the calves. Ms. Pressley is stable for discharge. PHYSICAL EXAMINATION: Vital Signs: Temperature 97.7 temporally, heart rate is 93, respiratory rate is 16, oxygen saturation is 100% on room air, and blood pressure 130/63. General: Ms. Pressley is a well-developed, well-nourished, thin, elderly white woman who is lying on her back in bed. She is in no acute distress. She is cooperative, but mildly confused. HEENT: Visual [place] are grossly intact. Her pupils are equally round and reactive. Sclerae are without icterus. Hearing is grossly intact. The oral mucous membranes are moist. There are no lesions. Pharynx is clear. Cardiovascular: Regular rate and rhythm with S1 and S2 present. There are no murmurs, rubs, or gallops. There is no JVD. Respiratory: Symmetrical chest expansion with no use of accessory muscles. Lungs are clear to auscultation. There are no rhonchi, wheezes, or rubs. Abdomen: The abdomen is flat. Bowel sounds in all quadrants. The abdomen is soft and nontender to palpation. There is no hepatosplenomegaly. Extremities: Skin is warm and smooth bilaterally. There is no edema, no clubbing or cyanosis. Radial and pedal pulses are palpable. The right hip is slightly bruised without erythema or warmth. Right hip incision is approximated and intact after removal of david. There is no discharge or separation of the scar. Neuro: The patient is awake. She is alert. She is oriented to self only. She is able to move all of her extremities. DISCHARGE PLAN: Ms. Pressley will be discharged to [facility] for rehabilitation. ACTIVITY: As tolerated. DIET: Heart healthy, ADA/diabetic diet, push fluids to avoid dehydration/ hypernatremia. MEDICATIONS: As above. EDUCATION: 1. Follow up with primary care physician in 4 to 7 days to discuss recent hospitalization. 2. Follow up with Dr. House as scheduled on 09/25/18 at 11 a.m. 3. Continue amoxicillin every 12 hours for 3 more doses. Next dose is tonight. 4. Continue rivaroxaban as scheduled for 35 days after surgery. Consult Ortho for this. 5. Return to the ER or nearest hospital if you experience any worsening of symptoms, shortness of breath, lightheadedness, dizziness, chest discomfort, high fevers, chills, night sweats, loss of consciousness, or any other worrisome signs or symptoms. This is a summarized report of a complex medical history and hospital stay. For further details, please see the entire medical record. TIME SPENT: Approximately 35 minutes were spent on this discharge, greater than half that time was spent [id number] with the patient discussing discharge plans and instructions. FATOU HAMMER [id number]/[facility] #: [id number] MTDD
[2018-08-25 15:54] VITALS: BP 141/63
== END 2018-08-25 15:50 | DRG 640 ==
LOC: ED 11:43 → ICU 15:12 → SSU 08-18 12:26 → MEDTELE 08-20 22:54
PROVIDERS: ADMIT Internal Medicine Critical Care Medicine; ATTEND Internal Medicine
DX: E87.0 Hyperosmolality and hypernatremia (principal); G93.41 Metabolic encephalopathy; N17.9 Acute kidney failure, unspecified; N39.0 Urinary tract infection, site not specified; E11.65 Type 2 diabetes mellitus with hyperglycemia; E86.0 Dehydration; E86.1 Hypovolemia; F03.90 Unspecified dementia, unspecified severity, without behavioral disturbance, psychotic disturbance, mood disturbance, and anxiety; D64.9 Anemia, unspecified; E78.5 Hyperlipidemia, unspecified; E87.6 Hypokalemia; Z66 Do not resuscitate; I10 Essential (primary) hypertension; B95.2 Enterococcus as the cause of diseases classified elsewhere; Z96.641 Presence of right artificial hip joint; Z87.891 Personal history of nicotine dependence; S72.001D Fracture of unspecified part of neck of right femur, subsequent encounter for closed fracture with routine healing
CPT/HCPCS: 36415; 70450; 71045; 80048; 80053; 80329; 81003; 81015; 82140; 82272; 82803; 82947; 83605; 83735; 84100; 84145; 84443; 84484; 85014; 85018; 85025; 85027; 85610; 87040; 87077; 87086; 87186; 87641; 93005; 99285; A9270-GY; G0480; G8978-GP-CM; G8979-GP-CI; J0692; J1170; J1650; J2270; J2543; J3370; J3475; J3480

== ENCOUNTER 2018-09-02 15:54 | Inpatient (IN) | payer MEDICARE ==
--- NOTE | 2018-09-02 16:23 | ED ---
Lower Extremity - HPI Summary HPI Summary: A 77 y/o female brought in by [facility] ambulance presents to [facility] with a chief complaint of a left femur fracture. The patient has a Hx of dementia and is nonverbal at baseline. Per EMS the patient fell two days ago and an x-ray showed a fracture of her left femur. At triage the patient rated her pain as a 7 /10 in severity. The patients blood glucose was reportedly over range. The patient did not have a fever at triage with a temperature of 98.8. Vital signs while in room HR: 116bpm, O2 Sat: 97, BP: 127/105. - History of Current Complaint Chief Complaint: EDExtremityLower Stated Complaint: FRACTURED LEFT FEMUR PER EMS Time Seen by Provider: 09/02/18 16:09 Hx Obtained From: EMS Hx From Patient Unobtainable Due To: Dementia Mechanism Of Injury: Fall From A Standing Position Onset of Pain: Days, Post Accident, Prior to Arrival Onset/Duration: Still Present Severity Initially: Severe Severity Currently: Severe Pain Intensity: 7 Pain Scale Used: 0-10 Numeric Timing: Constant Location: Is Diffuse Character Of Pain: Unable To Describe Associated Signs And Symptoms: Negative: Fever Aggravating Factor(s): Nothing Alleviating Factor(s): Nothing - Allergies/Home Medications Allergies/Adverse Reactions: Allergies Allergy/AdvReac Type Severity Reaction Status Date / Time ciprofloxacin [From Cipro] Allergy Unknown Verified 08/07/18 12:58 Reaction Details Home Medications: Home Medications Acetaminophen [Acetaminophen Extra Strength] 1,000 mg PO 0900,2100 MDD 3000 mg 09/02/18 [History Confirmed 09/02/18] Bisacodyl SUPP* [Dulcolax Supp*] 10 mg FL DAILY PRN 09/02/18 [History Confirmed 09/02/18] Tevin/D3/Mag11/Zinc/Game Warden/Yobani/Bor [Caltrate 600+D Plus] 1 tab PO DAILY 09/02/18 [ History Confirmed 09/02/18] Cyanocobalamin (Vitamin B-12) [Vitamin B-12] 100 mcg PO 0900 09/02/18 [History Confirmed 09/02/18] Memantine TAB* [Namenda TAB*] 5 mg PO BID 09/02/18 [History Confirmed 09/02/18] Sodium Phosphate ADULT ENEMA* [Fleet Enema*] 1 enema FL DAILY PRN 09/02/18 [ History Confirmed 09/02/18] oxyCODONE TAB* [Roxycodone TAB 5 mg*] 5 mg PO Q6H PRN 09/02/18 [History Confirmed 09/02/18] PMH/Surg Hx/FS Hx/Imm Hx Endocrine/Hematology History: Reports: Hx Diabetes, Other Endocrine/ Hematological Disorders - Vit D&B12 deficient Denies: Hx Thyroid Disease Cardiovascular History: Reports: Hx Hypercholesterolemia, Hx Hypertension Denies: Hx Pacemaker/ICD Respiratory History: Denies: Hx Asthma, Hx Chronic Obstructive Pulmonary Disease (COPD) GI History: Denies: Hx Ulcer History: Denies: Hx Dialysis, Hx Renal Disease Musculoskeletal History: Reports: Hx Arthritis, Hx Osteoporosis Denies: Hx Rheumatoid Arthritis Sensory History: Reports: Hx Cataracts - left eye, Hx Contacts or Glasses - Pt does not wear often Denies: Hx Hearing Aid Opthamlomology History: Reports: Hx Cataracts - left eye, Hx Contacts or Glasses - Pt does not wear often Neurological History: Reports: Hx Dementia, Other Neuro Impairments/Disorders - Alzheimer's Denies: Hx Seizures Psychiatric History: Denies: Hx Panic Disorder - Cancer History Hx Chemotherapy: No Hx Radiation Therapy: No - Surgical History Surgery Procedure, Year, and Place: Left knee meniscus surgery. [facility] SURG. CATARACT - Lt EYE Hx Anesthesia Reactions: No - Immunization History Date of Tetanus Vaccine: unk Date of Influenza Vaccine: utd Infectious Disease History: Unable to Obtain/Confirm Infectious Disease History: Denies: Hx Hepatitis, Hx Human Immunodeficiency Virus (HIV), Traveled Outside the [place] in Last 30 Days - Family History Known Family History: Positive: Cardiac Disease, Diabetes - Social History Alcohol Use: None Substance Use Type: Reports: None Smoking Status (MU): Former Smoker Type: Cigarettes Review of Systems Negative: Fever Positive: Arthralgia, Myalgia All Other Systems Reviewed And Are Negative: Yes Physical Exam - Summary Physical Exam Summary: Appearance: Well appearing, Skin: warm, dry, reflects adequate perfusion Head/face: normal Eyes: EOMI, ANDRES ENT: normal Neck: supple, non-tender Respiratory: CTA, breath sounds present Cardiovascular: tachycardic, Abdomen: non-tender, soft Musculoskeletal: Tenderness lf hip, surgical scar rt hip lat aspect. Neuro: Alert and confused Triage Information Reviewed: Yes Vital Signs On Initial Exam: Initial Vitals Temp Pulse Resp BP Pulse Ox 98.8 F 122 18 127/105 91 09/02/18 16:06 09/02/18 16:06 09/02/18 16:06 09/02/18 16:06 09/02/18 16:06 Vital Signs Reviewed: Yes Diagnostics - Vital Signs Vital Signs Temp Pulse Resp BP Pulse Ox 09/02/18 16:07 114 87 09/02/18 16:06 98.8 F 116 18 127/105 87 - Laboratory Result Diagrams: 09/02/18 17:43 09/02/18 17:43 Lab Statement: Any lab studies that have been ordered have been reviewed, and results considered in the medical decision making process. - Radiology femur x-ray Radiology Interpretation Completed By: Radiologist Summary of Radiographic Findings: . 1. ANGULATED FRACTURE OF THE LEFT FEMORAL NECK. 2. OSTEOPENIA. 3. OSTEOARTHRITIS. 4. STATUS POST RIGHT HIP ARTHROPLASTY. 5. PERIPHERAL ARTERIAL DISEASE. ED physician has reviewed this imaging report. hip x-ray Radiology Interpretation Completed By: Radiologist Summary of Radiographic Findings: 1. ANGULATED FRACTURE OF THE LEFT FEMORAL NECK. 2. OSTEOPENIA. 3. OSTEOARTHRITIS. 4. STATUS POST RIGHT HIP ARTHROPLASTY. 5. PERIPHERAL ARTERIAL DISEASE. ED physician has reviewed this imaging report. pelvis x-ray Radiology Interpretation Completed By: Radiologist Summary of Radiographic Findings: 1. ANGULATED FRACTURE OF THE LEFT FEMORAL NECK. 2. OSTEOPENIA. 3. OSTEOARTHRITIS. 4. STATUS POST RIGHT HIP ARTHROPLASTY. 5. PERIPHERAL ARTERIAL DISEASE. ED physician has reviewed this imaging report. CXR Radiology Interpretation Completed By: Radiologist Summary of Radiographic Findings: NO ACTIVE CARDIOPULMONARY DISEASE. ED physician has reviewed this imaging report. - EKG 17:04 Cardiac Rate: Tachycardia - 108 bpm EKG Rhythm: Sinus Tachycardia ST Segment: Non-Specific Summary of EKG Findings: Sinus tachycardia at 108 bpm, nonspecific ST changes Lower Extremity Course/Dx - Course Course Of Treatment: A 77 y/o female brought in by [facility] ambulance presents to [facility] with a chief complaint of a left femur fracture. The patient has a Hx of dementia and is nonverbal at baseline. Per EMS the patient fell two days ago and an x-ray showed a fracture of her left femur. The physical exam revealed tenderness over right thigh and scars over lateral aspect of right hip and that the patient was alert and confused and tachycardic. POC glucose obtained. In the ED course the patient was given sodium chloride IV. Femur x-ray impression: 1. ANGULATED FRACTURE OF THE LEFT FEMORAL NECK. 2. OSTEOPENIA. 3. OSTEOARTHRITIS. 4. STATUS POST RIGHT HIP ARTHROPLASTY. 5. PERIPHERAL ARTERIAL DISEASE. Hip x-ray impression: 1. ANGULATED FRACTURE OF THE LEFT FEMORAL NECK. 2. OSTEOPENIA. 3. OSTEOARTHRITIS. 4. STATUS POST RIGHT HIP ARTHROPLASTY. 5. PERIPHERAL ARTERIAL DISEASE. Pelvis x-ray impression: 1. ANGULATED FRACTURE OF THE LEFT FEMORAL NECK. 2. OSTEOPENIA. 3. OSTEOARTHRITIS. 4. STATUS POST RIGHT HIP ARTHROPLASTY. 5. PERIPHERAL ARTERIAL DISEASE. CXR impression: NO ACTIVE CARDIOPULMONARY DISEASE. Case discussed with Dr. Kieran otclaus, who will see the patient in the ED. Case discussed with Dr. aMrx, hospitalist, who accepted the patient for admission. - Diagnoses Differential Diagnosis/HQI/PQRI: Positive: Dislocation, Fracture (Closed), Strain Provider Diagnoses: Hip fracture, left, Uncontrolled diabetes mellitus - Physician Notifications Discussed Care Of Patient With: Alia Marx Time Discussed With Above Provider: 17:57 Instructed by Provider To: Admit As Inpatient - Critical Care Time Critical Care Time: 30-74 min Discharge - Sign-Out/Discharge Documenting (check all that apply): Patient Departure - admit Patient Received Moderate/Deep Sedation with Procedure: No - Discharge Plan Condition: Fair Disposition: ADMITTED TO [facility] Referrals: Keerthi Gottlieb MD [Primary Care Provider] - - Billing Disposition and Condition Condition: FAIR Disposition: Admitted to [facility] - Attestation Statements Document Initiated by Timi: Yes Documenting Scribe: Jesus Schneider Provider For Whom Timi is Documenting (Include Credential): Collin Duncan MD Scribe Attestation: Jesus Mendez scribed for Collin Duncan MD on 09/02/18 at 1831. Scribe Documentation Reviewed: Yes Provider Attestation: The documentation as recorded by the Jesus cutler accurately reflects the service I personally performed and the decisions made by me, Collin Duncan MD Status of Scribe Document: Viewed Consult Consult: Case discussed with Dr. Alcaraz who will see the patient in the ED.
[2018-09-02] MEDS ORDERED: NS 0.9% 1000 ML** 1,000 ML IV ONE (16:24)
--- OUTSIDE RECORDS SUMMARY | 2018-09-02 16:33 | XMS REPORT | Continuity of Care Document ---
:1940 External Reference #:[id number] Author Name Ashley Dunlap Care Team Providers Name Role Phone Keerthi Gottlieb MD Primary Care Physician Unavailable Payers Date Identification Numbers Payment Provider Subscriber Effective: Policy Number: [id number] [facility] Today Ashley Urbina Huan 2016 Options PayID: [id number] [address] [address] Attn: [place] [address] Expires: 2017 Policy Number: [facility] Ashley Lynnashlee [id number] PayID: [id number] [address] [place] [address] Advance Directives Description No Information Available Problems [...] Unknown Marital Status Lives With Lauryn at [facility] in Memory care unit Tobacco Use Start: [...] R35.0 Luis Carlos s 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 Namenda 03/07 Hx Tablets 5(28)-10( 1pack follow G30.1 Raúl S. Titration 21)mg instructio Key, - ns on M.D. 04/08 titration pack Alendronate 05/30 Hx Tablets 70mg 12tab take 1 M81.0 Keerthi Sodium s tablet by Chery, - mouth M.D. 03/06 Metformin HCL 05/30 Hx Tablets 500mg 180ta 1 by mouth E11.65 bs bid X 1 Chery, - week then M.D. 01/28 1 tb in Am and 1 tab in PM Donepezil HCL 11/08 Hx Tablets 5mg 90tab 1 every Raúl S. /2014 Gina Mackey M.D. 05/09 Fosamax 08/16 Hx Tablets 70mg 12tab one tablet 733.01 s weekly Gina Gottlieb M.D. 11/08 Fluconazole 08/16 Hx Tablets 100mg 2tabs 1 tab po 112.1 daily x 2 Gina Gottlieb.DAbby 10/07 Metformin HCL 08/16 Hx Tablets 500mg 30tab Take 1 250.00 s tablet by Chery - mouth M.DAbby 05/30 Amlodipine 04/07 Hx Tablets 10mg 30tab take [...] ingris M.DAbby 06/30 Ergocalciferol 04/20 Hx Capsules [id number] 8caps 1 tab by mouth Gina Gottlieb [...] tabs Brent E. /2006 bs po Gina Londono M.D. 10/19 Glyburide 04/20 Hx Tablets 5mg 60tab take 1 s tablet by Cotton, - mouth once M.D. 08/28 a day Lipitor Hx Tablets 20mg 90tab 1tab po hs Brent E. / Gina Figueroa M.D. 04/20 Norvasc Hx Tablets 5mg 90tab 1 po qd Brent E. /0000 Gina Figueroa M.D. 03/27 Fosamax Hx Tablets 70mg 4tabs Q Week Barken With 8 Oz MD Luis - Water [...] CPT Code Status Date Vaccine Lot # [id number] Given 03/21/2017 Influenza Virus Vaccine, Quadrivalent, Split, [id number] Preservative Free 41674 Given 05/30/2016 Tdap - Tetanus/Diptheria/Acellular Pertussis [id number] 85139 Given 02/15/2016 Influenza Virus Vaccine, Quadrivalent, Split, Preservative Free 02439 Given 05/30/2015 Pneumococcal Conjugate Vaccine 13 Valent For [id number] Intramuscular Use 47320 Given 03/04/2015 Influenza Virus Vaccine, Quadrivalent, Split, Preservative Free 02370 Given 05/03/2013 Pneumonia Vaccine [id number] 72074 Given 03/27/2013 Flu Vaccine Split Virus Preservative Free For Indiv 3Yr Older Q2038 Given 03/04/2012 Fluzone Vaccine [id number] 97540 Given 07/10/2011 Zoster (Zostavax) [id number] Q2038 Given 02/18/2011 Fluzone Vaccine [id number] 25590 Given 06/13/2010 Influenza Virus 3Yrs & Over [id number] Q2038 Given 06/13/2010 Fluzone Vaccine 94040 Given 07/04/2009 Influenza Virus Vaccine, Pandemic Formulation 59246 Given 07/04/2009 Influenza Virus 3Yrs & Over 83262 Given 02/22/2008 Pneumonia Vaccine 29985 Given 10/19/2007 Pneumonia Vaccine 02310 Given 10/19/2007 Pneumonia Vaccine 15711 Given 10/19/2007 Pneumonia Vaccine [id number] 41541 Given 04/13/2007 Influenza Virus 3Yrs & Over 29913 Given 04/13/2007 Influenza Virus 3Yrs & Over 62022 Given 04/13/2007 Influenza Virus 3Yrs & Over 52734 95287 Given 08/01/2003 Td (History By Patient) 61892 Given 03/26/1999 Pneumovax (History By Patient) Vital [...] Test Result H/L Range Note Urinalysis Profile 08/07/[address] [facility] Urine Color Yellow [address] [place] [address] [phone] Urine Appearance Clear Urine Specific [place] 1.026 N 1.010-1.030 Urine pH 8.0 N 5-9 Urine Urobilinogen Negative Negative Urine Ketones 1+ Abnormal Negative Urine Protein Negative Negative Urine Leukocytes Negative Negative Urine Blood Negative Negative * * Abnormal Negative 2 Urine Nitrite Negative Negative Urine Bilirubin Negative Negative Urine Glucose 3+(>=500 mg/dL) Abnormal Negative Inr/Protime 08/07/[address] [facility] Inr 0.94 N 0.77-1.[address] [place] [address] [phone] Laboratory test 08/07/[address] [facility] Partial 30.8 seconds N 26.0-36.[address] [place] [address] PTT [phone] CBC Auto Diff 08/07/[address] [facility] White Blood 10.8 10^3/uL N 3.5-10.[address] [place] [address] [phone] Red Blood Count 5.26 10^6/uL N 4.00-5.40 Hemoglobin 15.9 g/dL N 12.0-16.0 Hematocrit 47 % N 35-47 Mean Corpuscular Volume 89 fL N 80-97 Mean Corpuscular Hemoglobin 30 pg N 27-31 Mean Corpuscular HGB Conc 34 g/dL N 31-36 Red Cell Distribution Width 14 % N 10.5-15 Platelet Count 291 10^3/uL N 150-450 Mean Platelet Volume 10.9 fL High 7.4-10.4 Abs Neutrophils 8.7 10^3/uL High 1.5-7.7 Abs Lymphocytes 1.3 10^3/uL N 1.0-4.8 Abs Monocytes 0.6 10^3/uL N 0-0.8 Abs Eosinophils 0.1 10^3/uL N 0-0.6 Abs Basophils 0 10^3/uL N 0-0.2 Abs Nucleated RBC 0 10^3/uL Granulocyte % 80.7 % Lymphocyte % 12.2 % Monocyte % 5.8 % Eosinophil % 0.9 % Basophil % 0.4 % Nucleated Red Blood Cells % 0.3 Comp Metabolic Panel 08/07/[address] [facility] Sodium 137 mmol/L N 135-[address] [place] [address] [phone] Chloride 100 mmol/L Low 101-111 Co2 Carbon Dioxide 25 mmol/L N 22-32 Glucose 148 mg/dL High 70-100 Blood Urea Nitrogen 18 mg/dL N 6-24 Creatinine 0.64 mg/dL N 0.51-0.95 BUN/Creatinine Ratio 28.1 High 8-20 Calcium 10.4 mg/dL High 8.6-10.3 Total Protein 7.2 g/dL N 6.4-8.9 Albumin 4.6 g/dL N 3.2-5.2 Globulin 2.6 g/dL N 2-4 Albumin/Globulin Ratio 1.8 N 1-3 Total Bilirubin 1.20 mg/dL High 0.2-1.0 Alkaline Phosphatase 45 U/L N 34-104 Alt 19 U/L N 7-52 Egfr Non- 89.7 >60 Egfr 108.6 >60 3 Potassium 4.2 mmol/L N 3.5-5.0 Anion Gap 12 mmol/L High 2-11 Ast 17 U/L N 13-39 Laboratory test 08/07/[address] [facility] Troponin-I (TnI) 0.01 ng/ mL <0.04 4 finding [address] [place] [address] [phone] Hemoglobin A1c (Glyco HGB) 6.6 % High 4.0-5.6 5 Laboratory test 08/03/2018 [facility] Hemoglobin A1c 6.6 5-7 finding Urine Culture And 03/10/[address] [facility] Urine Culture SEE RESULT 6, [address] [place] [address] [phone] Urinalysis Profile 03/10/[address] [facility] Urine Color Yellow [address] [place] [address] [phone] Urine Appearance Clear Urine Specific [place] 1.035 High 1.010-1.030 Urine pH 5.0 N 5-9 Urine Urobilinogen Negative Negative Urine Ketones Negative Negative Urine Protein Negative Negative Urine Leukocytes Trace Abnormal Negative Urine Blood Negative Negative * * Abnormal Negative 8 Urine Nitrite Negative Negative Urine Bilirubin Negative Negative Urine Glucose 3+(>=500 mg/dL) Abnormal Negative Urine White Blood Cell Trace(0-5/hpf) Absent Urine Red Blood Cell Absent Absent Urine Bacteria Absent Absent Urine Squamous Epithelial Cell Present Abnormal Absent Laboratory test 02/02/2018 [facility] Hemoglobin A1c 6.7 5-7 finding Lipid Profile 10/23/[address] [facility] Triglycerides 143 mg/dL 9, 10 (Trig/Chol/HDL) [address] [place], [place] [id number] [phone] Cholesterol 160 mg/dL 11 HDL Cholesterol 46.9 mg/dL 12 LDL Cholesterol 85 mg/dL 13 Laboratory test 09/27/[address] [facility] Point of Care 198 mg/dL High 70-100 [address] Glucose [place], [place] [id number] [phone] Urinalysis 09/26/[address] [facility] Urine Color Straw Profile [address] [place] [address] [phone] Urine Appearance Clear Urine Specific [place] 1.035 High 1.010-1.030 Urine pH 7.0 N 5-9 Urine Urobilinogen Negative Negative Urine Ketones Negative Negative Urine Protein Negative Negative Urine Leukocytes Trace Abnormal Negative Urine Blood Negative Negative * * Abnormal Negative 15 Urine Nitrite Negative Negative Urine Bilirubin Negative Negative Urine Glucose 3+(>=500 mg/dL) Abnormal Negative Urine White Blood Cell Trace(0-5/hpf) Absent Urine Red Blood Cell 1+(3-5/hpf) Abnormal Absent Urine Bacteria 1+ Abnormal Absent Urine Culture And 09/26/[address] [facility] Urine Culture SEE RESULT [address] [place] [address] [phone] CBC Auto Diff 09/26/[address] [facility] White Blood 8.1 10^3/uL N 3.5-[address] DR[address] Count 0.8 [place] [address] [phone] Red Blood Count 5.01 10^6/uL N 4.0-5.4 [...] Cells % 0.1 Comp Metabolic Panel 09/26/[address] [facility] Sodium 135 mmol/L Low 139-[address] [place] [address] [phone] Potassium 4.2 mmol/L N 3.5-5.0 Chloride 96 [...] Egfr Non- 68.6 >60 Egfr 88.2 >60 17 Laboratory test 09/26/[address] [facility] Hemoglobin A1c 10.5 % High 4.0-5.[address] (Glyco HGB) [place], [place] [id number] [phone] Laboratory test 06/30/2017 [facility] Hemoglobin A1c 7.5 High 5-7 finding Urine Culture And 04/05/[address] [facility] Urine Culture SEE [address] [place] [address] BELOW [phone] Urinalysis 04/05/[address] [facility] Urine Color Yellow N Profile [address] [place], [place] [id number] [phone] Urine Appearance Clear N Urine Specific [place] 1.030 N 1.010-1.030 Urine pH 5.0 N [...] Cell Present Abnormal Absent Urine Microalbumin 04/05/[address] [facility] Ur Microalbumin < 15.0 N Random [address] (mg/L) mg/[place] [address] [phone] Urine Creatinine 96.74 mg/dL N Urine Microalbumin/Creatinine TNP ug/mg N <31 20 Laboratory test finding 03/31/2017 [facility] Hemoglobin A1c 9.4 High 5 -7 Ua Routine 03/21/2017 [facility] Ua Specific [place] 1.005 Ua PH 6 Ua Color yellow Ua Appera clear Ua WBC trace Ua Protein negative Ua Glucose 1000 Ua Ketones negative Ua Bilirubin negative Ua Urobilinogen 1 Ua Nitrite negative Ua Occult Blood large Urine Culture And 03/21/[address] [facility] Urine Culture SEE RESULT [address] [place] [address] [phone] Lipid Profile 10/10/[address] [facility] Triglycerides 62 mg/dL N 22 (Trig/Chol/HDL) [address] [place] [address] [phone] Cholesterol 159 mg/dL N 23 HDL Cholesterol 41.3 mg/dL N 24 LDL Cholesterol 105 mg/dL N 25 Basic Metabolic Panel 10/10/[address] [facility] Sodium 141 mmol/L N 133-[address] [place] [address] [phone] Potassium 4.0 mmol/L N 3.5-5.0 Chloride 103 mmol/L N 101-111 Co2 Carbon Dioxide 33 mmol/L High 22-32 Anion Gap 5 mmol/L N 2-11 Glucose 116 mg/dL High 70-100 Blood Urea Nitrogen 25 mg/dL High 6-24 Creatinine 0.66 mg/dL N 0.51-0.95 BUN/Creatinine Ratio 37.9 High 8-20 Calcium 9.9 mg/dL N 8.6-10.3 Egfr Non- 87.1 N >60 Egfr 112.0 N >60 26 Laboratory test 09/30/2016 [facility] Hemoglobin A1c 6.6 5-7 finding Laboratory test 05/30/2016 [facility] Hemoglobin A1c 7.0 5-7 finding Comp Metabolic Panel 08/31/[address] [facility] Sodium 140 mmol/L N 133-[address] [place] [address] [phone] Potassium 3.8 mmol/L N 3.5-5.0 Chloride 102 [...] 90.5 N >60 Egfr 116.3 N >60 27 Lipid Profile 08/31/[address] [facility] Triglycerides 90 mg/dL N 28 (Trig/Chol/HDL) [address] [place] [address] [phone] Cholesterol 159 mg/dL N 29 HDL Cholesterol 47.6 mg/dL N 30 LDL Cholesterol 93 mg/dL N 31 Laboratory test 08/29/2015 [facility] Hemoglobin A1c 5.5 5-7 finding Urine Microalbumin 08/29/[address] [facility] Ur Microalbumin 9.0 mg/ L N Random [address] (mg/L) [place] [address] [phone] Urine Creatinine 108.12 mg/dL N Urine Microalbumin/Creatinine 8.3 ug/mg N <31 Laboratory test 05/30/2015 [facility] Hemoglobin A1c 9.8 High 5-7 finding Surgical 07/04/[address] [facility] S RUN DATE: [address] 07/05/ [place] [address] <SEE NOTE> [phone] Laboratory test 11/15/2013 [facility] Hemoglobin A1c 6.9 5-7 finding Creatinine 10/08/[address] [facility] Creatinine 0.64 mg/dL N 0.51- 0.[address] [place] [address] [phone] Egfr Non- 91.0 N >60 Egfr 117.0 N >60 33 Laboratory test finding 10/08/2013 TSH (Thyroid Stimulating 1.08 IU/mL N 0.34-5.60 Horm) Vitamin B12 350 pg/mL N 180-914 34 Free T4 1.04 ng/mL N 0.61-1.12 Laboratory test 08/16/2013 [facility] Hemoglobin A1c 7.6 High 5-7 finding Vitamin D, 25 07/12/[address] [facility] 25-Hydroxy Vitamin 5.3 ng/ mL Hydroxy [address] [place] [address] [place] [address] [phone] 25-Hydroxy Vitamin D3 31 ng/mL 25-Hydroxy Vitamin D Total 36 ng/mL 35 Lipid Profile 07/12/[address] [facility] Triglycerides 67 mg/dL 40 -200 (Trig/Chol/HDL) [address] [place] [address] [phone] Cholesterol 184 mg/dL Less than 200 HDL Cholesterol 58 mg/dL 40-60 36 Cholesterol/HDL Ratio 3.2 Average 1-4.44 LDL Cholesterol 112.6 High Less Than 100 37 Basic Metabolic Panel 07/12/[address] [facility] Sodium 139 mmol/L 133-145 [address] [place] [address] [phone] Potassium 4.1 mmol/L 3.5-5.0 Chloride 103 mmol/L 101-111 Co2 Carbon Dioxide 30.0 mmol/L 22-32 Anion Gap 6.0 mmol/L 2-11 Glucose 150 mg/dL High 70-100 Blood Urea Nitrogen 16 mg/dL 6-24 Creatinine 0.70 mg/dL 0.50-1.40 BUN/Creatinine Ratio 22.9 High 8-20 Calcium 9.7 mg/dL 8.1-9.9 Egfr Non- 82.0 >60 Egfr 105.5 >60 38 Urine Microalbumin 04/01/[address] [facility] Ur Microalbumin 7.0 mg/ L [address] (mg/L) [place], [place] [address] [phone] Urine Creatinine 53.8 mg/dL Urine Microalbumin/Creatinine 13.0 Less Than 31 Laboratory test 04/01/2013 [facility] Hemoglobin A1c 7.5 High 5-7 finding Laboratory test 09/02/2012 [facility] Hemoglobin A1c 7.1 High 5-7 finding Vitamin D, 25 09/02/[address] [facility] 25-Hydroxy Vitamin 11 ng/mL Hydroxy [address] [place] [address] [phone] 25-Hydroxy Vitamin D3 19 ng/mL 25-Hydroxy Vitamin D Total 30 ng/mL 40 Laboratory test 09/02/[address] [facility] TSH (Thyroid 1.00 0.34- 5.[address] Stimulating miu/[place] [address] Horm) [phone] Vitamin B12 391 pg/mL 180-914 Syphilis 09/02/[address] [facility] Syphilis IgG Nonreactive Nonreactive [address] [place], [place] [id number] [phone] RPR TNP Nonreactive RPR Titer TNP Pediatric/Maternal NO HIV 1/2 AB 09/02/[address] [facility] HIV 1 2 Nonreactive Nonreactive [address] Antibody [place], [place] [address] [phone] Bilrubin And 05/11/[address] [facility] Total 1.2 mg/dL 0.4-1.[address] [place] [address] [phone] Direct Bilirubin 0.1 mg/dL 0.1-0.5 Indirect Bilirubin 1.1 mg/dL High 0.3-1.0 Pthi 04/16/[address] [facility] PTH Intact 3.3 PMOL/L 1.3-9.[address] [place] [address] [phone] Calcium (PTH Intact) 10.0 mg/dL High 8.1-9.9 Vitamin D, 25 04/16/[address] [facility] 25-Hydroxy Vitamin <4.0 ng/ mL Hydroxy [address] [place] [address] [phone] 25-Hydroxy Vitamin D3 30 ng/mL 25-Hydroxy Vitamin D Total 30 ng/mL 43 Lipid Profile 04/16/[address] [facility] Triglycerides 60 mg/dL 40 -200 (Trig/Chol/HDL) [address] [place] [address] [phone] Cholesterol 193 mg/dL Less than 200 44 HDL Cholesterol 64 mg/dL High 40-60 45 Cholesterol/HDL Ratio 3.0 AVERAGE 1-4.44 LDL Cholesterol 117.0 mg/dL High Less Than 100 46 Comp Metabolic Panel 04/16/[address] [facility] Sodium 139 mmol/L 133-[address] [place] [address] [phone] Potassium 4.0 mmol/L 3.5-5.0 Chloride 102 mmol/L [...] 1-3 Total Bilirubin 1.4 mg/dL High 0.1-1.0 47 Alkaline Phosphatase 60 U/L 30-110 Alt 24 U/L 14-54 Ast 21 U/L 12-42 Egfr Non- 121.3 >60 Egfr 156.0 >60 48 Urine Microalbumin 04/15/[address] [facility] Ur Microalbumin 8.0 mg/ L [address] (Mg/L) [place] [address] [phone] Urine Creatinine 112.0 mg/dL Urine Microalbumin/Creatinine 7.1 UG/MG Less Than 31 Laboratory test 03/04/2012 [facility] Hemoglobin A1c 6.9 5-7 finding Laboratory test 07/10/2011 [facility] Hemoglobin A1c 7.4 High 5-7 finding Syphilis Screen 06/12/[address] [facility] RPR NON-REACT Nonreactive [address] [place] [address] [phone] RPR Titer TNP Pediatric/Maternal NO Laboratory test finding 06/12/[address] [facility] BUN 20 mg/dL 6- [address] [place] [address] [phone] CPK (Creatine Kinase) 82 U/L 0-170 Laboratory test 02/04/[address] [facility] Hemoglobin A1c 7.2 % High Less [address] [place] [address] [phone] CBC Auto Diff 02/04/[address] [facility] White Blood 4.8 CUMM 4.8- 10.[address] [place] [address] [phone] Red Cell Count 4.49 CUMM 4.2-5.4 Hemoglobin [...] Abs Basophils 0 0-0.2 Lipid Profile 02/04/[address] [facility] Triglyceride 90 mg/dL 40- 200 (Trig/Chol/HDL) [address] [place] [address] [phone] Cholesterol 180 mg/dL Less Than 200 51 High Density Lipoprotein 51 mg/dL 40-60 52 Cholesterol/HDL Ratio 3.53 AVERAGE 1-4.44 Low Density Lipoprotein 111 mg/dL High Less Than 100 53 Comp Metabolic Panel 02/04/[address] [facility] Sodium 139 mmol/L 135-[address] [place] [address] [phone] Potassium 3.5 mmol/L 3.5-5.0 Chloride 103 mmol/L 101-111 Co2 (Carbon Dioxide) 30.0 mmol/L 22-32 Anion Gap 6.0 mmol/L 2-11 54 Glucose 115 mg/dL High 70-100 BUN 15 mg/dL 6-24 Creatinine 0.5 mg/dL Low 0.50-1.40 One Over Creatinine 2.00 BUN/Creatinine Ratio 30.0 High 8-20 Calcium 9.6 mg/dL 8.1-9.9 Total Protein 6.6 GM/DL 6.2-8.1 Albumin 4.5 GM/DL 3.2-5.2 Globulin 2.1 GM/DL 2-4 Albumin/Globulin Ratio 2.1 1-3 Bilirubin Total 1.2 mg/dL 0.4-1.5 55 Alkaline Phosphatase 57 U/L 30-110 Alt (SGPT) 18 U/L 14-54 Ast (Sgot) 16 U/L 12-42 eGFR Non- 121.6 > 60 eGFR 156.4 > [address] [facility] 02/04/[address] [facility] TSH 1.90 MIU/ML 0.34- 5.60 Panel [address] [place] [address] [phone] Basic Metabolic 06/06/[address] [facility] Sodium 138 mmol/L 135- [address] [place] [address] [phone] Potassium 3.7 mmol/L 3.5-5.0 Chloride 104 mmol/L 101-111 Co2 (Carbon Dioxide) 30.0 mmol/L 22-32 Anion Gap 4.0 mmol/L 2-11 57 Glucose 107 mg/dL High 70-100 BUN 19 mg/dL 6-24 Creatinine 0.60 mg/dL 0.50-1.40 One Over Creatinine 1.60 BUN/Creatinine Ratio 31.7 High 8-20 Calcium 9.6 mg/dL 8.1-9.9 eGFR Non- 105.0 > 60 eGFR 127.1 > 60 58 Laboratory test 06/06/[address] [facility] Hemoglobin A1c 6.7 % High Less Than [address] [place] [address] [phone] Lipid Profile 06/06/[address] [facility] Triglyceride 79 mg/dL 40- 200 (Trig/Chol/HDL) [address] [place] [address] [phone] Cholesterol 178 mg/dL Less Than 200 60 High Density Lipoprotein 44 mg/dL 40-60 61 Cholesterol/HDL Ratio 4.05 AVERAGE 1-4.44 Low Density Lipoprotein 118 mg/dL High Less Than 100 62 Laboratory test finding 06/06/[address] [facility] Ast (Sgot) 20 U/L 12-42 [address] [place] [address] [phone] Alt (SGPT) 23 U/L 14-54 [facility] 12/06/[address] [facility] TSH 1.40 MIU/ML 0.34- 5.60 Panel [address] [place] [address] [phone] CMP Panel 12/06/[address] [facility] Sodium 136 mmol/L 135-145 [address] [place] [address] [phone] Potassium 4.1 mmol/L 3.5-5.0 Chloride 101 mmol/L 101-111 Co2 (Carbon Dioxide) 29.0 mmol/L 22-32 Anion Gap 6.0 mmol/L 2-11 63 Glucose 120 mg/dL High 70-100 64 BUN 17 mg/dL 6-24 Creatinine 0.60 mg/dL 0.50-1.40 One Over Creatinine 1.60 BUN/Creatinine Ratio 28.3 High 8-20 Calcium 9.3 mg/dL 8.1-9.9 65 Total Protein 6.3 GM/DL 6.2-8.1 Albumin 4.3 GM/DL 3.2-5.2 Globulin 2.0 GM/DL 2-4 Albumin/Globulin Ratio 2.2 1-3 Bilirubin Total 1.2 mg/dL 0.4-1.5 66 Alkaline Phosphatase 47 U/L 30-110 Alt (SGPT) 20 U/L 14-54 Ast (Sgot) 21 U/L 12-42 eGFR Non- 105.0 > 60 eGFR 127.1 > 60 67 Lipid Panel 12/06/[address] [facility] Triglyceride 90 mg/dL 40- 200 [address] [place] [address] [phone] Cholesterol 192 mg/dL Less Than 200 68 High Density Lipoprotein 47 mg/dL 40-60 69 Cholesterol/HDL Ratio 4.09 AVERAGE 1-4.44 Low Density Lipoprotein 127 mg/dL High Less Than 100 70 CBC W/Manual 12/06/[address] [facility] White Blood 4.1 CUMM Low 4.8-10.[address] [place] [address] [phone] Red Cell Count 4.40 CUMM 4.2-5.4 Hemoglobin [...] 2.7 RBC Morphology NORMAL Laboratory test 12/06/[address] [facility] Hemoglobin A1c 6.4 % High Less [address] [place] [address] [phone] Surgical 06/28/[address] [facility] Surgical ------- [address] Pathology [place] [address] -- <SEE [phone] NOTE> Lipid Profile 06/13/[address] [facility] Triglyceride 77 40-200 73 (Trig/Chol/HDL) [address] mg/[place] [address] [phone] Cholesterol 211 mg/dL High Less Than 200 74 High Density Lipoprotein 55 mg/dL 40-60 75 Cholesterol/HDL Ratio 3.84 AVERAGE 1-4.44 Low Density Lipoprotein 141 mg/dL High Less Than 100 76 Laboratory test 03/22/[address] [facility] TSH 1.09 MIU/ML 0.34- 5.[address] [place] [address] [phone] Lipid Profile 03/22/[address] [facility] Triglyceride 81 mg/dL 40- 200 (Trig/Chol/HDL) [address] [place] [address] [phone] Cholesterol 202 mg/dL High Less Than 200 77 High Density Lipoprotein 53 mg/dL 40-60 78 Cholesterol/HDL Ratio 3.81 AVERAGE 1-4.44 Low Density Lipoprotein 133 mg/dL High Less Than 100 79 Comp Metabolic Panel 03/22/[address] [facility] Sodium 139 mmol/L 135-[address] [place] [address] [phone] Potassium 4.2 mmol/L 3.5-5.0 Chloride 104 mmol/L 101-111 Co2 (Carbon Dioxide) 30.0 mmol/L 22-32 Anion Gap 5.0 mmol/L 2-11 80 Glucose 77 mg/dL 70-100 81 BUN 20 mg/dL 6-24 Creatinine 0.60 mg/dL 0.50-1.40 One Over Creatinine 1.60 BUN/Creatinine Ratio 33.3 High 8-20 Calcium 10.0 mg/dL High 8.1-9.9 82 Total Protein 6.3 GM/DL 6.2-8.1 Albumin 4.4 GM/DL 3.2-5.2 Globulin 1.9 GM/DL Low 2-4 Albumin/Globulin Ratio 2.3 1-3 Bilirubin Total 1.2 mg/dL 0.4-1.5 83 Alkaline Phosphatase 41 U/L 30-110 Alt (SGPT) 16 U/L 14-54 Ast (Sgot) 18 U/L 12-42 eGFR Non- 105.4 > 60 eGFR 127.5 > 60 84 CBC With Manual 03/22/[address] [facility] White Blood 4.4 CUMM Low 4.8-10.[address] [place] [address] [phone] Red Cell Count 4.19 CUMM Low 4.2-5.4 [...] Count 2.8 Anisocytosis SLIGHT Laboratory test 03/22/[address] [facility] Hemoglobin A1c 6.3 % High Less Than [address] [place] [address] [phone] Lipid Profile 09/12/[address] [facility] Triglyceride 113 40-200 (Trig/Chol/HDL) [address] mg/[place] [address] [phone] Cholesterol 202 mg/dL High Less Than 200 86 High Density Lipoprotein 51 mg/dL 40-60 87 Cholesterol/HDL Ratio 3.96 AVERAGE 1-4.44 Low Density Lipoprotein 128 mg/dL High Less Than 100 88 Laboratory test 09/12/[address] [facility] Glucose 121 mg/dL High 70-[address] [place] [address] [phone] Hemoglobin A1c 6.5 % High <6.0 90 Liver Function 07/18/[address] [facility] Total Protein 6.3 GM/DL 6.2-8.[address] [place] [address] [phone] Albumin 4.2 GM/DL 3.2-5.2 Globulin 2.1 GM/DL 2-4 Albumin/Globulin Ratio 2.0 1-3 Bilirubin Total 1.0 mg/dL 0.4-1.5 Bilirubin Direct 0.1 mg/dL 0.1-0.5 Indirect Bilirubin 0.9 mg/dL High 0.1-0.75 Alkaline Phosphatase 43 U/L 30-110 Alt (SGPT) 16 U/L 14-54 Ast (Sgot) 17 U/L 12-42 Laboratory test 07/18/[address] [facility] Glucose 141 mg/dL High 70-100 [address] [place] [address] [phone] Hemoglobin A1c 6.7 % High <6.0 93 Lipid Profile 07/18/[address] [facility] Triglyceride 137 mg/dL 40 -200 (Trig/Chol/HDL) [address] [place] [address] [phone] Cholesterol 206 mg/dL High Less Than 200 94 High Density Lipoprotein 49 mg/dL 40-60 95 Cholesterol/HDL Ratio 4.20 AVERAGE 1-4.44 Low Density Lipoprotein 130 mg/dL High Less Than 100 96 Laboratory test finding 04/18/[address] [facility] Alt (SGPT) 18 U/L 14-54 97 [address] [place], [place] [id number] [phone] Ast (Sgot) 19 U/L 12-42 Lipid Profile 04/18/[address] [facility] Triglyceride 109 mg/dL 40 -200 (Trig/Chol/HDL) [address] [place], [place] [address] [phone] Cholesterol 207 mg/dL High Less Than 200 98 High Density Lipoprotein 44 mg/dL 40-60 99 Cholesterol/HDL Ratio 4.70 AVERAGE High 1-4.44 Low Density Lipoprotein 141 mg/dL High Less Than 100 100 Laboratory test 02/15/[address] [facility] (SGPT) 18 U/L 14- 54 101 finding [address] [place], [place] [id number] [phone] Ast (Sgot) 20 U/L 12-42 Hemoglobin A1c 6.6 % High <6.0 102 Lipid Profile 02/15/[address] [facility] Triglyceride 120 mg/dL 40 -200 (Trig/Chol/HDL) [address] [place], [place] [address] [phone] Cholesterol 222 mg/dL High Less Than 200 103 High Density Lipoprotein 44 mg/dL 40-60 104 Cholesterol/HDL Ratio 5.05 AVERAGE High 1-4.44 Low Density Lipoprotein 154 mg/dL High Less Than 100 105 Basic Metabolic Panel 02/15/[address] [facility] Sodium 141 mmol/L 135-145 [address] [place] [address] [phone] Potassium 4.4 mmol/L 3.5-5.0 Chloride 106 mmol/L 101-111 Co2 (Carbon Dioxide) 31.0 mmol/L 22-32 Anion Gap 4.0 mmol/L 2-11 106 Glucose 60 mg/dL Low 70-100 107 BUN 21 mg/dL 6-24 Creatinine 0.8 mg/dL 0.5-1.4 One Over Creatinine 1.25 BUN/Creatinine Ratio 26.3 High 8-20 Calcium 9.8 mg/dL 8.1-9.9 108 Laboratory test 10/12/[address] [facility] (SGPT) 24 U/L 14- 54 109 finding [address] [place] [address] [phone] Ast (Sgot) 23 U/L 12-42 Hemoglobin A1c 6.4 % High <6.0 110 Lipid Profile 10/12/[address] [facility] Triglyceride 96 mg/dL 40- 200 (Trig/Chol/HDL) [address] [place] [address] [phone] Cholesterol 235 mg/dL High Less Than 200 111 High Density Lipoprotein 47 mg/dL 40-60 112 Cholesterol/HDL Ratio 5.00 AVERAGE High 1-4.44 Low Density Lipoprotein 169 mg/dL High Less Than 100 113 Basic Metabolic Panel 10/12/[address] [facility] Sodium 140 mmol/L 135-[address] [place] [address] [phone] Potassium 5.3 mmol/L High 3.5-5.0 Chloride 106 mmol/L 101-111 Co2 (Carbon Dioxide) 31.0 mmol/L 22-32 Anion Gap 3.0 mmol/L 2-11 114 Glucose 129 mg/dL High 70-105 BUN 15 mg/dL 6-24 Creatinine 0.7 mg/dL 0.5-1.4 One Over Creatinine 1.42 BUN/Creatinine Ratio 21.4 High 8-20 Calcium 9.8 mg/dL 8.7-10.2 Laboratory test 04/13/[address] [facility] TSH 0.79 MIU/ML 0.34- 5.60 115 finding [address] [place], [place] [id number] [phone] Lipid Profile 04/13/[address] [facility] Cholestero 5.72 High 1- 4.44 (Trig/Chol/HDL) l/[place] [address] Ratio [phone] Cholesterol 286 mg/dL High Less Than 200 116 Triglyceride 130 mg/dL 40-200 High Density Lipoprotein 50 mg/dL 40-60 Low Density Lipoprotein 210 mg/dL High Less Than 100 117 Comp Metabolic Panel 04/13/[address] [facility] One Over Creatinine 1.[address] [place] [address] [phone] Anion Gap 5.0 mmol/L 2-11 118 Albumin/Globulin Ratio 2.0 1-3 Albumin 4.2 GM/DL [...] 30.0 High 8-20 Creatinine 0.7 mg/dL 0.5-1.4 CBC W/ Electronic 04/13/[address] [facility] White Blood 4.5 CUMM Low 4.8-10.8 [address] [place] [address] [phone] Abs Basophils 0 0-0.2 Abs Eosinophils 0 [...] 4.2-5.4 Redcell Distribution WDTH 14 % 10.5-15 1 Urine Source: Clean Catch 2 *Ascorbic acid is present which may interfere with detection of blood. 3 Because ethnic data is not always readily [...] 15-29 5 Kidney failure <15 (or dialysis) 4 Troponin-I testing on Plasma Separator Tubes (PST) has a known false positive rate of 0.20-0.40%. All positive troponins reflex immediate secondary confirmatory testing. 5 Therapeutic target for the treatment of diabetes mellitus patients is <7% HBA1C, and in selective patients <6.0%. Please refer to [place] [employer] diabetic care guidelines for further information. 6 [id number] SEE RESULT BELOW Name: JOHNASHLEEASHLEY C : [address]: Keerthi Gottlieb MD Acct: [id number] Unit: [id number] AGE: 77 Location: [facility] Re03/10/18 SEX: F Status: REG REF SPEC: [id number] ABDIRASHID: 03/10/18-[address]: Keerthi Gottlieb MD REQ: [id number] RECD: 03/10/18 STATUS: COMP _ SOURCE: URINE SPDESC: ORDERED: Urine Culture Procedure Result Reported Site Urine Culture Final 03/11/18- 1320 ML Organism 1 STREP GROUP B [place] Count 10-25,000 (Moderate) CFU/ML Organism 2 NORMAL GERRY [place] Count 10-25,000 (Moderate) CFU/ML Susceptibility testing of penicillins and other B-lactams approved by FDA for treatment of Streptococcus pyogenes (Group A Strep) and Streptococcus agalactiae (Group B Strep) is not necessary for clinical purposes and need not be done routinely, since as with vancomycin, resistant strains have not been recognized. (CLSI O145-N61;p.66) Positive isolates will be saved for one week. Please call the Microbiology Laboratory if further susceptibility testing is needed. * ML - Main Lab . END OF REPORT DEPARTMENT OF PATHOLOGY, [address] [place] [address] Cortes Cormier M.D. Director [facility] # [id number] 8 *Ascorbic acid is present which may interfere with detection of blood. 9 [id number] Desirable: <150 Borderline High: 150-199 High: 200-499 Very High: >500 11 Desirable: <200 Borderline High: 200-239 High: >239 12 Low: <40 Desirable: 40-60 High: >60 13 Desirable: <100 Near Optimal: 100-129 Borderline High: 130-159 High: 160-189 Very High: >189 14 Art Appraiser: [id number] 15 *Ascorbic acid is present which may interfere with detection of blood. 16 SEE RESULT BELOW Name: HANH PRESSLEYAREGarcia Mcgee : [address]: Sonja Grayson MD Acct: [id number] Unit: [id number] AGE: 76 Location: [place] [address]- Re09/26/17 SEX: F Status: ADM IN SPEC: [id number] ABDIRASHID: 09/26/17 [facility] DR: Rc LAINEZ REQ: [id number] RECD: 09/26/17 STATUS: EVARISTO REILLY DR: Keerthi Mcknight MD _ SOURCE: URINE SPDESC: ORDERED: Urine Culture Procedure Result Reported Site Urine Culture Final 09/28/17- 1038 ML Organism 1 STREP GROUP B [place] Count 25-50,000 (Moderate) CFU/ML Susceptibility testing of penicillins and other B-lactams approved by FDA for treatment of Streptococcus pyogenes (Group A Strep) and Streptococcus agalactiae (Group B Strep) is not necessary for clinical purposes and need not be done routinely, since as with vancomycin, resistant strains have not been recognized. (CLSI I346-P83;p.66) Positive isolates will be saved for one week. Please call the Microbiology Laboratory if further susceptibility testing is needed. * ML - Main Lab . END OF REPORT DEPARTMENT OF PATHOLOGY, [address] [place] [address] Cortes Cormier M.D. Director [facility] # [id number] 17 Because ethnic data is not always readily [...] 15-29 5 Kidney failure <15 (or dialysis) 18 Therapeutic target for the treatment of diabetes mellitus patients is <7% HBA1C, and in selective patients <6.0%. Please refer to [place] [employer] diabetic care guidelines for further information. 19 SEE RESULT BELOW Name: ASHLEY PRESSLEY : [address]: Keerthi Gottlieb MD Acct: [id number] Unit: [id number] AGE: 76 Location: [facility] Re04/05/17 SEX: F Status: REG REF SPEC: [id number] ABDIRASHID: 04/05/17 [facility] [address]: Keerthi Gottlieb MD REQ: [id number] RECD: 04/05/17 STATUS: COMP _ SOURCE: URINE SPDESC: ORDERED: Urine Culture Procedure Result Reported Site Urine Culture Final 04/06/17- 1210 ML No growth of clinically significant organisms * ML - MAIN LAB (PSC1) . END OF REPORT * ML=Testing performed at Main Lab DEPARTMENT OF PATHOLOGY, [address] [place] [address] Cortes Cormier M.D. Director [facility] # [id number] 20 Unable to calculate due to low microalbumin 21 SEE RESULT BELOW Name: ASHLEY PRESSLEY : [address]: Luis Carlos Amezcua NP Acct: [id number] Unit: [id number] AGE: 76 Location: [facility] Re03/21/17 SEX: F Status: REG REF SPEC: [id number] ABDIRASHID: 03/21/[address]: Luis Carlos Amezcua NP REQ: [id number] RECD: 03/21/17 STATUS: COMP _ SOURCE: URINE SPDESC: ORDERED: Urine Culture COMMENTS: [id number] Procedure Result Reported Site Urine Culture Final 03/24/17- 0820 ML Organism 1 ESCHERICHIA COLI [place] Count 10-25,000 (Moderate) CFU/ML Organism 2 STREP GROUP B [place] Count >100,000 (Many) CFU/ML Organism 3 NORMAL GERRY [place] Count 25-50,000 (Moderate) CFU/ML Susceptibility testing of penicillins and other B-lactams approved by FDA for treatment of Streptococcus pyogenes (Group A Strep) and Streptococcus agalactiae (Group B Strep) is not necessary for clinical purposes and need not be done routinely, since as with vancomycin, resistant strains have not been recognized. (CLSI R529-D86;p.66) Positive isolates will be saved for one week. Please call the Microbiology Laboratory if further susceptibility testing is needed. 1. ESCHERICHIA COLI M.I.C. RX --------- ------ Ampicillin 8 S Cefazolin <=4 S Cefepime <=1 S Ceftriaxone <=1 S Ciprofloxacin <=0.25 S Gentamicin <=1 S CONTINUED ON NEXT PAGE * ML=Testing performed at Main Lab DEPARTMENT OF PATHOLOGY, [address] [place] [address] Cortes Cormier M.D. Director [facility] # [id number] Patient: ASHLEY PRESSLEY [id number] (Continued) Specimen: [id number] Collected: 03/21/17 Received: 03/21/17 (Continued) Procedure Result Reported Site Urine Culture Final (continued) 03/24/17- 819 1. ESCHERICHIA COLI (continued) M.I.C. RX --------- ------ Levofloxacin <=0.12 S Meropenem <=0.25 S Nitrofurantoin <=16 S Tetracycline 2 S Pipercillin/Tazobactam <=4 S Trimethoprim/Sulfamethoxazole <=20 S Amoxicillin/Clavulanic Acid 4 S Aztreonam <=1 S Contact the Microbiology Department for any additional antibiotic reporting. * ML - MAIN LAB ([facility]) . END OF REPORT * ML=Testing performed at Main Lab DEPARTMENT OF PATHOLOGY, [address] [place] [address] Cortes Cormier M.D. Director [facility] # [id number] 22 Desirable <150 Borderline high 150-199 High 200-499 Very High >500 23 Desirable <200 Borderline high 200-239 High >239 24 Low <40 Desirable: 40-60 High: >60 25 Desirable: <100 mg/dL Near Optimal: 100-129 mg/dL Borderline High: 130-159 mg/dL High: 160-189 mg/dL Very High: >189 mg/dL 26 Because ethnic data is not always readily [...] 15-29 5 Kidney failure <15 (or dialysis) 27 Because ethnic data is not always readily [...] 15-29 5 Kidney failure <15 (or dialysis) 28 Desirable <150 Borderline high 150-199 High 200-499 Very High >500 29 Desirable <200 Borderline high 200-239 High >239 30 Low <40 Desirable: 40-60 High: >60 31 Desirable: <100 mg/dL Near Optimal: 100-129 mg/dL Borderline High: 130-159 mg/dL High: 160-189 mg/dL Very High: >189 mg/dL 32 RUN DATE: 07/05/[address] [facility] LAB LIVE PAGE 1 RUN TIME: 6599 [address] [place], [place] [address] Specimen Inquiry Name: ASHLEY PRESSLEY : [address]: Sachin Bunch MD Acct: [id number] Unit: [id number] AGE: 73 Location: [facility] Re07/04/14 SEX: F Status: REG REF SPEC: [id number] ABDIRASHID: 07/04/14-35 [facility] [address]: Sachin Bunch MD REQ: [id number] RECD: 07/04/14-1214 STATUS: FAMILIA REILLY DR: Keerthi Gottlieb MD [...] performed at Main Lab DEPARTMENT OF PATHOLOGY, [address], [place], [place] [address] Cortes Cormier M.D. Director [facility] # [id number] 33 Because ethnic data is not always [...] 5 Kidney failure <15 (or dialysis) 34 Normal Range 180 to 914 Indeterminate Range 145 to 180 Deficient Range <145 35 -- REFERENCE VALUE -- 25-HYDROXY D TOTAL (D2+D3) Optimum levels in the healthy population are 20-50, patients with bone disease may benefit from higher levels within this range. Test Performed by: [place] [address] Chiropractic Physician: Gabriel Montana III, M.D. 36 HDL Interpretation: Undesirable: High Risk: Less than 40 mg/dL Desirable: Low Risk: Greater than 60 mg/dL 37 LDL Interpretation: Low Risk Optimal Level: LDL Less than 100 mg/dL Near or Above Optimal: LDL 100-129 mg/dL Borderline High Risk: LDL 130-159 mg/dL High Risk: LDL 160-189 mg/dL Very High Risk: LDL Greater than 189 mg/dL 38 Because ethnic data is not always readily [...] 15-29 5 Kidney failure <15 (or dialysis) 39 Microalbuminuria in a random sample is defined as: Microalbumin/Creatinine ratio of 30-299 ug/mg. 40 -- REFERENCE VALUE -- 25-HYDROXY D TOTAL (D2+D3) Optimum levels in the normal population are 25-80 Test Performed by: [place] [address] Chiropractic Physician: Gabriel Montana III, M.D. 41 Warning: A positive result is not useful for establishing a diagnosis of syphilis. In most situations, such a result may reflect a prior treated infection; a negative result can exclude a diagnosis of syphilis except for incubating or early primary disease. 42 It is recognized that currently available assays [...] 95% confidence interval of 99.78 to 99.96%. 43 -- REFERENCE VALUE -- 25-HYDROXY D TOTAL (D2+D3) Optimum levels in the normal population are 25-80 Test Performed by: [address] [address] Chiropractic Physician: Gabriel Montana III, M.D. R 44 Desirable: Less than 200 MG/DL Borderline-High Risk: 200-239 MG/DL High-Risk: 240 MG/DL and over 45 HDL Interpretation: Undesirable: High Risk: Less than 40 MG/DL Desirable: Low Risk: Greater than 60 MG/DL 46 LDL Interpretation: Low Risk Optimal Level: LDL Less than 100 MG/DL Near or Above Optimal: LDL 100-129 MG/DL Borderline High Risk: LDL 130-159 MG/DL High Risk: LDL 160-189 MG/DL Very High Risk: LDL Greater than 189 MG/DL 47 A metabolite of Naproxen, O-desmethylnaproxen, has been shown to interfere with the Jendrassik-Vasyl method for measuring total bilirubin. Samples from patients who have taken Naproxen have shown spurious elevation in total bilirubin levels. 48 Because ethnic data is not always readily [...] 15-29 5 Kidney failure <15 (or dialysis) 49 Microalbuminuria in a random sample is defined as: Microalbumin/Creatinine ratio of 30-299 ug/mg. 50 THERAPEUTIC TARGET FOR THE TREATMENT OF DIABETES MELLITUS PATIENTS IS <7% HBA1C, AND IN SELECTIVE PATIENTS <6.0%. PLEASE REFER TO [place] [employer] DIABETIC CARE GUIDELINES FOR FURTHER INFORMATION. 51 CHOLESTEROL INTERPRETATION: Desirable: Less than 200 MG/DL Borderline-High Risk: 200-239 MG/DL High-Risk: 240 MG/DL and over 52 HDL INTERPRETATION: Undesirable: High Risk: Less than 40 MG/DL Desirable: Low Risk: Greater than 60 MG/DL 53 LDL INTERPRETATION: Low Risk Optimal Level: LDL Less than 100 MG/DL Near or Above Optimal: LDL 100-129 MG/DL Borderline High Risk: LDL 130-159 MG/DL High Risk: LDL 160-189 MG/DL Very High Risk: LDL Greater than 189 MG/DL 54 Anion gap measurement may be of limited value in the presence of any alkalosis, especially in a combined acid base disorder. . 55 A metabolite of Naproxen, O-desmethylnaproxen, has been shown to interfere with the Jendrassik-Vasyl method for measuring total bilirubin. Samples from patients who have taken Naproxen have shown spurious elevation in total bilirubin levels. 56 Because ethnic data is not always readily [...] 15-29 5 Kidney failure <15 (or dialysis) 57 Anion gap measurement may be of limited value in the presence of any alkalosis, especially in a combined acid base disorder. . 58 Because ethnic data is not always readily [...] 15-29 5 Kidney failure <15 (or dialysis) 59 THERAPEUTIC TARGET FOR THE TREATMENT OF DIABETES MELLITUS PATIENTS IS <7% HBA1C, AND IN SELECTIVE PATIENTS <6.0%. PLEASE REFER TO [place] [employer] DIABETIC CARE GUIDELINES FOR FURTHER INFORMATION. 60 CHOLESTEROL INTERPRETATION: Desirable: Less than 200 MG/DL Borderline-High Risk: 200-239 MG/DL High-Risk: 240 MG/DL and over 61 HDL INTERPRETATION: Undesirable: High Risk: Less than 40 MG/DL Desirable: Low Risk: Greater than 60 MG/DL 62 LDL INTERPRETATION: Low Risk Optimal Level: LDL Less than 100 MG/DL Near or Above Optimal: LDL 100-129 MG/DL Borderline High Risk: LDL 130-159 MG/DL High Risk: LDL 160-189 MG/DL Very High Risk: LDL Greater than 189 MG/DL 63 Anion gap measurement may be of limited value in the presence of any alkalosis, especially in a combined acid base disorder. . 64 Note change in reference range as of 01/28/08. The change was based on recommendations from the [place] [employer]. 65 Please note change in reference range effective 07 . 66 A metabolite of Naproxen, O-desmethylnaproxen, has been shown to interfere with the Jendrassik-Vasyl method for measuring total bilirubin. Samples from patients who have taken Naproxen have shown spurious elevation in total bilirubin levels. 67 Because ethnic data is not always readily [...] 15-29 5 Kidney failure <15 (or dialysis) 68 CHOLESTEROL INTERPRETATION: Desirable: Less than 200 MG/DL Borderline-High Risk: 200-239 MG/DL High-Risk: 240 MG/DL and over 69 HDL INTERPRETATION: Undesirable: High Risk: Less than 40 MG/DL Desirable: Low Risk: Greater than 60 MG/DL 70 LDL INTERPRETATION: Low Risk Optimal Level: LDL Less than 100 MG/DL Near or Above Optimal: LDL 100-129 MG/DL Borderline High Risk: LDL 130-159 MG/DL High Risk: LDL 160-189 MG/DL Very High Risk: LDL Greater than 189 MG/DL 71 THERAPEUTIC TARGET FOR THE TREATMENT OF DIABETES MELLITUS PATIENTS IS <7% HBA1C, AND IN SELECTIVE PATIENTS <6.0%. PLEASE REFER TO [place] [employer] DIABETIC CARE GUIDELINES FOR FURTHER INFORMATION. 72 ---- RUN DATE: 06/30/09 [facility] NMI LIVE PAGE 1 RUN TIME: 1206 Specimen Inquiry RUN USER: INTERFACE -- Name: ASHLEY PRESSLEY Status: REG REF Re06/28/09 Age/Sex: 68/F Unit#: [id number] Location: [facility] : 39 -- Specimen: [id number] [id number] Spec Date: 06/28/[address]: Sachin jenkins MD Spec Type: SURGICAL P Received: 06/29/09-1032 Copies to: Brent Lew III, MD SPECIMEN 1) BIOPSY SIGMOID NODULE AT 35 CM 2) BIOPSY DISTAL RECTAL POLYP AT 2 CM HISTORY POST-OP DIAGNOSIS: Moderate sigmoid diverticulosis, colon nodules CLINICAL INFORMATION: Colon polyps, negative family history, denies GI sy mptoms GROSS DESCRIPTION 1) Specimen received in formalin labelled Ashley Sophiallose, Sigmoid Nodule at 35 cm. and consists [...] 06/30/09 1205 -- -- DEPARTMENT OF PATHOLOGY, [address] [place] [address] [facility] Permit #[id number] Cortes Cormier M.D. Director Cassy Gaitan M.D. Allergy And Immunology Specialist Dir kyle -- 73 PATIENT MAY HAVE RESULTS PER DOCTOR'S AUTHORIZATION. Questions regarding this report should be directed to your doctor. 74 CHOLESTEROL INTERPRETATION: Desirable: Less than 200 MG/DL Borderline-High Risk: 200-239 MG/DL High-Risk: 240 MG/DL and over 75 HDL INTERPRETATION: Undesirable: High Risk: Less than 40 MG/DL Desirable: Low Risk: Greater than 60 MG/DL 76 LDL INTERPRETATION: Low Risk Optimal Level: LDL Less than 100 MG/DL Near or Above Optimal: LDL 100-129 MG/DL Borderline High Risk: LDL 130-159 MG/DL High Risk: LDL 160-189 MG/DL Very High Risk: LDL Greater than 189 MG/DL 77 CHOLESTEROL INTERPRETATION: Desirable: Less than 200 [...] Risk: LDL Greater than 189 MG/DL 80 Anion gap measurement may be of limited value in the presence of any alkalosis, especially in a combined acid base disorder. . 81 Note change in reference range as of 01/28/08. The change was based on recommendations from the [place] [employer]. 82 Please note change in reference range effective 07 . 83 A metabolite of Naproxen, O-desmethylnaproxen, has been shown to interfere with the Jendrassik-Rippey method for measuring total bilirubin. Samples from patients who have taken Naproxen have shown spurious elevation in total bilirubin levels. 84 Because ethnic data is not always readily [...] 15-29 5 Kidney failure <15 (or dialysis) 85 THERAPEUTIC TARGET FOR THE TREATMENT OF DIABETES MELLITUS PATIENTS IS <7% HBA1C, AND IN SELECTIVE PATIENTS <6.0%. PLEASE REFER TO [place] [employer] DIABETIC CARE GUIDELINES FOR FURTHER INFORMATION. 86 CHOLESTEROL INTERPRETATION: Desirable: Less than 200 MG/DL Borderline-High Risk: 200-239 MG/DL High-Risk: 240 MG/DL and over 87 HDL INTERPRETATION: Undesirable: High Risk: Less than 40 MG/DL Desirable: Low Risk: Greater than 60 MG/DL 88 LDL INTERPRETATION: Low Risk Optimal Level: LDL Less than 100 MG/DL Near or Above Optimal: LDL 100-129 MG/DL Borderline High Risk: LDL 130-159 MG/DL High Risk: LDL 160-189 MG/DL Very High Risk: LDL Greater than 189 MG/DL 89 Note change in reference range as of 01/28/08. The change was based on recommendations from the [place] [employer]. 90 THERAPEUTIC TARGET FOR THE TREATMENT OF DIABETES MELLITUS PATIENTS IS <7% HBA1C, AND IN SELECTIVE PATIENTS <6.0%. PLEASE REFER TO [place] [employer] DIABETIC CARE GUIDELINES FOR FURTHER INFORMATION. 91 FASTING PATIENT MAY HAVE RESULTS PER DOCTOR'S AUTHORIZATION. Questions regarding this report should be directed to your doctor. 92 Note change in reference range as of 01/28/08. The change was based on recommendations from the [place] [employer]. 93 THERAPEUTIC TARGET FOR THE TREATMENT OF DIABETES MELLITUS PATIENTS IS <7% HBA1C, AND IN SELECTIVE PATIENTS <6.0%. PLEASE REFER TO [place] [employer] DIABETIC CARE GUIDELINES FOR FURTHER INFORMATION. 94 CHOLESTEROL INTERPRETATION: Desirable: Less than 200 MG/DL Borderline-High Risk: 200-239 MG/DL High-Risk: 240 MG/DL and over 95 HDL INTERPRETATION: Undesirable: High Risk: Less than 40 MG/DL Desirable: Low Risk: Greater than 60 MG/DL 96 LDL INTERPRETATION: Low Risk Optimal Level: LDL Less than 100 MG/DL Near or Above Optimal: LDL 100-129 MG/DL Borderline High Risk: LDL 130-159 MG/DL High Risk: LDL 160-189 MG/DL Very High Risk: LDL Greater than 189 MG/DL 97 FASTING PATIENT MAY HAVE RESULTS PER DOCTOR'S AUTHORIZATION. Questions regarding this report should be directed to your doctor. 98 CHOLESTEROL INTERPRETATION: Desirable: Less than 200 MG/DL Borderline-High Risk: 200-239 MG/DL High-Risk: 240 MG/DL and over 99 HDL INTERPRETATION: Undesirable: High Risk: Less than 40 MG/DL Desirable: Low Risk: Greater than 60 MG/DL 100 LDL INTERPRETATION: Low Risk Optimal Level: LDL Less than 100 MG/DL Near or Above Optimal: LDL 100-129 MG/DL Borderline High Risk: LDL 130-159 MG/DL High Risk: LDL 160-189 MG/DL Very High Risk: LDL Greater than 189 MG/DL 101 PATIENT MAY HAVE RESULTS PER DOCTOR'S AUTHORIZATION. Questions regarding this report should be directed to your doctor. 102 THERAPEUTIC TARGET FOR THE TREATMENT OF DIABETES MELLITUS PATIENTS IS <7% HBA1C, AND IN SELECTIVE PATIENTS <6.0%. PLEASE REFER TO [place] [employer] DIABETIC CARE GUIDELINES FOR FURTHER INFORMATION. 103 CHOLESTEROL INTERPRETATION: Desirable: Less than 200 MG/DL Borderline-High Risk: 200-239 MG/DL High-Risk: 240 MG/DL and over 104 HDL INTERPRETATION: Undesirable: High Risk: Less than 40 MG/DL Desirable: Low Risk: Greater than 60 MG/DL 105 LDL INTERPRETATION: Low Risk Optimal Level: LDL Less than 100 MG/DL Near or Above Optimal: LDL 100-129 MG/DL Borderline High Risk: LDL 130-159 MG/DL High Risk: LDL 160-189 MG/DL Very High Risk: LDL Greater than 189 MG/DL 106 Anion gap measurement may be of limited value in the presence of any alkalosis, especially in a combined acid base disorder. . 107 Note change in reference range as of 01/28/08. The change was based on recommendations from the [place] [employer]. 108 Please note change in reference range effective 07 . 109 FASTING PATIENT MAY HAVE RESULTS PER DOCTOR'S AUTHORIZATION. Questions regarding this report should be directed to your doctor. 110 THERAPEUTIC TARGET FOR THE TREATMENT OF DIABETES MELLITUS PATIENTS IS <7% HBA1C, AND IN SELECTIVE PATIENTS <6.0%. PLEASE REFER TO [place] [employer] DIABETIC CARE GUIDELINES FOR FURTHER INFORMATION. 111 CHOLESTEROL INTERPRETATION: Desirable: Less than 200 MG/DL Borderline-High Risk: 200-239 MG/DL High-Risk: 240 MG/DL and over 112 HDL INTERPRETATION: Undesirable: High Risk: Less than 40 MG/DL Desirable: Low Risk: Greater than 60 MG/DL 113 LDL INTERPRETATION: Low Risk Optimal Level: LDL Less than 100 MG/DL Near or Above Optimal: LDL 100-129 MG/DL Borderline High Risk: LDL 130-159 MG/DL High Risk: LDL 160-189 MG/DL Very High Risk: LDL Greater than 189 MG/DL 114 Anion gap measurement may be of limited value in the presence of any alkalosis, especially in a combined acid base disorder. . 115 FASTING PATIENT MAY HAVE RESULTS PER DOCTOR'S AUTHORIZATION. Questions regarding this report should be directed to your doctor. 116 Classification: High . 117 CALCULATED LDL APPROXIMATES THE VALUE OF A DIRECT LDL MEASUREMENT. Classification: Very High . 118 Anion gap measurement may be of limited value in the presence of any alkalosis, especially in a combined acid base disorder. . 119 PATIENT MAY HAVE RESULTS PER DOCTOR'S AUTHORIZATION. Questions regarding this report should be directed to your doctor. Procedures Date Code Description Status 08/03/2018 81852 EKG Tracing & Interpretation Completed 09/28/2017 98275 EKG, Interpretation Only Completed 05/08/2017 [id number] Mammogram Completed 06/12/2016 11563 Stress Test Completed 06/12/2016 03709 Myocardial Perfusion Imaging Tomographic (Spect) Completed Multiple Studies 05/30/2016 68640 EKG Tracing & Interpretation Completed 07/18/2015 [id number] Diabetic Retinal Eye Exam Completed 06/22/2015 [id number] Bone Mineral Density Test Completed 06/22/2015 [id number] Mammogram Completed 07/04/2014 [id number] Colonoscopy Completed 02/14/2014 [id number] Mammogram Completed 02/04/2013 06696 EKG, Interpretation Only Completed 01/15/2013 [id number] Diabetic Retinal Eye Exam Completed 03/19/2012 [id number] Bone Mineral Density Test Completed 11/01/2011 [id number] Mammogram Completed 03/01/2011 02867 Arthroscopy,Knee,Meniscectomy Media & Lateral Completed 03/01/2011 71794 Arthroscopy,Knee,Meniscectomy Media & Lateral Completed 06/25/2004 [id number] Colonoscopy Completed Encounters Type Date Location Provider Dx Diagnosis Office Visit 07/13/2018 [facility] Ramonita Davis G30.9 Alzheimer's disease, 10:00a Services Of Marissa Mackey M.D. unspecified Office Visit 02/02/2018 [facility] Internal Keerthigage Gottlieb, E11.9 Type 2 diabetes 10:10a Janell Fuentes M.D. mellitus without [place] complications I10 Essential (primary) hypertension L60.3 Nail dystrophy M81.0 Age-related osteoporosis w/o current pathological fracture Office Visit 10/27/2017 1:45p [facility] Ramonita Davis G30.9 Alzheimer' s Services Of Marissa Mackey M.D. disease, unspecified I10 Essential (primary) hypertension E11.9 Type 2 diabetes mellitus without complications Office Visit 10/23/2017 [facility] [place] E11.9 Type 2 diabetes 9:50a Janell Gottlieb M.D. mellitus without [place] complications Office Visit 09/29/2017 [facility] [place] I16.0 Hypertensive 11:22a Assoc,FATOU [facility] urgency Hospitalists G30.9 Alzheimer's disease, unspecified F02.81 Dementia in oth diseases classd elsdottie ceron behavioral disturb R73.9 Hyperglycemia, unspecified Office Visit 09/28/2017 11:22a [facility] [place] I16.0 Hypertensive Assoc,FATOU Tapia urgency Hospitalists G30.9 Alzheimer's disease, unspecified F02.81 Dementia in oth diseases classd laura ceron behavioral disturb R73.9 Hyperglycemia, unspecified Office Visit 09/27/2017 11:21a [facility] [place] I16.0 Hypertensive Assoc,FATOU Tapia urgency Hospitalists G30.9 Alzheimer's disease, unspecified F02.81 Dementia in oth diseases classd elsdottie w behavioral disturb R73.9 Hyperglycemia, unspecified Office Visit 09/26/2017 11:20a [facility] Janusz Abreu, I16.0 Hypertensive Assocmaxine MD urgency Hospitalists G30.9 Alzheimer's disease, unspecified F02.81 Dementia in oth diseases classd elsdottie ceron behavioral disturb R73.9 Hyperglycemia, unspecified Office Visit 07/08/2017 3:45p [facility] Ramonita Davis G30.1 Alzheimer' s Services [facility] [place]onne Mackey disease with late onset R63.4 Abnormal weight loss Office Visit 06/30/2017 11:50a [facility] Internal [place] E11.9 Type 2 diabetes Janell Gottlieb M.D. mellitus without [place] complications I10 Essential (primary) hypertension R51 Headache R31.9 Hematuria, unspecified M81.0 Age-related osteoporosis w/o current pathological fracture Office Visit 03/31/2017 9:10a [facility] Internal Keer[place] E11.9 Type 2 diabetes Janell Gottlieb M.D. mellitus without [place] complications I10 Essential (primary) hypertension R31.9 Hematuria, unspecified Z12.31 Encntr screen mammogram for malignant neoplasm of breast Office Visit 03/21/2017 1:00p [facility] Internal Luis Carlos Seven, R35.0 Frequency of Medicine - [employer] ATTENDANT micturition [place] Z23 Encounter for immunization Office 03/07/2017 [facility] Raúl Davis G30.1 Alzheimer's disease Visit 10:30a [facility], with late onset [place] Office 10/04/2016 [facility] Derm[facility] [place] L81.4 Other melanin Visit 11:10a MD Nicole hyperpigmentation L82.1 Other seborrheic keratosis Office Visit 09/30/2016 8:50a [facility] Internal [place]er[place] E11.9 Type 2 diabetes Janell Gottlieb M.D. mellitus without [place] complications I10 Essential (primary) hypertension E78.2 Mixed hyperlipidemia Z12.83 Encounter for screening for malignant neoplasm of skin Office Visit 05/30/2016 10:50a [facility] Internal [place]er[place] E11.Gunjan Type 2 diabetes Janell Gottlieb M.D. mellitus without [place] complications M81.0 Age-related osteoporosis w/o current pathological fracture I10 Essential (primary) hypertension E78.2 Mixed hyperlipidemia Z23 Encounter for immunization R94.31 Abnormal electrocardiogram [ECG] [EKG] Office Visit 01/29/2016 1:20p [facility] Internal [place]er[place] E11.9 Type 2 diabetes Janell Gottlieb M.D. mellitus without [place] complications Office Visit 11/08/2015 11:45a Alli Davis G30.1 Alzheimer's disease Neurologic [place] Mackey with late onset Services [facility] Office Visit 08/29/2015 10:30a [facility] Internal [place] E11.65 Type 2 diabetes Janell Gottlieb M.D. mellitus with [place] hyperglycemia E78.2 Mixed hyperlipidemia I10 Essential (primary) hypertension Office Visit 05/30/2015 11:10a [facility] Internal Keerthi Gottlieb, Z00.00 Encntr for Medicine - [place] general adult [place] medical exam w/o abnormal findings E11.65 Type [...] Mackey M.D. Disease Office Visit 12/20/2013 10:50a [facility] Internal [place] 250.00 Diabetes Mellitus Janell Gottlieb M.D. W/O Compl Type II [place] Or Unspec Controlled Office Visit 11/15/2013 10:30a [facility] Tammy Pendleton 250.00 Diabetes Mellitus Janell Gottlieb M.D. W/O Compl Type II [place] Or Unspec Controlled 780.79 Malaise And Fatigue Other Office Visit 11/09/2013 11:00a Alli Davis 331.83 Mild Cognitive Services Of Marissa Mackey M.D. 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 Impairment So Stated 783.21 Loss Of Weight 435.9 TIA Ischemia Cerebral Transient Unspec Office Visit 08/16/2013 10:30a [facility] Internal [place] 250.02 Diabetes Janell Gottlieb M.D. Mellitus W/O [place] Compl Type II Or Unspec Type Uncontrol 272.2 Hyperlipidemia Mixed 733.01 Osteoporosis Senile 112.1 Candidiasis The Vulva & Vagina Office Visit 05/03/2013 2:10p Mar[facility] Internal [place] 250.02 Diabetes Janell Gottlieb M.D. Mellitus W/O [place] Compl Type II Or Unspec Type Uncontrol 331.83 Mild Cognitive Impairment So Stated V06.6 Streptococcus Pneumonia & Influenz Vaccination & Inoculation V03.82 Streptococcus Pneumoniae Vaccination Spec Other Office Visit 04/01/2013 2:10p Marissa Internal [place] 250.02 Diabetes Janell Gottlieb M.D. Mellitus W/O [place] Compl Type II Or Unspec Type Uncontrol 401.9 Hypertension Unspec 272.2 Hyperlipidemia Mixed 268.9 Vitamin D Deficiency Unspec Office Visit 10/07/2012 3:10p Marissa Pendleton V70.0 Examination Janell Gottlieb M.D. [facility] Routine AT [facility] 331.83 Mild Cognitive Impairment So Stated 911.4 Injury Superficial Insect Bite Trunk Nonvenomous W/O Infect V76.43 Screening Malignant Neoplasm Skin Office Visit 09/02/2012 9:00a Marissa Gottlieb, 780.93 Memory Loss Janell Fuentes M.D. [place] 250.00 Diabetes Mellitus W/O Compl Type II Or Unspec Controlled 401.9 Hypertension Unspec 272.2 Hyperlipidemia Mixed Office Visit 08/19/2012 10:10a Marissa Gottlieb, 780.93 Memory Loss Janell Fuentes M.D. [place] 401.9 Hypertension Unspec 733.01 Osteoporosis Senile 269.1 Vitamin Deficiency Other Office Visit 05/11/2012 10:50a [facility] Internal [place] 733.01 Osteoporosis Janell Gottlieb M.D. Senile [place] 790.6 Abnormal Blood Chemistry Other Office Visit 04/15/2012 9:50a Marissa [place]leton 250.00 Diabetes Mellitus Janell Gottlieb M.D. W/O Compl Type II [place] Or Unspec Controlled 401.9 Hypertension Unspec 733.01 Osteoporosis Senile Office Visit 03/04/2012 10:10a Marissa [place] 250.00 Diabetes Mellitus Janell Gottlieb M.D. W/O Compl Type II [place] Or Unspec Controlled 700 Corns & Callosities 272.2 Hyperlipidemia Mixed 401.9 Hypertension Unspec V04.81 Need For Prophylactic Vaccination & Inoculation/Influenza V49.81 Postmenopausal Status Asymptomatic (Age-Related,Natural) Office Visit 07/10/2011 8:30a Staff Accountant Internal [place] 250.00 Diabetes Mellitus Janell Gottlieb M.D. W/O Compl Type II [place] Or Unspec Controlled 401.1 Hypertension Benign 272.2 Hyperlipidemia Mixed 700 Corns & Callosities v04.89 Need For Prophylactic Vaccination & Inoculation Other Virus Office Visit 06/12/2011 8:45a Staff Accountant Internal [place] 401.1 Hypertension Benign Janell Gottlieb M.D. [place] 250.00 Diabetes Mellitus W/O Compl Type II Or Unspec Controlled 780.93 Memory Loss Office Visit 05/08/2011 8:30a DO Not Use Staff Accountant Keerthi V72.83 Examination AT Horacio Gottlieb M.D. Preoperative Other Spec 250.00 Diabetes Mellitus W/O Compl Type II Or Unspec Controlled 401.1 Hypertension Benign 272.2 Hyperlipidemia Mixed 366.10 Cataract Senile Unspec Office Visit 02/18/2011 1:40p DO Not Use Staff Accountant Brent Fuentes V72.81 Examination AT Horacio Lew M.D. Preoperative Cardiovascular 719.46 Pain Joint Lower Leg 250.00 Diabetes Mellitus W/O Compl Type II Or Unspec Controlled 401.1 Hypertension Benign 272.0 Hypercholesterolemia Pure V04.81 Need For Prophylactic Vaccination & Inoculation/Influenza Office Visit 01/16/2011 8:00a Orthopedic Jimmie Temple, 836.0 Dislocation Knee Services Of MAbbyDAbby Tear Of Medial C.M.A. Cartilage Or Meniscus Curren Office Visit 01/08/2011 8:45a Orthopedic Jimmie Temple 836.0 Dislocation Knee Services Of MAbbyDAbby Tear Of Medial C.M.A. Cartilage Or Meniscus Curr Office Visit 06/13/2010 9:40a DO Not Use Staff Accountant AT Brent Fuentes V04.81 Need For Horacio Lew M.D. Prophylactic Vaccination & Inoculation/Influe nza 250.00 Diabetes Mellitus W/O Compl Type II Or Unspec Controlled 401.1 Hypertension Benign 272.0 Hypercholesterolemia Pure Office Visit 12/12/2009 10:20a DO Not Use Staff Accountant Brent EAbby 250.00 Diabetes Mellitus AT Alka De Leon.D. W/O Compl Type II Or Unspec Controlled 401.1 Hypertension Benign 272.0 Hypercholesterolemia Pure Office Visit 07/04/2009 10:40a DO Not Use Staff Accountant AT Brent Alfredo Lew, 729.5 Pain In Limb [facility] AlkaBailey 724.2 Lumbago V04.81 Need For Prophylactic Vaccination & Inoculation/Influenza Office Visit 06/20/2009 DO Not Use Staff Accountant Brent E. 272.0 Hypercholesterolemia Pure 11:00a AT Caycedarryl Lew M.D. 250.00 Diabetes Mellitus W/O Compl Type II Or Unspec Controlled 401.1 Hypertension Benign Office Visit 03/27/2009 10:00a DO Not Use Staff Accountant Brent E. 250.00 Diabetes Mellitus AT Horacio Lew M.D. W/O Compl Type II Or Unspec Controlled 401.1 Hypertension Benign 272.0 Hypercholesterolemia Pure Office Visit 09/12/2008 9:45a Florien Med Brent E. 427.31 Atrial Fibrillation Assoc AT Lavonne Lew [facility] 250.00 Diabetes Mellitus W/O Compl Type II Or Unspec Controlled V58.61 Anticoagulants Residential (Current) Use Encounter Office Visit 02/22/2008 Florien Med Brent E. 272.0 Hypercholesterolemia Pure 10:45a Assoc AT [place] Lew [facility] 250.00 Diabetes Mellitus W/O Compl Type II Or Unspec Controlled 401.1 Hypertension Benign V03.82 Streptococcus Pneumoniae Vaccination Spec Other Office Visit 11/24/2007 2:45p Florien Med Brent E. 922.1 Contusion Chest Assoc AT Lavonne Lew [facility] Office Visit 10/19/2007 10:30a Florien Med Brent E. 250.00 Diabetes Mellitus Assoc AT [place]onne Lew W/O Compl Type II [facility] Or Unspec Controlled 272.0 Hypercholesterolemia Pure 401.1 Hypertension Benign V03.82 Streptococcus Pneumoniae Vaccination Spec Other Office Visit 04/20/2007 11:30a Florien Med Brent E. 250.00 Diabetes Mellitus Assoc AT [place]onne Lew W/O Compl Type II [facility] Or Unspec Controlled 272.0 Hypercholesterolemia Pure 401.1 Hypertension Benign Plan of Treatment Future Appointment(s):02/15/2019 11:10 am - Keerthi Gottlieb M.D. at [facility] Internal Medicine - Vkjtxkdyi54/09/2019 3:45 pm - Raúl Mackey M.D. at [facility] [id number]/03/2018 - Keerthi Gottlieb M.D.E11.9 Type 2 diabetes mellitus without complicationsFollow up:6 months for this and medicare [id number] Essential (primary) ttioxzdnfjujL56.5 Hyperlipidemia, msrdrttskjyB11.8 Other specified epidermal thickeningReferral:Parish Rivera MD , KnbpqowabjdQ36.0 Age-related osteoporosis without current pathological fractuComments:Advised on weight bearing exercise, calcium intake. Should get 30 minutes sunlight during summer. Repeat DEXA every 2 years at maximum which is due now , discussed with daughter
[2018-09-02 17:51] LABS: ABS Basophils 0 10^3/ul (0-0.2); ABS Eosinophils 0 10^3/ul (0-0.6); ABS Lymphocytes 0.8 10^3/ul (1.0-4.8); ABS Monocytes 0.6 10^3/ul (0-0.8); ABS Neutrophils 10.6 10^3/ul (1.5-7.7); ABS Nucleated RBC 0 10^3/ul; Eosinophil % 0 %; Hematocrit 40 % (33-41); Hemoglobin 12.2 g/dL (12.0-16.0); Lymphocyte % 6.4 %; Mean Corpuscular HGB Conc 31 g/dL (31-36); Mean Corpuscular Hemoglobin 31 pg (27-31); Mean Corpuscular Volume 100 fL (80-97); Mean Platelet Volume 8.9 fL (7.4-10.4); Nucleated Red Blood Cells % 0; Platelet Count 290 10^3/uL (150-450); Red Blood Count 3.97 10^6 /uL (3.70-4.87); Red Cell Distribution Width 20 % (10.5-15)
[2018-09-02 18:01] LABS: Activated Partial Thrombo Time 22.8 seconds (26.0-36.3); INR 0.94 (0.77-1.02)
[2018-09-02 18:08] LABS: Urine Appearance Cloudy; Urine Bacteria 1+ (Absent); Urine Bilirubin Negative (Negative); Urine Blood 1+ (Negative); Urine Color Straw; Urine Glucose 3+(>=500 mg/dL) (Negative); Urine Ketones Trace (Negative); Urine Nitrite Negative (Negative); Urine Protein Negative (Negative); Urine Red Blood Cell 3+(>10/hpf) (Absent); Urine Specific Gravity 1.029 (1.010-1.030); Urine Squamous Epithelial Cell Present (Absent); Urine Urobilinogen Negative (Negative); Urine White Blood Cell 3+(>20/hpf) (Absent)
[2018-09-02 18:09] LABS: ALT 12 U/L (7-52); AST 7 U/L (13-39); Albumin 3.8 g/dL (3.2-5.2); Albumin/Globulin Ratio 1.3 (1-3); Alkaline Phosphatase 106 U/L (34-104); BUN/Creatinine Ratio 36.7 (8-20); Blood Urea Nitrogen 51 mg/dL (6-24); CO2 Carbon Dioxide 29 mmol/L (22-32); Calcium 9.7 mg/dL (8.6-10.3); Chloride 111 mmol/L (101-111); EGFR African American 44.4 (>60); EGFR Non-African American 36.7 (>60); Potassium 4.9 mmol/L (3.5-5.0); Total Protein 6.8 g/dL (6.4-8.9)
[2018-09-02 18:11] LABS: Anion Gap 9 mmol/L (2-11); Glucose 716 mg/dL (70-100); Glucose Confirmatory 716 mg/dL (70-100); Sodium 149 mmol/L (135-145)
[2018-09-02 18:12] LABS: Troponin I 0.05 ng/mL (<0.04)
[2018-09-02] MEDS ORDERED: Insulin REGULAR(*) 1 UNITS UNIT IV PUSH ONE (18:13)
[2018-09-02] MEDS ORDERED: NS 0.9% 1000 ML** 1,000 ML IV SCH (18:30)
[2018-09-02] MEDS ORDERED: NS 0.9% 1000 ML** 2,000 ML IV ONE (18:32)
[2018-09-02] MEDS ORDERED: Bisacodyl SUPP* 10 MG SUPP PR PRN (19:28)
[2018-09-02] MEDS ORDERED: Magnesium Hydroxide LIQ* 30 ML UDC PO PRN (19:28)
[2018-09-02] MEDS ORDERED: Insulin IVPB 100 units/100 ml 100 UNITS/100 ML UNIT IVPB SCH ×2 (19:30→21:00)
[2018-09-02] MEDS ORDERED: ALENDRONATE 70 MG PO SCH (20:00)
--- NOTE | 2018-09-02 20:51 | CONS ---
ORTHOPEDIC CONSULTATION NOTE: DATE OF CONSULT: 09/02/18 Thank you for this orthopedic consultation. CHIEF COMPLAINT: Left hip pain. HISTORY OF PRESENT ILLNESS: Ms. Pressley is a 77-year-old female with significant dementia. She had a fall in [facility] about Friday evening. X- rays taken today showed a left femoral neck fracture. The patient has been expressing 10/10 pain with any movement of the left lower extremity and has been unable to walk. She is mostly nonverbal and unable to express her specific pain. She was brought to [facility] Emergency Room and diagnosed with left femoral neck fracture. Unfortunately, the patient had a fall at the beginning of August and ended up having a right hip hemiarthroplasty for femoral neck fracture with Dr. House on 08/08/18. She was discharged and readmitted with change in mental status, fevers, and hypernatremia. She was then discharged to [facility]. The patient' s family reports that she gets confused and tries to get up out of her wheelchair. PAST MEDICAL HISTORY: Dementia, hypertension, HLD, diabetes, osteoporosis, recent right femoral neck fracture treated with hemiarthroplasty. PAST SURGICAL HISTORY: Right hemiarthroplasty. MEDICATIONS: Baseline medications: 1. Lipitor 40 mg p.o. q.h.s. 2. Lisinopril 20 mg p.o. daily. 3. Alendronate 70 mg p.o. weekly. 4. Vitamin C 1000 mg p.o. daily. 5. Calcium with vitamin D 1 tab p.o. daily. 6. Vitamin B12 1000 mcg p.o. daily. 7. Jardiance 25 mg p.o. daily. 8. Tylenol 1000 mg p.o. q.8 hours. 9. Xarelto 10 mg p.o. daily. 10. Colace 100 mg p.o. t.i.d. 11. Donepezil 10 mg p.o. daily. 12. Ultram 50 mg p.o. daily. ALLERGIES: CIPROFLOXACIN. FAMILY HISTORY: Negative. SOCIAL HISTORY: The patient normally lives at [place], but was at [facility]. She has a , who is her surrogate decision maker, and a supportive daughter. No alcohol, tobacco, or recreational drugs. REVIEW OF SYSTEMS: Taken from the patient's family is positive for the recent fall, left hip pain, recent right hip fracture, increased confusion. Otherwise , the patient's family reports review of systems is negative or not relevant. PHYSICAL EXAM: Vitals: Temperature 98.8, pulse 110, blood pressure 157/93. General: The patient is a thin female, in no apparent distress, alert and oriented x0. She has her eyes closed, but will open them when I say her name. Daughter and are at the bedside. Chest: Unlabored breathing. Bilateral Upper Extremities: She has scattered ecchymosis, but she can forward flex the shoulders. I see no bony instability or crepitus. No pain with palpation of the humerus and forearm, radius, ulna. 2+ palpable radial pulses. Right Lower Extremity: I have flexed the hip to 90 degrees. She expresses some pain, but there is no bony instability or hip instability. 2+ palpable DP pulse distally. Left Lower Extremity: Any movement of the leg causes extreme pain. I see no obvious deformity at the tibia or ankle. The knee has an effusion. Tenderness around the hip. 2+ palpable DP pulse. DIAGNOSTIC STUDIES/LAB DATA: Radiographs: Multiple views of the left hip show a displaced comminuted femoral neck fracture on the left, hemiarthroplasty on the right which is reduced with no obvious periprosthetic fracture. Laboratory values show white blood cells 12, hematocrit 40, platelets 290. INR 0.94. Sodium 149, glucose over 700, BUN and creatinine 51 and 1.39, potassium 4.9, chloride 111. Troponin 0.05. Urine positive for multiple things, dirty versus infection. ASSESSMENT AND PLAN: Ms. Pressley is a 77-year-old demented female with multiple falls recently. She had right hip hemiarthroplasty with Dr. House on 08/08/18. She had a recent fall on 08/31/18 and sustained a left displaced femoral neck fracture. The patient's family and I discussed operative and nonoperative treatment options. They would like to proceed with left hip hemiarthroplasty. I will need to find out if she was indeed on Xarelto or Lovenox. This will determine when we can do surgery safely. At this time, the patient is not medically optimized, and I will be following along with the hospitalist group to determine when she is medically optimized for surgery. For now, she should be on bed rest. She should have a Hernandez catheter, p.r.n. pain medication. Orthopedics will gladly follow along and we will perform left hip hemiarthroplasty when she is medically optimized. [id number]/[facility] #: [id number] JOSE
[2018-09-02] MEDS: cefTRIAXone(*) 1 GM in NS 0.9% 50 ML* 50 ML IVPB SCH (21:07)
[2018-09-02] MEDS: Acetaminophen TAB* 325 MG PO SCH (21:24)
[2018-09-02] MEDS: Docusate CAP* 100 MG PO SCH (21:24)
[2018-09-02] MEDS: Atorvastatin* 40 MG TAB PO SCH (21:24)
[2018-09-02] MEDS: Morphine 4 MG/ML VIAL (1 ml) 4 MG/ML VIAL IV PRN (21:29)
--- NOTE | 2018-09-02 21:50 | HP ---
CC: Dr. Keerthi Gottlieb* HISTORY AND PHYSICAL: DATE OF ADMISSION: 09/02/18 PRIMARY CARE PHYSICIAN: Dr. Keerthi Gottlieb. ATTENDING PHYSICIAN: Dr. Alia Marx* (dictated by FATOU Xie). CHIEF COMPLAINT: Unwitnessed fall and hip pain. HISTORY OF PRESENT ILLNESS: Lori Pressley is a 77-year-old white female with past medical history of dementia, hyperlipidemia, hypertension, and diabetes mellitus type 2 who presents from [facility] for an unwitnessed fall 2 days ago and hip pain. The patient had an unwitnessed fall approximately 2 days ago at [facility] and nursing sent the patient to the emergency department today for imaging. According to the patient's family, the patient is normally quite interactive, but with her advanced dementia, she is unable to interact in conversation appropriately. She was recently admitted to the hospital on 08/17/18 for HHS and prior to that, was admitted to the hospital on 08/07/18 for a right hip fracture. Since this hip fracture was repaired, the patient has been cared for at [facility]. The patient has been unable to participate with history as she is not answering questions. She does occasionally call out in pain with manipulation. [facility] nursing staff reports that the patient has not received any of her medications since . The nursing staff reports, "She has been spitting them out every morning." EMERGENCY DEPARTMENT COURSE: When the patient arrived to the emergency department, vital signs were temperature 98.8, pulse 122, respiratory rate 18, O2 sat 91% on room air, blood pressure of 127/108. The patient was found to have a left hip fracture on x-ray and the hospitalists were asked to evaluate the patient for admission. PAST MEDICAL HISTORY: 1. Diabetes mellitus type 2. 2. Hyperlipidemia. 3. Hypertension. 4. Dementia. PAST SURGICAL HISTORY: Right hip hemiarthroplasty on 08/10/18. HOME MEDICATIONS: 1. Oxycodone 5 mg p.o. q.6 hours p.r.n. pain. 2. Fleet Enema p.r.n. for constipation. 3. Milk of Magnesia 30 mL p.o. q.6 hours p.r.n. for constipation. 4. Dulcolax suppository 10 mg p.r.n. for constipation. 5. Tramadol 50 mg p.o. b.i.d. p.r.n. for pain. 6. Memantine 5 mg p.o. b.i.d. 7. Xarelto 10 mg p.o. daily. 8. Lisinopril 20 mg p.o. daily. 9. Donepezil 10 mg p.o. daily. 10. Vitamin B12 at 100 mcg p.o. daily. 11. Lipitor 40 mg p.o. daily. 12. Calcium plus D3. 13. Multivitamin 1 tab daily. 14. Tramadol 50 mg p.o. in the morning and at bedtime p.r.n. 15. Vitamin C 1000 mg p.o. daily. 16. Jardiance 25 mg p.o. daily. 17. Tylenol 1000 mg p.o. b.i.d. 18. Metformin 1000 mg p.o. b.i.d. 19. Colace 100 mg p.o. b.i.d. 20. Fosamax 70 mg p.o. weekly. ALLERGIES: CIPROFLOXACIN. FAMILY HISTORY: Unobtainable. SOCIAL HISTORY: The patient has been living in [facility] since her right hip surgery earlier this month. She is to her , Naveen, who is her medical surrogate decision maker; phone number is [phone]. Family reports that the patient is a former smoker who quit over 30 years ago. She does not use alcohol or illicit drugs. The patient has 2 daughters. REVIEW OF SYSTEMS: The patient is unable to participate in review of systems as she does not respond to questions. PHYSICAL EXAMINATION GENERAL: Elderly white female, lying in hospital bed, lethargic, difficult to arouse. HEENT: Head: Normocephalic and atraumatic. Eyes: Sclerae anicteric. ENT: Lips are dry. NECK: Supple. No JVD. RESPIRATORY: Lungs are clear to auscultation without adventitious breath sounds. CARDIO: Regular rhythm, rate 100 beats per minute. No murmurs, rubs, or gallops appreciated. ABDOMEN: Abdomen is soft, nontender, nondistended. EXTREMITIES: No edema or clubbing. NEURO: The patient is unable to participate in neuro exam. She is alert and oriented x0. DIAGNOSTIC STUDIES/LAB DATA: Chest x-ray today in ED, impression: "No active cardiopulmonary disease." Pelvis x-ray today, impression: "Angulated fracture of left femoral neck. Osteopenia. Osteoarthritis. Status post right hip arthroplasty. Peripheral arterial disease." Electrocardiogram: EKG today sinus rhythm, rate 108 beats per minute, approximately [address] depressions in V5 and V6, which are unchanged from prior EKG on 08/17/18. No additional new findings compared to EKG on 08/17/18. White blood cell count 12, hemoglobin 12.2, hematocrit 40, platelet count 290. Sodium 149, potassium 4.9, chloride 111, carbon dioxide 29, anion gap 9, BUN 51 , creatinine 1.39, glucose 716. Troponin 0.05. Urinalysis with trace ketones, +1 blood, +2 leukocyte esterase, +3 white blood cell count, +4 red blood cells, present epithelial cells, +1 bacteria, present yeast, and 3+ glucose. ASSESSMENT AND PLAN: Lori Pressley is a 77-year-old female with past medical history of dementia, hypertension, hyperlipidemia, and diabetes mellitus type 2 who presents via [facility] 2 days after an unwitnessed fall. The patient will be admitted inpatient for: 1. Hyperosmolar hyperglycemic state. When the patient arrived to the emergency department, her glucose was 716 and sodium was 149. Corrected sodium is 164. The patient has not been receiving her medicines for the last 3 days at [facility], which likely is the explanation for why she is hyperglycemic. She also appears dehydrated. Insulin bolus was given in the emergency department and insulin drip was initiated. The patient will be in the ICU to receive insulin drip. BNP will be checked every 4 hours. The patient has been ordered 2 L of normal saline. We will reassess the need for additional fluids and consider changing to half normal saline or LR if she requires more fluids depending on BNP. We will monitor potassium. Checking serum osmolality. We will be holding the patient's home diabetes medications, checking glucose every hour, and the sliding scale insulin protocol ordered. 2. Sepsis secondary to likely urinary tract infection. The patient had a positive urinalysis on arrival to emergency department. However, this urinalysis was collected via indwelling catheter. New Hernandez catheter was ordered with repeat urinalysis. Urine culture will be sent. Given that the patient is tachycardic and had an elevated white blood cell count to 12.0, she has sepsis. Blood cultures and lactic acid were ordered. The patient has been started on ceftriaxone for broad- spectrum coverage. We will continue to assess. The patient is already ordered 2 L of normal saline for fluid resuscitation. 3. Elevated troponin. The patient has troponin elevated to 0.05. Her EKG is largely unchanged from prior EKG on 08/17/18. This is reassuring. However, given the patient's urosepsis and hyperosmolar hyperglycemic state, it is possible that the patient is having a demand ischemia. We will continue to trend troponins. The patient has been started on telemetry. The patient is unable to express whether she is having any symptoms as she is lethargic and not responsive to questions. 4. Hip fracture. The patient was found to have a femoral neck fracture on the left side. The patient is status post right hemiarthroplasty for right-sided hip fracture approximately 3 weeks ago. The patient has been on Xarelto for prophylaxis after this previous surgery; however, since the patient has not received any medicine in the last 3 days, she has not had Xarelto in the last [address] Alcaraz has been consulted. Morphine p.r.n. has been ordered for pain control. The patient is placed on bedrest. 5. Delirium. While the patient does have underlying dementia, it is clear that her mental status is more altered than her baseline given her lethargy. Her and daughter state that she typically is able to interact with questions, though she may not answer them truthfully typically. She is largely unresponsive today. Given her unwitnessed fall at [facility] and inability to obtain a neuro exam, a CT brain has been ordered. The patient is typically anticoagulated on Xarelto, we must rule out any intracranial hemorrhage. 6. Acute kidney injury. The patient has creatinine of 1.39. Her creatinine was 0.39 on 08/25/18, this is likely prerenal given that the patient is likely dehydrated in the setting of hyperosmolar hyperglycemic state. The patient is already receiving fluids. The patient's Hernandez has been ordered to be changed, strict Is and Os ordered, and creatine kinase has been ordered to rule out rhabdomyolysis. Holding lisinopril in the setting of an acute kidney injury. Chronic Conditions: 7. Hypertension. Holding home lisinopril in the setting of this acute kidney injury. Monitor her blood pressure. 8. Hyperlipidemia. Continue home statin. 9. FEN. The patient has been ordered 2 L of normal saline for treatment of hyperosmolar hyperglycemic state and acute kidney injury and sepsis. We will continue to monitor potassium in the setting of insulin drip. The patient has been ordered a carb consistent diet. 10. Code status. The patient is full code. 11. DVT prophylaxis. The patient has been started on subcu heparin t.i.d. The patient has a DVT risk of 8. SCDs have also been started. TIME SPENT: Approximately 60 minutes were spent on this admission. This case has been reviewed by my attending physician, Dr. Alia Marx, who agrees with this assessment and plan of care. FATOU XIE [id number]/CPS #: [id number] JOSE
[2018-09-02] MEDS: Memantine TAB* 5 MG PO SCH (22:35)
[2018-09-02 22:45] LABS: Creatine Kinase 17 U/L (10-223)
[2018-09-02 23:41] LABS: CO2 Carbon Dioxide 23 mmol/L (22-32); Calcium 8.5 mg/dL (8.6-10.3); Potassium 4.5 mmol/L (3.5-5.0)
[2018-09-02 23:44] LABS: Anion Gap 10 mmol/L (2-11); Chloride 124 mmol/L (101-111); Sodium 157 mmol/L (135-145)
[2018-09-02] MEDS ORDERED: D5W 1/2 NS 1000 ML BAG* 1,000 ML IV SCH (23:45)
[2018-09-02 23:46] LABS: BUN/Creatinine Ratio 44.8 (8-20); Blood Urea Nitrogen 39 mg/dL (6-24); EGFR African American 76.2 (>60); Glucose 278 mg/dL (70-100)
[2018-09-02 23:54] LABS: Troponin I 0.05 ng/mL (<0.04)
[2018-09-03] MEDS: Heparin VIAL(*) 5000 UNITS/ML VIAL (FIVE THOUSAND) SUBCUT SCH ×2 (01:12→05:55)
--- NOTE | 2018-09-03 02:14 | PN ---
Sepsis Event Evaluation Date of Evaluation: 09/03/18 Time of Evaluation: 01:00 Current Stage of Sepsis: Severe Sepsis Vital Signs - Last 12 Hours: Vital Signs - 12 hr Temp Pulse Resp BP Pulse Ox 09/03/18 01:15 101 20 140/64 88 09/03/18 01:00 91 23 120/55 94 09/03/18 00:46 102 23 128/65 09/03/18 00:00 98.3 F 20 106/84 09/02/18 23:30 101 20 131/62 98 09/02/18 23:00 101 14 127/66 98 09/02/18 22:30 104 17 96/63 98 09/02/18 22:02 90 20 98 09/02/18 22:00 99 18 124/51 98 09/02/18 21:45 98 19 115/53 93 09/02/18 21:31 13 127/67 09/02/18 21:29 18 09/02/18 21:28 18 09/02/18 20:47 96.8 F 96 28 115/75 97 09/02/18 20:46 34 115/75 09/02/18 20:44 19 142/111 09/02/18 20:42 23 67/54 09/02/18 20:10 16 150/74 09/02/18 20:00 97 14 100 09/02/18 19:40 95 12 140/65 95 09/02/18 19:30 97.0 F 101 16 151/75 95 09/02/18 19:27 92 16 151/75 95 09/02/18 19:00 103 8 100 09/02/18 18:40 108 15 156/109 100 09/02/18 18:10 99 15 146/73 100 09/02/18 18:00 99 8 100 09/02/18 17:40 13 130/86 09/02/18 17:10 106 13 143/78 100 09/02/18 17:00 109 16 100 09/02/18 16:36 157/93 09/02/18 16:07 114 87 09/02/18 16:06 98.8 F 116 18 127/105 87 Lactic Acid: 09/02/18 22:20 Lactic Acid 2.3 H* - Cardiopulmonary Exam Capillary Refill: Immediate Respiratory: Symmetrical Chest Expansion and Respiratory Effort, Clear to Auscultation Cardiovascular: RRR - Normal S1 and S2 - Peripheral Pulse Exam Radial Pulses: Bilateral Normal Pedal Pulses: Bilateral Normal Posterior Tibial Pulse: Bilateral Normal Femoral Pulses: Bilateral Normal Popliteal Pulses: Bilateral Normal - Skin Exam Skin Exam: Normal Turgor - Florencio Coma Scale Best Eye Response: 4 - Spontaneous Best Motor Response: 6 - Obeys Commands Best Verbal Response: 4 - Confused Coma Scale Total: 14 Assess/Plan/Problems-Billing Assessment: Mrs Pressley is a77yo F with PMH of type 2 DM, HLD, HTN, dementia, found to have left femoral neck fracture, severe sepsis secondary to UTI, and HHS. Will continue to monitor in ICU.
[2018-09-03 03:02] LABS: BUN/Creatinine Ratio 48.5 (8-20); Blood Urea Nitrogen 32 mg/dL (6-24); CO2 Carbon Dioxide 25 mmol/L (22-32); Calcium 8.6 mg/dL (8.6-10.3); EGFR African American 104.8 (>60); EGFR Non-African American 86.6 (>60); Glucose 125 mg/dL (70-100); Potassium 3.4 mmol/L (3.5-5.0)
[2018-09-03 03:03] LABS: Anion Gap 5 mmol/L (2-11); Chloride 123 mmol/L (101-111); Sodium 153 mmol/L (135-145)
[2018-09-03 03:07] LABS: Troponin I 0.71 ng/mL (<0.04)
--- NOTE | 2018-09-03 03:14 | PN ---
Hospitalist Progress Note Date of Service: 09/03/18 HOSPITALIST ADDENDUM Laboratory Tests 09/03/18 02:35 Sodium 153 H Potassium 3.4 L Chloride 123 H Carbon Dioxide 25 Anion Gap 5 BUN 32 H Creatinine 0.66 Glucose 125 H Calcium 8.6 Troponin I 0.71 H* No c/o chest pain, no ischemic changes on EKG. Will continue to check troponins until peak and repeat EKG. HHS is improved. Will continue D51/2NS for hypernatremia. Replete K.
[2018-09-03] MEDS: KCL 20 MEQ/100 ML IVPREMIX* 20 MEQ/100 ML BAG IV SCH ×2 (03:52→05:55)
[2018-09-03] MEDS: D5W 1/2 NS 1000 ML BAG* 1,000 ML IV SCH ×2 (04:17→06:10)
[2018-09-03] MEDS: Morphine 4 MG/ML VIAL (1 ml) 4 MG/ML VIAL IV PRN ×4 (04:32→15:32)
[2018-09-03] MEDS ORDERED: Dextrose 50% Syringe 50 ML* 25 GM/50 ML SYRINGE IV PUSH PRN (06:19)
[2018-09-03 06:53] LABS: ABS Basophils 0 10^3/ul (0-0.2); ABS Eosinophils 0 10^3/ul (0-0.6); ABS Lymphocytes 0.7 10^3/ul (1.0-4.8); ABS Monocytes 0.4 10^3/ul (0-0.8); ABS Neutrophils 7.9 10^3/ul (1.5-7.7); ABS Nucleated RBC 0 10^3/ul; Activated Partial Thrombo Time 24.6 seconds (26.0-36.3); Eosinophil % 0.3 %; Hematocrit 35 % (33-41); Hemoglobin 10.9 g/dL (12.0-16.0); INR 0.94 (0.77-1.02); Lymphocyte % 7.5 %; Mean Corpuscular HGB Conc 32 g/dL (31-36); Mean Corpuscular Hemoglobin 31 pg (27-31); Mean Corpuscular Volume 98 fL (80-97); Mean Platelet Volume 9.1 fL (7.4-10.4); Nucleated Red Blood Cells % 0; Platelet Count 213 10^3/uL (150-450); Red Blood Count 3.55 10^6 /uL (3.70-4.87); Red Cell Distribution Width 19 % (10.5-15)
[2018-09-03 07:02] LABS: BUN/Creatinine Ratio 45.3 (8-20); Calcium 8.2 mg/dL (8.6-10.3); EGFR Non-African American 111.6 (>60)
[2018-09-03 07:06] LABS: Potassium 6.9 mmol/L (3.5-5.0); Troponin I 5.15 ng/mL (<0.04)
[2018-09-03 07:49] LABS: Albumin 3.4 g/dL (3.2-5.2); Albumin/Globulin Ratio 1.3 (1-3); Globulin 2.7 g/dL (2-4); Indirect Bilirubin 0.7 mg/dL (0.3-1.0); Total Bilirubin 0.9 mg/dL (0.2-1.0); Total Protein 6.1 g/dL (6.4-8.9)
[2018-09-03] MEDS ORDERED: Insulin LISPRO* 1 UNITS UNIT SUBCUT SCH ×2 (08:00→10:00)
--- NOTE | 2018-09-03 08:20 | CONSULT ---
Consult Consult: [facility] Inpatient Consult Note Date of Consult: 09/03/18 Reason for Consult: [facility] Reason for Admission: LEFT hip fracture ASSESSMENT: 77 yo F with traumatic RIGHT hip fracture on 08/07/18, readmission for life-threatening metabolic encephalopathy (hypernatremia with acidosis) on , now admitted for LEFT hip fracture. Note is made of markedly elevated troponin overnight. She is also experiencing severe hyperglycemia and should be started on IV insulin until stable. I suspect that the outpatient use of empagliflozin (Jardiance) contributed to recent dehydration and euglycemic acidosis, as her A1c of 6.6% is discordant with severe hyperglycemia that has occurred during this and prior admissions. She was unable to take Jardiance in the days leading up to the current admission, which likely explains the severe hyperglycemia present on admission. Notably, she had severe metabolic acidosis on prior admission when BG<300, but was not acidotic on current admission despite BG>700. PLAN: - CHANGE to Regular insulin Q6H on a sliding scale for coverage of BG>200 - when patient resumes PO intake: - start insulin glargine 5 units daily - start insulin lispro sliding scale with meals - discontinue Jardiance - resume metformin at discharge SUBJECTIVE: History of Present Illness: 77 yo F with advanced dementia and well-controlled T2DM who was recently admitted to [facility] after a mechanical fall causing RIGHT hip fracture. She was in her usual state of good health and was living at [facility] for the past year due to dementia. She underwent ORIF 4 weeks ago for repair of the RIGHT hip. Note is made of moderate-severe hyperglycemia during that admission. She was discharged back to residence with prior medication, but developed altered mental status. Past Medical History: 1. T2DM, A1c 6.6% 2. HTN 3. Dementia Medications Prior to Admission: Atorvastatin* [Lipitor 40 MG*] 40 mg PO BEDTIME #30 tab 09/29/17 [Rx Confirmed 09/02/18] Lisinopril TAB* [Prinivil TAB 10 MG*] 20 mg PO DAILY #60 tab 09/29/17 [Rx Confirmed 09/02/18] Alendronate (NF) [Fosamax (NF)] 70 mg PO WEEKLY 08/07/18 [History Confirmed ] Ascorbic Acid TAB* [Vitamin C TAB*] 1,000 mg PO QAM 08/07/18 [History Confirmed 09/02/18] Empaglifozin (NF) [Jardiance] 25 mg PO DAILY 08/07/18 [History Confirmed ] Rivaroxaban TAB(*) [Xarelto 10 mg (*)] 10 mg PO DAILY tab 08/11/18 [Rx Confirmed 09/02/18] Docusate CAP* [Colace Cap*] 100 mg PO 0900,2100 08/17/18 [History Confirmed ] Donepezil TAB* [Aricept 5 MG TAB*] 10 mg PO DAILY 08/17/18 [History Confirmed ] Magnesium Hydroxide LIQ* [Milk of Magnsandip LIQ*] 30 ml PO Q6H PRN 08/17/18 [ History Confirmed 09/02/18] metFORMIN* [Glucophage 1000 MG TAB *] 1,000 mg PO 0900,1800 08/17/18 [History Confirmed 09/02/18] traMADol TAB* [Ultram*] 50 mg PO 0900,2100 PRN 08/17/18 [History Confirmed 09/02] traMADol TAB* [Ultram*] 50 mg PO BID PRN 08/17/18 [History Confirmed 09/02/18] Acetaminophen [Acetaminophen Extra Strength] 1,000 mg PO 0900,2100 MDD 3000 mg 09/02/18 [History Confirmed 09/02/18] Bisacodyl SUPP* [Dulcolax Supp*] 10 mg TX DAILY PRN 09/02/18 [History Confirmed 09/02/18] Tevin/D3/Mag11/Zinc/Sand Cutting Machine Operator/Yobani/Bor [Caltrate 600+D Plus] 1 tab PO DAILY 09/02/18 [ History Confirmed 09/02/18] Cyanocobalamin (Vitamin B-12) [Vitamin B-12] 100 mcg PO 0900 09/02/18 [History Confirmed 09/02/18] Memantine TAB* [Namenda TAB*] 5 mg PO BID 09/02/18 [History Confirmed 09/02/18] Sodium Phosphate ADULT ENEMA* [Fleet Enema*] 1 enema TX DAILY PRN 09/02/18 [ History Confirmed 09/02/18] oxyCODONE TAB* [Roxycodone TAB 5 mg*] 5 mg PO Q6H PRN 09/02/18 [History Confirmed 09/02/18] Inpatient Medications: Acetaminophen (Tylenol Tab*) 975 mg PO 0900,2100 [facility] Last Admin: 09/02/18 21:24 Dose: Not Given Alendronate Sodium (Fosamax (Nf)) 70 mg PO WEEKLY [facility]; Protocol Ascorbic Acid (Vitamin C Tab*) 1,000 mg PO QAM [facility] Atorvastatin Calcium (Lipitor*) 40 mg PO BEDTIME [facility] Last Admin: 09/02/18 21:24 Dose: Not Given Bisacodyl (Dulcolax Supp*) 10 mg TX DAILY PRN PRN Reason: CONSTIPATION Dextrose (D50w Syringe 50 Ml*) 12.5 gm IV PUSH .FOR FS < 60 - SS PRN PRN Reason: FS < 60 Docusate Sodium (Colace Cap*) 100 mg PO 0900,2100 [facility] Last Admin: 09/02/18 21:24 Dose: Not Given Donepezil HCl (Aricept Tab*) 10 mg PO DAILY [facility] Heparin Sodium (Porcine) (Heparin Vial(*)) 5,000 units SUBCUT Q8HR [facility] Last Admin: 09/03/18 05:55 Dose: 5,000 units Sodium Chloride (Ns 0.9% 1000 Ml) 1,000 mls @ 125 mls/hr IV PER RATE [facility] Last Admin: 09/02/18 21:06 Dose: 125 mls/hr Ceftriaxone Sodium 1 gm/ (Sodium Chloride) 50 mls @ 200 mls/hr IVPB Q24H [facility] Last Admin: 09/02/18 21:07 Dose: 200 mls/hr Dextrose/Sodium Chloride (D5w 1/2 Ns 1000 Ml Bag*) 1,000 mls @ 175 mls/hr IV PER RATE [facility] Last Admin: 09/03/18 06:10 Dose: 175 mls/hr Insulin Human Lispro (Humalog*) 0 units SUBCUT FS Q4 ICU [facility]; Protocol Magnesium Hydroxide (Milk Of Magnesia Liq*) 30 ml PO Q6H PRN PRN Reason: CONSTIPATION Memantine (Namenda Tab*) 5 mg PO BID [facility] Last Admin: 09/02/18 22:35 Dose: Not Given Morphine Sulfate (Morphine 4 Mg/Ml Vial (1 Ml)) 2 mg IV Q4H PRN PRN Reason: PAIN - MILD Last Admin: 09/03/18 04:32 Dose: 2 mg Nft: Caltrate 600+D (Plus Tablet) 1 tab PO DAILY [facility] Nft: Cyanocobalamin (Vitamin B-12) [ Vitamin B-12] 100 Mcg 100 mcg PO 0900 [facility] Allergies/Intolerances: cipro Social History: Resident at memory care facility. /HCP of 60 years nearby. Daughter nearby. Family History: Dementia. Otherwise non-contributory. Review of Systems: Unable to obtain from patient. Family members deny recent illness. OBJECTIVE: Temp Pulse Resp BP Pulse Ox 98.3 F 96 24 131/71 96 09/03/18 00:00 09/03/18 07:15 09/03/18 07:15 09/03/18 07:15 09/03/18 07:15 General: ENT: neck supple, no thyromegaly, no bruit is heard Chest: CTAB, no wheezing or crackles CV: RRR, no murmur Abdomen: soft, non-tender Extremities: no edema, distal pulses intact Skin: warm, dry, no rash Neuro: grossly intact motor/sensory in extremities Labs: WBC 9.0 10^3/uL (3.5-10.8) 09/03/18 06:34 RBC 3.55 10^6 /uL (3.70-4.87) L 09/03/18 06:34 Hgb 10.9 g/dL (12.0-16.0) L 09/03/18 06:34 Hct 35 % (33-41) 09/03/18 06:34 MCV 98 fL (80-97) H 09/03/18 06:34 MCH 31 pg (27-31) 09/03/18 06:34 MCHC 32 g/dL (31-36) 09/03/18 06:34 RDW 19 % (10.5-15) H 09/03/18 06:34 Plt Count 213 10^3/uL (150-450) 09/03/18 06:34 MPV 9.1 fL (7.4-10.4) 09/03/18 06:34 Neut % (Auto) 87.6 % 09/03/18 06:34 Lymph % (Auto) 7.5 % 09/03/18 06:34 [place] % (Auto) 4.2 % 09/03/18 06:34 Eos % (Auto) 0.3 % 09/03/18 06:34 Baso % (Auto) 0.4 % 09/03/18 06:34 Absolute Neuts (auto) 7.9 10^3/ul (1.5-7.7) H 09/03/18 06:34 Absolute Lymphs (auto) 0.7 10^3/ul (1.0-4.8) L 09/03/18 06:34 Absolute Monos (auto) 0.4 10^3/ul (0-0.8) 09/03/18 06:34 Absolute Eos (auto) 0 10^3/ul (0-0.6) 09/03/18 06:34 Absolute Basos (auto) 0 10^3/ul (0-0.2) 09/03/18 06:34 Absolute Nucleated RBC 0 10^3/ul 09/03/18 06:34 Nucleated RBC % 0 09/03/18 06:34 INR (Anticoag Therapy) 0.94 (0.77-1.02) 09/03/18 06:34 APTT 24.6 seconds (26.0-36.3) L 09/03/18 06:34 Sodium 147 mmol/L (135-145) H 09/03/18 06:34 Potassium 6.9 mmol/L (3.5-5.0) H* D 09/03/18 06:34 Chloride 115 mmol/L (101-111) H 09/03/18 06:34 Carbon Dioxide 23 mmol/L (22-32) 09/03/18 06:34 Anion Gap 9 mmol/L (2-11) 09/03/18 06:34 BUN 24 mg/dL (6-24) 09/03/18 06:34 Creatinine 0.53 mg/dL (0.51-0.95) 09/03/18 06:34 Est GFR ( Amer) 135.0 (>60) 09/03/18 06:34 Est GFR (Non-Af Amer) 111.6 (>60) 09/03/18 06:34 BUN/Creatinine Ratio 45.3 (8-20) H 09/03/18 06:34 Glucose 331 mg/dL (70-100) H 09/03/18 06:34 POC Glucose (mg/dL) 205 mg/dL (70-100) H 09/03/18 06:11 Glucose Meter Confirm 716 mg/dL (70-100) H* 09/02/18 17:43 Serum Osmolality 342 mOsm/kg (275-295) H* 09/02/18 22:20 Lactic Acid 1.2 mmol/L (0.5-2.0) 09/03/18 06:34 Calcium 8.2 mg/dL (8.6-10.3) L 09/03/18 06:34 Total Bilirubin 0.90 mg/dL (0.2-1.0) 09/03/18 06:34 Direct Bilirubin 0.20 mg/dL (0.03-0.18) H 09/03/18 06:34 Indirect Bilirubin 0.7 mg/dL (0.3-1.0) 09/03/18 06:34 AST 40 U/L (13-39) H 09/03/18 06:34 ALT 11 U/L (7-52) 09/03/18 06:34 Alkaline Phosphatase 89 U/L (34-104) 09/03/18 06:34 Total Creatine Kinase 306 U/L (10-223) H 09/03/18 06:34 CK-MB (CK-2) 99.0 ng/mL (0.6-6.3) H 09/03/18 06:34 Troponin I 5.15 ng/mL (<0.04) H* 09/03/18 06:34 Total Protein 6.1 g/dL (6.4-8.9) L 09/03/18 06:34 Albumin 3.4 g/dL (3.2-5.2) 09/03/18 06:34 Globulin 2.7 g/dL (2-4) 09/03/18 06:34 Albumin/Globulin Ratio 1.3 (1-3) 09/03/18 06:34 Urine Color Straw 09/02/18 17:30 Urine Appearance Cloudy 09/02/18 17:30 Urine pH 5.0 (5-9) 09/02/18 17:30 Ur Specific [place] 1.029 (1.010-1.030) 09/02/18 17:30 Urine Protein Negative (Negative) 09/02/18 17:30 Urine Ketones Trace (Negative) A 09/02/18 17:30 Urine Blood 1+ (Negative) A 09/02/18 17:30 Urine Nitrate Negative (Negative) 09/02/18 17:30 Urine Bilirubin Negative (Negative) 09/02/18 17:30 Urine Urobilinogen Negative (Negative) 09/02/18 17:30 Ur Leukocyte Esterase 2+ (Negative) A 09/02/18 17:30 Urine WBC (Auto) 3+(>20/hpf) (Absent) A 09/02/18 17:30 Urine RBC (Auto) 3+(>10/hpf) (Absent) A 09/02/18 17:30 Ur Squamous Epith Cells Present (Absent) A 09/02/18 17:30 Urine Bacteria 1+ (Absent) A 09/02/18 17:30 Urine Yeast Present (Absent) A 09/02/18 17:30 Urine Glucose 3+(>=500 mg/dl) (Negative) A 09/02/18 17:30
[2018-09-03] MEDS ORDERED: Perflutren Lipid Microsphere* 3 ML VIAL ONE (08:27)
[2018-09-03] MEDS ORDERED: CALTRATE PO SCH (09:00)
[2018-09-03] MEDS ORDERED: [UNRECOGNIZED DRUG - OTHER] PO SCH (09:00)
[2018-09-03] MEDS ORDERED: CYANOCOBALAMIN 100 MCG PO SCH (09:00)
[2018-09-03] MEDS ORDERED: Ascorbic Acid TAB* 500 MG PO SCH (09:00)
[2018-09-03] MEDS: Acetaminophen TAB* 325 MG PO SCH (09:43)
[2018-09-03] MEDS: Docusate CAP* 100 MG PO SCH ×2 (09:48→20:59)
[2018-09-03] MEDS: Donepezil TAB* 5 MG PO SCH (09:48)
[2018-09-03] MEDS: Memantine TAB* 5 MG PO SCH ×2 (09:48→20:58)
--- NOTE | 2018-09-03 09:54 | ECHO ---
Patient: ASHLEY MOORE [facility] Rec#: [id number] : 1940 Date: 09/03/2018 Age: 77y Height: 165 cm / 65.0 in Weight: 48.6 kg / 107.1 lbs Sex: F BSA: 1.5 Room#: ICU 9 Admit Date#: 09/02/2018 Type: Inpatient Referring: Donovan Hampton Reading: Teja Crouch DO Cable Assembler: Alma Francis RN RDCS CC: FRANCIS TORRES Transthoracic Echocardiogram Indication: Elevated troponin levels BP: 127/71 HR: 96 Rhythm: NSR Findings History: Dementia, HTN, HLD, DM, recent fall with hip fracture Technical Comments: The study quality is fair. The study was technically limited due to the patient's inability to lay in the left lateral decubitus position. The patient had difficulty holding still and cooperating during the exam. Left Ventricle: The left ventricular chamber size is normal. There is a prominent septal knuckle. There is severely decreased left ventricular systolic function. The estimated ejection fraction is 25-30%. Abnormal left ventricular diastolic function is observed. The patient was unable to perform a Valsalva maneuver. The mid anteroseptal, mid anterior, mid anterolateral, mid inferolateral, mid inferior, mid inferoseptal, apical septal, apical anterior, apical lateral, and apical inferior wall segments are akinetic (score 3). Overall wallmotion score index is 2.25 Left Atrium: The left atrial chamber size is normal. Right Ventricle: The right ventricular cavity size is normal. The right ventricular global systolic function is mildly reduced. The apex of the right ventricle appears hypokinetic. Right Atrium: The right atrial cavity size is normal. Aortic Valve: The aortic valve is trileaflet. The aortic valve leaflets are mildly thickened. There is aortic annular calcification. There is no evidence of aortic regurgitation. There is no evidence of aortic stenosis. Mitral Valve: The mitral valve leaflets are mildly thickened. There is mild mitral regurgitation. There is no evidence of mitral stenosis. Tricuspid Valve: The tricuspid valve leaflets are normal. There is trace to mild tricuspid regurgitation. No pulmonary hypertension is noted. There is no tricuspid stenosis. Pulmonic Valve: The pulmonic valve structure is not well visualized. There is a trace pulmonic regurgitation. There is no pulmonic stenosis. Pericardium: There is no significant pericardial effusion. Aorta: The ascending aorta is not well visualized. There is no dilatation of the aortic arch. There is no dilation of the aortic root. Pulmonary Artery: The main pulmonary artery is not well visualized. Venous: The inferior vena cava appears normal in size. There is less than 50% respiratory change in the inferior vena cava dimension. Contrast: Definity was used to optimize study. A total of 3 ml of diluted Definity was given IV to enhance endocardial border definition. Conclusions The left ventricular chamber size is normal. There is a prominent septal knuckle. There is severely decreased left ventricular systolic function. The estimated ejection fraction is 25-30%. Pattern of wall motion abnormalities are suggestive of a stress/takotsubo cardiomyopathy although multivessel CAD cannot be excluded. The left atrial chamber size is normal. The right ventricular cavity size is normal. The apex of the right ventricle appears hypokinetic. There is mild mitral regurgitation. Definity was used to optimize study. None prior for comparison Measurements Name Value Normal Range RVDdMajor (2D) 3.1 cm (2.2 - 4.4) RAd ISD 4CH 4 cm (3.4 - 4.9) RA (A4C)W 3.7 cm (2.9 - 4.6) IVSd (2D) 0.9 cm (0.6 - 1) LVPWd (2D) 0.9 cm (0.6 - 1) LVIDd (2D) 4.6 cm (3.6 - 5.4) LVIDs (2D) 4.1 cm - LV FS (2D) 11 % (25 - 45) Aortic Annulus 2 cm (1.4 - 2.6) Ao root diameter (2D) 2.8 cm (2.1 - 3.5) Aortic arch 2.1 cm (1.8 - 3.4) LA dimension (AP) 2D 2.7 cm (2.3 - 3.8) LAd ISD 4CH 3.6 cm (2.9 - 5.3) LA ISD 4CH W 3.7 cm (2.5 - 4.5) Name Value Normal Range MV E-wave Vmax 0.85 m/sec - MV deceleration time 144 msec - MV A-wave Vmax 0.87 m/sec - MV E:A ratio 1 ratio - LV septal e' Vmax 0.06 m/sec - LV lateral e' Vmax 0.05 m/sec - LV E:e' septal ratio 14.2 ratio - LV E:e' lateral ratio 17 ratio - Name Value Normal Range AV Vmax 0.94 m/sec - AV VTI 16.6 cm - AV peak gradient 4 mmHg - AV mean gradient 2 mmHg - LVOT Vmax 0.55 m/sec - LVOT VTI 10.7 cm - LVOT peak gradient 1 mmHg - LVOT mean gradient 1 mmHg - ZELALEM Vmax 0.46 m/sec - Name Value Normal Range TR Vmax 2.7 m/sec - TR peak gradient 29 mmHg - RAP 8 mmHg - RVSP 37 mmHg - IVC diameter 1.1 cm - Name Value Normal Range PV Vmax 0.64 m/sec - Wallmotion BAS Normal BA Normal BAL Normal KARISSA Normal BI Normal BIS Normal MAS Akinetic MA Akinetic MAL Akinetic MIL Akinetic OR Akinetic MIS Akinetic Akinetic AA Akinetic AL Akinetic AI Akinetic APEX Akinetic
[2018-09-03] MEDS ORDERED: Insulin IVPB 100 units/100 ml 100 UNITS/100 ML UNIT IVPB SCH (10:00)
[2018-09-03] MEDS: Lactated Ringers 1000 ML Bag* 1,000 ML IV SCH ×2 (10:06→20:42)
[2018-09-03] MEDS ORDERED: Ketorolac INJ* 30 MG/ML 1 ML VIAL ONE (10:42)
[2018-09-03 11:46] LABS: BUN/Creatinine Ratio 43.2 (8-20); Blood Urea Nitrogen 19 mg/dL (6-24); CO2 Carbon Dioxide 24 mmol/L (22-32); EGFR African American 167.3 (>60); EGFR Non-African American 138.3 (>60); Glucose 253 mg/dL (70-100)
[2018-09-03 11:48] LABS: Anion Gap 9 mmol/L (2-11); Chloride 116 mmol/L (101-111); Sodium 149 mmol/L (135-145); Troponin I 3.94 ng/mL (<0.04)
[2018-09-03] MEDS ORDERED: Carvedilol TAB* 6.25 MG PO SCH (12:00)
[2018-09-03] MEDS ORDERED: Enoxaparin(*) 30 MG/0.3 ML SYR SUBCUT SCH (12:00)
[2018-09-03] MEDS: Insulin LISPRO* 1 UNITS UNIT SUBCUT SCH ×3 (12:45→20:54)
--- NOTE | 2018-09-03 15:19 | PN ---
Progress Note - Progress Note Date of Service: 09/03/18 SOAP: Subjective: [] Pt seen at bedside. She is unable to have meaningful conversation with me today. Her and nurse are in the room. Left hip pain is confirmed by her nurse. Objective: []General: Patient is alert but not oriented, she does not follow commands or answer any questions LLE: Skin intact, tender to palpation of left hip. She is otherwise not obviously tender to palpation of her LLE. DF/PF intact, DP2+ RUE, BL UE she is nontender to palpation. She is able to lift BL UE above her head without pain. Assessment: []Left hip femoral neck fracture Plan: []Bedrest, NWB LLE Received Lovenox DVT prophylaxis today, please hold for surgery tomorrow Discussed plan for OR with Public Address System Operator Dr. Crouch, feels she is optimized for surgery in absence of any acute changes overnight. She has been evaluated by cardiology, also Dr. Crouch, trop elevation felt to be due to takotsubo cardiomyapathy which is not a cause to delay surgery Pre-op labs: cbc, bmp, PT/INR, type and screen Have reached out to ensure last dose of xarelto was truly 3 days ago, awaiting return call for this confirmation Plan is for hemiarthroplasty left hip with Dr Alcaraz 09/04. was in the room, agreeable and confirms he will be at the hospital by 9:30 tomorrow morning and available to sign consent Laboratory Last Values WBC 9.0 10^3/uL (3.5-10.8) 09/03/18 06:34 RBC 3.55 10^6 /uL (3.70-4.87) L 09/03/18 06:34 Hgb 10.9 g/dL (12.0-16.0) L 09/03/18 06:34 Hct 35 % (33-41) 09/03/18 06:34 MCV 98 fL (80-97) H 09/03/18 06:34 MCH 31 pg (27-31) 09/03/18 06:34 MCHC 32 g/dL (31-36) 09/03/18 06:34 RDW 19 % (10.5-15) H 09/03/18 06:34 Plt Count 213 10^3/uL (150-450) 09/03/18 06:34 MPV 9.1 fL (7.4-10.4) 09/03/18 06:34 Neut % (Auto) 87.6 % 09/03/18 06:34 Lymph % (Auto) 7.5 % 09/03/18 06:34 [place] % (Auto) 4.2 % 09/03/18 06:34 Eos % (Auto) 0.3 % 09/03/18 06:34 Baso % (Auto) 0.4 % 09/03/18 06:34 Absolute Neuts (auto) 7.9 10^3/ul (1.5-7.7) H 09/03/18 06:34 Absolute Lymphs (auto) 0.7 10^3/ul (1.0-4.8) L 09/03/18 06:34 Absolute Monos (auto) 0.4 10^3/ul (0-0.8) 09/03/18 06:34 Absolute Eos (auto) 0 10^3/ul (0-0.6) 09/03/18 06:34 Absolute Basos (auto) 0 10^3/ul (0-0.2) 09/03/18 06:34 Absolute Nucleated RBC 0 10^3/ul 09/03/18 06:34 Nucleated RBC % 0 09/03/18 06:34 INR (Anticoag Therapy) 0.94 (0.77-1.02) 09/03/18 06:34 APTT 24.6 seconds (26.0-36.3) L 09/03/18 06:34 Sodium 149 mmol/L (135-145) H 09/03/18 11:00 Potassium TNP 09/03/18 11:00 Chloride 116 mmol/L (101-111) H 09/03/18 11:00 Carbon Dioxide 24 mmol/L (22-32) 09/03/18 11:00 Anion Gap 9 mmol/L (2-11) 09/03/18 11:00 BUN 19 mg/dL (6-24) 09/03/18 11:00 Creatinine 0.44 mg/dL (0.51-0.95) L 09/03/18 11:00 Est GFR ( Amer) 167.3 (>60) 09/03/18 11:00 Est GFR (Non-Af Amer) 138.3 (>60) 09/03/18 11:00 BUN/Creatinine Ratio 43.2 (8-20) H 09/03/18 11:00 Glucose 253 mg/dL (70-100) H 09/03/18 11:00 POC Glucose (mg/dL) 205 mg/dL (70-100) H 09/03/18 06:11 Glucose Meter Confirm 716 mg/dL (70-100) H* 09/02/18 17:43 Serum Osmolality 342 mOsm/kg (275-295) H* 09/02/18 22:20 Lactic Acid 1.2 mmol/L (0.5-2.0) 09/03/18 06:34 Calcium 8.0 mg/dL (8.6-10.3) L 09/03/18 11:00 Total Bilirubin 0.90 mg/dL (0.2-1.0) 09/03/18 06:34 Direct Bilirubin 0.20 mg/dL (0.03-0.18) H 09/03/18 06:34 Indirect Bilirubin 0.7 mg/dL (0.3-1.0) 09/03/18 06:34 AST 40 U/L (13-39) H 09/03/18 06:34 ALT 11 U/L (7-52) 09/03/18 06:34 Alkaline Phosphatase 89 U/L (34-104) 09/03/18 06:34 Total Creatine Kinase 306 U/L (10-223) H 09/03/18 06:34 CK-MB (CK-2) 99.0 ng/mL (0.6-6.3) H 09/03/18 06:34 Troponin I 3.94 ng/mL (<0.04) H* 09/03/18 11:00 Total Protein 6.1 g/dL (6.4-8.9) L 09/03/18 06:34 Albumin 3.4 g/dL (3.2-5.2) 09/03/18 06:34 Globulin 2.7 g/dL (2-4) 09/03/18 06:34 Albumin/Globulin Ratio 1.3 (1-3) 09/03/18 06:34 Urine Color Straw 09/02/18 17:30 Urine Appearance Cloudy 09/02/18 17:30 Urine pH 5.0 (5-9) 09/02/18 17:30 Ur Specific [place] 1.029 (1.010-1.030) 09/02/18 17:30 Urine Protein Negative (Negative) 09/02/18 17:30 Urine Ketones Trace (Negative) A 09/02/18 17:30 Urine Blood 1+ (Negative) A 09/02/18 17:30 Urine Nitrate Negative (Negative) 09/02/18 17:30 Urine Bilirubin Negative (Negative) 09/02/18 17:30 Urine Urobilinogen Negative (Negative) 09/02/18 17:30 Ur Leukocyte Esterase 2+ (Negative) A 09/02/18 17:30 Urine WBC (Auto) 3+(>20/hpf) (Absent) A 09/02/18 17:30 Urine RBC (Auto) 3+(>10/hpf) (Absent) A 09/02/18 17:30 Ur Squamous Epith Cells Present (Absent) A 09/02/18 17:30 Urine Bacteria 1+ (Absent) A 09/02/18 17:30 Urine Yeast Present (Absent) A 09/02/18 17:30 Urine Glucose 3+(>=500 mg/dl) (Negative) A 09/02/18 17:30 Vital Signs Temp 97.3 F 09/03/18 12:00 Pulse 98 09/03/18 14:10 Resp 14 09/03/18 14:10 BP 79/48 09/03/18 14:10 Pulse Ox 99 09/03/18 14:10 Intake & Output 09/02/18 09/03/18 09/03/18 18:59 06:59 18:59 Intake Total 1000 2730 1300 Output Total 1560 460 Balance 1000 1170 840 Weight 110 lb 107 lb 2.314 oz Intake: IV Fluids 1000 2710 1130 ABX 150 D5 1/2NS 118 600 KCL 118 LR 530 NS (0.9%) 2324 IVPB 80 KCL 80 Medicated IV 20 INSULIN 20 Oral 90 Output: Hernandez 1560 460
--- NOTE | 2018-09-03 18:07 | PN ---
Date of Service: 09/03/18 Critical Care Services: Hyperglycemia controlled and dehydration corrected. Cardiac ECHO consistent with Takatsubo's (stress) cardiomyopathy, and troponin levels declining. Patient appears comfortable as long as left leg is immobile. Vital Signs: Temp Pulse Resp BP SpO2 FiO2 97.3 F 98 22 79/48 99 Physical Exam: Gen:Awake but unaware HEENT:No facial asymmetry Lungs:Clear Cardiac: Reg rhythm Abdomen:Not distended Extremities:Left leg abducted. No cyanosis or edema. Fluid Balance (Past 24 Hours): 09/03/18 06:59 Intake Total 3730 Output Total 1560 Balance 2170 Weight 107 lb Intake: IV Fluids 3710 ABX 150 D5 1/2NS 118 KCL 118 LR NS (0.9%) 2324 IVPB KCL Medicated IV 20 INSULIN 20 Oral Output: Hernandez [id number] Labs: Laboratory Results - last 24 hr 09/02/18 09/02/18 09/02/18 17:30 17:43 17:43 WBC 12.0 H RBC 3.97 Hgb 12.2 Hct 40 MCV 100 H MCH 31 MCHC 31 RDW 20 H Plt Count 290 MPV 8.9 Neut % (Auto) 88.1 Lymph % (Auto) 6.4 [place] % (Auto) 5.1 Eos % (Auto) 0 Baso % (Auto) 0.4 Absolute Neuts (auto) 10.6 H Absolute Lymphs (auto) 0.8 L Absolute Monos (auto) 0.6 Absolute Eos (auto) 0 Absolute Basos (auto) 0 Absolute Nucleated RBC 0 Nucleated RBC % 0 INR (Anticoag Therapy) APTT Sodium 149 H Potassium 4.9 Chloride 111 Carbon Dioxide 29 Anion Gap 9 BUN 51 H Creatinine 1.39 H Est GFR ( Amer) 44.4 Est GFR (Non-Af Amer) 36.7 BUN/Creatinine Ratio 36.7 H Glucose 716 H* POC Glucose (mg/dL) Glucose Meter Confirm 716 H* Serum Osmolality Lactic Acid Calcium 9.7 Total Bilirubin 0.80 Direct Bilirubin Indirect Bilirubin AST 7 L ALT 12 Alkaline Phosphatase 106 H Total Creatine Kinase CK-MB (CK-2) Troponin I 0.05 H* Total Protein 6.8 Albumin 3.8 Globulin 3.0 Albumin/Globulin Ratio 1.3 Urine Color Straw Urine Appearance Cloudy Urine pH 5.0 Ur Specific [place] 1.029 Urine Protein Negative Urine Ketones Trace A Urine Blood 1+ A Urine Nitrate Negative Urine Bilirubin Negative Urine Urobilinogen Negative Ur Leukocyte Esterase 2+ A Urine WBC (Auto) 3+(>20/hpf) A Urine RBC (Auto) 3+(>10/hpf) A Ur Squamous Epith Cells Present A Urine Bacteria 1+ A Urine Yeast Present A Urine Glucose 3+(>=500 mg/dl) A 09/02/18 09/02/18 09/02/18 17:43 21:08 22:07 WBC RBC Hgb Hct MCV MCH MCHC RDW Plt Count MPV Neut % (Auto) Lymph % (Auto) [place] % (Auto) Eos % (Auto) Baso % (Auto) Absolute Neuts (auto) Absolute Lymphs (auto) Absolute Monos (auto) Absolute Eos (auto) Absolute Basos (auto) Absolute Nucleated RBC Nucleated RBC % INR (Anticoag Therapy) 0.94 APTT 22.8 L Sodium Potassium Chloride Carbon Dioxide Anion Gap BUN Creatinine Est GFR ( Amer) Est GFR (Non-Af Amer) BUN/Creatinine Ratio Glucose POC Glucose (mg/dL) 293 H 269 H Glucose Meter Confirm Serum Osmolality Lactic Acid Calcium Total Bilirubin Direct Bilirubin Indirect Bilirubin AST ALT Alkaline Phosphatase Total Creatine Kinase CK-MB (CK-2) Troponin I Total Protein Albumin Globulin Albumin/Globulin Ratio Urine Color Urine Appearance Urine pH Ur Specific [place] Urine Protein Urine Ketones Urine Blood Urine Nitrate Urine Bilirubin Urine Urobilinogen Ur Leukocyte Esterase Urine WBC (Auto) Urine RBC (Auto) Ur Squamous Epith Cells Urine Bacteria Urine Yeast Urine Glucose 09/02/18 09/02/18 09/02/18 22:20 22:20 22:20 WBC RBC Hgb Hct MCV MCH MCHC RDW Plt Count MPV Neut % (Auto) Lymph % (Auto) [place] % (Auto) Eos % (Auto) Baso % (Auto) Absolute Neuts (auto) Absolute Lymphs (auto) Absolute Monos (auto) Absolute Eos (auto) Absolute Basos (auto) Absolute Nucleated RBC Nucleated RBC % INR (Anticoag Therapy) APTT Sodium 157 H* D Potassium 4.5 Chloride 124 H Carbon Dioxide 23 Anion Gap 10 BUN 39 H Creatinine 0.87 Est GFR ( Amer) 76.2 Est GFR (Non-Af Amer) 63.0 BUN/Creatinine Ratio 44.8 H Glucose 278 H POC Glucose (mg/dL) Glucose Meter Confirm Serum Osmolality 342 H* Lactic Acid 2.3 H* Calcium 8.5 L Total Bilirubin Direct Bilirubin Indirect Bilirubin AST ALT Alkaline Phosphatase Total Creatine Kinase 17 CK-MB (CK-2) Troponin I 0.05 H* Total Protein Albumin Globulin Albumin/Globulin Ratio Urine Color Urine Appearance Urine pH Ur Specific [place] Urine Protein Urine Ketones Urine Blood Urine Nitrate Urine Bilirubin Urine Urobilinogen Ur Leukocyte Esterase Urine WBC (Auto) Urine RBC (Auto) Ur Squamous Epith Cells Urine Bacteria Urine Yeast Urine Glucose 09/02/18 09/03/18 09/03/18 23:26 00:22 01:15 WBC RBC Hgb Hct MCV MCH MCHC RDW Plt Count MPV Neut % (Auto) Lymph % (Auto) [place] % (Auto) Eos % (Auto) Baso % (Auto) Absolute Neuts (auto) Absolute Lymphs (auto) Absolute Monos (auto) Absolute Eos (auto) Absolute Basos (auto) Absolute Nucleated RBC Nucleated RBC % INR (Anticoag Therapy) APTT Sodium Potassium Chloride Carbon Dioxide Anion Gap BUN Creatinine Est GFR ( Amer) Est GFR (Non-Af Amer) BUN/Creatinine Ratio Glucose POC Glucose (mg/dL) 214 H 142 H 147 H Glucose Meter Confirm Serum Osmolality Lactic Acid Calcium Total Bilirubin Direct Bilirubin Indirect Bilirubin AST ALT Alkaline Phosphatase Total Creatine Kinase CK-MB (CK-2) Troponin I Total Protein Albumin Globulin Albumin/Globulin Ratio Urine Color Urine Appearance Urine pH Ur Specific [place] Urine Protein Urine Ketones Urine Blood Urine Nitrate Urine Bilirubin Urine Urobilinogen Ur Leukocyte Esterase Urine WBC (Auto) Urine RBC (Auto) Ur Squamous Epith Cells Urine Bacteria Urine Yeast Urine Glucose 09/03/18 09/03/18 09/03/18 02:13 02:35 03:24 WBC RBC Hgb Hct MCV MCH MCHC RDW Plt Count MPV Neut % (Auto) Lymph % (Auto) [place] % (Auto) Eos % (Auto) Baso % (Auto) Absolute Neuts (auto) Absolute Lymphs (auto) Absolute Monos (auto) Absolute Eos (auto) Absolute Basos (auto) Absolute Nucleated RBC Nucleated RBC % INR (Anticoag Therapy) APTT Sodium 153 H Potassium 3.4 L Chloride 123 H Carbon Dioxide 25 Anion Gap 5 BUN 32 H Creatinine 0.66 Est GFR ( Amer) 104.8 Est GFR (Non-Af Amer) 86.6 BUN/Creatinine Ratio 48.5 H Glucose 125 H POC Glucose (mg/dL) 123 H 93 Glucose Meter Confirm Serum Osmolality Lactic Acid Calcium 8.6 Total Bilirubin Direct Bilirubin Indirect Bilirubin AST ALT Alkaline Phosphatase Total Creatine Kinase CK-MB (CK-2) Troponin I 0.71 H* Total Protein Albumin Globulin Albumin/Globulin Ratio Urine Color Urine Appearance Urine pH Ur Specific [place] Urine Protein Urine Ketones Urine Blood Urine Nitrate Urine Bilirubin Urine Urobilinogen Ur Leukocyte Esterase Urine WBC (Auto) Urine RBC (Auto) Ur Squamous Epith Cells Urine Bacteria Urine Yeast Urine Glucose 09/03/18 09/03/18 09/03/18 03:30 03:51 06:11 WBC RBC Hgb Hct MCV MCH MCHC RDW Plt Count MPV Neut % (Auto) Lymph % (Auto) [place] % (Auto) Eos % (Auto) Baso % (Auto) Absolute Neuts (auto) Absolute Lymphs (auto) Absolute Monos (auto) Absolute Eos (auto) Absolute Basos (auto) Absolute Nucleated RBC Nucleated RBC % INR (Anticoag Therapy) APTT Sodium Potassium Chloride Carbon Dioxide Anion Gap BUN Creatinine Est GFR ( Amer) Est GFR (Non-Af Amer) BUN/Creatinine Ratio Glucose POC Glucose (mg/dL) 109 H 205 H Glucose Meter Confirm Serum Osmolality Lactic Acid 3.0 H* Calcium Total Bilirubin Direct Bilirubin Indirect Bilirubin AST ALT Alkaline Phosphatase Total Creatine Kinase CK-MB (CK-2) Troponin I Total Protein Albumin Globulin Albumin/Globulin Ratio Urine Color Urine Appearance Urine pH Ur Specific [place] Urine Protein Urine Ketones Urine Blood Urine Nitrate Urine Bilirubin Urine Urobilinogen Ur Leukocyte Esterase Urine WBC (Auto) Urine RBC (Auto) Ur Squamous Epith Cells Urine Bacteria Urine Yeast Urine Glucose 09/03/18 09/03/18 09/03/18 06:34 06:34 06:34 WBC 9.0 RBC 3.55 L Hgb 10.9 L Hct 35 MCV 98 H MCH 31 MCHC 32 RDW 19 H Plt Count 213 MPV 9.1 Neut % (Auto) 87.6 Lymph % (Auto) 7.5 [place] % (Auto) 4.2 Eos % (Auto) 0.3 Baso % (Auto) 0.4 Absolute Neuts (auto) 7.9 H Absolute Lymphs (auto) 0.7 L Absolute Monos (auto) 0.4 Absolute Eos (auto) 0 Absolute Basos (auto) 0 Absolute Nucleated RBC 0 Nucleated RBC % 0 INR (Anticoag Therapy) 0.94 APTT 24.6 L Sodium 147 H Potassium 6.9 H* D Chloride 115 H Carbon Dioxide 23 Anion Gap 9 BUN 24 Creatinine 0.53 Est GFR ( Amer) 135.0 Est GFR (Non-Af Amer) 111.6 BUN/Creatinine Ratio 45.3 H Glucose 331 H POC Glucose (mg/dL) Glucose Meter Confirm Serum Osmolality Lactic Acid Calcium 8.2 L Total Bilirubin 0.90 Direct Bilirubin 0.20 H Indirect Bilirubin 0.7 AST 40 H ALT 11 Alkaline Phosphatase 89 Total Creatine Kinase 306 H CK-MB (CK-2) 99.0 H Troponin I 5.15 H* Total Protein 6.1 L Albumin 3.4 Globulin 2.7 Albumin/Globulin Ratio 1.3 Urine Color Urine Appearance Urine pH Ur Specific [place] Urine Protein Urine Ketones Urine Blood Urine Nitrate Urine Bilirubin Urine Urobilinogen Ur Leukocyte Esterase Urine WBC (Auto) Urine RBC (Auto) Ur Squamous Epith Cells Urine Bacteria Urine Yeast Urine Glucose 09/03/18 09/03/18 09/03/18 06:34 07:30 08:28 WBC RBC Hgb Hct MCV MCH MCHC RDW Plt Count MPV Neut % (Auto) Lymph % (Auto) [place] % (Auto) Eos % (Auto) Baso % (Auto) Absolute Neuts (auto) Absolute Lymphs (auto) Absolute Monos (auto) Absolute Eos (auto) Absolute Basos (auto) Absolute Nucleated RBC Nucleated RBC % INR (Anticoag Therapy) APTT Sodium Potassium 4.2 D Chloride Carbon Dioxide Anion Gap BUN Creatinine Est GFR ( Amer) Est GFR (Non-Af Amer) BUN/Creatinine Ratio Glucose POC Glucose (mg/dL) 261 H Glucose Meter Confirm Serum Osmolality Lactic Acid 1.2 Calcium Total Bilirubin Direct Bilirubin Indirect Bilirubin AST ALT Alkaline Phosphatase Total Creatine Kinase CK-MB (CK-2) Troponin I Total Protein Albumin Globulin Albumin/Globulin Ratio Urine Color Urine Appearance Urine pH Ur Specific [place] Urine Protein Urine Ketones Urine Blood Urine Nitrate Urine Bilirubin Urine Urobilinogen Ur Leukocyte Esterase Urine WBC (Auto) Urine RBC (Auto) Ur Squamous Epith Cells Urine Bacteria Urine Yeast Urine Glucose 09/03/18 09/03/18 11:00 15:32 WBC RBC Hgb Hct MCV MCH MCHC RDW Plt Count MPV Neut % (Auto) Lymph % (Auto) [place] % (Auto) Eos % (Auto) Baso % (Auto) Absolute Neuts (auto) Absolute Lymphs (auto) Absolute Monos (auto) Absolute Eos (auto) Absolute Basos (auto) Absolute Nucleated RBC Nucleated RBC % INR (Anticoag Therapy) APTT Sodium 149 H Potassium TNP Chloride 116 H Carbon Dioxide 24 Anion Gap 9 BUN 19 Creatinine 0.44 L Est GFR ( Amer) 167.3 Est GFR (Non-Af Amer) 138.3 BUN/Creatinine Ratio 43.2 H Glucose 253 H POC Glucose (mg/dL) 225 H Glucose Meter Confirm Serum Osmolality Lactic Acid Calcium 8.0 L Total Bilirubin Direct Bilirubin Indirect Bilirubin AST ALT Alkaline Phosphatase Total Creatine Kinase CK-MB (CK-2) Troponin I 3.94 H* Total Protein Albumin Globulin Albumin/Globulin Ratio Urine Color Urine Appearance Urine pH Ur Specific [place] Urine Protein Urine Ketones Urine Blood Urine Nitrate Urine Bilirubin Urine Urobilinogen Ur Leukocyte Esterase Urine WBC (Auto) Urine RBC (Auto) Ur Squamous Epith Cells Urine Bacteria Urine Yeast Urine Glucose Studies: Urine culture already growing Klebsiella aerogenes. Nutrition: Consistent carb diet Impression: 1. Advanced dementia 2. 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 Klebsiella UTI 5. Hypertonic hyperglycemia resolving. Plan: 1. For surgery tomorrow. 2. NPO after midnight. 3. Ceftriaxone for the UTI Critical Care Time:
[2018-09-03] MEDS ORDERED: Lactated Ringers 1000 ML Bag* 1,000 ML IV ONE (19:00)
[2018-09-03] MEDS: cefTRIAXone(*) 1 GM in NS 0.9% 50 ML* 50 ML IVPB SCH (20:44)
[2018-09-03] MEDS: Atorvastatin* 40 MG TAB PO SCH (20:59)
[2018-09-04] MEDS: Insulin LISPRO* 1 UNITS UNIT SUBCUT SCH ×6 (01:15→21:56)
[2018-09-04 04:37] LABS: BUN/Creatinine Ratio 34.8 (8-20); Calcium 8.5 mg/dL (8.6-10.3); EGFR Non-African American 131.4 (>60); Potassium 3.5 mmol/L (3.5-5.0)
[2018-09-04] MEDS: Morphine 4 MG/ML VIAL (1 ml) 4 MG/ML VIAL IV PRN ×2 (04:41→19:58)
[2018-09-04 05:10] LABS: INR 0.98 (0.77-1.02)
[2018-09-04 05:14] LABS: ABS Basophils 0 10^3/ul (0-0.2); ABS Eosinophils 0.1 10^3/ul (0-0.6); ABS Lymphocytes 0.8 10^3/ul (1.0-4.8); ABS Monocytes 0.4 10^3/ul (0-0.8); ABS Neutrophils 7.7 10^3/ul (1.5-7.7); ABS Nucleated RBC 0 10^3/ul; Eosinophil % 1.4 %; Hematocrit 35 % (33-41); Hemoglobin 11.1 g/dL (12.0-16.0); Mean Corpuscular HGB Conc 32 g/dL (31-36); Mean Corpuscular Hemoglobin 31 pg (27-31); Mean Corpuscular Volume 97 fL (80-97); Mean Platelet Volume 9.3 fL (7.4-10.4); Nucleated Red Blood Cells % 0.1; Platelet Count 173 10^3/uL (150-450); Red Blood Count 3.63 10^6 /uL (3.70-4.87); Red Cell Distribution Width 19 % (10.5-15); White Blood Count 9.1 10^3/uL (3.5-10.8)
--- NOTE | 2018-09-04 08:01 | PN ---
Progress Note - Progress Note Date of Service: 09/04/18 SOAP: Subjective: Pt. is sleeping and appears comfortable. Objective: Vital Signs: Temp Pulse Resp BP Pulse Ox 98.4 F 92 18 110/57 73 09/04/18 04:00 09/04/18 07:00 09/04/18 07:00 09/04/18 07:00 09/04/18 06:01 Laboratory Results - last 24 hr 09/03/18 09/03/18 09/03/18 01:15 07:30 08:28 WBC RBC Hgb Hct MCV MCH MCHC RDW Plt Count MPV Neut % (Auto) Lymph % (Auto) Menard % (Auto) Eos % (Auto) Baso % (Auto) Absolute Neuts (auto) Absolute Lymphs (auto) Absolute Monos (auto) Absolute Eos (auto) Absolute Basos (auto) Absolute Nucleated RBC Nucleated RBC % INR (Anticoag Therapy) Sodium Potassium 4.2 D Chloride Carbon Dioxide Anion Gap BUN Creatinine Est GFR ( Amer) Est GFR (Non-Af Amer) BUN/Creatinine Ratio Glucose POC Glucose (mg/dL) 147 H 261 H Calcium Troponin I Blood Type Antibody Screen 09/03/18 09/03/18 09/03/18 11:00 15:32 18:20 WBC RBC Hgb Hct MCV MCH MCHC RDW Plt Count MPV Neut % (Auto) Lymph % (Auto) Menard % (Auto) Eos % (Auto) Baso % (Auto) Absolute Neuts (auto) Absolute Lymphs (auto) Absolute Monos (auto) Absolute Eos (auto) Absolute Basos (auto) Absolute Nucleated RBC Nucleated RBC % INR (Anticoag Therapy) Sodium 149 H Potassium TNP 3.6 Chloride 116 H Carbon Dioxide 24 Anion Gap 9 BUN 19 Creatinine 0.44 L Est GFR ( Amer) 167.3 Est GFR (Non-Af Amer) 138.3 BUN/Creatinine Ratio 43.2 H Glucose 253 H POC Glucose (mg/dL) 225 H Calcium 8.0 L Troponin I 3.94 H* Blood Type Antibody Screen 09/03/18 09/04/18 09/04/18 20:49 01:06 04:00 WBC RBC Hgb Hct MCV MCH MCHC RDW Plt Count MPV Neut % (Auto) Lymph % (Auto) Menard % (Auto) Eos % (Auto) Baso % (Auto) Absolute Neuts (auto) Absolute Lymphs (auto) Absolute Monos (auto) Absolute Eos (auto) Absolute Basos (auto) Absolute Nucleated RBC Nucleated RBC % INR (Anticoag Therapy) Sodium 145 Potassium 3.5 Chloride 114 H Carbon Dioxide 26 Anion Gap 5 BUN 16 Creatinine 0.46 L Est GFR ( Amer) 159.0 Est GFR (Non-Af Amer) 131.4 BUN/Creatinine Ratio 34.8 H Glucose 138 H POC Glucose (mg/dL) 163 H 170 H Calcium 8.5 L Troponin I Blood Type Antibody Screen 09/04/18 09/04/18 09/04/18 04:49 04:49 04:49 WBC 9.1 RBC 3.63 L Hgb 11.1 L Hct 35 MCV 97 MCH 31 MCHC 32 RDW 19 H Plt Count 173 MPV 9.3 Neut % (Auto) 84.8 Lymph % (Auto) 9.0 Menard % (Auto) 4.5 Eos % (Auto) 1.4 Baso % (Auto) 0.3 Absolute Neuts (auto) 7.7 Absolute Lymphs (auto) 0.8 L Absolute Monos (auto) 0.4 Absolute Eos (auto) 0.1 Absolute Basos (auto) 0 Absolute Nucleated RBC 0 Nucleated RBC % 0.1 INR (Anticoag Therapy) 0.98 Sodium Potassium Chloride Carbon Dioxide Anion Gap BUN Creatinine Est GFR ( Amer) Est GFR (Non-Af Amer) BUN/Creatinine Ratio Glucose POC Glucose (mg/dL) Calcium Troponin I Blood Type O Positive Antibody Screen Negative 09/04/18 05:24 WBC RBC Hgb Hct MCV MCH MCHC RDW Plt Count MPV Neut % (Auto) Lymph % (Auto) Menard % (Auto) Eos % (Auto) Baso % (Auto) Absolute Neuts (auto) Absolute Lymphs (auto) Absolute Monos (auto) Absolute Eos (auto) Absolute Basos (auto) Absolute Nucleated RBC Nucleated RBC % INR (Anticoag Therapy) Sodium Potassium Chloride Carbon Dioxide Anion Gap BUN Creatinine Est GFR ( Amer) Est GFR (Non-Af Amer) BUN/Creatinine Ratio Glucose POC Glucose (mg/dL) 154 H Calcium Troponin I Blood Type Antibody Screen LLE - distally 2+dp pulse. skin intact. Assessment: 77 yo demented female s/p fall with L displaced femoral neck fracture. Plan: Pt. is medically optimized for surgery. Bedrest, NPO. Plan L hip ernesto at approximately 15:00 today. Need family for consent preop.
[2018-09-04] MEDS: Lactated Ringers 1000 ML Bag* 1,000 ML IV SCH ×2 (09:02→19:58)
[2018-09-04] MEDS: Donepezil TAB* 5 MG PO SCH (09:36)
[2018-09-04] MEDS: Memantine TAB* 5 MG PO SCH ×2 (09:36→19:58)
[2018-09-04] MEDS: Docusate CAP* 100 MG PO SCH ×2 (09:36→19:59)
[2018-09-04] MEDS ORDERED: Propofol* 10 MG/ML 20 ML BTL ONE (13:40)
[2018-09-04] MEDS ORDERED: Lidocaine 2% PF * 5 ML VIAL ONE (13:40)
[2018-09-04] MEDS ORDERED: Midazolam* 1 MG/ML 2 ML VIAL (2 MG) ONE (13:40)
[2018-09-04] MEDS ORDERED: Ondansetron INJ* 2 MG/ML VIAL ONE (13:40)
[2018-09-04] MEDS ORDERED: Cisatracurium* 2 MG/ML MDV 5 ML ONE (13:40)
[2018-09-04] MEDS ORDERED: Dexamethasone IV* 4 MG/ML 1 ML (4 MG) ONE (13:40)
[2018-09-04] MEDS ORDERED: KETAMINE HCL* 50 MG/ML 10 ML VIAL ONE (13:40)
[2018-09-04] MEDS ORDERED: fentaNYL* 50 MCG/ML 2 ML VIAL (100 MCG VIAL) ONE ×3 (13:40→17:57)
[2018-09-04] MEDS ORDERED: Phenylephrine 10 MG/ML VIAL* 1 ML VIAL ONE (13:41)
[2018-09-04] MEDS ORDERED: ceFAZolin 2 GM in NS PREMIX(*) 2 GM/100 ML BAG IVPB ONE (15:28)
[2018-09-04] MEDS ORDERED: Ondansetron INJ* 2 MG/ML VIAL IV PRN ×2 (16:38→17:30)
[2018-09-04] MEDS ORDERED: fentaNYL* 50 MCG/ML 2 ML VIAL (100 MCG VIAL) IV PRN (16:38)
[2018-09-04] MEDS ORDERED: Naloxone* 0.4 MG/ML 1 ML VIAL IV PRN (16:38)
[2018-09-04] MEDS ORDERED: Neostigmine Methylsulfate* 1 MG/ML 10 ML VIAL (1 mg/ml) ONE (16:44)
[2018-09-04] MEDS ORDERED: Glycopyrrolate IV* 0.2 MG/ML 1 ML VIAL ONE (16:44)
[2018-09-04] MEDS ORDERED: ROPIVACAINE 5 MG/ML 30 ML BTL (0.5%) ONE (16:54)
[2018-09-04] MEDS: Atorvastatin* 40 MG TAB PO SCH (19:58)
[2018-09-04] MEDS: cefTRIAXone(*) 1 GM in NS 0.9% 50 ML* 50 ML IVPB SCH (20:34)
--- NOTE | 2018-09-05 00:37 | OP ---
OPERATIVE NOTE: DATE OF OPERATION: 09/04/18 DATE OF : 38 ATTENDING SURGEON: Christy Alcaraz MD. FLOWER PICKER: FATOU Luke. Renato did help throughout the procedure with preparation of the leg, wound retraction, manipulat ion of the hip, and wound closure. ANESTHESIOLOGIST: Dr. Palmer. ANESTHESIA: General. PRE-OP DIAGNOSIS: Displaced left femoral neck fracture. POST-OP DIAGNOSIS: Displaced left femoral neck fracture. OPERATIVE PROCEDURE: Left hip hemiarthroplasty. COMPLICATIONS: None. ESTIMATED BLOOD LOSS: 100 cc. SPECIMENS: Femoral head sent to pathology. HARDWARE USED: This is uncemented [place] total hip arthroplasty hardware. For the stem, an Accolad e II size 6 with a 127-degree neck. For the head, a 28 -4 LFIT V40 femoral head. For the bipolar co mponent, a 44/28 UHR [place] bipolar head. BRIEF HISTORY/INDICATIONS: Ms. Pressley is a 77-year-old demented female who presented to [facility] on 09/02/18, two days after a fall at [facility]. She was found to have a displaced femo ral neck fracture on the left. The patient was medically optimized over the next 48 hours. Her dehy dration and hyperglycemia were addressed. The patient's family, her son and daughter, was given both operative and nonoperative treatment options. They did wish to proceed with surgical fixation of th e fracture for pain control. Informed consent was obtained from the patient's family. They understo od the risks of surgery included, but were not limited to bleeding, infection, damage to nearby struc tures, continued pain, need for further surgery, intraoperative fracture, nerve palsy, hardware failu re or loosening, dislocation, leg-length discrepancy, stroke, heart attack, blood clot, and . T hey wished to proceed. INTRAOPERATIVE FINDINGS: Intraoperatively, the patient was noted to have a comminuted completely dis placed femoral neck fracture. Osteopenia was noted throughout the case. DESCRIPTION OF PROCEDURE: Ms. Pressley was identified in the preanesthesia unit. Her left lower ex tremity was marked as the correct operative site. Informed consent was signed and placed in the [facility] and the patient was taken to the operating room. General anesthesia was administered. The patient was placed on her right side on the pegboard. Immediately, her decubitus sacral ulcer was well visu alized. This was noted and measured. Extra padding was placed on the pegboard to pad all bony promi nences. The left lower extremity was prepped and draped in the usual sterile fashion. Preop time-ou t was made to correctly identify the patient side and site. Appropriate perioperative antibiotics we re given within 1 hour of incision. A posterior hip incision was made with a 10-blade and carried down to the lateral fascial layer. Lat eral fascial layer was incised in line with the skin incision. The piriformis and conjoint tendons we re elevated off the posterolateral femur using electrocautery and tagged with #5 Ethibond. Electroca utery was then used to make a posterior capsular flap and this was tagged with #5 Ethibond. The femo ral neck fracture was immediately visualized. The femoral neck was presented and an oscillating saw was used to make a cleanup cut. Any bony fragments were carefully removed. The femur was carefully retracted anteriorly. The femoral head was removed and measured at 44 mm and a 44 mm bipolar head was placed in the acetabulum. This had excellent fit and suction. Attention w as turned to preparation of the femoral canal. A canal finder was used to enter the proximal femur. The proximal femur was sequentially broached up to a size 6. Size 6 broach had excellent fit and ap propriate anteversion. An Accolade II size 6 with a 127-degree neck was chosen as the correct femora l stem. This was impacted into the femoral canal without difficulty. There was excellent stability and appropriate anteversion. An LFIT V40 28 -4 metal head was chosen as well as the 44 bipolar compo nent. These were impacted on to the femoral neck without difficulty. The hip was reduced and taken through a range of motion. The hip was stable in all positions. There was good soft tissue tension and appropriate leg lengths. The hip was copiously irrigated with sterile saline. Previously tagged capsule and tendons were reapproximated to the posterolateral femur through 2 trochanteric drill hol es. The lateral fascial layer was closed using interrupted #1 Vicryls. The rest of the incision was closed in a layered fashion using 0 and 2-0 Vicryls. Skin was closed using running 3-0 Monocryl sut ure and Dermabond. Sterile Adaptic, 4x4s, and paper tape were used to cover the incision. The patie nt's anesthesia was reversed without difficulty. Her decubitus ulcer was once again dressed and woun d consult will be put in. She was taken to the PACU in stable condition. Intended weightbearing steffi l be weightbearing as tolerated with posterior hip precautions. Intended DVT prophylaxis will be Storm enox. [id number]/[facility] #: [id number]
[2018-09-05] MEDS: ceFAZolin 1 GM* X 3 DOSES POST-OP Q8H (AddVan) IVPB SCH ×6 (01:13→17:21)
[2018-09-05] MEDS: HYDROcodone/ACETAMIN 5-325 MG* 1 TAB PO PRN ×3 (02:26→23:34)
--- NOTE | 2018-09-05 04:54 | PN ---
Hospitalist Progress Note Date of Service: 09/05/18 HOSPITALIST ADDENDUM Called by RN due to low urine output. Hernandez was repositioned and ~200ml urine drained, but output still sluggish. Will give fluid bolus and continue to monitor.
[2018-09-05 05:00] LABS: Hematocrit 37 % (33-41); Hemoglobin 11.6 g/dL (12.0-16.0); Mean Corpuscular HGB Conc 32 g/dL (31-36); Mean Corpuscular Hemoglobin 30 pg (27-31); Mean Corpuscular Volume 96 fL (80-97); Mean Platelet Volume 9.6 fL (7.4-10.4); Platelet Count 169 10^3/uL (150-450); Red Blood Count 3.85 10^6 /uL (3.70-4.87); Red Cell Distribution Width 18 % (10.5-15); White Blood Count 8.9 10^3/uL (3.5-10.8)
[2018-09-05] MEDS ORDERED: Lactated Ringers 1000 ML Bag* 1,000 ML IV SCH (05:00)
[2018-09-05] MEDS: Lactated Ringers 1000 ML Bag* 1,000 ML IV SCH ×2 (05:32→15:10)
[2018-09-05] MEDS: Docusate CAP* 100 MG PO SCH ×2 (08:35→23:26)
[2018-09-05] MEDS: Memantine TAB* 5 MG PO SCH ×2 (08:35→23:39)
[2018-09-05] MEDS: Donepezil TAB* 5 MG PO SCH (08:35)
[2018-09-05] MEDS: Enoxaparin(*) 40 MG/0.4 ML SYR SUBCUT SCH (08:35)
[2018-09-05] MEDS: Insulin LISPRO* 1 UNITS UNIT SUBCUT SCH ×4 (09:34→23:25)
--- NOTE | 2018-09-05 10:16 | PN ---
Date of Service: 09/05/18 Critical Care Services: Had an uneventful evening except for a brief period of low urine output, which was corrected with volume infusion. Is awake and comfortable this AM. Vital Signs: Temp Pulse Resp BP SpO2 FiO2 98.1 F 94 10 98/51 99 Physical Exam: Gen:As mentioned HEENT:No facial asymmetry Lungs: Clear Cardiac: Reg rhythm Extremities:goof pulses on both sides. No cyanosis. Fluid Balance (Past 24 Hours): 09/04/18 09/05/18 06:59 06:59 Intake Total 4435 5404 Output Total 1250 2305 Balance 3185 3099 Weight 110 lb 122 lb Intake: IV Fluids 4205 5081 ABX 50 D5 1/2NS 600 KCL LR 3605 4981 NS (0.9%) NS 50ML, Cefazolin 2G 50 IVPB 80 103 ABX 103 KCL 80 Medicated IV INSULIN Oral 90 220 Hernandez Irrigate Amount 60 Output: Urine 50 35 Hernandez 1200 2270 Labs: 09/04/18 09/04/18 09/04/18 12:21 17:27 18:28 WBC RBC Hgb Hct MCV MCH MCHC RDW Plt Count MPV Sodium Potassium Chloride Carbon Dioxide Anion Gap BUN Creatinine Est GFR ( Amer) Est GFR (Non-Af Amer) BUN/Creatinine Ratio Glucose POC Glucose (mg/dL) 107 H 189 H 182 H Calcium 09/05/18 09/05/18 09/05/18 04:50 04:50 08:46 WBC 8.9 RBC 3.85 Hgb 11.6 L Hct 37 MCV 96 MCH 30 MCHC 32 RDW 18 H Plt Count 169 MPV 9.6 Sodium 139 Potassium 4.0 Chloride 107 Carbon Dioxide 22 Anion Gap 10 BUN 13 Creatinine 0.52 Est GFR ( Amer) 138.0 Est GFR (Non-Af Amer) 114.0 BUN/Creatinine Ratio 25.0 H Glucose 210 H POC Glucose (mg/dL) 164 H Calcium 8.0 L Studies: None today Nutrition: Consistent carb diet Impression: Satisfactory postop course. Plan: Transfer out of ICU for postop care. Continue sliding scale insulin coverage for now. We are not treating the Takatsubo's because patient is asymptomatic ( and she also did not tolerate carvedilol).
--- NOTE | 2018-09-05 11:27 | PN ---
Progress Note - Progress Note Date of Service: 09/05/18 SOAP: Subjective: []Patient seen at bedside this am, transferred from ICU. Family at bedside. She is alert, appears comfortable. Confused, responds inappropriately to questions. Objective: [] Vital Signs Temp 98.1 F 09/05/18 08:48 Pulse 91 09/05/18 10:01 Resp 12 09/05/18 10:01 BP 103/56 09/05/18 10:00 Pulse Ox 99 09/05/18 10:01 Intake & Output 09/04/18 09/05/18 09/05/18 18:59 06:59 18:59 Intake Total 2219 3185 Output Total 1760 545 Balance 459 2640 Weight 122 lb 9.232 oz Intake: IV Fluids 2219 2862 ABX 50 LR 2169 2812 NS 50ML, Cefazolin 2G 50 IVPB 103 ABX 103 Oral 220 Output: Urine 35 Hernandez 1760 510 Laboratory Results - last 24 hr 09/04/18 09/04/18 09/04/18 12:21 17:27 18:28 WBC RBC Hgb Hct MCV MCH MCHC RDW Plt Count MPV Sodium Potassium Chloride Carbon Dioxide Anion Gap BUN Creatinine Est GFR ( Amer) Est GFR (Non-Af Amer) BUN/Creatinine Ratio Glucose POC Glucose (mg/dL) 107 H 189 H 182 H Calcium 09/05/18 09/05/18 09/05/18 04:50 04:50 08:46 WBC 8.9 RBC 3.85 Hgb 11.6 L Hct 37 MCV 96 MCH 30 MCHC 32 RDW 18 H Plt Count 169 MPV 9.6 Sodium 139 Potassium 4.0 Chloride 107 Carbon Dioxide 22 Anion Gap 10 BUN 13 Creatinine 0.52 Est GFR ( Amer) 138.0 Est GFR (Non-Af Amer) 114.0 BUN/Creatinine Ratio 25.0 H Glucose 210 H POC Glucose (mg/dL) 164 H Calcium 8.0 L Left hip dressings are dry and intact thigh with edema, soft wiggles toes 2+ DP pulse sensation intact distally Assessment: []s/p left hip hemiarthroplasty POD#1 Plan: []Patient with confusion, keep Abduction pillow in place for posterior hip precautions WBAT with therapy as able Lovenox of DVT prophylaxis
[2018-09-05] MEDS: Morphine 4 MG/ML VIAL (1 ml) 4 MG/ML VIAL IV PRN (18:39)
[2018-09-05] MEDS: cefTRIAXone(*) 1 GM in NS 0.9% 50 ML* 50 ML IVPB SCH (21:05)
[2018-09-05] MEDS: Atorvastatin* 40 MG TAB PO SCH (23:37)
[2018-09-06] MEDS ORDERED: Bisacodyl SUPP* 10 MG SUPP PR ONE (00:44)
[2018-09-06] MEDS: Lactated Ringers 1000 ML Bag* 1,000 ML IV SCH (04:11)
[2018-09-06 06:28] LABS: Potassium 3.4 mmol/L (3.5-5.0)
[2018-09-06 06:33] LABS: BUN/Creatinine Ratio 23.7 (8-20); EGFR African American 198.2 (>60); EGFR Non-African American 163.8 (>60)
[2018-09-06] MEDS: Ketorolac INJ* 30 MG/ML 1 ML VIAL IV PUSH PRN (07:11)
[2018-09-06] MEDS: HYDROcodone/ACETAMIN 5-325 MG* 1 TAB PO PRN (09:05)
[2018-09-06] MEDS: Enoxaparin(*) 40 MG/0.4 ML SYR SUBCUT SCH (09:06)
[2018-09-06] MEDS: Insulin LISPRO* 1 UNITS UNIT SUBCUT SCH ×4 (09:06→20:25)
[2018-09-06] MEDS: Docusate LIQ* 100 MG/10 ML UDC PO SCH ×2 (09:06→19:52)
[2018-09-06] MEDS: Donepezil TAB* 5 MG PO SCH (09:06)
--- NOTE | 2018-09-06 09:39 | PN ---
Progress Note - Progress Note Date of Service: 09/06/18 SOAP: Subjective: []Patient seen at bedside with nursing staff. Has been confused and combative. Yells out if moved, otherwise resting comfortably. Incontinent of stool. Objective: [] Vital Signs Temp 98.5 F 09/06/18 08:00 Pulse 92 09/06/18 08:00 Resp 15 09/06/18 09:05 BP 122/53 09/06/18 08:00 Pulse Ox 93 09/06/18 08:00 Intake & Output 09/05/18 09/06/18 09/06/18 18:59 06:59 18:59 Intake Total 950 1207 Output Total 850 1025 Balance 100 182 Intake: IV Fluids 510 977 ABX 55 LR 455 977 IVPB 110 ABX 110 Oral 440 120 Output: Hernandez 850 1025 Other: # Bowel Movements 0 Laboratory Results - last 24 hr 09/05/18 09/05/18 09/05/18 11:55 17:02 23:05 Sodium Potassium Chloride Carbon Dioxide Anion Gap BUN Creatinine Est GFR ( Amer) Est GFR (Non-Af Amer) BUN/Creatinine Ratio Glucose POC Glucose (mg/dL) 211 H 252 H 202 H Calcium 09/06/18 09/06/18 05:31 07:37 Sodium 139 Potassium 3.4 L Chloride 107 Carbon Dioxide 23 Anion Gap 9 BUN 9 Creatinine 0.38 L Est GFR ( Amer) 198.2 Est GFR (Non-Af Amer) 163.8 BUN/Creatinine Ratio 23.7 H Glucose 179 H POC Glucose (mg/dL) 190 H Calcium 8.0 L Left hip incision benign, no drainage 4x4 and tape applied mild thigh edema, soft 2+ dP pulse LLE Assessment: []s/p Left hip hemiarthroplasty for femoral neck fracture POD #2 Plan: []PT/OT as able, WBAT Posterior hip precautions- Abduction pillow while in bed To SNF when medically stable
[2018-09-06] MEDS: Memantine TAB* 5 MG PO SCH ×2 (10:56→19:51)
[2018-09-06] MEDS ORDERED: Potassium Chlor TAB* 20 MEQ TAB.ER PO ONE (18:54)
--- NOTE | 2018-09-06 18:54 | PN ---
Subjective Date of Service: 09/06/18 Interval History: Calm during interview.Denies any complaints.Fam reports that [facility]Fell with L hip fx Objective Active Medications: Hydrocodone Bitart/Acetaminophen ([place] 5-325 Tab*) 1 tab PO Q3H PRN PRN Reason: PAIN - MILD TO MODERATE Last Admin: 09/06/18 09:05 Dose: 1 tab Alendronate Sodium (Fosamax (Nf)) 70 mg PO WEEKLY [facility]; Protocol Atorvastatin Calcium (Lipitor*) 40 mg PO BEDTIME [facility] Last Admin: 09/05/18 23:37 Dose: 40 mg Dextrose (D50w Syringe 50 Ml*) 12.5 gm IV PUSH .FOR FS < 60 - SS PRN PRN Reason: FS < 60 Docusate Sodium (Colace Liq*) 100 mg PO 0900,2100 [facility] Last Admin: 09/06/18 09:06 Dose: 100 mg Donepezil HCl (Aricept Tab*) 10 mg PO DAILY [facility] Last Admin: 09/06/18 09:06 Dose: 10 mg Enoxaparin Sodium (Lovenox(*)) 40 mg SUBCUT Q24H [facility] Last Admin: 09/06/18 09:06 Dose: 40 mg Ceftriaxone Sodium 1 gm/ (Sodium Chloride) 50 mls @ 200 mls/hr IVPB Q24H [facility] Last Admin: 09/05/18 21:05 Dose: 200 mls/hr Insulin Human Lispro (Humalog*) 0 units SUBCUT ACHS [facility]; Protocol Last Admin: 09/06/18 17:11 Dose: 1 units Ketorolac Tromethamine (Toradol Inj*) 30 mg IV PUSH Q6H PRN PRN Reason: PAIN Last Admin: 09/06/18 07:11 Dose: 30 mg Memantine (Namenda Tab*) 5 mg PO BID [facility] Last Admin: 09/06/18 10:56 Dose: 5 mg Morphine Sulfate (Morphine 4 Mg/Ml Vial (1 Ml)) 4 mg IV Q4H PRN PRN Reason: PAIN Last Admin: 09/05/18 18:39 Dose: 4 mg Ondansetron HCl (Zofran Inj*) 4 mg IV Q6H PRN PRN Reason: NAUSEA/VOMITING Vital Signs - 8 hr 09/06/18 09/06/18 09/06/18 11:00 12:10 15:29 Temperature 97.2 F 98.2 F Pulse Rate 122 91 Respiratory 16 16 18 Rate Blood Pressure 108/53 113/48 (mmHg) O2 Sat by Pulse 97 97 Oximetry 09/06/18 16:00 Temperature Pulse Rate Respiratory Rate Blood Pressure (mmHg) O2 Sat by Pulse 97 Oximetry Oxygen Devices in Use Now: None Eyes: No Scleral Icterus Neck: NL Appearance and Movements; NL JVP Respiratory: Symmetrical Chest Expansion and Respiratory Effort, Clear to Auscultation Cardiovascular: NL Sounds; No Murmurs; No JVD Abdominal: NL Sounds; No Tenderness; No Distention Extremities: No Edema Neurological: Alert and Oriented x 3 Result Diagrams: 09/05/18 04:50 09/06/18 05:31 Microbiology and Other Data: Microbiology 09/02/18 21:17 Blood Culture - Preliminary Blood Venous No Growth Day 3 09/02/18 18:55 Aerobic Blood Culture - Preliminary Blood Venous No Growth Day 3 Anaerobic Blood Culture - Preliminary No Growth Day 3 09/02/18 17:30 Urine Culture - Final Urine Klebsiella Aerogenes 09/02/18 21:20 Nasal Screen MRSA (PCR) - Final Nasal Mrsa Not Detected Assess/Plan/Problems-Billing Assessment: Mrs Pressley is a77yo F with PMH of type 2 DM, HLD, HTN, dementia, found to have left femoral neck fracture, severe sepsis secondary to UTI, and HHS. s/p surgery.improving - Patient Problems (1) Fractured femoral neck Current Visit: Yes Status: Acute Code(s): S72.009A - FRACTURE OF UNSP PART OF NECK OF UNSP FEMUR, INIT SNOMED Code(s): 0486425 Comment: L femoral neck fracture s/p L hemiarthroplasty POD 2 Recent hospitalization for R hip fracture and surgery (2) Hyperosmolar hyperglycemic coma due to diabetes mellitus without ketoacidosis Current Visit: Yes Status: Acute Code(s): E11.01 - TYPE 2 DIABETES MELLITUS WITH HYPEROSMOLARITY WITH COMA SNOMED Code(s): 647938596 Comment: Came in with glucose in 700s in ICU on insulin drip Improved Currently stable on insulin regimen (3) UTI (urinary tract infection) Current Visit: Yes Status: Acute Comment: With Klebsiella sensitive to Ceftriaxone Continue (4) Sepsis Current Visit: Yes Status: Acute Comment: sec above improved (5) Hypernatremia Current Visit: No Status: Acute Code(s): E87.0 - HYPEROSMOLALITY AND HYPERNATREMIA SNOMED Code(s): 207193286 Comment: -in hhs -resolved (6) Delirium Current Visit: Yes Status: Acute Code(s): R41.0 - DISORIENTATION, UNSPECIFIED SNOMED Code(s): 0977467 Comment: on baseline dementia recent uti and hospitalizations
[2018-09-06] MEDS: Atorvastatin* 40 MG TAB PO SCH (19:51)
[2018-09-06] MEDS: cefTRIAXone(*) 1 GM in NS 0.9% 50 ML* 50 ML IVPB SCH (19:57)
[2018-09-07 06:59] LABS: ABS Basophils 0 10^3/ul (0-0.2); ABS Eosinophils 0.1 10^3/ul (0-0.6); ABS Lymphocytes 0.7 10^3/ul (1.0-4.8); ABS Monocytes 0.7 10^3/ul (0-0.8); ABS Neutrophils 5.1 10^3/ul (1.5-7.7); ABS Nucleated RBC 0 10^3/ul; Eosinophil % 0.9 %; Hematocrit 33 % (33-41); Hemoglobin 10.6 g/dL (12.0-16.0); Lymphocyte % 9.9 %; Mean Corpuscular HGB Conc 33 g/dL (31-36); Mean Corpuscular Hemoglobin 31 pg (27-31); Mean Corpuscular Volume 94 fL (80-97); Mean Platelet Volume 9.8 fL (7.4-10.4); Nucleated Red Blood Cells % 0.1; Platelet Count 159 10^3/uL (150-450); Red Blood Count 3.45 10^6 /uL (3.70-4.87); Red Cell Distribution Width 18 % (10.5-15); White Blood Count 6.6 10^3/uL (3.5-10.8)
[2018-09-07] MEDS: Docusate LIQ* 100 MG/10 ML UDC PO SCH ×2 (08:20→22:52)
[2018-09-07] MEDS: Enoxaparin(*) 40 MG/0.4 ML SYR SUBCUT SCH (08:20)
[2018-09-07] MEDS: Donepezil TAB* 5 MG PO SCH (08:20)
[2018-09-07] MEDS: Memantine TAB* 5 MG PO SCH ×2 (08:20→22:52)
--- NOTE | 2018-09-07 09:11 | PN ---
Subjective Date of Service: 09/07/18 Objective Active Medications: Hydrocodone Bitart/Acetaminophen ([place] 5-325 Tab*) 1 tab PO Q3H PRN PRN Reason: PAIN - MILD TO MODERATE Last Admin: 09/06/18 09:05 Dose: 1 tab Alendronate Sodium (Fosamax (Nf)) 70 mg PO WEEKLY [facility]; Protocol Atorvastatin Calcium (Lipitor*) 40 mg PO BEDTIME [facility] Last Admin: 09/06/18 19:51 Dose: 40 mg Dextrose (D50w Syringe 50 Ml*) 12.5 gm IV PUSH .FOR FS < 60 - SS PRN PRN Reason: FS < 60 Docusate Sodium (Colace Liq*) 100 mg PO 0900,2100 [facility] Last Admin: 09/07/18 08:20 Dose: 100 mg Donepezil HCl (Aricept Tab*) 10 mg PO DAILY [facility] Last Admin: 09/07/18 08:20 Dose: 10 mg Enoxaparin Sodium (Lovenox(*)) 40 mg SUBCUT Q24H [facility] Last Admin: 09/07/18 08:20 Dose: 40 mg Ceftriaxone Sodium 1 gm/ (Sodium Chloride) 50 mls @ 200 mls/hr IVPB Q24H [facility] Last Admin: 09/06/18 19:57 Dose: 200 mls/hr Insulin Human Lispro (Humalog*) 0 units SUBCUT [facility]; Protocol Last Admin: 09/06/18 20:25 Dose: 1 units Ketorolac Tromethamine (Toradol Inj*) 30 mg IV PUSH Q6H PRN PRN Reason: PAIN Last Admin: 09/06/18 07:11 Dose: 30 mg Memantine (Namenda Tab*) 5 mg PO BID [facility] Last Admin: 09/07/18 08:20 Dose: 5 mg Morphine Sulfate (Morphine 4 Mg/Ml Vial (1 Ml)) 4 mg IV Q4H PRN PRN Reason: PAIN Last Admin: 09/05/18 18:39 Dose: 4 mg Ondansetron HCl (Zofran Inj*) 4 mg IV Q6H PRN PRN Reason: NAUSEA/VOMITING Vital Signs - 8 hr 09/07/18 09/07/18 09/07/18 03:29 07:23 08:00 Temperature 98.4 F 98.3 F Pulse Rate 94 88 Respiratory 16 16 16 Rate Blood Pressure 113/51 112/59 (mmHg) O2 Sat by Pulse 96 95 95 Oximetry Oxygen Devices in Use Now: None Result Diagrams: 09/07/18 06:42 09/06/18 05:31 Microbiology and Other Data: Microbiology 09/02/18 21:17 Blood Culture - Preliminary Blood Venous No Growth Day 3 09/02/18 18:55 Aerobic Blood Culture - Preliminary Blood Venous No Growth Day 3 Anaerobic Blood Culture - Preliminary No Growth Day 3 09/02/18 17:30 Urine Culture - Final Urine Klebsiella Aerogenes 09/02/18 21:20 Nasal Screen MRSA (PCR) - Final Nasal Mrsa Not Detected Assess/Plan/Problems-Billing Assessment: Mrs Pressley is a77yo F with PMH of type 2 DM, HLD, HTN, dementia, found to have left femoral neck fracture, severe sepsis secondary to UTI, and HHS. s/p surgery.improving
[2018-09-07] MEDS: Insulin LISPRO* 1 UNITS UNIT SUBCUT SCH ×4 (09:35→22:54)
--- NOTE | 2018-09-07 15:17 | PN ---
Progress Note - Progress Note Date of Service: 09/07/18 SOAP: Subjective: []Pt seen at bedside with family present. Denies CP, SOB, dizziness, nausea. Objective: []General: Well appearing, NAD, alert but not oriented LLE: Left hip dressing CDI without surrounding erythema, changed by nursing this morning due to patient pulling it off. Thigh is soft, DF/PF intact, DP2+ Calves supple and nontender without erythema, edema or palpable cords Assessment: []s/p Left hip hemiarthroplasty for femoral neck fracture Plan: []PT/OT as able, WBAT Posterior hip precautions- Abduction pillow while in bed SNF when medically ready Vital Signs Temp 97.2 F 09/07/18 12:31 Pulse 113 09/07/18 12:31 Resp 16 09/07/18 12:31 BP 98/55 09/07/18 12:31 Pulse Ox 92 09/07/18 12:31 Intake & Output 09/06/18 09/07/18 09/07/18 18:59 06:59 18:59 Intake Total 965 229 237 Output Total 250 500 Balance 715 -271 237 Intake: IV Fluids 865 79 ABX - CEFAZOLIN 55 LR 865 NS (0.9%) 24 Oral 100 150 237 Output: Hernandez 250 500 Other: # Bowel Movements 1 Estimated Stool Amount Small Laboratory Last Values WBC 6.6 10^3/uL (3.5-10.8) 09/07/18 06:42 RBC 3.45 10^6 /uL (3.70-4.87) L 09/07/18 06:42 Hgb 10.6 g/dL (12.0-16.0) L 09/07/18 06:42 Hct 33 % (33-41) 09/07/18 06:42 MCV 94 fL (80-97) 09/07/18 06:42 MCH 31 pg (27-31) 09/07/18 06:42 MCHC 33 g/dL (31-36) 09/07/18 06:42 RDW 18 % (10.5-15) H 09/07/18 06:42 Plt Count 159 10^3/uL (150-450) 09/07/18 06:42 MPV 9.8 fL (7.4-10.4) 09/07/18 06:42 Neut % (Auto) 77.5 % 09/07/18 06:42 Lymph % (Auto) 9.9 % 09/07/18 06:42 [place] % (Auto) 11.3 % 09/07/18 06:42 Eos % (Auto) 0.9 % 09/07/18 06:42 Baso % (Auto) 0.4 % 09/07/18 06:42 Absolute Neuts (auto) 5.1 10^3/ul (1.5-7.7) 09/07/18 06:42 Absolute Lymphs (auto) 0.7 10^3/ul (1.0-4.8) L 09/07/18 06:42 Absolute Monos (auto) 0.7 10^3/ul (0-0.8) 09/07/18 06:42 Absolute Eos (auto) 0.1 10^3/ul (0-0.6) 09/07/18 06:42 Absolute Basos (auto) 0 10^3/ul (0-0.2) 09/07/18 06:42 Absolute Nucleated RBC 0 10^3/ul 09/07/18 06:42 Nucleated RBC % 0.1 09/07/18 06:42 INR (Anticoag Therapy) 0.98 (0.77-1.02) 09/04/18 04:49 APTT 24.6 seconds (26.0-36.3) L 09/03/18 06:34 Sodium 139 mmol/L (135-145) 09/06/18 05:31 Potassium 3.4 mmol/L (3.5-5.0) L 09/06/18 05:31 Chloride 107 mmol/L (101-111) 09/06/18 05:31 Carbon Dioxide 23 mmol/L (22-32) 09/06/18 05:31 Anion Gap 9 mmol/L (2-11) 09/06/18 05:31 BUN 9 mg/dL (6-24) 09/06/18 05:31 Creatinine 0.38 mg/dL (0.51-0.95) L 09/06/18 05:31 Est GFR ( Amer) 198.2 (>60) 09/06/18 05:31 Est GFR (Non-Af Amer) 163.8 (>60) 09/06/18 05:31 BUN/Creatinine Ratio 23.7 (8-20) H 09/06/18 05:31 Glucose 179 mg/dL (70-100) H 09/06/18 05:31 POC Glucose (mg/dL) 313 mg/dL (70-100) H 09/07/18 11:49 Glucose Meter Confirm 716 mg/dL (70-100) H* 09/02/18 17:43 Serum Osmolality 342 mOsm/kg (275-295) H* 09/02/18 22:20 Lactic Acid 1.2 mmol/L (0.5-2.0) 09/03/18 06:34 Calcium 8.0 mg/dL (8.6-10.3) L 09/06/18 05:31 Total Bilirubin 0.90 mg/dL (0.2-1.0) 09/03/18 06:34 Direct Bilirubin 0.20 mg/dL (0.03-0.18) H 09/03/18 06:34 Indirect Bilirubin 0.7 mg/dL (0.3-1.0) 09/03/18 06:34 AST 40 U/L (13-39) H 09/03/18 06:34 ALT 11 U/L (7-52) 09/03/18 06:34 Alkaline Phosphatase 89 U/L (34-104) 09/03/18 06:34 Total Creatine Kinase 306 U/L (10-223) H 09/03/18 06:34 CK-MB (CK-2) 99.0 ng/mL (0.6-6.3) H 09/03/18 06:34 Troponin I 3.94 ng/mL (<0.04) H* 09/03/18 11:00 Total Protein 6.1 g/dL (6.4-8.9) L 09/03/18 06:34 Albumin 3.4 g/dL (3.2-5.2) 09/03/18 06:34 Globulin 2.7 g/dL (2-4) 09/03/18 06:34 Albumin/Globulin Ratio 1.3 (1-3) 09/03/18 06:34 Urine Color Straw 09/02/18 17:30 Urine Appearance Cloudy 09/02/18 17:30 Urine pH 5.0 (5-9) 09/02/18 17:30 Ur Specific [place] 1.029 (1.010-1.030) 09/02/18 17:30 Urine Protein Negative (Negative) 09/02/18 17:30 Urine Ketones Trace (Negative) A 09/02/18 17:30 Urine Blood 1+ (Negative) A 09/02/18 17:30 Urine Nitrate Negative (Negative) 09/02/18 17:30 Urine Bilirubin Negative (Negative) 09/02/18 17:30 Urine Urobilinogen Negative (Negative) 09/02/18 17:30 Ur Leukocyte Esterase 2+ (Negative) A 09/02/18 17:30 Urine WBC (Auto) 3+(>20/hpf) (Absent) A 09/02/18 17:30 Urine RBC (Auto) 3+(>10/hpf) (Absent) A 09/02/18 17:30 Ur Squamous Epith Cells Present (Absent) A 09/02/18 17:30 Urine Bacteria 1+ (Absent) A 09/02/18 17:30 Urine Yeast Present (Absent) A 09/02/18 17:30 Urine Glucose 3+(>=500 mg/dl) (Negative) A 09/02/18 17:30 Blood Type O Positive 09/04/18 04:49 Antibody Screen Negative 09/04/18 04:49
[2018-09-07] MEDS: HYDROcodone/ACETAMIN 5-325 MG* 1 TAB PO PRN ×2 (15:46→22:52)
--- NOTE | 2018-09-07 16:21 | PN ---
Subjective Date of Service: 09/07/18 Interval History: HOSPITALIST PROGRESS NOTE Patient seen and examined at bedside. Care reviewed and d/w Ruth Holder RN. She offers no complaints, denies pain. Family History: Unchanged from Admission Social History: Unchanged from Admission Past Medical History: Unchanged from Admission Objective Active Medications: Hydrocodone Bitart/Acetaminophen ([place] 5-325 Tab*) 1 tab PO Q3H PRN PRN Reason: PAIN - MILD TO MODERATE Last Admin: 09/07/18 15:46 Dose: 1 tab Alendronate Sodium (Fosamax (Nf)) 70 mg PO WEEKLY [facility]; Protocol Atorvastatin Calcium (Lipitor*) 40 mg PO BEDTIME [facility] Last Admin: 09/06/18 19:51 Dose: 40 mg Dextrose (D50w Syringe 50 Ml*) 12.5 gm IV PUSH .FOR FS < 60 - SS PRN PRN Reason: FS < 60 Docusate Sodium (Colace Liq*) 100 mg PO 0900,2100 [facility] Last Admin: 09/07/18 08:20 Dose: 100 mg Donepezil HCl (Aricept Tab*) 10 mg PO DAILY [facility] Last Admin: 09/07/18 08:20 Dose: 10 mg Enoxaparin Sodium (Lovenox(*)) 40 mg SUBCUT Q24H [facility] Last Admin: 09/07/18 08:20 Dose: 40 mg Ceftriaxone Sodium 1 gm/ (Sodium Chloride) 50 mls @ 200 mls/hr IVPB Q24H [facility] Last Admin: 09/06/18 19:57 Dose: 200 mls/hr Insulin Human Lispro (Humalog*) 0 units SUBCUT ACHS [facility]; Protocol Last Admin: 09/07/18 12:08 Dose: 4 units Ketorolac Tromethamine (Toradol Inj*) 30 mg IV PUSH Q6H PRN PRN Reason: PAIN Last Admin: 09/06/18 07:11 Dose: 30 mg Memantine (Namenda Tab*) 5 mg PO BID [facility] Last Admin: 09/07/18 08:20 Dose: 5 mg Morphine Sulfate (Morphine 4 Mg/Ml Vial (1 Ml)) 4 mg IV Q4H PRN PRN Reason: PAIN Last Admin: 09/05/18 18:39 Dose: 4 mg Ondansetron HCl (Zofran Inj*) 4 mg IV Q6H PRN PRN Reason: NAUSEA/VOMITING Vital Signs - 8 hr 09/07/18 09/07/18 09/07/18 11:56 12:31 15:35 Temperature 97.2 F 97.2 F 97.7 F Pulse Rate 113 113 110 Respiratory 16 16 20 Rate Blood Pressure 98/55 98/55 116/54 (mmHg) O2 Sat by Pulse 92 92 91 Oximetry 09/07/18 15:46 Temperature Pulse Rate Respiratory 16 Rate Blood Pressure (mmHg) O2 Sat by Pulse Oximetry Oxygen Devices in Use Now: None Appearance: Elderly lady lying in bed in NAD. Eyes: No Scleral Icterus Ears/Nose/Mouth/Throat: Mucous Membranes Moist Neck: Trachea Midline Respiratory: Symmetrical Chest Expansion and Respiratory Effort, Clear to Auscultation Cardiovascular: RRR - Normal S1 and S2 Extremities: - - Left hip CDI Neurological: - - AAox2 (self and place) Result Diagrams: 09/07/18 06:42 09/06/18 05:31 Microbiology and Other Data: Microbiology 09/02/18 21:17 Blood Culture - Preliminary Blood Venous No Growth Day 3 09/02/18 18:55 Aerobic Blood Culture - Preliminary Blood Venous No Growth Day 3 Anaerobic Blood Culture - Preliminary No Growth Day 3 09/02/18 17:30 Urine Culture - Final Urine Klebsiella Aerogenes 09/02/18 21:20 Nasal Screen MRSA (PCR) - Final Nasal Mrsa Not Detected Assess/Plan/Problems-Billing Assessment: Mrs Pressley is a77yo F with PMH of type 2 DM, HLD, HTN, dementia, found to have left femoral neck fracture, severe sepsis secondary to UTI, and HHS. - Patient Problems (1) Fractured femoral neck Comment: L femoral neck fracture s/p L hemiarthroplasty Recent hospitalization for R hip fracture and surgery (2) Hyperosmolar hyperglycemic coma due to diabetes mellitus without ketoacidosis Comment: Resolved Start low dose Lantus and continue Lispro SS (3) UTI (urinary tract infection) Comment: Present on admission. Urine culture growing Klebsiella sensitive to Ceftriaxone Continue Ceftriaxone (4) DVT prophylaxis Comment: - Lovenox.
[2018-09-07] MEDS: Insulin GLARGINE(*) 1 UNITS UNIT SUBCUT SCH (18:12)
[2018-09-07] MEDS: Atorvastatin* 40 MG TAB PO SCH (22:52)
[2018-09-08] MEDS: cefTRIAXone(*) 1 GM in NS 0.9% 50 ML* 50 ML IVPB SCH ×2 (00:31→02:37)
--- NOTE | 2018-09-08 01:57 | DS ---
CC: Dr. Keerthi Gottlieb; [facility] * DISCHARGE SUMMARY: DATE OF ADMISSION: 09/02/18 DATE OF DISCHARGE: 09/08/18 PRIMARY CARE PHYSICIAN: Dr. Keerthi Gottlieb. DISCHARGE DIAGNOSES: 1. Left femoral neck fracture, status post hemiarthroplasty. 2. Hyperosmolar hyperglycemic state. 3. Klebsiella urinary tract infection, present on admission, Hernandez catheter related. 4. 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 5. Acute kidney injury. SECONDARY DIAGNOSES: 1. Dementia. 2. Hypertension. 3. Hyperlipidemia. 4. Type 2 diabetes. 5. Status post right femoral hemiarthroplasty 08/08/18. MEDICATION LIST: 1. Fleet Enema 1 enema per rectum daily as needed for constipation. 2. Milk of Magnesia 30 mL p.o. q.6 hours p.r.n. constipation. 3. Bisacodyl suppository 10 mg per rectum daily as needed for constipation. 4. Namenda 5 mg p.o. b.i.d. 5. Donepezil 10 mg p.o. daily. 6. Vitamin B12 100 mcg p.o. daily. 7. Calcium plus vitamin D 1 tablet p.o. daily. 8. Vitamin C 1000 mg p.o. daily. 9. Acetaminophen Extra Strength 1000 mg p.o. b.i.d. 10. Metformin 1000 mg p.o. b.i.d. 11. Colace 100 mg p.o. b.i.d. 12. Alendronate 70 mg p.o. weekly. 13. Atorvastatin 40 mg p.o. bedtime. New Medications: 1. Lantus 10 units subcutaneously daily. 2. Lispro sliding scale as follows: Fingersticks 131 to 150, 1 unit; 151 to 200, 2 units; 201 to 250, 4 units; 251 to 300, 6 units; 301 to 350, 8 units; 351 to 400, 10 units; greater than 400, call MD. 3. Hydrocodone/acetaminophen 5/325 mg 1 tablet p.o. q.6 hours p.r.n. severe pain. Do not exceed 4 g of acetaminophen in 24 hours. 4. Lovenox 40 mg subcutaneously q.24 hours for 6 weeks. 5. Cefdinir 300 mg p.o. q.12 hours for 3 more days. 6. Potassium chloride 20 mEq p.o. daily. Jardiance, Oxycodone, Tramadol, Xarelto, Lisinopril were discontinued. HOSPITAL COURSE: Mrs. Prsesley is a 77-year-old lady with a past medical history as above who had been admitted to [facility] from 08/07/18 through 08/12/18 with a right hip fracture and readmitted on 08/17/18 through 08/25/18 with hyperosmolar hyperglycemic state. The patient was discharged to [facility] and returned to the emergency room on 09/02/18 after sustaining an unwitnessed fall and complaining of left hip pain. For more details about her presentation, I refer you to her history and physical. Hyperosmolar hyperglycemic state: she was found to have a glucose of 716 in the Emergency Department. She was admitted to the intensive care unit, started on an insulin drip, aggressive fluid resuscitation, and over time her glucose was controlled and HHS resolved. She was seen in consultation by The patient was seen in consultation by Endocrinology (Dr. Bucio) and he felt that outpatient use of Jardiance contributed to recent dehydration and euglycemic acidosis as her A1c of 6.6% is discordant with severe hyperglycemia that has occurred during this and prior admissions. She was unable to take Jardiance in the days leading up to the current admission, which likely explains severe hyperglycemia present on admission. Notably, she had severe metabolic acidosis on prior admission when glucose was less than 300, but was not acidotic on current admission despite blood glucose greater than 700. His recommendation was to start Lantus insulin at 5 units and titrate (she is now on 10 units) and also Lispro sliding scale with meals, resume metformin, and discontinue Jardiance. Unwitnessed Fall: CT of the brain without contrast that showed no acute intracranial abnormality. Left femoral neck fracture: pelvis x-ray done in the Emergency Department showed an angulated fracture of the left femoral neck. The patient was also noted to have troponin elevation that peaked at 5.1. Transthoracic echocardiogram showed ejection fraction of 25% to 30% with pattern of wall motion abnormality suggestive of stress/takotsubo cardiomyopathy. She was optimized for surgery, and on 09/04/18, she underwent left hip hemiarthroplasty with Dr Alcaraz. The patient did well while in the postop period and the plan is for her to return to subacute rehab to continue her rehabilitation process. Ortho recommendation was for PT/OT as tolerated, weight bearing as tolerated, posterior hip precautions with abduction pillow while in bed, and DVT prophylaxis with Lovenox for 4 weeks. She'll need follow up with Dr Alcaraz in 10 days. Klebsiella UTI: as per Patience, patient had urinary retention and had a Hernandez present on admission. Her urinalysis was abnormal and urine culture grew Klebsiella aerogenes. She was treated with ceftriaxone and the plan is to continue 3 more days of cefdinir as the bacteria is resistant to amoxicillin/ clavulanic acid, Cefazolin, and intermediate to nitrofurantoin. It is sensitive to quinolones, but the patient is allergic to CIPROFLOXACIN. Hernandez was exchanged prior to discharge. Takotsubo cardiomyopathy: LAUREN inhibitor was discontinued in the setting of hypotension and acute kidney injury. As her blood pressure continues to improve she'll benefit of reintroduction of an LAUREN or addition of an ARB. She'll need repeat echocardiogram as outpatient to trend her ejection fraction, and Cardiology evaluation if it does not improve. Dementia: her initial confusion has improved and mental status appears to be close to her baseline and now she is pleasantly confused. She's stable to be discharged to [facility] for rehab. PHYSICAL EXAMINATION: Vital Signs: Temperature 97.7, heart rate is 88, respiratory rate is 18, oxygen saturation is 92% on room air, blood pressure is 116/54. General: The patient is a pleasantly confused elderly lady, lying in bed, in no acute distress. HEENT: Pupils are equal. Moist mucous membranes. CVS: Normal S1, S2. Regular rate and rhythm. Chest: Breath sounds bilaterally diminished with no added sounds. Abdomen: Soft. Bowel sounds are present. Extremities: There is clean dressing intact to her left hip. Neuro: She is alert and oriented x1, to self only, able to move all 4 extremities. DIET: Consistent carb diet with fingersticks before meals. ACTIVITIES: As tolerated. DISPOSITION: To [facility]. STATUS WHILE IN THE HOSPITAL: Inpatient. CONDITION AT THE TIME OF DISCHARGE: Guarded. Please keep in mind this is a summarized version of this patient's complex hospital stay. If you need more information, please feel free to call me at or please obtain the full medical record. Daughter was called and updated about patient's condition and plan. We also discussed possibility of Hospice referral if her condition continues to decline or if her cardiomyopathy does not improve. TIME SPENT: Approximately 50 minutes was spent to complete this discharge. [id number]/[facility] #: [id number] JOSE
[2018-09-08] MEDS: Ketorolac INJ* 30 MG/ML 1 ML VIAL IV PUSH PRN (05:48)
[2018-09-08 06:09] LABS: BUN/Creatinine Ratio 36.4 (8-20); Calcium 7.9 mg/dL (8.6-10.3); EGFR African American 233.2 (>60); EGFR Non-African American 192.7 (>60)
[2018-09-08] MEDS ORDERED: Potassium Chlor TAB* 20 MEQ TAB.ER PO ONE (07:32)
[2018-09-08] MEDS: Insulin LISPRO* 1 UNITS UNIT SUBCUT SCH ×4 (10:00→21:23)
[2018-09-08] MEDS ORDERED: Potassium Chloride LIQUID* 20 MEQ PACKET ONE (10:04)
[2018-09-08] MEDS: Donepezil TAB* 5 MG PO SCH (10:08)
[2018-09-08] MEDS: Memantine TAB* 5 MG PO SCH ×2 (10:09→21:13)
[2018-09-08] MEDS: HYDROcodone/ACETAMIN 5-325 MG* 1 TAB PO PRN ×3 (10:10→21:14)
[2018-09-08] MEDS: Enoxaparin(*) 40 MG/0.4 ML SYR SUBCUT SCH (10:11)
[2018-09-08] MEDS: Docusate LIQ* 100 MG/10 ML UDC PO SCH ×2 (10:14→21:19)
[2018-09-08] MEDS ORDERED: Potassium Chloride LIQUID* 20 MEQ PACKET PO ONE (11:00)
--- NOTE | 2018-09-08 16:43 | PN ---
Progress Note - Progress Note Date of Service: 09/08/18 SOAP: Subjective: [] Pt seen at bedside. She is feeling well per family at bedside. Patient does not report any complaints Objective: []General: Well appearing, NAD, alert but not oriented LLE: Left hip incision is CDI without surrounding erythema. Thigh is soft, DF/ PF intact, DP2+ Calves supple and nontender without erythema, edema or palpable cords Assessment: []s/p Left hip hemiarthroplasty for femoral neck fracture Plan: []PT/OT as able, WBAT Posterior hip precautions- Abduction pillow while in bed SNF when medically ready Vital Signs Temp 98.7 F 09/08/18 12:34 Pulse 87 09/08/18 12:34 Resp 16 09/08/18 13:51 BP 124/70 09/08/18 12:34 Pulse Ox 98 09/08/18 16:00 Intake & Output 09/07/18 09/08/18 09/08/18 18:59 06:59 18:59 Intake Total 237 840 90 Output Total 1000 200 Balance 237 -160 -110 Intake: IVPB 50 ABX - CEFTRIAXONE 50 Oral 237 790 90 Output: Hernandez 1000 200 Residual 0 Hernandez 16 Fr 0 Laboratory Last Values WBC 6.6 10^3/uL (3.5-10.8) 09/07/18 06:42 RBC 3.45 10^6 /uL (3.70-4.87) L 09/07/18 06:42 Hgb 10.6 g/dL (12.0-16.0) L 09/07/18 06:42 Hct 33 % (33-41) 09/07/18 06:42 MCV 94 fL (80-97) 09/07/18 06:42 MCH 31 pg (27-31) 09/07/18 06:42 MCHC 33 g/dL (31-36) 09/07/18 06:42 RDW 18 % (10.5-15) H 09/07/18 06:42 Plt Count 159 10^3/uL (150-450) 09/07/18 06:42 MPV 9.8 fL (7.4-10.4) 09/07/18 06:42 Neut % (Auto) 77.5 % 09/07/18 06:42 Lymph % (Auto) 9.9 % 09/07/18 06:42 [place] % (Auto) 11.3 % 09/07/18 06:42 Eos % (Auto) 0.9 % 09/07/18 06:42 Baso % (Auto) 0.4 % 09/07/18 06:42 Absolute Neuts (auto) 5.1 10^3/ul (1.5-7.7) 09/07/18 06:42 Absolute Lymphs (auto) 0.7 10^3/ul (1.0-4.8) L 09/07/18 06:42 Absolute Monos (auto) 0.7 10^3/ul (0-0.8) 09/07/18 06:42 Absolute Eos (auto) 0.1 10^3/ul (0-0.6) 09/07/18 06:42 Absolute Basos (auto) 0 10^3/ul (0-0.2) 09/07/18 06:42 Absolute Nucleated RBC 0 10^3/ul 09/07/18 06:42 Nucleated RBC % 0.1 09/07/18 06:42 INR (Anticoag Therapy) 0.98 (0.77-1.02) 09/04/18 04:49 APTT 24.6 seconds (26.0-36.3) L 09/03/18 06:34 Sodium 140 mmol/L (135-145) 09/08/18 04:48 Potassium 3.0 mmol/L (3.5-5.0) L 09/08/18 04:48 Chloride 107 mmol/L (101-111) 09/08/18 04:48 Carbon Dioxide 28 mmol/L (22-32) 09/08/18 04:48 Anion Gap 5 mmol/L (2-11) 09/08/18 04:48 BUN 12 mg/dL (6-24) 09/08/18 04:48 Creatinine 0.33 mg/dL (0.51-0.95) L 09/08/18 04:48 Est GFR ( Amer) 233.2 (>60) 09/08/18 04:48 Est GFR (Non-Af Amer) 192.7 (>60) 09/08/18 04:48 BUN/Creatinine Ratio 36.4 (8-20) H 09/08/18 04:48 Glucose 167 mg/dL (70-100) H 09/08/18 04:48 POC Glucose (mg/dL) 191 mg/dL (70-100) H 09/08/18 11:58 Glucose Meter Confirm 716 mg/dL (70-100) H* 09/02/18 17:43 Serum Osmolality 342 mOsm/kg (275-295) H* 09/02/18 22:20 Lactic Acid 1.2 mmol/L (0.5-2.0) 09/03/18 06:34 Calcium 7.9 mg/dL (8.6-10.3) L 09/08/18 04:48 Total Bilirubin 0.90 mg/dL (0.2-1.0) 09/03/18 06:34 Direct Bilirubin 0.20 mg/dL (0.03-0.18) H 09/03/18 06:34 Indirect Bilirubin 0.7 mg/dL (0.3-1.0) 09/03/18 06:34 AST 40 U/L (13-39) H 09/03/18 06:34 ALT 11 U/L (7-52) 09/03/18 06:34 Alkaline Phosphatase 89 U/L (34-104) 09/03/18 06:34 Total Creatine Kinase 306 U/L (10-223) H 09/03/18 06:34 CK-MB (CK-2) 99.0 ng/mL (0.6-6.3) H 09/03/18 06:34 Troponin I 3.94 ng/mL (<0.04) H* 09/03/18 11:00 Total Protein 6.1 g/dL (6.4-8.9) L 09/03/18 06:34 Albumin 3.4 g/dL (3.2-5.2) 09/03/18 06:34 Globulin 2.7 g/dL (2-4) 09/03/18 06:34 Albumin/Globulin Ratio 1.3 (1-3) 09/03/18 06:34 Urine Color Straw 09/02/18 17:30 Urine Appearance Cloudy 09/02/18 17:30 Urine pH 5.0 (5-9) 09/02/18 17:30 Ur Specific [place] 1.029 (1.010-1.030) 09/02/18 17:30 Urine Protein Negative (Negative) 09/02/18 17:30 Urine Ketones Trace (Negative) A 09/02/18 17:30 Urine Blood 1+ (Negative) A 09/02/18 17:30 Urine Nitrate Negative (Negative) 09/02/18 17:30 Urine Bilirubin Negative (Negative) 09/02/18 17:30 Urine Urobilinogen Negative (Negative) 09/02/18 17:30 Ur Leukocyte Esterase 2+ (Negative) A 09/02/18 17:30 Urine WBC (Auto) 3+(>20/hpf) (Absent) A 09/02/18 17:30 Urine RBC (Auto) 3+(>10/hpf) (Absent) A 09/02/18 17:30 Ur Squamous Epith Cells Present (Absent) A 09/02/18 17:30 Urine Bacteria 1+ (Absent) A 09/02/18 17:30 Urine Yeast Present (Absent) A 09/02/18 17:30 Urine Glucose 3+(>=500 mg/dl) (Negative) A 09/02/18 17:30 Blood Type O Positive 09/04/18 04:49 Antibody Screen Negative 09/04/18 04:49
[2018-09-08] MEDS: Insulin GLARGINE(*) 1 UNITS UNIT SUBCUT SCH (18:04)
--- NOTE | 2018-09-08 19:42 | PN ---
Subjective Date of Service: 09/08/18 Interval History: HOSPITALIST PROGRESS NOTE Patient seen and examined at bedside. Care reviewed and d/w Lindsey Viramonets RN. Pleasantly confused lady lying in bed, offers no complaints. Family History: Unchanged from Admission Social History: Unchanged from Admission Past Medical History: Unchanged from Admission Objective Active Medications: Hydrocodone Bitart/Acetaminophen ([place] 5-325 Tab*) 1 tab PO Q3H PRN PRN Reason: PAIN - MILD TO MODERATE Last Admin: 09/08/18 18:09 Dose: 1 tab Alendronate Sodium (Fosamax (Nf)) 70 mg PO WEEKLY [facility]; Protocol Atorvastatin Calcium (Lipitor*) 40 mg PO BEDTIME [facility] Last Admin: 09/07/18 22:52 Dose: 40 mg Dextrose (D50w Syringe 50 Ml*) 12.5 gm IV PUSH .FOR FS < 60 - SS PRN PRN Reason: FS < 60 Docusate Sodium (Colace Liq*) 100 mg PO 0900,2100 [facility] Last Admin: 09/08/18 10:14 Dose: 100 mg Donepezil HCl (Aricept Tab*) 10 mg PO DAILY [facility] Last Admin: 09/08/18 10:08 Dose: 10 mg Enoxaparin Sodium (Lovenox(*)) 40 mg SUBCUT Q24H [facility] Last Admin: 09/08/18 10:11 Dose: 40 mg Ceftriaxone Sodium 1 gm/ (Sodium Chloride) 50 mls @ 200 mls/hr IVPB Q24HR@0030 [facility] Last Admin: 09/08/18 00:31 Dose: 200 mls/hr Insulin Glargine (Lantus(*)) 5 units SUBCUT Q24H [facility] Last Admin: 09/08/18 18:04 Dose: 5 units Insulin Human Lispro (Humalog*) 0 units SUBCUT ACHS [facility]; Protocol Last Admin: 09/08/18 18:04 Dose: 1 units Memantine (Namenda Tab*) 5 mg PO BID [facility] Last Admin: 09/08/18 10:09 Dose: 5 mg Morphine Sulfate (Morphine 4 Mg/Ml Vial (1 Ml)) 4 mg IV Q4H PRN PRN Reason: PAIN Last Admin: 09/05/18 18:39 Dose: 4 mg Ondansetron HCl (Zofran Inj*) 4 mg IV Q6H PRN PRN Reason: NAUSEA/VOMITING Vital Signs - 8 hr 09/08/18 09/08/18 09/08/18 12:34 13:51 16:00 Temperature 98.7 F Pulse Rate 87 Respiratory 16 16 Rate Blood Pressure 124/70 (mmHg) O2 Sat by Pulse 98 98 Oximetry 09/08/18 18:09 Temperature Pulse Rate Respiratory 16 Rate Blood Pressure (mmHg) O2 Sat by Pulse Oximetry Oxygen Devices in Use Now: None Appearance: Elderly lady lying in bed in NAD Eyes: No Scleral Icterus Ears/Nose/Mouth/Throat: Mucous Membranes Moist Neck: Trachea Midline Respiratory: Symmetrical Chest Expansion and Respiratory Effort, Clear to Auscultation Cardiovascular: RRR - Normal S1 and S2 Abdominal: NL Sounds; No Tenderness; No Distention Extremities: - - Left hip CDI, no calf tenderness Neurological: - - AAOx1 (self) Result Diagrams: 09/07/18 06:42 09/08/18 04:48 Microbiology and Other Data: Microbiology 09/02/18 21:17 Blood Culture - Final Blood Venous No Growth Day 5 09/02/18 18:55 Aerobic Blood Culture - Final Blood Venous No Growth Day 5 Anaerobic Blood Culture - Final No Growth Day 5 09/02/18 17:30 Urine Culture - Final Urine Klebsiella Aerogenes 09/02/18 21:20 Nasal Screen MRSA (PCR) - Final Nasal Mrsa Not Detected Assess/Plan/Problems-Billing Assessment: - Patient Problems (1) Fractured femoral neck Comment: L femoral neck fracture s/p L hemiarthroplasty Recent hospitalization for R hip fracture and surgery (2) Hyperosmolar hyperglycemic coma due to diabetes mellitus without ketoacidosis Comment: Resolved COntinue low dose Lantus and continue Lispro SS (3) UTI (urinary tract infection) Comment: Present on admission. Urine culture growing Klebsiella sensitive to Ceftriaxone Continue Ceftriaxone (4) DVT prophylaxis Comment: - Lovenox. Status and Disposition: Medically stable for discharge, awaiting bed at [facility].
[2018-09-08] MEDS: Atorvastatin* 40 MG TAB PO SCH (21:13)
[2018-09-09] MEDS: cefTRIAXone(*) 1 GM in NS 0.9% 50 ML* 50 ML IVPB SCH (00:50)
[2018-09-09] MEDS: HYDROcodone/ACETAMIN 5-325 MG* 1 TAB PO PRN ×2 (03:14→06:42)
[2018-09-09 08:07] VITALS: BP 117/52
[2018-09-09] MEDS: Enoxaparin(*) 40 MG/0.4 ML SYR SUBCUT SCH (09:05)
[2018-09-09] MEDS: Docusate LIQ* 100 MG/10 ML UDC PO SCH (09:05)
[2018-09-09] MEDS: Donepezil TAB* 5 MG PO SCH (09:05)
[2018-09-09] MEDS: Insulin LISPRO* 1 UNITS UNIT SUBCUT SCH (09:11)
[2018-09-09] MEDS: Memantine TAB* 5 MG PO SCH (09:13)
== END 2018-09-09 10:10 | DRG 469 ==
LOC: ED 15:54 → ICU 18:21 → SSU 09-05 10:47
PROVIDERS: ADMIT Internal Medicine; ATTEND Internal Medicine
PROC: 0SRS01A Replacement of Left Hip Joint, Femoral Surface with Metal Synthetic Substitute, Uncemented, Open Approach (ICD-10-PCS; principal; 2018-09-02)
PROC: 0T2BX0Z Change Drainage Device in Bladder, External Approach (ICD-10-PCS; 2018-09-05)
DX: S72.002A Fracture of unspecified part of neck of left femur, initial encounter for closed fracture (principal); E11.00 Type 2 diabetes mellitus with hyperosmolarity without nonketotic hyperglycemic-hyperosmolar coma (NKHHC); T83.518A Infection and inflammatory reaction due to other urinary catheter, initial encounter; I51.81 Takotsubo syndrome; N17.9 Acute kidney failure, unspecified; Z87.891 Personal history of nicotine dependence; W19.XXXA Unspecified fall, initial encounter; I10 Essential (primary) hypertension; E78.5 Hyperlipidemia, unspecified; E86.0 Dehydration; M85.88 Other specified disorders of bone density and structure, other site; M81.0 Age-related osteoporosis without current pathological fracture; R29.6 Repeated falls; R15.9 Full incontinence of feces; Y73.2 Prosthetic and other implants, materials and accessory gastroenterology and urology devices associated with adverse incidents; B96.1 Klebsiella pneumoniae [K. pneumoniae] as the cause of diseases classified elsewhere; R74.8 Abnormal levels of other serum enzymes; R33.9 Retention of urine, unspecified; Z16.11 Resistance to penicillins; Z16.39 Resistance to other specified antimicrobial drug; B96.89 Other specified bacterial agents as the cause of diseases classified elsewhere; I95.9 Hypotension, unspecified; E78.00 Pure hypercholesterolemia, unspecified; M19.90 Unspecified osteoarthritis, unspecified site; G30.9 Alzheimer's disease, unspecified; F02.80 Dementia in other diseases classified elsewhere, unspecified severity, without behavioral disturbance, psychotic disturbance, mood disturbance, and anxiety; Z98.42 Cataract extraction status, left eye; Z82.49 Family history of ischemic heart disease and other diseases of the circulatory system; Y92.9 Unspecified place or not applicable; Z79.4 Long term (current) use of insulin; Z81.8 Family history of other mental and behavioral disorders; Z88.1 Allergy status to other antibiotic agents; Z83.3 Family history of diabetes mellitus; Y92.129 Unspecified place in nursing home as the place of occurrence of the external cause
CPT/HCPCS: 36415; 70450; 71045; 72170; 80048; 80053; 80076; 81003; 81015; 82550; 82553; 82947; 83605; 83930; 84132; 84484; 85025; 85027; 85610; 85730; 86850; 86900; 86901; 87040; 87077; 87086; 87186; 87641; 88305; 88311; 93005; 93306; 99285; A9270-GY; C1776; C8929; G8978-GP-CM; G8979-GP-CL; G8987-GO-CN; G8988-GO-CJ; J0690; J0696; J1100; J1644; J1650; J1815; J1885; J2250; J2270; J2405; J2704; J2710; J2795; J3010; J3480

== ENCOUNTER 2018-09-19 04:20 | Emergency (ER) | payer MEDICARE ==
--- OUTSIDE RECORDS SUMMARY | 2018-09-19 04:35 | XMS REPORT | Continuity of Care Document ---
:1940 External Reference #:[id number] Author Name Ashley Dunlap Care Team Providers Name Role Phone Keerthi Gottlieb MD Primary Care Physician Unavailable Payers Date Identification Numbers Payment Provider Subscriber Effective: Policy Number: [id number] [facility] Today Ashley Urbina Huan 2016 Options PayID: [id number] [address] [address] Attn: [place] [address] Expires: 2017 Policy Number: [facility] Ashley Lynnashlee [id number] PayID: [id number] [address] [place] [address] Advance Directives Description No Information Available Problems [...] Unknown Marital Status Lives With Laur[facility] Memory care unit Tobacco Use Start: [...] Form Strength Qnty SIG Indications Ordering Provider Colace 08/14 Active Capsules 100mg 90cap 1 tab s every 12 Gottlieb, hours as M.D. needed for constipati on Milk Of Magnesia 08/14 Active Suspension 7.75% 355ml 30 milliliter Gottlieb, s q6h,prn M.D. for constipati on Xarelto 08/14 Active Tablets 10mg 30tab take one s tab per Gottlieb, day M.D. Senna Laxative 08/14 Active Tablets 8.6mg 90tab 1 tab by s mouth Gottlieb, every M.D. night at bedtime Tramadol HCL 08/14 Active Tablets 50mg 30tab 1tablet by s mouth Chery, every 6 M.D. hours as needed pain Tylenol Extra 08/14 Active Tablets 500mg 2 tabs by Keerthi mouth Gottlieb, every M.D. 8hours around the clock Check Blood 03/11 Active twice a Keerthi day Lavonne Gottlieb Shingrix 02/02 Active Suspension 50mcg 1unit intramuscu Rec s lar x 1 Chery, then M.DAbby repeat in 4 months Caltrate 600+D 02/02 Active Tablets 600-800mg 60tab 1 by mouth M81.0 -Unit s once a , day M.DAbby Vitamin D3 11/05 Active Capsules 1000Unit 90cap 1 by mouth s every day Lavonne Gottlieb Jardiance 10/23 Active Tablets 25mg 90tab take 1 s tablet Chery, once a day M.DAbby Lisinopril 09/30 Active Tablets 20mg 90tab 1 by mouth R51 s every day Lavonne Gottlieb Alendronate 06/30 Active Tablets 70mg 4tabs take 1 M81.0 Brent Cuba tablet by ingris LewDAbby weekly Metformin HCL 01/28 Active Tablets 1000mg 180ta 1 by mouth E11.65 Brent Fuentes /2015 bs twice a rasheed Lew M.Bailey Donepezil HCL 05/09 Active Tablets 10mg 90tab 1 tab by Raúl Davis /2014 s mouth Key, daily M.D. Atorvastatin 04/07 Active Tablets 40mg 90tab take 1 Brent Fuentes Calcium s tablet by ingris Lew M.DAbby daily Cyanocobalamin Active Tablets Sub 1000mcg 90tab take one Keerthi s tablet Gottlieb, daily M.DAbby Vitamin C ER Active Tablets ER 1000mg 1 by mouth every day Jardiance 09/30 Hx Tablets 10mg 90tab 1 by mouth Brent Fuentes s every Louann, - night M.DAbby 10/23 [...] 28mg 30cap 1 by mouth G30.1 Raúl Davis 24HR s every day Gina Mackey M.D. 04/08 Memantine HCL 04/08 Hx Tablets 10mg 180ta 1 tab by G30.1 Raúl SAbby bs mouth Key, - twice a M.D. Augmentin 03/25 Hx Tablets 500-125mg 14tab 1 tablet R35.0 Luis Carlos s every 12 [employer] - hours x 7 Macrobid 03/21 Hx Capsules 100mg 14cap one R35.0 Luis Carlos s capsule Seven [employer] - twice a 03/25 day x days Phenazopyridine 03/21 Hx Tablets 100mg 10tab 1 tablet Luis Carlos HCL s by mouth ADAMS Amezcua - three 03/24 times day as needed for 3 days. Namenda 03/07 Hx Tablets 5(28)-10( 1pack follow G30.1 Raúl S. Titration 21)mg instructGina Avilez ns on M.D. 04/08 titration pack Alendronate 05/30 Hx Tablets 70mg 12tab take 1 M81.0 Keerthi Sodium s tablet by Chery, - mouth M.D. 03/06 weekly Metformin HCL 05/30 Hx Tablets 500mg 180ta 1 by mouth E11.65 bs bid X 1 Chery - leah then M.D. 01/28 1 tb in Am and 1 tab in PM Donepezil HCL 11/08 Hx Tablets 5mg 90tab 1 every Raúl S. s day Gina MackeyDAbby 05/09 Fosamax 08/16 Hx Tablets 70mg 12tab one tablet 733.01 s weekly Gina Gottlieb M.D. 11/08 Fluconazole 08/16 Hx Tablets 100mg 2tabs 1 tab po 112.1 daily x 2 Chery - aram M.D. 10/07 Metformin HCL 08/16 Hx Tablets 500mg 30tab Take 1 250.00 s tablet by Chery, - mouth M.D. 05/30 every Amlodipine 04/07 Hx Tablets 10mg 30tab take 1 Keerthi Besylate s tablet by Chery, - mouth M.D. 06/30 daily /2017 Doxycycline 10/07 Hx Capsules 100mg 2caps 2 tab X 1 911.4 Keerthi Hyclate Gina Gottlieb.DAbby 04/01 Norvasc 08/19 Hx Tablets 10mg 90tab 1 po qd Keerthi /2013 s Gina GottliebDAbby 09/13 Fosamax 08/19 Hx Tablets 70mg 12tab one tablet 733.01 Keerthi /2013 s weekly Gina Gottlieb M.D. 08/16 Lisinopril 08/19 Hx Tablets 5mg 90tab take 1 I10 s tablet by Chery, - mouth M.D. 06/30 daily Ergocalciferol 04/20 Hx Capsules [id number] 8caps 1 tab by mouth Chery, - every week M.D. 04/01 Norvasc 04/15 Hx Tablets 10mg 90tab 1 po qd s Chery - M.DAbby 08/19 Fosamax 04/15 Hx Tablets 70mg 12tab one tablet 733.01 s weekly Chery - M.DAbby 08/19 Lisinopril 04/15 Hx Tablets 2.5mg 90tab 1 po qd 401.9 s Gina GottliebDAbby 08/19 Lisinopril 03/04 Hx Tablets 5mg 60tab 1 po qd 401.9 s Gina Gottlieb.DAbby 04/15 Metformin HCL 07/10 Hx Tablets 500mg 90tab 1 po daily s Chery - M.DAbby 04/21 Ureacin-20 07/10 Hx Cream 20% 113.4 apply on 00gm soles of Chery - feet every M.D. 08/16 Physical Therapy 07/04 Hx 20uni pt . ts evaluation Gina Lew and Lavonne 06/06 treatment for l low [...] PO qhs Brent E. s to be Gina Lew taken with M.DAbby 02/21 40 mg. /2007 Simvastatin 10/29 Hx Tablets 40mg 90tab 1 PO QHS Brent E. s to be Louann, - taken with M.Bailey 02/21 20 mg. /2007 tablet Simvastatin 10/19 Hx Tablets 40mg 90tab 1 PO QHS Brent E. Gina Figueroa M.D. 10/29 Lipitor 04/20 Hx Tablets 40mg 135ta 1 06/10 tabs Brent . bs po hs Gina Lew M.D. 10/19 Glyburide 04/20 Hx Tablets 5mg 60tab take 1 s tablet by Cotton, - mouth once M.DAbby 08/28 a /2015 Tylenol Hx Tablets 325mg 100ta po prn Unknown /0000 bs - 08/14 Lipitor Hx Tablets 20mg 90tab 1tab po hs Brent E. / Gina Figueroa M.D. 04/20 Norvasc Hx Tablets 5mg 90tab 1 po qd Brent E. / Gina Figueroa M.D. 03/27 Fosamax Hx Tablets 70mg 4tabs Q Week With 8 Oz MD Luis - Water And 04/20 DO Not Lay Down For One Hour After Aspirin Hx Tablets 81mg 100ta 1 PO QHS Chery, Gina Murray MD 02/02 Avandia Hx Tablets 8mg 90tab 1 po qd Brent E. / Gina Figueroa M.D. 06/13 Abilify Hx Tablets 10mg 1 po qd Unknown /0000 - 08/19 Multivitamins 00 Hx Capsules 30cap 1 by mouth Unknown /0000 s every day - 02/02 Vitamin C Hx Capsules 1000mg 90cap 1 by mouth Keerthi /0000 facundo every day Gina Gottlieb M.D. 12/02 Vitamin [...] CPT Code Status Date Vaccine Lot # [id number] Given 03/21/2017 Influenza Virus Vaccine, Quadrivalent, Split, [id number] Preservative Free 26157 Given 05/30/2016 Tdap - Tetanus/Diptheria/Acellular Pertussis [id number] 72523 Given 02/15/2016 Influenza Virus Vaccine, Quadrivalent, Split, Preservative Free 17980 Given 05/30/2015 Pneumococcal Conjugate Vaccine 13 Valent For [id number] Intramuscular Use 66456 Given 03/04/2015 Influenza Virus Vaccine, Quadrivalent, Split, Preservative Free 09872 Given 05/03/2013 Pneumonia Vaccine [id number] 36673 Given 03/27/2013 Flu Vaccine Split Virus Preservative Free For Indiv 3Yr Older Q2038 Given 03/04/2012 Fluzone Vaccine [id number] 80678 Given 07/10/2011 Zoster (Zostavax) [id number] Q2038 Given 02/18/2011 Fluzone Vaccine [id number] 09846 Given 06/13/2010 Influenza Virus 3Yrs & Over [id number] Q2038 Given 06/13/2010 Fluzone Vaccine 85272 Given 07/04/2009 Influenza Virus Vaccine, Pandemic Formulation 71877 Given 07/04/2009 Influenza Virus 3Yrs & Over 42481 Given 02/22/2008 Pneumonia Vaccine 63099 Given 10/19/2007 Pneumonia Vaccine 60933 Given 10/19/2007 Pneumonia Vaccine 83218 Given 10/19/2007 Pneumonia Vaccine [id number] 95547 Given 04/13/2007 Influenza Virus 3Yrs & Over 86407 Given 04/13/2007 Influenza Virus 3Yrs & Over 30140 Given 04/13/2007 Influenza Virus 3Yrs & Over [id number] 07177 Given 08/01/2003 Td (History By Patient) 40856 Given 03/26/1999 Pneumovax (History By Patient) Vital [...] Date Facility Test Result H/L Range Note Inr/Protime 09/02/2018 [facility] Inr 0.94 N 0.77-1.[address] [place] [address] [phone] Laboratory test 09/02/2018 [facility] Partial 22.8 seconds Low 26.0-36.3 [address] [place] [place] [address] PTT [phone] Comp Metabolic 09/02/2018 [facility] Potassium 4.9 mmol/L N 3.5-5.[address] [place] [address] [phone] Chloride 111 mmol/L N 101-111 Co2 Carbon Dioxide 29 mmol/L N 22-32 Blood Urea Nitrogen 51 mg/dL High 6-24 Creatinine 1.39 mg/dL High 0.51-0.95 BUN/Creatinine Ratio 36.7 High 8-20 Calcium 9.7 mg/dL N 8.6-10.3 Total Protein 6.8 g/dL N 6.4-8.9 Albumin 3.8 g/dL N 3.2-5.2 Globulin 3.0 g/dL N 2-4 Albumin/Globulin Ratio 1.3 N 1-3 Total Bilirubin 0.80 mg/dL N 0.2-1.0 Alkaline Phosphatase 106 U/L High 34-104 Alt 12 U/L N 7-52 Ast 7 U/L Low 13-39 Egfr Non- 36.7 >60 Egfr 44.4 >60 3 Glucose 716 mg/dL High 70-100 4 Sodium 149 mmol/L High 135-145 Anion Gap 9 mmol/L N 2-11 Laboratory test 09/02/2018 [facility] Troponin-I 0.05 ng/mL High <0.04 [address] (TnI) [place] [address] [phone] Glucose Confirmatory 716 mg/dL High 70-100 6 Urinalysis Profile 09/02/2018 [facility] Urine Color Straw [address] [place] [address] [phone] Urine Appearance Cloudy Urine Specific [place] 1.029 N 1.010-1.030 Urine pH 5.0 N 5-9 Urine Urobilinogen Negative Negative Urine Ketones Trace Abnormal Negative Urine Protein Negative Negative Urine Leukocytes 2+ Abnormal Negative Urine Blood 1+ Abnormal Negative Urine Nitrite Negative Negative Urine Bilirubin Negative Negative Urine Glucose 3+(>=500 mg/dL) Abnormal Negative Urine White Blood Cell 3+(>20/hpf) Abnormal Absent Urine Red Blood Cell 3+(>10/hpf) Abnormal Absent Urine Bacteria 1+ Abnormal Absent Urine Squamous Epithelial Cell Present Abnormal Absent Urine Yeast Present Abnormal Absent CBC Auto 09/02/2018 [facility] White Blood 12.0 10^3/uL High 3.5-10.[address] [place] [address] [phone] Red Blood Count 3.97 10^6/uL N 3.70-4.87 Hemoglobin 12.2 g/dL N 12.0-16.0 Hematocrit 40 % N 33-41 Mean Corpuscular Volume 100 fL High 80-97 Mean Corpuscular Hemoglobin 31 pg N 27-31 Mean Corpuscular HGB Conc 31 g/dL N 31-36 Red Cell Distribution Width 20 % High 10.5-15 Platelet Count 290 10^3/uL N 150-450 Mean Platelet Volume 8.9 fL N 7.4-10.4 Abs Neutrophils 10.6 10^3/uL High 1.5-7.7 Abs Lymphocytes 0.8 10^3/uL Low 1.0-4.8 Abs Monocytes 0.6 10^3/uL N 0-0.8 Abs Eosinophils 0 10^3/uL N 0-0.6 Abs Basophils 0 10^3/uL N 0-0.2 Abs Nucleated RBC 0 10^3/uL Granulocyte % 88.1 % Lymphocyte % 6.4 % Monocyte % 5.1 % Eosinophil % 0 % Basophil % 0.4 % Nucleated Red Blood Cells % 0 Urine Culture And 09/02/2018 [facility] Urine Culture SEE RESULT [address] [place] [address] [phone] Laboratory test 09/02/2018 [facility] Point of Care > 444 mg/dL High 70-1 [address] Glucose 00 [place], [place] [id number] [phone] Laboratory test 08/17/2018 [facility] Rapid SEE RESULT [address] [place] [address] Antigen [phone] Urine Culture And 08/17/2018 [facility] Urine Culture SEE RESULT [address] [place] [address] [phone] Urinalysis Profile 08/17/2018 [facility] Urine Color Yellow [address] [place], [place] [address] [phone] Urine Appearance Cloudy Urine Specific [place] 1.024 N 1.010-1.030 Urine pH 5.0 N 5-9 Urine Urobilinogen Negative Negative Urine Ketones 2+ Abnormal Negative Urine Protein Negative Negative Urine Leukocytes Negative Negative Urine Blood 2+ Abnormal Negative Urine Nitrite Negative Negative Urine Bilirubin Negative Negative Urine Glucose 3+(>=500 mg/dL) Abnormal Negative Urine White Blood Cell 1+(6-10/hpf) Abnormal Absent Urine Red Blood Cell Trace(0-2/hpf) Absent Urine Bacteria Absent Absent Laboratory test 08/17/2018 [facility] Magnesium 2.6 mg/dL N 1.9-2.7 [address] [place] [address] [phone] Troponin-I (TnI) 0.07 ng/mL High <0.04 12 Acetaminophen < 15 g/mL 13 Salicylate < 2.50 mg/dL <30 14 TSH (Thyroid Stim Horm) 0.44 mcIU/mL N 0.34-5.60 15 Comp Metabolic 08/17/2018 [facility] Potassium 3.7 mmol/L N 3.5-5.[address] [place], [place] [id number] [phone] Co2 Carbon Dioxide 20 mmol/L Low 22-32 Glucose 333 mg/dL High 70-100 Blood Urea Nitrogen 65 mg/dL High 6-24 Creatinine 1.13 mg/dL High 0.51-0.95 BUN/Creatinine Ratio 57.5 High 8-20 Calcium 10.9 mg/dL High 8.6-10.3 Total Protein 6.7 g/dL N 6.4-8.9 Albumin 3.7 g/dL N 3.2-5.2 Globulin 3.0 g/dL N 2-4 Albumin/Globulin Ratio 1.2 N 1-3 Total Bilirubin 1.40 mg/dL High 0.2-1.0 Alkaline Phosphatase 64 U/L N 34-104 Alt 12 U/L N 7-52 Ast 8 U/L Low 13-39 Egfr Non- 46.6 >60 Egfr 56.3 >60 16 Sodium 171 mmol/L High 135-145 Chloride 127 mmol/L High 101-111 Anion Gap 24 mmol/L High 2-11 CBC Auto 08/17/2018 [facility] White Blood 17.9 10^3/uL High 3.5-10.[address] [place] [address] [phone] Red Blood Count 3.73 10^6/uL Low 4.00-5.40 Hemoglobin 10.9 g/dL Low 12.0-16.0 Hematocrit 36 % N 35-47 Mean Corpuscular Volume 95 fL N 80-97 Mean Corpuscular Hemoglobin 29 pg N 27-31 Mean Corpuscular HGB Conc 31 g/dL N 31-36 Red Cell Distribution Width 17 % High 10.5-15 Platelet Count 450 10^3/uL N 150-450 Mean Platelet Volume 8.5 fL N 7.4-10.4 Abs Neutrophils 15.3 10^3/uL High 1.5-7.7 Abs Lymphocytes 1.2 10^3/uL N 1.0-4.8 Abs Monocytes 1.5 10^3/uL High 0-0.8 Abs Eosinophils 0 10^3/uL N 0-0.6 Abs Basophils 0 10^3/uL N 0-0.2 Abs Nucleated RBC 0 10^3/uL Granulocyte % 85.3 % Lymphocyte % 6.4 % Monocyte % 8.2 % Eosinophil % 0 % Basophil % 0.1 % Nucleated Red Blood Cells % 0.1 Laboratory 08/17/2018 [facility] Ammonia 69 mcmol/L High 16- 53 test finding [address] [place] [address] [phone] Inr/Protime 08/17/2018 [facility] Inr 1.07 High 0.77-1.02 [address] [place] [address] [phone] Laboratory 08/17/2018 [facility] Lactic Acid 1.4 mmol/L N 0.5- 2.0 17 test finding [address] [place] [address] [phone] Rapid 08/17/2018 [facility] Influenza A NEGATIVE Negative 18 Influenza A & [address] [place] [address] [place] [address] [phone] Influenza B Molecular NEGATIVE Negative Venous Blood Gas 08/17/2018 [facility] Venous Blood pH 7.34 N 7.32-7.[address] [place] [address] [phone] Venous Pco2 43 mmHg N 41-51 Venous Po2 37.0 mmHg N 35-45 Venous O2 Saturation 53.0 % Low 70-80 Venous Blood Base Excess -2.6 mmol/L Low 0.0-4.0 19 Venous Bicarbonate Hco3 21.7 mmol/L Low 24-28 Laboratory test 08/07/2018 [facility] Troponin-I (TnI) 0.01 ng/ mL <0.04 20 finding [address] [place] [address] [phone] Hemoglobin A1c (Glyco HGB) 6.6 % High 4.0-5.6 21 Comp Metabolic Panel 08/07/2018 [facility] Sodium 137 mmol/L N 135-[address] [place] [address] [phone] Chloride 100 mmol/L Low 101-111 Co2 Carbon [...] Egfr Non- 89.7 >60 Egfr 108.6 >60 22 Potassium 4.2 mmol/L N 3.5-5.0 Anion Gap 12 mmol/L High 2-11 Ast 17 U/L N 13-39 CBC Auto Diff 08/07/2018 [facility] White Blood 10.8 10^3/uL N 3.5-10.[address] [place] [address] [phone] Red Blood Count 5.26 10^6/uL N 4.00-5.40 [...] % Nucleated Red Blood Cells % 0.3 Laboratory test 08/07/2018 [facility] Partial 30.8 seconds N 26.0-36.[address] [place] [address] PTT [phone] Inr/Protime 08/07/2018 [facility] Inr 0.94 N 0.77-1.[address] [place] [address] [phone] Urinalysis 08/07/2018 [facility] Urine Color Yellow [address] [place] [address] [phone] Urine Appearance Clear Urine Specific [place] 1.026 N 1.010-1.030 Urine pH 8.0 N 5-9 Urine Urobilinogen Negative Negative Urine Ketones 1+ Abnormal Negative Urine Protein Negative Negative Urine Leukocytes Negative Negative Urine Blood Negative Negative * * Abnormal Negative 24 Urine Nitrite Negative Negative Urine Bilirubin Negative Negative Urine Glucose 3+(>=500 mg/dL) Abnormal Negative Laboratory test finding 08/03/2018 [facility] Hemoglobin A1c 6.6 5-7 Urinalysis Profile 03/10/2018 [facility] Urine Color Yellow [address] [place] [address] [phone] Urine Appearance Clear Urine Specific [place] 1.035 High 1.010-1.030 Urine pH 5.0 N 5-9 Urine Urobilinogen Negative Negative Urine Ketones Negative Negative Urine Protein Negative Negative Urine Leukocytes Trace Abnormal Negative Urine Blood Negative Negative * * Abnormal Negative 26 Urine Nitrite Negative Negative Urine Bilirubin Negative Negative Urine Glucose 3+(>=500 mg/dL) Abnormal Negative Urine White Blood Cell Trace(0-5/hpf) Absent Urine Red Blood Cell Absent Absent Urine Bacteria Absent Absent Urine Squamous Epithelial Cell Present Abnormal Absent Urine Culture And 03/10/2018 [facility] Urine Culture SEE RESULT [address] [place] [address] [phone] Laboratory test 02/02/2018 [facility] Hemoglobin A1c 6.7 5-7 finding Lipid Profile 10/23/2017 [facility] Triglycerides 143 mg/dL 28, 29 (Trig/Chol/HDL) [address] [place] [address] [phone] Cholesterol 160 mg/dL 30 HDL Cholesterol 46.9 mg/dL 31 LDL Cholesterol 85 mg/dL 32 Laboratory test 09/27/2017 [facility] Point of 198 mg/dL High 70-100 [address] [place] [address] [phone] Comp Metabolic 09/26/2017 [facility] Sodium 135 mmol/L Low 139 -[address] [place] [address] [phone] Potassium 4.2 mmol/L N 3.5-5.0 Chloride 96 [...] Egfr Non- 68.6 >60 Egfr 88.2 >60 34 Laboratory test 09/26/2017 [facility] Hemoglobin A1c 10.5 % High 4.0-5.6 [address] (Glyco HGB) [place] [address] [phone] Urinalysis 09/26/2017 [facility] Urine Color Straw Profile [address] [place] [address] [phone] Urine Appearance Clear Urine Specific [place] 1.035 High 1.010-1.030 Urine pH 7.0 N 5-9 Urine Urobilinogen Negative Negative Urine Ketones Negative Negative Urine Protein Negative Negative Urine Leukocytes Trace Abnormal Negative Urine Blood Negative Negative * * Abnormal Negative 36 Urine Nitrite Negative Negative Urine Bilirubin Negative Negative Urine Glucose 3+(>=500 mg/dL) Abnormal Negative Urine White Blood Cell Trace(0-5/hpf) Absent Urine Red Blood Cell 1+(3-5/hpf) Abnormal Absent Urine Bacteria 1+ Abnormal Absent Urine Culture And 09/26/2017 [facility] Urine Culture SEE RESULT [address] [place] [address] [phone] CBC Auto Diff 09/26/2017 [facility] White Blood 8.1 10^3/uL N 3.5-[address] Count 0.8 [place] [address] [phone] Red Blood Count 5.01 10^6/uL N 4.0-5.4 [...] 0-2 Nucleated Red Blood Cells % 0.1 Laboratory test 06/30/2017 [facility] Hemoglobin A1c 7.5 High 5-7 finding Urine Culture And 04/05/2017 [facility] Urine Culture SEE RESULT [address] [place] [address] [phone] Urinalysis Profile 04/05/2017 [facility] Urine Color Yellow N [address] [place] [address] [phone] Urine Appearance Clear N Urine Specific [place] 1.030 N 1.010-1.030 Urine pH 5.0 N [...] Cell Present Abnormal Absent Urine Microalbumin 04/05/2017 [facility] Ur Microalbumin < 15.0 N Random [address] (mg/L) mg/[place] [address] [phone] Urine Creatinine 96.74 mg/dL N Urine Microalbumin/Creatinine TNP ug/mg N <31 39 Laboratory test finding 03/31/2017 [facility] Hemoglobin A1c 9.4 High 5 -7 Ua Routine 03/21/2017 [facility] Ua Specific [place] 1.005 Ua PH 6 Ua Color yellow Ua Appera clear Ua WBC trace Ua Protein negative Ua Glucose 1000 Ua Ketones negative Ua Bilirubin negative Ua Urobilinogen 1 Ua Nitrite negative Ua Occult Blood large Urine Culture And 03/21/2017 [facility] Urine Culture SEE RESULT [address] [place] [address] [phone] Lipid Profile 10/10/2016 [facility] Triglycerides 62 mg/dL N 41 (Trig/Chol/HDL) [address] [place] [address] [phone] Cholesterol 159 mg/dL N 42 HDL Cholesterol 41.3 mg/dL N 43 LDL Cholesterol 105 mg/dL N 44 Basic Metabolic Panel 10/10/2016 [facility] Sodium 141 mmol/L N 133-[address] [place] [address] [phone] Potassium 4.0 mmol/L N 3.5-5.0 Chloride 103 mmol/L N 101-111 Co2 Carbon Dioxide 33 mmol/L High 22-32 Anion Gap 5 mmol/L N 2-11 Glucose 116 mg/dL High 70-100 Blood Urea Nitrogen 25 mg/dL High 6-24 Creatinine 0.66 mg/dL N 0.51-0.95 BUN/Creatinine Ratio 37.9 High 8-20 Calcium 9.9 mg/dL N 8.6-10.3 Egfr Non- 87.1 N >60 Egfr 112.0 N >60 45 Laboratory test 09/30/2016 [facility] Hemoglobin A1c 6.6 5-7 finding Laboratory test 05/30/2016 [facility] Hemoglobin A1c 7.0 5-7 finding Comp Metabolic Panel 08/31/2015 [facility] Sodium 140 mmol/L N 133-[address] [place] [address] [phone] Potassium 3.8 mmol/L N 3.5-5.0 Chloride 102 [...] 90.5 N >60 Egfr 116.3 N >60 46 Lipid Profile 08/31/2015 [facility] Triglycerides 90 mg/dL N 47 (Trig/Chol/HDL) [address] [place] [address] [phone] Cholesterol 159 mg/dL N 48 HDL Cholesterol 47.6 mg/dL N 49 LDL Cholesterol 93 mg/dL N 50 Laboratory test 08/29/2015 [facility] Hemoglobin A1c 5.5 5-7 finding Urine Microalbumin 08/29/2015 [facility] Ur Microalbumin 9.0 mg/ L N Random [address] (mg/L) [place] [address] [phone] Urine Creatinine 108.12 mg/dL N Urine Microalbumin/Creatinine 8.3 ug/mg N <31 Laboratory test 05/30/2015 [facility] Hemoglobin A1c 9.8 High 5-7 finding Surgical 07/04/2014 [facility] S RUN DATE: [address] 07/05/ [place] [address] <SEE NOTE> [phone] Laboratory test 11/15/2013 [facility] Hemoglobin A1c 6.9 5-7 finding Creatinine 10/08/2013 [facility] Creatinine 0.64 mg/dL N 0.51- 0.[address] [place] [address] [phone] Egfr Non- 91.0 N >60 Egfr 117.0 N >60 52 Laboratory test finding 10/08/2013 TSH (Thyroid Stimulating 1.08 IU/mL N 0.34-5.60 Horm) Vitamin B12 350 pg/mL N 180-914 53 Free T4 1.04 ng/mL N 0.61-1.12 Laboratory test 08/16/2013 [facility] Hemoglobin A1c 7.6 High 5-7 finding Vitamin D, 25 07/12/2013 [facility] 25-Hydroxy Vitamin 5.3 ng/ mL Hydroxy [address] D2 [place] [address] [phone] 25-Hydroxy Vitamin D3 31 ng/mL 25-Hydroxy Vitamin D Total 36 ng/mL 54 Lipid Profile 07/12/2013 [facility] Triglycerides 67 mg/dL 40 -200 (Trig/Chol/HDL) [address] [place] [address] [phone] Cholesterol 184 mg/dL Less than 200 HDL Cholesterol 58 mg/dL 40-60 55 Cholesterol/HDL Ratio 3.2 Average 1-4.44 LDL Cholesterol 112.6 High Less Than 100 56 Basic Metabolic Panel 07/12/2013 [facility] Sodium 139 mmol/L 133-[address] [place] [address] [phone] Potassium 4.1 mmol/L 3.5-5.0 Chloride 103 mmol/L 101-111 Co2 Carbon Dioxide 30.0 mmol/L 22-32 Anion Gap 6.0 mmol/L 2-11 Glucose 150 mg/dL High 70-100 Blood Urea Nitrogen 16 mg/dL 6-24 Creatinine 0.70 mg/dL 0.50-1.40 BUN/Creatinine Ratio 22.9 High 8-20 Calcium 9.7 mg/dL 8.1-9.9 Egfr Non- 82.0 >60 Egfr 105.5 >60 57 Urine Microalbumin 04/01/2013 [facility] Ur Microalbumin 7.0 mg/ L [address] (mg/L) [place] [address] [phone] Urine Creatinine 53.8 mg/dL Urine Microalbumin/Creatinine 13.0 Less Than 31 Laboratory test 04/01/2013 [facility] Hemoglobin A1c 7.5 High 5-7 finding Laboratory test 09/02/2012 [facility] Hemoglobin A1c 7.1 High 5-7 finding Vitamin D, 25 09/02/2012 [facility] 25-Hydroxy Vitamin 11 ng/mL Hydroxy [address] [address] [phone] 25-Hydroxy Vitamin D3 19 ng/mL 25-Hydroxy Vitamin D Total 30 ng/mL 59 Laboratory test 09/02/2012 [facility] TSH (Thyroid 1.00 0.34- 5.[address] Stimulating miu/[place] [address] Horm) [phone] Vitamin B12 391 pg/mL 180-914 Syphilis 09/02/2012 [facility] Syphilis IgG Nonreactive Nonreactive [address] [place] [address] [phone] RPR TNP Nonreactive RPR Titer TNP Pediatric/Maternal NO HIV 1/2 AB 09/02/2012 [facility] HIV 1 2 Nonreactive Nonreactive [address] [place] [address] [phone] Bilrubin And 05/11/2012 [facility] Total 1.2 mg/dL 0.4-1.[address] Bilirubin [place], [place] [id number] [phone] Direct Bilirubin 0.1 mg/dL 0.1-0.5 Indirect Bilirubin 1.1 mg/dL High 0.3-1.0 Pthi 04/16/2012 [facility] PTH Intact 3.3 PMOL/L 1.3-9.[address] [place] [address] [phone] Calcium (PTH Intact) 10.0 mg/dL High 8.1-9.9 Vitamin D, 25 04/16/2012 [facility] 25-Hydroxy Vitamin <4.0 ng/ mL Hydroxy [address] D2 [place] [address] [phone] 25-Hydroxy Vitamin D3 30 ng/mL 25-Hydroxy Vitamin D Total 30 ng/mL 62 Lipid Profile 04/16/2012 [facility] Triglycerides 60 mg/dL 40 -200 (Trig/Chol/HDL) [address] [place] [address] [phone] Cholesterol 193 mg/dL Less than 200 63 HDL Cholesterol 64 mg/dL High 40-60 64 Cholesterol/HDL Ratio 3.0 AVERAGE 1-4.44 LDL Cholesterol 117.0 mg/dL High Less Than 100 65 Comp Metabolic Panel 04/16/2012 [facility] Sodium 139 mmol/L 133-[address] [place] [address] [phone] Potassium 4.0 mmol/L 3.5-5.0 Chloride 102 mmol/L [...] 1-3 Total Bilirubin 1.4 mg/dL High 0.1-1.0 66 Alkaline Phosphatase 60 U/L 30-110 Alt 24 U/L 14-54 Ast 21 U/L 12-42 Egfr Non- 121.3 >60 Egfr 156.0 >60 67 Urine Microalbumin 04/15/2012 [facility] Ur Microalbumin 8.0 mg/ L [address] (Mg/L) [place] [address] [phone] Urine Creatinine 112.0 mg/dL Urine Microalbumin/Creatinine 7.1 UG/MG Less Than 31 Laboratory test 03/04/2012 [facility] Hemoglobin A1c 6.9 5-7 finding Laboratory test 07/10/2011 [facility] Hemoglobin A1c 7.4 High 5-7 finding Syphilis Screen 06/12/2011 [facility] RPR NON-REACT Nonreactive [address] [place] [address] [phone] RPR Titer TNP Pediatric/Maternal NO Laboratory test finding 06/12/2011 [facility] BUN 20 mg/dL 6- [address] [place] [address] [phone] CPK (Creatine Kinase) 82 U/L 0-170 Laboratory test 02/04/2011 [facility] Hemoglobin A1c 7.2 % High Less [address] Than 6.0 [place] [address] [phone] CBC Auto Diff 02/04/2011 [facility] White Blood 4.8 CUMM 4.8- 10.[address] [place] [address] [phone] Red Cell Count 4.49 CUMM 4.2-5.4 Hemoglobin [...] Abs Basophils 0 0-0.2 Lipid Profile 02/04/2011 [facility] Triglyceride 90 mg/dL 40- 200 (Trig/Chol/HDL) [address] [place] [address] [phone] Cholesterol 180 mg/dL Less Than 200 70 High Density Lipoprotein 51 mg/dL 40-60 71 Cholesterol/HDL Ratio 3.53 AVERAGE 1-4.44 Low Density Lipoprotein 111 mg/dL High Less Than 100 72 Comp Metabolic Panel 02/04/2011 [facility] Sodium 139 mmol/L 135-145 [address] [place] [address] [phone] Potassium 3.5 mmol/L 3.5-5.0 Chloride 103 mmol/L 101-111 Co2 (Carbon Dioxide) 30.0 mmol/L 22-32 Anion Gap 6.0 mmol/L 2-11 73 Glucose 115 mg/dL High 70-100 BUN 15 mg/dL 6-24 Creatinine 0.5 mg/dL Low 0.50-1.40 One Over Creatinine 2.00 BUN/Creatinine Ratio 30.0 High 8-20 Calcium 9.6 mg/dL 8.1-9.9 Total Protein 6.6 GM/DL 6.2-8.1 Albumin 4.5 GM/DL 3.2-5.2 Globulin 2.1 GM/DL 2-4 Albumin/Globulin Ratio 2.1 1-3 Bilirubin Total 1.2 mg/dL 0.4-1.5 74 Alkaline Phosphatase 57 U/L 30-110 Alt (SGPT) 18 U/L 14-54 Ast (Sgot) 16 U/L 12-42 eGFR Non- 121.6 > 60 eGFR 156.4 > [address] [facility] 02/04/2011 [facility] TSH 1.90 MIU/ML 0.34- 5.60 Panel [address] [place] [address] [phone] Basic Metabolic 06/06/2010 [facility] Sodium 138 mmol/L 135- 145 Panel [address] [place] [address] [phone] Potassium 3.7 mmol/L 3.5-5.0 Chloride 104 mmol/L 101-111 Co2 (Carbon Dioxide) 30.0 mmol/L 22-32 Anion Gap 4.0 mmol/L 2-11 76 Glucose 107 mg/dL High 70-100 BUN 19 mg/dL 6-24 Creatinine 0.60 mg/dL 0.50-1.40 One Over Creatinine 1.60 BUN/Creatinine Ratio 31.7 High 8-20 Calcium 9.6 mg/dL 8.1-9.9 eGFR Non- 105.0 > 60 eGFR 127.1 > 60 77 Laboratory test 06/06/2010 [facility] Hemoglobin A1c 6.7 % High Less Than 78 finding 101 [facility] 6.0 [place] [address] [phone] Lipid Profile 06/06/2010 [facility] Triglyceride 79 mg/dL 40- 200 (Trig/Chol/HDL) [address] [place] [address] [phone] Cholesterol 178 mg/dL Less Than 200 79 High Density Lipoprotein 44 mg/dL 40-60 80 Cholesterol/HDL Ratio 4.05 AVERAGE 1-4.44 Low Density Lipoprotein 118 mg/dL High Less Than 100 81 Laboratory test finding 06/06/2010 [facility] Ast (Sgot) 20 U/L 12-42 [address] [place] [address] [phone] Alt (SGPT) 23 U/L 14-54 [facility] 12/06/2009 [facility] TSH 1.40 MIU/ML 0.34- 5.60 Panel [address] [place] [address] [phone] CMP Panel 12/06/2009 [facility] Sodium 136 mmol/L 135-145 [address] [place] [address] [phone] Potassium 4.1 mmol/L 3.5-5.0 Chloride 101 mmol/L 101-111 Co2 (Carbon Dioxide) 29.0 mmol/L 22-32 Anion Gap 6.0 mmol/L 2-11 82 Glucose 120 mg/dL High 70-100 83 BUN 17 mg/dL 6-24 Creatinine 0.60 mg/dL 0.50-1.40 One Over Creatinine 1.60 BUN/Creatinine Ratio 28.3 High 8-20 Calcium 9.3 mg/dL 8.1-9.9 84 Total Protein 6.3 GM/DL 6.2-8.1 Albumin 4.3 GM/DL 3.2-5.2 Globulin 2.0 GM/DL 2-4 Albumin/Globulin Ratio 2.2 1-3 Bilirubin Total 1.2 mg/dL 0.4-1.5 85 Alkaline Phosphatase 47 U/L 30-110 Alt (SGPT) 20 U/L 14-54 Ast (Sgot) 21 U/L 12-42 eGFR Non- 105.0 > 60 eGFR 127.1 > 60 86 Lipid Panel 12/06/2009 [facility] Triglyceride 90 mg/dL 40- 200 [address] [place] [address] [phone] Cholesterol 192 mg/dL Less Than 200 87 High Density Lipoprotein 47 mg/dL 40-60 88 Cholesterol/HDL Ratio 4.09 AVERAGE 1-4.44 Low Density Lipoprotein 127 mg/dL High Less Than 100 89 CBC W/Manual 12/06/2009 [facility] White Blood 4.1 CUMM Low 4.8-10.[address] [place] [address] [phone] Red Cell Count 4.40 CUMM 4.2-5.4 Hemoglobin [...] 2.7 RBC Morphology NORMAL Laboratory test 12/06/2009 [facility] Hemoglobin A1c 6.4 % High Less [address]0 [place] [address] [phone] Surgical 06/28/2009 [facility] Surgical ------- [address] Pathology ------- [place] [address] -- <SEE [phone] NOTE> Lipid Profile 06/13/2009 [facility] Triglyceride 77 40-200 92 (Trig/Chol/HDL) 101 mg/[place] [address] [phone] Cholesterol 211 mg/dL High Less Than 200 93 High Density Lipoprotein 55 mg/dL 40-60 94 Cholesterol/HDL Ratio 3.84 AVERAGE 1-4.44 Low Density Lipoprotein 141 mg/dL High Less Than 100 95 Laboratory test 03/22/2009 [facility] TSH 1.09 MIU/ML 0.34- 5.[address] [place] [address] [phone] Lipid Profile 03/22/2009 [facility] Triglyceride 81 mg/dL 40- 200 (Trig/Chol/HDL) [address] [place] [address] [phone] Cholesterol 202 mg/dL High Less Than 200 96 High Density Lipoprotein 53 mg/dL 40-60 97 Cholesterol/HDL Ratio 3.81 AVERAGE 1-4.44 Low Density Lipoprotein 133 mg/dL High Less Than 100 98 Comp Metabolic Panel 03/22/2009 [facility] Sodium 139 mmol/L 135-[address] [place] [address] [phone] Potassium 4.2 mmol/L 3.5-5.0 Chloride 104 mmol/L 101-111 Co2 (Carbon Dioxide) 30.0 mmol/L 22-32 Anion Gap 5.0 mmol/L 2-11 99 Glucose 77 mg/dL 70-100 100 BUN 20 mg/dL 6-24 Creatinine 0.60 mg/dL 0.50-1.40 One Over Creatinine 1.60 BUN/Creatinine Ratio 33.3 High 8-20 Calcium 10.0 mg/dL High 8.1-9.9 101 Total Protein 6.3 GM/DL 6.2-8.1 Albumin 4.4 GM/DL 3.2-5.2 Globulin 1.9 GM/DL Low 2-4 Albumin/Globulin Ratio 2.3 1-3 Bilirubin Total 1.2 mg/dL 0.4-1.5 102 Alkaline Phosphatase 41 U/L 30-110 Alt (SGPT) 16 U/L 14-54 Ast (Sgot) 18 U/L 12-42 eGFR Non- 105.4 > 60 eGFR 127.5 > 60 103 CBC With Manual 03/22/2009 [facility] White Blood 4.4 CUMM Low 4.8-10.[address] [place] [address] [phone] Red Cell Count 4.19 CUMM Low 4.2-5.4 [...] Count 2.8 Anisocytosis SLIGHT Laboratory test 03/22/2009 [facility] Hemoglobin A1c 6.3 % High Less [address]0 [place] [address] [phone] Lipid Profile 09/12/2008 [facility] Triglyceride 113 40-200 (Trig/Chol/HDL) [address] mg/[place] [address] [phone] Cholesterol 202 mg/dL High Less Than 200 105 High Density Lipoprotein 51 mg/dL 40-60 106 Cholesterol/HDL Ratio 3.96 AVERAGE 1-4.44 Low Density Lipoprotein 128 mg/dL High Less Than 100 107 Laboratory test 09/12/2008 [facility] Glucose 121 mg/dL High 70-100 [address] [place] [address] [phone] Hemoglobin A1c 6.5 % High <6.0 109 Liver Function 07/18/2008 [facility] Total Protein 6.3 GM/DL 6.2-8.1 110 Panel [address] [place] [address] [phone] Albumin 4.2 GM/DL 3.2-5.2 Globulin 2.1 GM/DL 2-4 Albumin/Globulin Ratio 2.0 1-3 Bilirubin Total 1.0 mg/dL 0.4-1.5 Bilirubin Direct 0.1 mg/dL 0.1-0.5 Indirect Bilirubin 0.9 mg/dL High 0.1-0.75 Alkaline Phosphatase 43 U/L 30-110 Alt (SGPT) 16 U/L 14-54 Ast (Sgot) 17 U/L 12-42 Laboratory test 07/18/2008 [facility] Glucose 141 mg/dL High 70-100 111 finding [address] [place] [address] [phone] Hemoglobin A1c 6.7 % High <6.0 112 Lipid Profile 07/18/2008 [facility] Triglyceride 137 mg/dL 40 -200 (Trig/Chol/HDL) [address] [place] [address] [phone] Cholesterol 206 mg/dL High Less Than 200 113 High Density Lipoprotein 49 mg/dL 40-60 114 Cholesterol/HDL Ratio 4.20 AVERAGE 1-4.44 Low Density Lipoprotein 130 mg/dL High Less Than 100 115 Laboratory test 04/18/2008 [facility] Alt (SGPT) 18 U/L 14- 54 116 finding [address] [place] [address] [phone] Ast (Sgot) 19 U/L 12-42 Lipid Profile 04/18/2008 [facility] Triglyceride 109 mg/dL 40 -200 (Trig/Chol/HDL) [address] [place] [address] [phone] Cholesterol 207 mg/dL High Less Than 200 117 High Density Lipoprotein 44 mg/dL 40-60 118 Cholesterol/HDL Ratio 4.70 AVERAGE High 1-4.44 Low Density Lipoprotein 141 mg/dL High Less Than 100 119 Laboratory test 02/15/2008 [facility] Alt (SGPT) 18 U/L 14- 54 120 finding [address] [place], [place] [address] [phone] Ast (Sgot) 20 U/L 12-42 Hemoglobin A1c 6.6 % High <6.0 121 Lipid Profile 02/15/2008 [facility] Triglyceride 120 mg/dL 40 -200 (Trig/Chol/HDL) [address] [place] [address] [phone] Cholesterol 222 mg/dL High Less Than 200 122 High Density Lipoprotein 44 mg/dL 40-60 123 Cholesterol/HDL Ratio 5.05 AVERAGE High 1-4.44 Low Density Lipoprotein 154 mg/dL High Less Than 100 124 Basic Metabolic Panel 02/15/2008 [facility] Sodium 141 mmol/L 135-145 [address] [place] [address] [phone] Potassium 4.4 mmol/L 3.5-5.0 Chloride 106 mmol/L 101-111 Co2 (Carbon Dioxide) 31.0 mmol/L 22-32 Anion Gap 4.0 mmol/L 2-11 125 Glucose 60 mg/dL Low 70-100 126 BUN 21 mg/dL 6-24 Creatinine 0.8 mg/dL 0.5-1.4 One Over Creatinine 1.25 BUN/Creatinine Ratio 26.3 High 8-20 Calcium 9.8 mg/dL 8.1-9.9 127 Laboratory test 10/12/2007 [facility] Alt (SGPT) 24 U/L 14- 54 128 finding [address] [place] [address] [phone] Ast (Sgot) 23 U/L 12-42 Hemoglobin A1c 6.4 % High <6.0 129 Lipid Profile 10/12/2007 [facility] Triglyceride 96 mg/dL 40- 200 (Trig/Chol/HDL) [address] [place], [place] [address] [phone] Cholesterol 235 mg/dL High Less Than 200 130 High Density Lipoprotein 47 mg/dL 40-60 131 Cholesterol/HDL Ratio 5.00 AVERAGE High 1-4.44 Low Density Lipoprotein 169 mg/dL High Less Than 100 132 Basic Metabolic Panel 10/12/2007 [facility] Sodium 140 mmol/L 135-145 [address] [place] [address] [phone] Potassium 5.3 mmol/L High 3.5-5.0 Chloride 106 mmol/L 101-111 Co2 (Carbon Dioxide) 31.0 mmol/L 22-32 Anion Gap 3.0 mmol/L 2-11 133 Glucose 129 mg/dL High 70-105 BUN 15 mg/dL 6-24 Creatinine 0.7 mg/dL 0.5-1.4 One Over Creatinine 1.42 BUN/Creatinine Ratio 21.4 High 8-20 Calcium 9.8 mg/dL 8.7-10.2 Laboratory test 04/13/2007 [facility] TSH 0.79 MIU/ML 0.34- 5.60 [address] [place], [place] [address] [phone] Lipid Profile 04/13/2007 [facility] Cholestero 5.72 High 1- 4.44 (Trig/Chol/HDL) [address] l/[place] [address] Ratio [phone] Cholesterol 286 mg/dL High Less Than 200 135 Triglyceride 130 mg/dL 40-200 High Density Lipoprotein 50 mg/dL 40-60 Low Density Lipoprotein 210 mg/dL High Less Than 100 136 Comp Metabolic Panel 04/13/2007 [facility] One Over Creatinine 1.[address] [place] [address] [phone] Anion Gap 5.0 mmol/L 2-11 137 Albumin/Globulin Ratio 2.0 1-3 Albumin 4.2 GM/DL [...] 0.7 mg/dL 0.5-1.4 CBC W/ Electronic 04/13/2007 [facility] White Blood 4.5 CUMM Low 4.8-10.8 [address] [place] [address] [phone] Abs Basophils 0 0-0.2 Abs Eosinophils 0 [...] Redcell Distribution WDTH 14 % 10.5-15 1 Unable to obtain, RN notified 2 Unable to obtain, RN notified 3 Because ethnic data is not always [...] 5 Kidney failure <15 (or dialysis) 4 Critical Result [id number] Called to [id number] at: 18:07:32 by:[email or web address] Read back by:[email or web address] 5 Verbal to [id number] by [email or web address] at 1811 on 09/02/18. Results read back accurately. Troponin-I testing on Plasma Separator Tubes (PST) has a known false positive rate of 0.20-0.40%. All positive troponins reflex immediate secondary confirmatory testing. 6 Critical Result [id number] Called to [id number] at: 18:07:32 by:[email or web address] Read back by:[id number] 7 SEE RESULT BELOW Name: YANELISETTEASHLEY C : [address]: Jesus Crouch MD Acct: [id number] Unit: [id number] AGE: 77 Location: ICU [id number] Re09/02/18 SEX: F Status: ADM IN SPEC: [id number] ABDIRASHID: 09/02/18-1730 [facility] [address]: Collin Duncan MD REQ: [id number] RECD: 09/02/18 STATUS: RES OTHR DR: Keerthi Gottlieb MD _ SOURCE: URINE SPDESC: ORDERED: Urine Culture Procedure Result Reported Site Urine Culture Preliminary 09/03/18- 1513 ML Organism 1 KLEBSIELLA AEROGENES Dailey Count >100,000 (Many) CFU/ML * ML - Main Lab . END OF REPORT DEPARTMENT OF PATHOLOGY, [address] [place] [address] Cortes Cormier M.D. Director [facility] # [id number] 8 Pipe Straightener: [id number] 9 SEE RESULT BELOW Name: ASHLEY PRESSLEY : [address]: Ozzie Mcknight MD Acct: [id number] Unit: [id number] AGE: 77 Location: ED Re08/17/18 SEX: F Status: REG ER SPEC: [id number] ABDIRASHID: 08/17/18 [facility] [address]: Louie Mcknight MD REQ: [id number] RECD: 08/17/18 STATUS: EVARISTO REILLY DR: Keerthi Gottlieb MD _ SOURCE: NASAL SPDESC: ORDERED: Flu A B Request Procedure Result Reported Site Rapid Influenza A B Request Final 08/17/181245 ML Specimen received for Influenza A/B Molecular testing * ML - Main Lab . END OF REPORT DEPARTMENT OF PATHOLOGY, [address] [place] [address] Cortes Cormier M.D. Director [facility] # [id number] 10 SEE RESULT BELOW Name: ASHLEY PRESSLEY : [address]: Emiliano Valles MD Acct: [id number] Unit: [id number] AGE: 77 Location: [place] [address]- Re08/17/18 SEX: F Status: ADM IN SPEC: [id number] ABDIRASHID: 08/17/[address]: Louie Mcknight MD REQ: [id number] RECD: 08/17/18 STATUS: EVARISTO REILLY DR: Keerthi Gottlieb MD _ SOURCE: URINE SPDESC: ORDERED: Urine Culture Procedure Result Reported Site Urine Culture Final 08/19/18- 08 ML Organism 1 ENTEROCOCCUS FAECALIS Dailey Count >100,000 (Many) CFU/ML 1. ENTEROCOCCUS FAECALIS M.I.C. RX --------- ------ Ampicillin <=2 S Penicillin 2 S Ciprofloxacin <=0.5 S Gentamicin High Level S Levofloxacin 1 S Linezolid 2 S Nitrofurantoin <=16 S * Quinupristin/Dalfopristin 4 R * Streptomycin High Level S Tetracycline <=1 S Doxycycline - Deduced S * Minocycline - Deduced S Tigecycline <=0.12 S Vancomycin 2 S Imipenem-Deduced S * Ampicillin/Sulbactam-Deduced S * These antibiotics are not available in the [facility] Formulary Contact the Microbiology Department for any additional antibiotic reporting. * ML - Main Lab . END OF REPORT DEPARTMENT OF PATHOLOGY, [address] [place] [address] Cortes Cormier M.D. Director [facility] # [id number] 11 Verbal to [id number] TROP by [employer] at 1319 on 08/17/18. Results read back accurately. Verbal to [id number] by [id number] at 1320 on 08/17/18. Results read back accurately. 12 Result TnIDx:0.07 Called to [id number] at: 13:11:19 by:[email or web address] Read back by: [id number] Troponin-I testing on Plasma Separator Tubes (PST) has a known false positive rate of 0.20-0.40%. All positive troponins reflex immediate secondary confirmatory testing. 13 Therapeutic concentration: <50 ug/mL Toxic concentration: >120 ug/mL 14 Verbal to [id number] TROP by [id number] at 1319 on 08/17/18. Results read back accurately. Verbal to [id number] by [id number] at 1320 on 08/17/18. Results read back accurately. 15 Verbal to [id number] TROP by [id number] at 1319 on 08/17/18. Results read back accurately. Verbal to [id number] by [id number] at 1320 on 08/17/18. Results read back accurately. 16 Because ethnic data is not always readily [...] 15-29 5 Kidney failure <15 (or dialysis) 17 [facility] Severe Sepsis and Septic Shock Management Bundle Measure requires all lactic acids initially measuring >2.0 mmol/L be repeated. 18 Pipe Straightener: [id number] 19 Reference ranges based on room air. 20 Troponin-I testing on Plasma Separator Tubes (PST) has a known false positive rate of 0.20-0.40%. All positive troponins reflex immediate secondary confirmatory testing. 21 Therapeutic target for the treatment of diabetes mellitus patients is <7% HBA1C, and in selective patients <6.0%. Please refer to [place] [employer] diabetic care guidelines for further information. 22 Because ethnic data is not always [...] 5 Kidney failure <15 (or dialysis) 23 Urine Source: Clean Catch 24 *Ascorbic acid is present which may interfere with detection of blood. 25 [id number] 26 *Ascorbic acid is present which may interfere with detection of blood. 27 SEE RESULT BELOW Name: JOHNASHLEEASHLEY C : [address]: Keerthi Gottlieb MD Acct: [id number] Unit: [id number] AGE: 77 Location: [facility] Re03/10/18 SEX: F Status: REG REF SPEC: [id number] ABDIRASHID: 03/10/18-[address] [facility] [address]: Keerthi Gottlieb MD REQ: [id number] RECD: 03/10/18 STATUS: COMP _ SOURCE: URINE SPDESC: ORDERED: Urine Culture Procedure Result Reported Site Urine Culture Final 03/11/18- 1320 ML Organism 1 STREP GROUP B Dailey Count 10-25,000 (Moderate) CFU/ML Organism 2 NORMAL GERRY Dailey Count 10-25,000 (Moderate) CFU/ML Susceptibility testing of penicillins and other B-lactams approved by FDA for treatment of Streptococcus pyogenes (Group A Strep) and Streptococcus agalactiae (Group B Strep) is not necessary for clinical purposes and need not be done routinely, since as with vancomycin, resistant strains have not been recognized. (CLSI S978-J30;p.66) Positive isolates will be saved for one week. Please call the Microbiology Laboratory if further susceptibility testing is needed. * ML - Main Lab . END OF REPORT DEPARTMENT OF PATHOLOGY, [address] [place] [address] Cortes Cormier M.D. Director [facility] # [id number] 29 Desirable: <150 Borderline High: 150-199 High: 200-499 Very High: >500 30 Desirable: <200 Borderline High: 200-239 High: >239 31 Low: <40 Desirable: 40-60 High: >60 32 Desirable: <100 Near Optimal: 100-129 Borderline High: 130-159 High: 160-189 Very High: >189 33 Pipe Straightener: [id number] 34 Because ethnic data is not always readily [...] 15-29 5 Kidney failure <15 (or dialysis) 35 Therapeutic target for the treatment of diabetes mellitus patients is <7% HBA1C, and in selective patients <6.0%. Please refer to [place] [employer] diabetic care guidelines for further information. 36 *Ascorbic acid is present which may interfere with detection of blood. 37 SEE RESULT BELOW Name: ASHLEY PRESSLEY : [address]: Sonja Grayson MD Acct: [id number] Unit: [id number] AGE: 76 Location: [place] [address] Re09/26/17 SEX: F Status: ADM IN SPEC: [id number] ABDIRASHID: 09/26/[address]: Rc LAINEZ REQ: [id number] RECD: 09/26/17 STATUS: EVARISTO REILLY DR: Keerthi Mcknight MD _ SOURCE: URINE [facility]: ORDERED: Urine Culture Procedure Result Reported Site Urine Culture Final 09/28/17- 1038 ML Organism 1 STREP GROUP B Dailey Count 25-50,000 (Moderate) CFU/ML Susceptibility testing of penicillins and other B-lactams approved by FDA for treatment of Streptococcus pyogenes (Group A Strep) and Streptococcus agalactiae (Group B Strep) is not necessary for clinical purposes and need not be done routinely, since as with vancomycin, resistant strains have not been recognized. (CLSI Q970-P71;p.66) Positive isolates will be saved for one week. Please call the Microbiology Laboratory if further susceptibility testing is needed. * ML - Main Lab . END OF REPORT DEPARTMENT OF PATHOLOGY, [address] [place] [address] Cortes Cormier M.D. Director [facility] # [id number] 38 SEE RESULT BELOW Name: ASHLEY PRESSLEY : [address]: Keerthi Gottlieb MD Acct: [id number] Unit: [id number] AGE: 76 Location: [facility] Re04/05/17 SEX: F Status: REG REF SPEC: [id number] ABDIRASHID: 04/05/17 [facility] [address]: Keerthi Gottlieb MD REQ: [id number] RECD: 04/05/17 STATUS: COMP _ SOURCE: URINE SPDESC: ORDERED: Urine Culture Procedure Result Reported Site Urine Culture Final 04/06/17- 1210 ML No growth of clinically significant organisms * ML - MAIN LAB (PSC1) . END OF REPORT * ML=Testing performed at Main Lab DEPARTMENT OF PATHOLOGY, [address] [place] [address] Cortes Cormier M.D. Director [facility] # [id number] 39 Unable to calculate due to low microalbumin 40 SEE RESULT BELOW Name: ASHLEY PRESSLEY : [address]: Luis Carlos Amezcua NP Acct: [id number] Unit: [id number] AGE: 76 Location: [facility] Re03/21/17 SEX: F Status: REG REF SPEC: [id number] ABDIRASHID: 03/21/17-[address]: Luis Carlos Amezcua NP REQ: [id number] RECD: 03/21/17 STATUS: COMP _ SOURCE: URINE SPDESC: ORDERED: Urine Culture COMMENTS: [id number] Procedure Result Reported Site Urine Culture Final 03/24/17- 0820 ML Organism 1 ESCHERICHIA COLI Dailey Count 10-25,000 (Moderate) CFU/ML Organism 2 STREP GROUP B Dailey Count >100,000 (Many) CFU/ML Organism 3 NORMAL GERRY Dailey Count 25-50,000 (Moderate) CFU/ML Susceptibility testing of penicillins and other B-lactams approved by FDA for treatment of Streptococcus pyogenes (Group A Strep) and Streptococcus agalactiae (Group B Strep) is not necessary for clinical purposes and need not be done routinely, since as with vancomycin, resistant strains have not been recognized. (CLSI E481-H05;p.66) Positive isolates will be saved for one week. Please call the Microbiology Laboratory if further susceptibility testing is needed. 1. ESCHERICHIA COLI M.I.C. RX --------- ------ Ampicillin 8 S Cefazolin <=4 S Cefepime <=1 S Ceftriaxone <=1 S Ciprofloxacin <=0.25 S Gentamicin <=1 S CONTINUED ON NEXT PAGE * ML=Testing performed at Main Lab DEPARTMENT OF PATHOLOGY, [address] [place] [address] Cortes Cormier M.D. Director [facility] # [id number] Patient: ASHLEY PRESSLEY [id number] (Continued) Specimen: [id number] Collected: 03/21/17 Received: 03/21/17 (Continued) Procedure Result Reported Site Urine Culture Final (continued) 03/24/17819 1. ESCHERICHIA COLI (continued) M.I.C. RX --------- ------ Levofloxacin <=0.12 S Meropenem <=0.25 S Nitrofurantoin <=16 S Tetracycline 2 S Pipercillin/Tazobactam <=4 S Trimethoprim/Sulfamethoxazole <=20 S Amoxicillin/Clavulanic Acid 4 S Aztreonam <=1 S Contact the Microbiology Department for any additional antibiotic reporting. * ML - MAIN LAB ([facility]) . END OF REPORT * ML=Testing performed at Main Lab DEPARTMENT OF PATHOLOGY, [address] [place] [address] Cortes Cormier M.D. Director [facility] # [id number] 41 Desirable <150 Borderline high 150-199 High 200-499 Very High >500 42 Desirable <200 Borderline high 200-239 High >239 43 Low <40 Desirable: 40-60 High: >60 44 Desirable: <100 mg/dL Near Optimal: 100-129 mg/dL Borderline High: 130-159 mg/dL High: 160-189 mg/dL Very High: >189 mg/dL 45 Because ethnic data is not always readily [...] 15-29 5 Kidney failure <15 (or dialysis) 46 Because ethnic data is not always readily [...] 15-29 5 Kidney failure <15 (or dialysis) 47 Desirable <150 Borderline high 150-199 High 200-499 Very High >500 48 Desirable <200 Borderline high 200-239 High >239 49 Low <40 Desirable: 40-60 High: >60 50 Desirable: <100 mg/dL Near Optimal: 100-129 mg/dL Borderline High: 130-159 mg/dL High: 160-189 mg/dL Very High: >189 mg/dL 51 RUN DATE: 07/05/14 [facility] LAB LIVE PAGE 1 RUN TIME: 0178 [address] [place], [place] [address] Specimen Inquiry Name: HANH PRESSLEYAREGarcia Mcgee : [address]: Sachin Bunch MD Acct: [id number] Unit: [id number] AGE: 73 Location: [facility] Re07/04/14 SEX: F Status: REG REF SPEC: [id number] ABDIRASHID: 07/04/14-09[address] [facility] [address]: Sachin Bunch MD REQ: [id number] RECD: 07/04/14 STATUS: FAMILIA REILLY DR: Keerthi [...] performed at Main Lab DEPARTMENT OF PATHOLOGY, [address] [place] [address] Cortes Cormier M.D. Director [facility] # [id number] 52 Because ethnic data is not always readily [...] 15-29 5 Kidney failure <15 (or dialysis) 53 Normal Range 180 to 914 Indeterminate Range 145 to 180 Deficient Range <145 54 -- REFERENCE VALUE -- 25-HYDROXY D TOTAL (D2+D3) Optimum levels in the healthy population are 20-50, patients with bone disease may benefit from higher levels within this range. Test Performed by: [address] [address] Shock Absorption Floor Layer: Gabriel Montana III, M.D. 55 HDL Interpretation: Undesirable: High Risk: Less than 40 mg/dL Desirable: Low Risk: Greater than 60 mg/dL 56 LDL Interpretation: Low Risk Optimal Level: LDL Less than 100 mg/dL Near or Above Optimal: LDL 100-129 mg/dL Borderline High Risk: LDL 130-159 mg/dL High Risk: LDL 160-189 mg/dL Very High Risk: LDL Greater than 189 mg/dL 57 Because ethnic data is not always readily [...] 15-29 5 Kidney failure <15 (or dialysis) 58 Microalbuminuria in a random sample is defined as: Microalbumin/Creatinine ratio of 30-299 ug/mg. 59 -- REFERENCE VALUE -- 25-HYDROXY D TOTAL (D2+D3) Optimum levels in the normal population are 25-80 Test Performed by: [address] [address] Shock Absorption Floor Layer: Gabriel Montana III, M.D. 60 Warning: A positive result is not useful for establishing a diagnosis of syphilis. In most situations, such a result may reflect a prior treated infection; a negative result can exclude a diagnosis of syphilis except for incubating or early primary disease. 61 It is recognized that currently available assays for the detection of antibodies to HIV-1 and/or HIV-2 may not detect all infected individuals. HIV antibodies may be undetectable in some stages of the infection and in some clinical conditions. The performance of this assay has not been established for populations of infants or children. Assayed by Chemiluminescence Microparticle Immunoassay on the Siemens Advia INetU Managed Hostingaur CP. Values obtained with different methods or kits cannot be used interchangeably.The diagnostic specificity of the ADVIA Centaur 1/O/2 Enhanced assay in the low risk population was 99.90% (6052/6058) with a 95% confidence interval of 99.78 to 99.96%. 62 -- REFERENCE VALUE -- 25-HYDROXY D TOTAL (D2+D3) Optimum levels in the normal population are 25-80 Test Performed by: [address] [address] Shock Absorption Floor Layer: Gabriel Montana III, M.D. R 63 Desirable: Less than 200 MG/DL Borderline-High Risk: 200-239 MG/DL High-Risk: 240 MG/DL and over 64 HDL Interpretation: Undesirable: High Risk: Less than 40 MG/DL Desirable: Low Risk: Greater than 60 MG/DL 65 LDL Interpretation: Low Risk Optimal Level: LDL Less than 100 MG/DL Near or Above Optimal: LDL 100-129 MG/DL Borderline High Risk: LDL 130-159 MG/DL High Risk: LDL 160-189 MG/DL Very High Risk: LDL Greater than 189 MG/DL 66 A metabolite of Naproxen, O-desmethylnaproxen, has been shown to interfere with the Dorothy-Vasyl method for measuring total bilirubin. Samples from [...] 5 Kidney failure <15 (or dialysis) 68 Microalbuminuria in a random sample is defined as: Microalbumin/Creatinine ratio of 30-299 ug/mg. 69 THERAPEUTIC TARGET FOR THE TREATMENT OF DIABETES MELLITUS PATIENTS IS <7% HBA1C, AND IN SELECTIVE PATIENTS <6.0%. PLEASE REFER TO [place] [employer] DIABETIC CARE GUIDELINES FOR FURTHER INFORMATION. 70 CHOLESTEROL INTERPRETATION: Desirable: Less than 200 MG/DL Borderline-High Risk: 200-239 MG/DL High-Risk: 240 MG/DL and over 71 HDL INTERPRETATION: Undesirable: High Risk: Less than 40 MG/DL Desirable: Low Risk: Greater than 60 MG/DL 72 LDL INTERPRETATION: Low Risk Optimal Level: LDL Less than 100 MG/DL Near or Above Optimal: LDL 100-129 MG/DL Borderline High Risk: LDL 130-159 MG/DL High Risk: LDL 160-189 MG/DL Very High Risk: LDL Greater than 189 MG/DL 73 Anion gap measurement may be of limited value in the presence of any alkalosis, especially in a combined acid base disorder. . 74 A metabolite of Naproxen, O-desmethylnaproxen, has been shown to interfere with the Jendrassik-Vsayl method for measuring total bilirubin. Samples from patients who have taken Naproxen have shown spurious elevation in total bilirubin levels. 75 Because ethnic data is not always readily [...] 15-29 5 Kidney failure <15 (or dialysis) 76 Anion gap measurement may be of limited value in the presence of any alkalosis, especially in a combined acid base disorder. . 77 Because ethnic data is not always readily [...] 15-29 5 Kidney failure <15 (or dialysis) 78 THERAPEUTIC TARGET FOR THE TREATMENT OF DIABETES MELLITUS PATIENTS IS <7% HBA1C, AND IN SELECTIVE PATIENTS <6.0%. PLEASE REFER TO [employer] DIABETIC CARE GUIDELINES FOR FURTHER INFORMATION. 79 CHOLESTEROL INTERPRETATION: Desirable: Less than 200 MG/DL Borderline-High Risk: 200-239 MG/DL High-Risk: 240 MG/DL and over 80 HDL INTERPRETATION: Undesirable: High Risk: Less than 40 MG/DL Desirable: Low Risk: Greater than 60 MG/DL 81 LDL INTERPRETATION: Low Risk Optimal Level: LDL Less than 100 MG/DL Near or Above Optimal: LDL 100-129 MG/DL Borderline High Risk: LDL 130-159 MG/DL High Risk: LDL 160-189 MG/DL Very High Risk: LDL Greater than 189 MG/DL 82 Anion gap measurement may be of limited value in the presence of any alkalosis, especially in a combined acid base disorder. . 83 Note change in reference range as of 01/28/08. The change was based on recommendations from the [place] [employer]. 84 Please note change in reference range effective 07 . 85 A metabolite of Naproxen, O-desmethylnaproxen, has been shown to interfere with the Jendrassik-[place] method for measuring total bilirubin. Samples from patients who have taken Naproxen have shown spurious elevation in total bilirubin levels. 86 Because ethnic data is not always readily [...] 15-29 5 Kidney failure <15 (or dialysis) 87 CHOLESTEROL INTERPRETATION: Desirable: Less than 200 [...] Risk: LDL Greater than 189 MG/DL 90 THERAPEUTIC TARGET FOR THE TREATMENT OF DIABETES MELLITUS PATIENTS IS <7% HBA1C, AND IN SELECTIVE PATIENTS <6.0%. PLEASE REFER TO [employer] DIABETIC CARE GUIDELINES FOR FURTHER INFORMATION. 91 ---- RUN DATE: 06/30/09 [facility] NMI LIVE PAGE 1 RUN TIME: 1206 Specimen Inquiry RUN USER: INTERFACE -- Name: ASHLEY PRESSLEY Status: REG REF Re06/28/09 Age/Sex: 68/F Unit#: [id number] Location: [address] [place] [address].B. : [birth year] -- Specimen: [id number] Spec Date: 06/28/[address]: Sachin [...] 06/30/09 1205 -- -- DEPARTMENT OF PATHOLOGY, [address] [place] [address] [facility] Permit #[id number] Lavonne Williamson M.D. Sash Finisher Dir kyle -- 92 PATIENT MAY HAVE RESULTS PER DOCTOR'S AUTHORIZATION. [...] Risk: LDL Greater than 189 MG/DL 96 CHOLESTEROL INTERPRETATION: Desirable: Less than 200 MG/DL Borderline-High Risk: 200-239 MG/DL High-Risk: 240 MG/DL and over 97 HDL INTERPRETATION: Undesirable: High Risk: Less than 40 MG/DL Desirable: Low Risk: Greater than 60 MG/DL 98 LDL INTERPRETATION: Low Risk Optimal Level: LDL Less than 100 MG/DL Near or Above Optimal: LDL 100-129 MG/DL Borderline High Risk: LDL 130-159 MG/DL High Risk: LDL 160-189 MG/DL Very High Risk: LDL Greater than 189 MG/DL 99 Anion gap measurement may be of limited value in the presence of any alkalosis, especially in a combined acid base disorder. . 100 Note change in reference range as of 01/28/08. The change was based on recommendations from the [place] [employer]. 101 Please note change in reference range effective 07 . 102 A metabolite of Naproxen, O-desmethylnaproxen, has been shown to interfere with the Jendrassik-Vasyl method for measuring total bilirubin. Samples from patients who have taken Naproxen have shown spurious elevation in total bilirubin levels. 103 Because ethnic data is not always readily [...] 15-29 5 Kidney failure <15 (or dialysis) 104 THERAPEUTIC TARGET FOR THE TREATMENT OF DIABETES MELLITUS PATIENTS IS <7% HBA1C, AND IN SELECTIVE PATIENTS <6.0%. PLEASE REFER TO [employer] DIABETIC CARE GUIDELINES FOR FURTHER INFORMATION. 105 CHOLESTEROL INTERPRETATION: Desirable: Less than 200 MG/DL Borderline-High Risk: 200-239 MG/DL High-Risk: 240 MG/DL and over 106 HDL INTERPRETATION: Undesirable: High Risk: Less than 40 MG/DL Desirable: Low Risk: Greater than 60 MG/DL 107 LDL INTERPRETATION: Low Risk Optimal Level: LDL Less than 100 MG/DL Near or Above Optimal: LDL 100-129 MG/DL Borderline High Risk: LDL 130-159 MG/DL High Risk: LDL 160-189 MG/DL Very High Risk: LDL Greater than 189 MG/DL 108 Note change in reference range as of 01/28/08. The change was based on recommendations from the [place] [employer]. 109 THERAPEUTIC TARGET FOR THE TREATMENT OF DIABETES MELLITUS PATIENTS IS <7% HBA1C, AND IN SELECTIVE PATIENTS <6.0%. PLEASE REFER TO [employer] DIABETIC CARE GUIDELINES FOR FURTHER INFORMATION. 110 FASTING PATIENT MAY HAVE RESULTS PER DOCTOR'S AUTHORIZATION. Questions regarding this report should be directed to your doctor. 111 Note change in reference range as of 01/28/08. The change was based on recommendations from the [place] [employer]. 112 THERAPEUTIC TARGET FOR THE TREATMENT OF DIABETES MELLITUS PATIENTS IS <7% HBA1C, AND IN SELECTIVE PATIENTS <6.0%. PLEASE REFER TO [employer] DIABETIC CARE GUIDELINES FOR FURTHER INFORMATION. 113 CHOLESTEROL INTERPRETATION: Desirable: Less than 200 MG/DL Borderline-High Risk: 200-239 MG/DL High-Risk: 240 MG/DL and over 114 HDL INTERPRETATION: Undesirable: High Risk: Less than 40 MG/DL Desirable: Low Risk: Greater than 60 MG/DL 115 LDL INTERPRETATION: Low Risk Optimal Level: LDL Less than 100 MG/DL Near or Above Optimal: LDL 100-129 MG/DL Borderline High Risk: LDL 130-159 MG/DL High Risk: LDL 160-189 MG/DL Very High Risk: LDL Greater than 189 MG/DL 116 FASTING PATIENT MAY HAVE RESULTS PER DOCTOR'S AUTHORIZATION. Questions regarding this report should be directed to your doctor. 117 CHOLESTEROL INTERPRETATION: Desirable: Less than 200 MG/DL Borderline-High Risk: 200-239 MG/DL High-Risk: 240 MG/DL and over 118 HDL INTERPRETATION: Undesirable: High Risk: Less than 40 MG/DL Desirable: Low Risk: Greater than 60 MG/DL 119 LDL INTERPRETATION: Low Risk Optimal Level: LDL Less than 100 MG/DL Near or Above Optimal: LDL 100-129 MG/DL Borderline High Risk: LDL 130-159 MG/DL High Risk: LDL 160-189 MG/DL Very High Risk: LDL Greater than 189 MG/DL 120 PATIENT MAY HAVE RESULTS PER DOCTOR'S AUTHORIZATION. Questions regarding this report should be directed to your doctor. 121 THERAPEUTIC TARGET FOR THE TREATMENT OF DIABETES MELLITUS PATIENTS IS <7% HBA1C, AND IN SELECTIVE PATIENTS <6.0%. PLEASE REFER TO [employer] DIABETIC CARE GUIDELINES FOR FURTHER INFORMATION. 122 CHOLESTEROL INTERPRETATION: Desirable: Less than 200 MG/DL Borderline-High Risk: 200-239 MG/DL High-Risk: 240 MG/DL and over 123 HDL INTERPRETATION: Undesirable: High Risk: Less than 40 MG/DL Desirable: Low Risk: Greater than 60 MG/DL 124 LDL INTERPRETATION: Low Risk Optimal Level: LDL Less than 100 MG/DL Near or Above Optimal: LDL 100-129 MG/DL Borderline High Risk: LDL 130-159 MG/DL High Risk: LDL 160-189 MG/DL Very High Risk: LDL Greater than 189 MG/DL 125 Anion gap measurement may be of limited value in the presence of any alkalosis, especially in a combined acid base disorder. . 126 Note change in reference range as of 01/28/08. The change was based on recommendations from the [place] [employer]. 127 Please note change in reference range effective 07 . 128 FASTING PATIENT MAY HAVE RESULTS PER DOCTOR'S AUTHORIZATION. Questions regarding this report should be directed to your doctor. 129 THERAPEUTIC TARGET FOR THE TREATMENT OF DIABETES MELLITUS PATIENTS IS <7% HBA1C, AND IN SELECTIVE PATIENTS <6.0%. PLEASE REFER TO [employer] DIABETIC CARE GUIDELINES FOR FURTHER INFORMATION. 130 CHOLESTEROL INTERPRETATION: Desirable: Less than 200 MG/DL Borderline-High Risk: 200-239 MG/DL High-Risk: 240 MG/DL and over 131 HDL INTERPRETATION: Undesirable: High Risk: Less than 40 MG/DL Desirable: Low Risk: Greater than 60 MG/DL 132 LDL INTERPRETATION: Low Risk Optimal Level: LDL Less than 100 MG/DL Near or Above Optimal: LDL 100-129 MG/DL Borderline High Risk: LDL 130-159 MG/DL High Risk: LDL 160-189 MG/DL Very High Risk: LDL Greater than 189 MG/DL 133 Anion gap measurement may be of limited value in the presence of any alkalosis, especially in a combined acid base disorder. . 134 FASTING PATIENT MAY HAVE RESULTS PER DOCTOR'S AUTHORIZATION. Questions regarding this report should be directed to your doctor. 135 Classification: High . 136 CALCULATED LDL APPROXIMATES THE VALUE OF A DIRECT LDL MEASUREMENT. Classification: Very High . 137 Anion gap measurement may be of limited value in the presence of any alkalosis, especially in a combined acid base disorder. . 138 PATIENT MAY HAVE RESULTS PER DOCTOR'S AUTHORIZATION. Questions regarding this report should be directed to your doctor. Procedures Date Code Description Status 08/03/2018 23401 EKG Tracing & Interpretation Completed 09/28/2017 47436 EKG, Interpretation Only Completed 05/08/2017 [id number] Mammogram Completed 06/12/2016 19128 Stress Test Completed 06/12/2016 33192 Myocardial Perfusion Imaging Tomographic (Spect) Completed Multiple Studies 05/30/2016 16430 EKG Tracing & Interpretation Completed 07/18/2015 [id number] Diabetic Retinal Eye Exam Completed 06/22/2015 [id number] Bone Mineral Density Test Completed 06/22/2015 [id number] Mammogram Completed 07/04/2014 [id number] Colonoscopy Completed 02/14/2014 [id number] Mammogram Completed 02/04/2013 75119 EKG, Interpretation Only Completed 01/15/2013 [id number] Diabetic Retinal Eye Exam Completed 03/19/2012 [id number] Bone Mineral Density Test Completed 11/01/2011 [id number] Mammogram Completed 03/01/2011 15474 Arthroscopy,Knee,Meniscectomy Media & Lateral Completed 03/01/2011 33526 Arthroscopy,Knee,Meniscectomy Media & Lateral Completed 06/25/2004 [id number] Colonoscopy Completed Encounters Type Date Location Provider Dx Diagnosis Office Visit 08/24/2018 [facility] B95.2 Enterococcus as the 9:07a Assoc,FATOU Bennett cause of diseases Hospitalists classified elsewhere N39.0 Urinary tract infection, site not specified S72.001A Fracture of unsp part of neck of right femur, init R41.82 Altered mental status, unspecified E87.0 Hyperosmolality and hypernatremia E11.9 Type 2 diabetes mellitus without complications Office Visit 08/23/2018 [facility] S72.001A Fracture of 1:55p maxine Cummings MD unsp part of Hospitalists neck of right femur, init E87.0 Hyperosmolality and hypernatremia R41.82 Altered mental status, unspecified N39.0 Urinary tract infection, site not specified E11.9 Type 2 diabetes mellitus without complications Office Visit 08/22/2018 [facility] S72.001A Fracture of 1:55p maxine Cummings MD unsp part of Hospitalists neck of right femur, init E87.0 Hyperosmolality and hypernatremia R41.82 Altered mental status, unspecified N39.0 Urinary tract infection, site not specified E11.9 Type 2 diabetes mellitus without complications Office Visit 08/21/2018 [facility] E87.0 Hyperosmolality and 9:07a maxine Cummings MD hypernatremia Hospitalists B95.2 Enterococcus as the cause of diseases classified elsewhere N39.0 Urinary tract infection, site not specified E11.9 Type 2 diabetes mellitus without complications S72.001A Fracture of unsp part of neck of right femur, init Office Visit 08/20/2018 [facility] E87.0 Hyperosmolality and 9:07a maxine Cummings MD hypernatremia Hospitalists R41.82 Altered mental status, unspecified B95.2 Enterococcus as the cause of diseases classified elsewhere B95.8 Unsp staphylococcus as the cause of diseases classd elswhr N39.0 Urinary tract infection, site not specified E11.9 Type 2 diabetes mellitus without complications S72.001A Fracture of unsp part of neck of right femur, init Office Visit 08/19/2018 [facility] E87.0 Hyperosmolality and 9:06a maxine Cummings MD hypernatremia Hospitalists R41.82 Altered mental status, unspecified B95.2 Enterococcus as the cause of diseases classified elsewhere N39.0 Urinary tract infection, site not specified E11.9 Type 2 diabetes mellitus without complications S72.001A Fracture of unsp part of neck of right femur, init Office Visit 08/18/2018 9:06a [facility] Emiliano Valles, G93.40 Encephalopathy, MD unspecified E87.0 Hyperosmolality and hypernatremia A41.9 Sepsis, unspecified organism R73.9 Hyperglycemia, unspecified D64.9 Anemia, unspecified R00.0 Tachycardia, unspecified Office Visit 08/17/2018 9:06a [facility] Emiliano Valles G93.40 Encephalopathy, unspecified E87.0 Hyperosmolality and hypernatremia A41.9 Sepsis, unspecified organism R00.0 Tachycardia, unspecified R73.9 Hyperglycemia, unspecified D64.9 Anemia, unspecified Office Visit 08/11/2018 [facility] S72.001A Fracture of 10:33a Assoc,pc Rigoberto CRIME LAB TECHNICIAN unsp part of Hospitalists neck of right femur, init D62 Acute posthemorrhagic anemia Office Visit 08/10/2018 [facility] S72.001A Fracture of 10:33a Assoc,pc Rigoberto CRIME LAB TECHNICIAN unsp part of Hospitalists neck of right femur, init I10 Essential (primary) hypertension F03.90 Unspecified dementia without behavioral disturbance E11.9 Type 2 diabetes mellitus without complications E78.5 Hyperlipidemia, unspecified Office Visit 08/09/2018 10:32a [facility] Yas S72.001A Fracture of Assoc,pc Rosy, unsp part of Hospitalists neck of right femur, init I10 Essential (primary) hypertension R00.0 Tachycardia, unspecified F03.90 Unspecified dementia without behavioral disturbance E11.9 Type 2 diabetes mellitus without complications E78.5 Hyperlipidemia, unspecified Office Visit 08/08/2018 [facility] Ivelisse S72.001A Fracture of 10:32a Assoc,pc Ana Maria, CRIME LAB TECHNICIAN unsp part of Hospitalists neck of right femur, init E11.9 Type 2 diabetes mellitus without complications I10 Essential (primary) hypertension E78.5 Hyperlipidemia, unspecified F03.90 Unspecified dementia without behavioral disturbance Office Visit 08/07/2018 10:32a [facility] Caroline Quinn, S72.001A Fracture of Assoc,pc CRIME LAB TECHNICIAN unsp part of Hospitalists neck of right femur, init E11.9 Type 2 diabetes mellitus without complications I10 Essential (primary) hypertension E78.5 Hyperlipidemia, unspecified F03.90 Unspecified dementia without behavioral disturbance Office Visit 08/03/2018 10:50a [facility] Internal Keerthi E11.9 Type 2 diabetes Janell Gottlieb M.D. mellitus without [place] complications I10 Essential (primary) hypertension E78.5 Hyperlipidemia, unspecified L85.8 Other specified epidermal thickening M81.0 Age-related osteoporosis w/o current pathological fracture Office Visit 07/13/2018 10:00a Alli Davis G30.9 Alzheimer's Neurologic Lavonne Mackey disease, [facility] unspecified Office Visit 02/02/2018 10:10a [facility] Internal Keerthi E11.9 Type 2 diabetes Janell Gottlieb M.D. mellitus without [place] complications I10 Essential (primary) hypertension L60.3 Nail dystrophy M81.0 Age-related osteoporosis w/o current pathological fracture Office Visit 10/27/2017 1:45p [place] Ramonita Davis G30.9 [facility]' [facility] Lavonne Mackey disease, unspecified I10 Essential (primary) hypertension E11.9 Type 2 diabetes mellitus without complications Office Visit 10/23/2017 [facility] Internal Keerthi E11.9 Type 2 diabetes 9:50a Janell Gottlieb M.D. mellitus without [place] complications Office Visit 09/29/2017 [facility] Cornell I16.0 Hypertensive 11:22a Assoc,FATOU Tapia urgency Hospitalists G30.9 Alzheimer's disease, unspecified F02.81 Dementia in oth diseases classd laura ceron behavioral disturb R73.9 Hyperglycemia, unspecified Office Visit 09/28/2017 11:22a [facility] Cornell I16.0 Hypertensive Assocmaxine PA urgency Hospitalists G30.9 Alzheimer's disease, unspecified F02.81 Dementia in oth diseases classd laura ceron behavioral disturb R73.9 Hyperglycemia, unspecified Office Visit 09/27/2017 11:21a [facility] Cornell I16.0 Hypertensive Assoc,FATOU Tapia urgency Hospitalists G30.9 Alzheimer's disease, unspecified F02.81 Dementia in oth diseases classd laura ceron behavioral disturb R73.9 Hyperglycemia, unspecified Office Visit 09/26/2017 11:20a [facility] Janusz Abreu, I16.0 Hypertensive Assoc,pc urgency Hospitalists G30.9 Alzheimer's disease, unspecified F02.81 Dementia in oth diseases classd elswhr w behavioral disturb R73.9 Hyperglycemia, unspecified Office Visit 07/08/2017 3:45p [place] [facility] Raúl Davis 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 mellitus without [place] complications I10 Essential (primary) hypertension R51 Headache R31.9 Hematuria, unspecified M81.0 Age-related osteoporosis w/o current pathological fracture Office Visit 03/31/2017 9:10a [facility] Internal Keerthi E11.9 Type 2 diabetes Janell Gottlieb M.D. mellitus without [place] complications I10 Essential (primary) hypertension R31.9 Hematuria, unspecified Z12.31 Encntr screen mammogram for malignant neoplasm of breast Office Visit 03/21/2017 1:00p [facility] [facility] Luis Carlos Seven, R35.0 Frequency of Medicine - CRIME LAB TECHNICIAN micturition Lewis Z23 Encounter for immunization Office 03/07/2017 [facility] Raúl Davis G30.1 Alzheimer's disease Visit 10:30a [facility] [place], with late onset M.DAbby Office 10/04/2016 [facility] Dermat[facility] [place] L81.4 Other melanin Visit 11:10a MD Nicole hyperpigmentation L82.1 Other seborrheic keratosis Office Visit 09/30/2016 8:50a [facility] Internal Keerthi E11.9 Type 2 diabetes Janell Gottlieb M.D. mellitus without [place] complications I10 Essential (primary) hypertension E78.2 Mixed hyperlipidemia Z12.83 Encounter for screening for malignant neoplasm of skin Office Visit 05/30/2016 10:50a [facility] Internal Keerthi E11.9 Type 2 diabetes Janell Gottlieb M.D. mellitus without [place] complications M81.0 Age-related osteoporosis w/o current pathological fracture I10 Essential (primary) hypertension E78.2 Mixed hyperlipidemia Z23 Encounter for immunization R94.31 Abnormal electrocardiogram [ECG] [EKG] Office Visit 01/29/2016 1:20p [facility] Internal Keerthi E11.9 Type 2 diabetes Janell Gottlieb M.D. mellitus without [place] complications Office Visit 11/08/2015 11:45a Alli Davis G30.1 Alzheimer's disease Neurologic Lavonne Mackey with late onset Services Of [facility] Office Visit 08/29/2015 10:30a [facility] Internal Keerthi E11.65 Type 2 diabetes Janell Gottlieb M.D. mellitus with Lewis hyperglycemia E78.2 Mixed hyperlipidemia I10 Essential (primary) hypertension Office Visit 05/30/2015 11:10a [facility] Internal Keerthi Gottlieb, Z00.00 Encntr for Medicine - Lavonne general adult Lewis medical exam w/o abnormal findings E11.65 Type [...] with late onset Office Visit 11/08/2014 10:45a [place] Ramonita Davis 331.0 Alzheimers Services Of Marissa Mackey M.D. Disease Office Visit 12/20/2013 10:50a [facility] Internal Keerthi 250.00 Diabetes Mellitus Janell Gottlieb M.D. W/O Compl Type II Lewis Or Unspec Controlled Office Visit 11/15/2013 10:30a [facility] Internal Keerthi 250.00 Diabetes Mellitus Janell Gottlieb M.D. 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 Impairment So Stated 435.9 TIA Ischemia Cerebral Transient Unspec Office Visit 09/14/2013 2:00p [facility] S. 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 Impairment So Stated 783.21 Loss Of Weight 435.9 TIA Ischemia Cerebral Transient Unspec Office Visit 08/16/2013 10:30a [facility] Internal Keerthi 250.02 Diabetes Janell Gottlieb M.D. Mellitus W/O Lewis Compl Type II Or Unspec Type Uncontrol 272.2 Hyperlipidemia Mixed 733.01 Osteoporosis Senile 112.1 Candidiasis The Vulva & Vagina Office Visit 05/03/2013 2:10p [facility] Internal Keerthi 250.02 Gale Gottlieb M.D. Mellitus W/O Lewis Compl Type II Or Unspec Type Uncontrol 331.83 Mild Cognitive Impairment So Stated V06.6 Streptococcus Pneumonia & Influenz Vaccination & Inoculation V03.82 Streptococcus Pneumoniae Vaccination Spec Other Office Visit 04/01/2013 2:10p Marissa [place] 250.02 Diabetes Janell Gottlieb M.D. Mellitus W/O Lewis Compl Type II Or Unspec Type Uncontrol [...] Neoplasm Skin Office Visit 09/02/2012 9:00a Marissa Gottlieb 780.93 Memory Loss Janell Ponce 250.00 Diabetes Mellitus W/O Compl Type II Or Unspec Controlled 401.9 Hypertension Unspec 272.2 Hyperlipidemia Mixed Office Visit 08/19/2012 10:10a Marissa Gottlieb 780.93 Memory Loss Janell Ponce 401.9 Hypertension Unspec 733.01 Osteoporosis Senile 269.1 Vitamin Deficiency Other Office Visit 05/11/2012 10:50a Marissa Pendleton 733.01 Osteoporosis Janell Gottlieb M.D. Senile Lewis 790.6 Abnormal Blood Chemistry Other Office Visit 04/15/2012 9:50a [facility] Collector Internal Keerthi 250.00 Diabetes Mellitus Janell Gottlieb M.D. W/O Compl Type II Lewis Or Unspec Controlled 401.9 Hypertension Unspec 733.01 Osteoporosis Senile Office Visit 03/04/2012 10:10a [employer]s Collect[employer] Internal Keerthi 250.00 Diabetes Mellitus Janell Gottlieb M.D. W/O Compl Type II Lewis Or Unspec Controlled 700 Corns & Callosities 272.2 Hyperlipidemia Mixed 401.9 Hypertension Unspec V04.81 Need For Prophylactic Vaccination & Inoculation/Influenza V49.81 Postmenopausal Status Asymptomatic (Age-Related,Natural) Office Visit 07/10/2011 8:30a [facility] Collect[facility] Internal Keerthi 250.00 Diabetes Mellitus Janell Gottlieb M.D. W/O Compl Type II Lewis Or Unspec Controlled 401.1 Hypertension Benign 272.2 Hyperlipidemia Mixed 700 Corns & Callosities v04.89 Need For Prophylactic Vaccination & Inoculation Other Virus Office Visit 06/12/2011 8:45a [facility] Internal Keerthi 401.1 Hypertension Benign Janell Gottlieb M.D. Lewis 250.00 Diabetes Mellitus W/O Compl Type II Or Unspec Controlled 780.93 Memory Loss Office Visit 05/08/2011 8:30a DO Not Use Accounts Collector Keerthi V72.83 Examination AT Horacio Gottlieb M.D. Preoperative Other Spec 250.00 Diabetes Mellitus W/O Compl Type II Or Unspec Controlled 401.1 Hypertension Benign 272.2 Hyperlipidemia Mixed 366.10 Cataract Senile Unspec Office Visit 02/18/2011 1:40p DO Not Use Accounts Collector Brent Fuentes V72.81 Examination AT Horacio Lew [...] Curr Office Visit 01/08/2011 8:45a Orthopedic Jimmie Temple, 836.0 Dislocation Knee Services Of M.D. Tear Of Medial C.M.A. Cartilage Or Meniscus Curr Office Visit 06/13/2010 9:40a [facility] Not [facility] For [facility] Lavonne Lew Prophylactic Vaccination & Inoculation/Influe nza 250.00 Diabetes Mellitus W/O Compl Type II Or Unspec Controlled 401.1 Hypertension Benign 272.0 Hypercholesterolemia Pure Office Visit 12/12/2009 10:20a DO Not Use Accounts Collector Brent E. 250.00 Diabetes Mellitus AT [place] Lew M.D. W/O Compl Type II Or Unspec Controlled 401.1 Hypertension Benign 272.0 Hypercholesterolemia Pure Office Visit 07/04/2009 10:40a DO Not Use Accounts Collector AT BrentChávez, 729.5 [facility] 724.2 Lumbago V04.81 Need For Prophylactic Vaccination & Inoculation/Influenza Office Visit 06/20/2009 DO Not Use Accounts Collector Brent EAbby 272.0 Hypercholesterolemia Pure 11:00a AT Pachutadarryl Lew M.D. 250.00 Diabetes Mellitus W/O Compl Type II Or Unspec Controlled 401.1 Hypertension Benign Office Visit 03/27/2009 10:00a DO Not Use Accounts Collector Brent E. 250.00 Diabetes Mellitus AT [place]achut[place]arryl Lew M.D. W/O Compl Type II Or Unspec Controlled 401.1 Hypertension Benign 272.0 Hypercholesterolemia Pure Office Visit 09/12/2008 9:45a [place] [facility] Brent EAbby 427.31 Atrial Fibrillation Assoc AT Lavonne Lew [facility] 250.00 Diabetes Mellitus W/O Compl Type II Or Unspec Controlled V58.61 Anticoagulants [facility] (Current) Use Encounter Office Visit 02/22/2008 [place] [facility] Brent EAbby 272.0 Hypercholesterolemia Pure 10:45a Assoc AT Lavonne Lew [facility] 250.00 Diabetes Mellitus W/O Compl Type II Or Unspec Controlled 401.1 Hypertension Benign V03.82 Streptococcus Pneumoniae Vaccination Spec Other Office Visit 11/24/2007 2:45p [place] [facility] Brent EAbby 922.1 Contusion Chest Assoc AT Lavonne Lew [facility] Office Visit 10/19/2007 10:30a [place] [facility] Brent E. 250.00 Diabetes Mellitus Assoc AT Lavonne Lew W/O Compl Type II [facility] Or Unspec Controlled 272.0 Hypercholesterolemia Pure 401.1 Hypertension Benign V03.82 Streptococcus Pneumoniae Vaccination Spec Other Office Visit 04/20/2007 11:30a [place] [facility] Brent E. 250.00 Diabetes Mellitus Assoc AT Lavonne Lew W/O Compl Type II [place] Or Unspec Controlled 272.0 Hypercholesterolemia Pure 401.1 Hypertension Benign Plan of Treatment Future Appointment(s):02/15/2019 11:10 am - Keerthi Gottlieb M.D. at [facility] Internal Medicine - [place]80/09/2019 3:45 pm - Raúl Mackey M.D. at [facility] [id number]/03/2018 - Keerthi Gottlieb M.D.E11.9 Type 2 diabetes mellitus without complicationsFollow up:6 months for this and medicare [id number] Essential (primary) [id number] Hyperlipidemia, pweckwwrkuhI15.8 Other specified epidermal thickeningReferral:Parish Rivera MD , XtobpjzjsqnM54.0 Age-related osteoporosis without current pathological fractuComments:Advised on weight bearing exercise, calcium intake. Should get 30 minutes sunlight during summer. Repeat DEXA every 2 years at maximum which is due now , discussed with daughter
--- NOTE | 2018-09-19 05:26 | ED ---
GI/ HPI - HPI Summary HPI Summary: LEVEL 5 CAVEAT - ALTERED MENTAL STATE The patient is a 77 year old female who is presenting to the [facility] with a chief complaint of a phillips catheter complication. The patient was brought to the [facility] via ambulance from her assisted, after they had struggled in inserting her phillips catheter. The patient is a Level 5 Caveat due to the altered mental state and progressive Alzheimer's Disease. The patient is frequently agitated and unwilling to follow commands or answer questions along with excessively screaming. The Symptoms are aggravated by nothing. The symptoms are alleviated by nothing. - History of Current Complaint Chief Complaint: EDUrogenitalProblems Time Seen by Provider: 09/19/18 04:29 Stated Complaint: "NEEDS A URINARY CATHETER" PER EMS Hx From Patient Unobtainable Due To: Dementia - Alzheimers Onset/Duration: Started Hours Ago Timing: Constant - Additional Pertinent History Primary Care Physician: DESMOND - Allergy/Home Medications Allergies/Adverse Reactions: Allergies Allergy/AdvReac Type Severity Reaction Status Date / Time ciprofloxacin [From Cipro] Allergy Unknown Verified 08/07/18 12:58 Reaction Details PMH/Surg Hx/FS Hx/Imm Hx Endocrine/Hematology History: Reports: Hx Diabetes, Other Endocrine/ Hematological Disorders - Vit D&B12 deficient Denies: Hx Thyroid Disease Cardiovascular History: Reports: Hx Hypercholesterolemia, Hx Hypertension Denies: Hx Pacemaker/ICD Respiratory History: Denies: Hx Asthma, Hx Chronic Obstructive Pulmonary Disease (COPD) GI History: Denies: Hx Ulcer History: Reports: Other Problems/Disorders - urinary retention Denies: Hx Dialysis, Hx Renal Disease Musculoskeletal History: Reports: Hx Arthritis, Hx Osteoporosis Denies: Hx Rheumatoid Arthritis, Other Musculoskeletal History - right femoral neck fracture repair, Sensory History: Reports: Hx Cataracts - left eye Denies: Hx Contacts or Glasses, Hx Hearing Aid Opthamlomology History: Reports: Hx Cataracts - left eye Denies: Hx Contacts or Glasses Neurological History: Reports: Hx Dementia, Other Neuro Impairments/Disorders - Alzheimer's Denies: Hx Seizures Psychiatric History: Reports: Other Psychiatric Issues/Disorders - dementia Denies: Hx Panic Disorder - Cancer History Hx Chemotherapy: No Hx Radiation Therapy: No - Surgical History Surgery Procedure, Year, and Place: Left knee meniscus surgery. [facility] SURG. CATARACT - Lt EYE. Total Right Hip Replacement Hx Anesthesia Reactions: No - Immunization History Date of Tetanus Vaccine: unk Date of Influenza Vaccine: utd Infectious Disease History: Unable to Obtain/Confirm Infectious Disease History: Denies: Hx Hepatitis, Hx Human Immunodeficiency Virus (HIV), Traveled Outside the [place] in Last 30 Days - Family History Known Family History: Positive: Cardiac Disease, Diabetes - Social History Alcohol Use: None Substance Use Type: Reports: None Smoking Status (MU): Former Smoker Type: Cigarettes Review of Systems - ROS Summary Review of Systems Summary: LEVEL 5 CAVEAT - ALTERED MENTAL STATE Constitutional: Other - Agitated Eyes: Negative ENT: Negative Cardiovascular: Negative Respiratory: Negative Gastrointestinal: Negative Genitourinary: Negative Musculoskeletal: Negative Skin: Negative Neurological: Negative Psychological: Other - Altered Mental State All Other Systems Reviewed And Are Negative: Yes Physical Exam - Summary Physical Exam Summary: VITAL SIGNS: Reviewed. GENERAL: Patient is a well-developed and nourished (FEMALE) who is lying comfortable in the stretcher. Patient is not in any acute respiratory distress. HEAD AND FACE: No signs of trauma. No ecchymosis, hematomas or skull depressions. No sinus tenderness. EYES: PERRLA, EOMI x 2, No injected conjunctiva, no nystagmus. EARS: Hearing grossly intact. Ear canals and tympanic membranes are within normal limits. MOUTH: Oropharynx within normal limits. NECK: Supple, trachea is midline, no adenopathy, no JVD, no carotid bruit, no c- spine tenderness, neck with full ROM. CHEST: Symmetric, no tenderness at palpation LUNGS: Clear to auscultation bilaterally. No wheezing or crackles. CVS: Regular rate and rhythm, S1 and S2 present, no murmurs or gallops appreciated. ABDOMEN: Soft, non-tender. No signs of distention. No rebound no guarding, and no masses palpated. Bowel sounds are normal. EXTREMITIES: FROM in all major joints, no edema, no cyanosis or clubbing. NEURO: Alert and oriented x 3. No acute neurological deficits. Speech is normal and follows commands. SKIN: Dry and warm Triage Information Reviewed: Yes Vital Signs On Initial Exam: Initial Vitals Temp Pulse Resp BP Pulse Ox 99.4 F 114 20 123/97 100 09/19/18 04:25 09/19/18 04:25 09/19/18 04:25 09/19/18 04:25 09/19/18 04:25 Vital Signs Reviewed: Yes Diagnostics - Vital Signs Vital Signs Temp Pulse Resp BP Pulse Ox 09/19/18 04:25 99.4 F 114 20 123/97 100 - Laboratory Lab Statement: Any lab studies that have been ordered have been reviewed, and results considered in the medical decision making process. GIGU Course/Dx - Course Course Of Treatment: The patient is a 77 year old female who is presenting to the [facility] with a chief complaint of phillips catheter replacement. The patient was brought via ambulance from the patient's assisted due to their inability to inset the phillips catheter properly. The patient is a level 5 caveat due to her unwillingness to follow commands and her altered mental state due to her Alzheimer's. The nurse was able to successfully replace her phillips catheter and relieve 600 cc's of urine from the patient. The patient will be discharged to her assisted with a dx of phillips catheter replacement. - Diagnoses Provider Diagnoses: Encounter for Phillips catheter replacement Discharge - Sign-Out/Discharge Documenting (check all that apply): Patient Departure - Discharge to [facility] - Discharge Plan Condition: Stable Disposition: NURSING HOME FACILITY Patient Education Materials: Phillips Catheter Placement and Care (ED) Referrals: Keerthi Gottlieb MD [Primary Care Provider] - Additional Instructions: RETURN TO THE EMERGENCY DEPARTMENT FOR CHANGING OR WORSENING SYMPTOMS. FOLLOW UP WITH YOUR PRIMARY CARE PROVIDER WITHIN TWO TO THREE DAYS. - Attestation Statements Document Initiated by Karenibe: Yes Documenting Scribe: Herb Skelton Provider For Whom Scribe is Documenting (Include Credential): Dr. Ya Alas Scribe Attestation: Herb Mendez scribed for Dr. aY Alas on 09/19/18 at 0540. Status of Scribe Document: Ready
[2018-09-19 07:01] VITALS: BP 0/0
== END 2018-09-19 06:55 ==
LOC: ED 04:20
DX: T83.9XXA Unspecified complication of genitourinary prosthetic device, implant and graft, initial encounter (principal); I10 Essential (primary) hypertension; E11.9 Type 2 diabetes mellitus without complications; E55.9 Vitamin D deficiency, unspecified; E53.8 Deficiency of other specified B group vitamins; E78.00 Pure hypercholesterolemia, unspecified; M19.90 Unspecified osteoarthritis, unspecified site; M81.0 Age-related osteoporosis without current pathological fracture; G30.9 Alzheimer's disease, unspecified; F02.80 Dementia in other diseases classified elsewhere, unspecified severity, without behavioral disturbance, psychotic disturbance, mood disturbance, and anxiety; R41.82 Altered mental status, unspecified; Z88.3 Allergy status to other anti-infective agents; Z87.891 Personal history of nicotine dependence
CPT/HCPCS: 51702; 99283

== ENCOUNTER 2018-09-24 10:33 | Inpatient (IN) | payer MEDICARE ==
[2018-09-24] MEDS ORDERED: Piperacillin/Tazobac ADVAN(*) 3.375 GM in NS 0.9% 100 ML* 100 ML IVPB ONE ×2 (10:49→15:07)
[2018-09-24] MEDS ORDERED: NS 0.9% 1000 ML** 1,000 ML IV.FLUID IV ONE (10:49)
--- NOTE | 2018-09-24 10:55 | ED ---
Complex/Multi-Sys Presentation - HPI Summary HPI Summary: LEVEL 5 CAVEAT: Patient has a PMHx of dementia and has altered mental status. History was given by her , Maurice. Doctor is in the room at 10:45. 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 Nurse brings concern of tachycardia and reports that pt is afebrile in the room. Pt has a DNR/DNI. Per the , she has on and off mentation status. Her preexisting phillips catheter has concentrated urine flecks of debris. Allergy to Cipro noted. states no noted penicillin allergy. Her PCP is Sarkis Maria MD. Patient has PSHx of two hip surgeries, first one done by Terrence House MD and the second by Christy Alcaraz MD. Nursing note states fever because [facility] reported a 99.6 temperature. Vital signs while in room: HR 128 bpm, BP 124/90. Home Medications Medication Instructions Recorded Confirmed Type Atorvastatin* [Lipitor 40 MG*] 40 mg PO BEDTIME #30 tab 09/29/17 09/02/18 Rx Alendronate (NF) [Fosamax (NF)] 70 mg PO WEEKLY 08/07/18 09/02/18 History Ascorbic Acid TAB* [Vitamin C 1,000 mg PO QAM 08/07/18 09/02/18 History TAB*] Docusate CAP* [Colace Cap*] 100 mg PO 0900,2100 08/17/18 09/02/18 History Donepezil TAB* [Aricept 5 MG TAB*] 10 mg PO DAILY 08/17/18 09/02/18 History Magnesium Hydroxide LIQ* [Milk of 30 ml PO Q6H PRN 08/17/18 09/02/18 History Magnesia LIQ*] metFORMIN* [Glucophage 1000 MG TAB 1,000 mg PO 0900,1800 08/17/18 09/02/18 History *] Acetaminophen [Acetaminophen Extra 1,000 mg PO 0900,2100 MDD 3000 mg 09/02/18 History Strength] Bisacodyl SUPP* [Dulcolax Supp*] 10 mg VT DAILY PRN 09/02/18 09/02/18 History Tevin/D3/Mag11/Zinc/Adhesive Sprayer/Yobani/Bor 1 tab PO DAILY 09/02/18 09/02/18 History [Caltrate 600+D Plus Tablet] Cyanocobalamin (Vitamin B-12) 100 mcg PO 0900 09/02/18 09/02/18 History [Vitamin B-12] Memantine TAB* [Namenda TAB*] 5 mg PO BID 09/02/18 09/02/18 History Sodium Phosphate ADULT ENEMA* 1 enema VT DAILY PRN 09/02/18 09/02/18 History [Fleet Enema*] Cefdinir [Cefdinir 300 MG CAP] 300 mg PO Q12H #6 capsule 09/07/18 Rx HYDROcodone/ACETAMIN 5-325 MG* 1 tab PO Q6H PRN tab 09/07/18 Rx [Holbrook 5-325 TAB*] Insulin GLARGINE(*) [Lantus(*)] 10 units SUBCUT Q24H unit 09/07/18 Rx Insulin LISPRO* [HumaLOG*] 1 - 10 units SUBCUT ACHS 30 Days 09/07/18 Rx unit Enoxaparin(*) [Lovenox(*)] 40 mg SUBCUT Q24HR #28 syringe 09/08/18 Rx - History Of Current Complaint Chief Complaint: EDGeneral Time Seen by Provider: 09/24/18 10:45 Hx Obtained From: Family/[employer] - , Maurice, EMS, Other: - [facility] Hx From Patient Unobtainable Due To: Altered Mental Status - and dementia Onset/Duration: Sudden Onset, Lasting Hours Timing: Constant Severity Currently: Mild Severity Initially: Mild Associated Signs And Symptoms: Positive: Decreased Responsiveness, Other - Elevated white count.. Negative: Cough - Allergies/Home Medications Allergies/Adverse Reactions: Allergies Allergy/AdvReac Type Severity Reaction Status Date / Time ciprofloxacin [From Cipro] Allergy Unknown Verified 08/07/18 12:58 Reaction Details Home Medications: Home Medications Acetaminophen TAB* [Tylenol TAB*] 650 mg PO Q4H PRN 09/24/18 [History Confirmed 09/24/18] Enoxaparin(*) [Lovenox(*)] 40 mg SUBCUT BEDTIME 09/24/18 [History Confirmed ] Glycerin ADULT SUPP* 1 supp VT DAILY PRN 09/24/18 [History Confirmed 09/24/18] HYDROcodone/ACETAMIN 5-325 MG* [Holbrook 5-325 TAB*] 1 tab PO QID 09/24/18 [ History Confirmed 09/24/18] Insulin GLARGINE(*) [Lantus(*)] 10 units SUBCUT DAILY 09/24/18 [History Confirmed 09/24/18] Insulin LISPRO* [HumaLOG*] 0 - 14 units SUBCUT ACHS 09/24/18 [History Confirmed 09/24/18] Multivitamins/Minerals TAB* [Theragran/minerals TAB*] 1 tab PO DAILY 09/24/18 [ History Confirmed 09/24/18] Potassium Chlor TAB* [Klor Con ER TAB*] 20 meq PO DAILY 09/24/18 [History Confirmed 09/24/18] Sodium Phosphate,[facility]Dib[facility] [Enema Ready To Use] 133 ml VT DAILY PRN 09/24/18 [History Confirmed 09/24/18] PMH/Surg Hx/FS Hx/Imm Hx Previously Healthy: No - LEVEL 5 CAVEAT: Patient has a PMHx of dementia and has AMS Endocrine/Hematology History: Reports: Hx Diabetes, Other Endocrine/ Hematological Disorders - Vit D&B12 deficient Denies: Hx Thyroid Disease Cardiovascular History: Reports: Hx Hypercholesterolemia, Hx Hypertension Denies: Hx Pacemaker/ICD Respiratory History: Denies: Hx Asthma, Hx Chronic Obstructive Pulmonary Disease (COPD) GI History: Denies: Hx Ulcer History: Reports: Other Problems/Disorders - urinary retention Denies: Hx Dialysis, Hx Renal Disease Musculoskeletal History: Reports: Hx Arthritis, Hx Osteoporosis Denies: Hx Rheumatoid Arthritis, Other Musculoskeletal History - right femoral neck fracture repair, Sensory History: Reports: Hx Cataracts - left eye Denies: Hx Contacts or Glasses, Hx Hearing Aid Opthamlomology History: Reports: Hx Cataracts - left eye Denies: Hx Contacts or Glasses Neurological History: Reports: Hx Dementia, Other Neuro Impairments/Disorders - Alzheimer's Denies: Hx Seizures Psychiatric History: Reports: Other Psychiatric Issues/Disorders - dementia Denies: Hx Panic Disorder - Cancer History Hx Chemotherapy: No Hx Radiation Therapy: No - Surgical History Surgery Procedure, Year, and Place: Left knee meniscus surgery. LASIX EYE SURG. CATARACT - Lt EYE. Total Right Hip Replacement. Left hip surgery Hx Anesthesia Reactions: No - Immunization History Date of Tetanus Vaccine: unk Date of Influenza Vaccine: utd Infectious Disease History: No Infectious Disease History: Denies: Hx Hepatitis, Hx Human Immunodeficiency Virus (HIV), Traveled Outside the [place] in Last 30 Days - Family History Known Family History: Positive: Cardiac Disease, Diabetes - Social History Alcohol Use: None Substance Use Type: Reports: None Smoking Status (MU): Former Smoker Type: Cigarettes Review of Systems - ROS Summary Review of Systems Summary: LEVEL 5 CAVEAT: Patient has a PMHx of dementia and has altered mental status. Positive: Other - elevated white count Negative: Cough Positive: Other - preexisting bed sore in posterior buttock area All Other Systems Reviewed And Are Negative: No Physical Exam - Summary Physical Exam Summary: LEVEL 5 CAVEAT: Patient has a PMHx of dementia and has altered mental status. Appearance: Patient appears to be sleeping with snoring respirations. Pt rouses easily and mutters incomprehensible sounds. Shes able to state she doesnt have pain. Skin: Superficial excoriations on interior chest Head: Normal Head/Face inspection, atraumatic Eyes: Conjunctiva clear ENT: Normal inspection Neck: Supple, no nodes, no JVD Respiratory: Lungs clear, normal breath sounds, no respiratory distress Cardio: Tachycardic 126 bpm, regular rate. No murmur, pulses normal, brisk capillary refill Abdomen: Soft, nontender Extremities: 2+ pitting edema. Wearing heel protectors. No skin breakdown noted on her heals. Bowel sounds: Hyperactive Musculoskeletal: Strength Intact/ROM intact, no calf tenderness, no edema. Psychological: Normal Neuro: Alert, muscle tone normal, no focal deficit Triage Information Reviewed: Yes Vital Signs On Initial Exam: Initial Vitals Temp Pulse Resp BP Pulse Ox 99.6 F 131 21 124/90 97 09/24/18 10:35 09/24/18 10:35 09/24/18 10:35 09/24/18 10:35 09/24/18 10:35 Vital Signs Reviewed: Yes - Laurel Coma Scale Best Eye Response: 3 - To Speech Best Motor Response: 5 - Purposeful Movement Best Verbal Response: 4 - Confused Coma Scale Total: 12 Diagnostics - Vital Signs Vital Signs Temp Pulse Resp BP Pulse Ox 09/24/18 10:35 99.6 F 131 21 124/90 97 - Laboratory Result Diagrams: 09/25/18 08:25 09/25/18 08:25 Lab Statement: Any lab studies that have been ordered have been reviewed, and results considered in the medical decision making process. - Radiology Chest X-Ray Radiology Interpretation Completed By: Radiologist Summary of Radiographic Findings: 11:43. HYPERINFLATION. NO ACTIVE CARDIOPULMONARY DISEASE. ED Physician has reviewed this imaging report. - EKG 11:13 Cardiac Rate: Tachycardia - 127 bpm EKG Rhythm: Sinus Rhythm ST Segment: Non-Specific Ectopy: None EKG Comparison: Other - Compared with 08/09/2018, S-T wave changes in anterolateral leads are new Re-Evaluation - Re-Evaluation 1 Re-Evaluation Time: 12:13 Comment: Daughter in the room. 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 Difficulty venous access. Blood cultures not drawn. Fluids hanging. Pt remains calm and appears asleep, easily rousable. Vital signs: 117 bpm, BP 112/51. Complex Multi-Symp Course/Dx Course Of Treatment: LEVEL 5 CAVEAT: Patient has a PMHx of dementia and has altered mental status. Patient brought in for altered mental status and elevated white count. Sepsis protocol initiated upon admission to ED. Fluids and antibiotics given prior to blood cultures being obtained due to patients difficult venous access. Waiting to give antibiotics would be detrimental to the pt, and would worsen pt's condition due to pt's altered mental status. Pt had known elevated wbc count prior to admission indicating probable infection with risk of sepsis. Pt's indwelling phillips has urine that is cloudy with visible debris, indicating likely urinary source for sepsis, so antibiotics were chosen on the basis of possible urinary sepsis. Patients white blood cell count 26.3. New changes in anterolateral lead on EKG. Aware of lactic acid 5.4 at 12:56, troponin is normal. After consultations with Dr. Pope and Dr. Carter, the patient will be admitted by Dr. Pope for severe sepsis, abnormal EKG, and altered mental status. - Diagnoses Provider Diagnoses: Severe sepsis, Abnormal EKG, Altered mental status, UTI (urinary tract infection) - Physician Notifications Discussed Care Of Patient With: Sonja Pope - Hospitalist Time Discussed With Above Provider: 12:58 - Knows patient from previous admissions. Knows patient has takotsubo. Aware of lactic acid 5.4 at 12:56, troponin is normal. Instructed by Provider To: Other - Advised a consult with Dr. Carter - Critical Care Time Critical Care Time: 30-74 min - 30 minutes Discharge - Sign-Out/Discharge Documenting (check all that apply): Patient Departure - Admit - Discharge Plan Condition: Stable Disposition: ADMITTED TO [facility] - Billing Disposition and Condition Condition: STABLE Disposition: Admitted to [facility] - Attestation Statements Document Initiated by Scribe: Yes Documenting Scribe: Lc Lo Provider For Whom Scribe is Documenting (Include Credential): Tasha Astorga MD Scribe Attestation: Lc Mendez, scribed for Tasha Astorga MD on 09/26/18 at 0229. Status of Scribe Document: Viewed Consult Consult: 13:02. Spoke with Dr. Carter, she will discuss with Dr. Pope on patients best disposition.
[2018-09-24 11:42] LABS: Influenza A Molecular NEGATIVE (Negative); Influenza B Molecular NEGATIVE (Negative)
[2018-09-24 11:45] LABS: Urine Appearance Cloudy; Urine Bacteria 1+ (Absent); Urine Bilirubin Negative (Negative); Urine Blood 1+ (Negative); Urine Color Yellow; Urine Glucose 2+(150 mg/dL) (Negative); Urine Ketones Negative (Negative); Urine Nitrite Positive (Negative); Urine Protein 2+(100 mg/dL) (Negative); Urine Red Blood Cell 1+(3-5/hpf) (Absent); Urine Specific Gravity 1.026 (1.010-1.030); Urine Squamous Epithelial Cell Present (Absent); Urine Urobilinogen Negative (Negative); Urine White Blood Cell 3+(>20/hpf) (Absent)
[2018-09-24 12:41] LABS: Hematocrit 33 % (33-41); Hemoglobin 9.9 g/dL (12.0-16.0); Mean Corpuscular HGB Conc 31 g/dL (31-36); Mean Corpuscular Hemoglobin 29 pg (27-31); Mean Corpuscular Volume 95 fL (80-97); Red Blood Count 3.44 10^6 /uL (3.70-4.87); Red Cell Distribution Width 18 % (10.5-15); White Blood Count 26.3 10^3/uL (3.5-10.8)
[2018-09-24 12:55] LABS: Troponin I 0.03 ng/mL (<0.04)
[2018-09-24 12:56] LABS: Albumin 2.4 g/dL (3.2-5.2); Albumin/Globulin Ratio 0.8 (1-3); BUN/Creatinine Ratio 73.8 (8-20); C Reactive Protein 296.55 mg/L (<8.01); Calcium 10.6 mg/dL (8.6-10.3); EGFR African American 114.8 (>60); EGFR Non-African American 94.9 (>60); Globulin 3.2 g/dL (2-4); Potassium 4.8 mmol/L (3.5-5.0); Total Bilirubin 0.3 mg/dL (0.2-1.0); Total Protein 5.6 g/dL (6.4-8.9)
[2018-09-24] MEDS ORDERED: NS 0.9% 1000 ML** 2,000 ML IV ONE ×2 (13:11→15:06)
[2018-09-24] MEDS ORDERED: Acetaminophen TAB* 325 MG PO PRN (13:57)
[2018-09-24] MEDS ORDERED: Sodium Phosphate ADULT ENEMA* 118 ml bottle PR PRN (13:57)
[2018-09-24] MEDS ORDERED: Magnesium Hydroxide LIQ* 30 ML UDC PO PRN (13:57)
[2018-09-24] MEDS ORDERED: Glycerin ADULT SUPP PR PRN (13:57)
[2018-09-24] MEDS ORDERED: Heparin VIAL(*) 5000 UNITS/ML VIAL (FIVE THOUSAND) SUBCUT SCH (14:00)
[2018-09-24 14:06] LABS: Activated Partial Thrombo Time 24.5 seconds (26.0-36.3); INR 1.18 (0.77-1.02)
[2018-09-24 14:56] LABS: Erythrocyte Sed Rate 89 mm/Hr (0-29)
[2018-09-24 14:59] LABS: ABS Basophils 0 10^3/ul (0-0.2); ABS Eosinophils 0 10^3/ul (0-0.6); ABS Lymphocytes 0.5 10^3/ul (1.0-4.8); ABS Monocytes 0.5 10^3/ul (0-0.8); ABS Neutrophils 25.2 10^3/ul (1.5-7.7); ABS Nucleated RBC 0 10^3/ul; Eosinophil % 0 %; Lymphocyte % 1.8 %; Nucleated Red Blood Cells % 0; Platelet Count 375 10^3/uL (150-450)
[2018-09-24] MEDS ORDERED: Zosyn per Pharmacy* NOTE FOLLOW UP SCH (16:00)
[2018-09-24] MEDS ORDERED: Insulin LISPRO* 1 UNITS UNIT SUBCUT SCH ×2 (16:30→22:00)
--- NOTE | 2018-09-24 17:34 | HP ---
HISTORY AND PHYSICAL: DATE OF ADMISSION: 09/24/18 PRIMARY CARE PROVIDER: Outside hospital, Dr. Keerthi Gottlieb. CHIEF COMPLAINT: Sent from half-way for evaluation of altered mental status and hypotension. SOURCE OF HISTORY: From medical records and ED physician. HISTORY OF PRESENT ILLNESS: The patient is a 77-year-old female with history of dementia, agitative and combative at baseline. The patient was brought in by ambulance for evaluation of elevated white count. The patient recently was in the ED few days back for a new Hernandez placement. The patient was noted to be tachycardic while in half-way. She has been drowsy and this is a change from her baseline. She is usually combative and agitated and is not communicative. The patient noted to have concentrated urine draining from the Hernandez catheter. Her temperature at half-way was 99.6. Her temperature here in the ED was 99.6. She was tachycardic on arrival with heart rate into 120s. She was little tachypneic on arrival. She was also found to be hypotensive with systolic blood pressure of 97. Further evaluation include laboratory workup, which showed WBC count of 26.3. Her initial lactic acid was elevated at 5.4, repeat lactic acid in an hour was 3.9. Her bicarb was 21. The patient received 1 L of normal saline while in the emergency room. The patient had met sepsis criteria and she was fluid resuscitated. ICU admission was requested. I have seen and examined the patient at bedside. The patient started becoming more combative as her blood pressures improved. She did not drop her systolic blood pressure below 90. After a liter of fluid resuscitation , she was able to maintain her blood pressure with the MAPs well above 65. She was less tachycardic with heart rate into 110s. She was saturating well on room air. The patient had chest x-ray in the ED, which I personally reviewed, no evidence of hyperinflation, no acute opacities noted. The patient had a 12- lead EKG in the ED, which showed evidence of some diffuse ST changes. She also was tachycardic with sinus tachycardia. Her troponin was within normal limits. She had blood cultures done in the ED. Zosyn was ordered. She was started on maintenance fluids. Given her blood pressure improved and her tachycardia has resolved, it was decided to admit the patient to regular medical floor. PAST MEDICAL HISTORY: 1. Severe dementia. 2. Diabetes type 2. 3. Dyslipidemia. 4. Hypertension. PAST SURGICAL HISTORY: 1. Right hip hemiarthroplasty in August 2018. HOME MEDICATIONS: 1. Oxycodone 5 mg q.6 hours p.r.n. for pain. 2. Fleet Enema. 3. Milk of magnesia. 4. Dulcolax. 5. Tramadol. 6. Memantine. 7. Xarelto. 8. Lisinopril. 9. Donepezil. 10. Vitamin B12. 11. Lipitor. 12. Calcium and vitamin D3. 13. Multivitamin. 14. Tramadol. 15. Vitamin C. 16. Jardiance. 17. Tylenol. 18. Metformin. 19. Colace. 20. Fosamax. ALLERGIES: CIPROFLOXACIN. FAMILY HISTORY: Unobtainable. SOCIAL HISTORY: The patient has been living at [facility] since right hip surgery in August. Her is her surrogate decision maker who is at bedside. Her daughter is also at bedside today. She is a former smoker, quit 30 years ago. Does not use alcohol or illicit drug use. REVIEW OF SYSTEMS: Unable to perform review of systems as the patient is demented and unable to provide any history. PHYSICAL EXAMINATION GENERAL: The patient was drowsy initially, later became combative and little agitated. She is able to move all her extremities. VITAL SIGNS: Temperature 99.6, pulse 113 beats per minute, respiratory rate 18 , O2 97% on room air, blood pressure 100/48. HEENT: Pupils equal, reactive to light. Mucous membranes dry. LUNGS: Good air entry bilaterally. No crackles. CARDIOVASCULAR: S1, S2 present. Regular. ABDOMEN: Mild tenderness present in right upper quadrant. NEUROLOGIC: The patient is agitated, withdraws all extremities. Unable to perform complete neuro exam. SKIN: No rash. DIAGNOSTIC STUDIES/LAB DATA: WBC count 26.3, hemoglobin 9.9, hematocrit 33, platelet count is pending. Sodium 143, potassium 4.8, chloride 111, bicarb 21, BUN 45, creatinine 0.61. Lactate on admission at 12:20 was 5.4, repeat lactate at 1:40 is 3.9, BNP 307. CRP elevated at 296. UA was positive for nitrite, positive for 3+ leukocyte esterase. Influenza A and B negative. Chest x-ray as described above in HPI. EKG as described above in HPI. ASSESSMENT AND PLAN: 77-year-old female with significant dementia, hip fracture in August 2018, presents with altered mental status and hypotension and tachycardia secondary to sepsis. The patient recently was in the ED for a new Hernandez catheter placement. She is chronically bedridden and has Hernandez catheter in place. She is now with urosepsis and septic shock that improved with fluid resuscitation. Her lactate is elevated and after a liter of fluid within an hour of her arrival, comes down to 3. Her mental status at baseline is noncommunicative. She has been combative and baseline as per family members after she received 1 L of fluid. She is making good urine. Will continue with fluid resuscitation, we will continue with fluids at 150 cc per hour for 1 L of normal saline. Will reassess and administer further the fluids if needed. She does have some nonspecific EKG changes, which are not consistent with ST-elevation myocardial infarction. Her troponin is also within normal limits. Will continue to monitor her status closely. She will remain n.p.o. until her mental status is improved. Monitor I's and O' s. She does have history of diabetes, monitor blood glucose levels closely. Will repeat lactate in 3 hours. The patient with mildly elevated alk phos with normal AST and ALT. She does have tenderness on abdominal palpation. I would obtain ultrasound of the liver to rule out cholelithiasis. She is on Lovenox 40 subcu at bedtime since her hip fracture. We will continue that for DVT prophylaxis. No calf tenderness noted. Will obtain lower extremity Doppler since bedridden status. BUN is elevated with normal creatinine. TIME SPENT: Total time performing admission was 60 minutes. The patient is being admitted to Dr. Pope's service. [id number]/[facility] #: [id number] [facility]
[2018-09-24] MEDS: ZOSYN 3.375 GM Q8H per EXTENDED INFUSION IVPB SCH ×2 (18:06)
[2018-09-24] MEDS ORDERED: Morphine INJ* 2 MG/ML 1 ML SYRINGE (TWO MG - NEW SYRINGE VERSION) IV PRN ×2 (19:26→19:29)
[2018-09-24] MEDS ORDERED: LORazepam INJ* 2 MG/ML 1 ML VIAL IV PUSH PRN (19:32)
[2018-09-24] MEDS ORDERED: Morphine 4 MG/ML VIAL (1 ml) 4 MG/ML VIAL IV PRN (19:38)
[2018-09-24] MEDS ORDERED: Lorazepam PYXIS KEY PRN (19:39)
[2018-09-24] MEDS: Docusate CAP* 100 MG PO SCH (20:36)
[2018-09-24] MEDS: Memantine TAB* 5 MG PO SCH (20:36)
[2018-09-24] MEDS ORDERED: Enoxaparin(*) 40 MG/0.4 ML SYR SUBCUT SCH (21:00)
[2018-09-24] MEDS ORDERED: Enoxaparin(*) 60 MG/0.6 ML SYR SUBCUT SCH (21:00)
[2018-09-24] MEDS ORDERED: Atorvastatin* 40 MG TAB PO SCH (21:00)
--- NOTE | 2018-09-24 21:03 | PN ---
Sepsis Event Evaluation Date of Evaluation: 09/24/18 Time of Evaluation: 21:01 Current Stage of Sepsis: Sepsis Vital Signs - Last 12 Hours: Vital Signs - 12 hr Temp Pulse Resp BP Pulse Ox 09/24/18 19:54 98.8 F 120 16 107/36 95 09/24/18 19:46 22 09/24/18 17:49 22 09/24/18 17:00 99.8 F 122 22 145/54 99 09/24/18 15:54 99.1 F 116 20 100/54 97 09/24/18 15:26 14 100/54 09/24/18 15:01 117 21 95 09/24/18 14:56 116 31 120/55 97 09/24/18 14:26 109 16 101/44 98 09/24/18 14:00 113 18 97 09/24/18 13:56 112 15 100/48 97 09/24/18 13:46 96 09/24/18 13:32 125 19 109/57 96 09/24/18 13:26 24 113/52 09/24/18 13:00 25 09/24/18 12:44 20 97/41 09/24/18 12:14 19 112/51 09/24/18 12:00 15 09/24/18 11:44 18 109/47 09/24/18 11:09 25 09/24/18 10:35 99.6 F 131 21 124/90 97 Lactic Acid: 09/24/18 09/24/18 09/24/18 12:20 13:42 16:19 Lactic Acid 5.4 H* 3.9 H* 3.4 H* - Cardiopulmonary Exam Capillary Refill: Immediate Respiratory: Symmetrical Chest Expansion and Respiratory Effort, Clear to Auscultation Cardiovascular: NL Sounds; No Murmurs; No JVD, - - bilat le edema +1 - Peripheral Pulse Exam Radial Pulses: Bilateral Normal Pedal Pulses: Bilateral Normal Popliteal Pulses: Bilateral Normal - Skin Exam Skin Exam: Normal Turgor - Florencio Coma Scale Best Eye Response: 4 - Spontaneous Best Motor Response: 5 - Purposeful Movement Best Verbal Response: 4 - Confused Coma Scale Total: 13 Assess/Plan/Problems-Billing Assessment: Cont to tend lactic as it is trending down, but not yet below 2. Cont IVF as patient is still tachycardic. Cont routine assessment. Attending: Janusz Abreu
[2018-09-24] MEDS ORDERED: Acetaminophen SUPP* 650 MG SUPP PR PRN (21:04)
[2018-09-24] MEDS ORDERED: NS 0.9% 1000 ML** 1,000 ML IV SCH (21:15)
[2018-09-24] MEDS ORDERED: Dextrose 50% Syringe 50 ML* 25 GM/50 ML SYRINGE IV PUSH PRN (22:48)
[2018-09-25] MEDS: Insulin LISPRO* 1 UNITS UNIT SUBCUT SCH ×2 (00:07→07:17)
[2018-09-25] MEDS: Morphine 4 MG/ML VIAL (1 ml) 4 MG/ML VIAL IV PRN ×3 (00:19→10:18)
[2018-09-25] MEDS: ZOSYN 3.375 GM Q8H per EXTENDED INFUSION IVPB SCH ×4 (00:37→10:24)
[2018-09-25] MEDS ORDERED: Insulin LISPRO* 1 UNITS UNIT SUBCUT SCH (07:30)
[2018-09-25 08:11] VITALS: BP 119/58
[2018-09-25 08:40] LABS: Hematocrit 25 % (33-41); Mean Corpuscular HGB Conc 32 g/dL (31-36); Mean Corpuscular Hemoglobin 29 pg (27-31); Mean Corpuscular Volume 92 fL (80-97); Platelet Count 272 10^3/uL (150-450); Red Blood Count 2.75 10^6 /uL (3.70-4.87); Red Cell Distribution Width 18 % (10.5-15); White Blood Count 15.1 10^3/uL (3.5-10.8)
[2018-09-25 09:00] LABS: Albumin 1.6 g/dL (3.2-5.2); Albumin/Globulin Ratio 0.6 (1-3); BUN/Creatinine Ratio 85.7 (8-20); Calcium 8.7 mg/dL (8.6-10.3); EGFR African American 217.9 (>60); EGFR Non-African American 180.1 (>60); Globulin 2.5 g/dL (2-4); Potassium 3.3 mmol/L (3.5-5.0); Total Bilirubin 0.3 mg/dL (0.2-1.0); Total Protein 4.1 g/dL (6.4-8.9)
[2018-09-25] MEDS ORDERED: Enoxaparin(*) 60 MG/0.6 ML SYR SUBCUT SCH (09:00)
[2018-09-25] MEDS ORDERED: Multivitamins/Minerals TAB PO SCH (09:00)
[2018-09-25] MEDS ORDERED: Donepezil TAB* 5 MG PO SCH (09:00)
[2018-09-25] MEDS ORDERED: Ascorbic Acid TAB* 500 MG PO SCH (09:00)
[2018-09-25] MEDS ORDERED: Potassium Chlor TAB* 20 MEQ TAB.ER PO SCH (09:00)
[2018-09-25] MEDS ORDERED: Insulin GLARGINE(*) 1 UNITS UNIT SUBCUT SCH (09:00)
--- NOTE | 2018-09-25 09:12 | PN ---
Subjective Date of Service: 09/25/18 Interval History: HOSPITALIST PROGRESS NOTE Patient seen and examined at bedside. Care reviewed and d/w Saima Gillespie RN. She is lethargic, opens eyes when called, but doesn't answer questions. Family History: Unchanged from Admission Social History: Unchanged from Admission Past Medical History: Unchanged from Admission Objective Active Medications: Acetaminophen (Tylenol Tab*) 650 mg PO Q4H PRN PRN Reason: PAIN Acetaminophen (Tylenol Supp*) 650 mg [place] Q6H PRN PRN Reason: PAIN or FEVER Ascorbic Acid (Vitamin C Tab*) 1,000 mg PO QAM [place] Atorvastatin Calcium (Lipitor*) 40 mg PO BEDTIME [facility] Last Admin: 09/24/18 20:35 Dose: Not Given Dextrose (D50w Syringe 50 Ml*) 12.5 gm IV PUSH .FOR FS < 60 - SS PRN PRN Reason: FS < 60 Docusate Sodium (Colace Cap*) 100 mg PO BID [facility] Last Admin: 09/24/18 20:36 Dose: Not Given Donepezil HCl (Aricept Tab*) 10 mg PO DAILY [facility] Enoxaparin Sodium (Lovenox(*)) 50 mg SUBCUT Q12H [facility] Glycerin (Glycerin Adult Supp*) 1 supp [place] DAILY PRN PRN Reason: CONSTIPATION Sodium Chloride (Ns 0.9% 1000 Ml) 2,000 mls @ 100 mls/hr IV ED ONCE ONE Stop: 09/25/18 11:05 Last Admin: 09/24/18 18:05 Dose: 100 mls/hr Piperacillin Sod/Tazobactam (Sod 3.375 gm/ Sodium Chloride) 100 mls @ 25 mls/ hr IVPB Q8H [facility] Last Admin: 09/25/18 00:37 Dose: 25 mls/hr Insulin Glargine (Lantus(*)) 10 units SUBCUT DAILY [facility] Insulin Human Lispro (Humalog*) 0 units SUBCUT Q6HR [facility]; Protocol Last Admin: 09/25/18 07:17 Dose: 1 unit Lorazepam (Ativan Inj*) 0.5 mg IV PUSH Q6H PRN PRN Reason: ANXIETY Last Admin: 09/24/18 21:10 Dose: 0.5 mg Magnesium Hydroxide (Milk Of Magnesia Liq*) 30 ml PO Q72HR PRN PRN Reason: CONSTIPATION Memantine (Namenda Tab*) 5 mg PO BID [facility] Last Admin: 09/24/18 20:36 Dose: Not Given Miscellaneous (Ativan Pyxis Mackay) 1 ea N/A .PYXIS MACKAY PRN PRN Reason: PER PROTOCOL Morphine Sulfate (Morphine 4 Mg/Ml Vial (1 Ml)) 2 mg IV Q3H PRN PRN Reason: PAIN - MODERATE Last Admin: 09/25/18 05:40 Dose: 2 mg Multivitamins/Minerals (Theragran/Minerals Tab*) 1 tab PO DAILY [facility] Pharmacy Consult (Zosyn Per Pharmacy*) 1 note FOLLOW UP .ZOSYN PER PHARMACY [facility] Potassium Chloride (Klor Con Er Tab*) 20 meq PO DAILY [facility] Sodium Biphosphate/Sodium Phosphate (Fleet Enema*) 1 bottle AZ DAILY PRN PRN Reason: CONSTIPATION Vital Signs - 8 hr 09/25/18 09/25/18 09/25/18 03:24 05:40 07:43 Temperature 99.0 F 98.7 F Pulse Rate 116 119 Respiratory 18 20 18 Rate Blood Pressure 133/40 119/58 (mmHg) O2 Sat by Pulse 94 92 Oximetry Oxygen Devices in Use Now: None Appearance: Elderly lady lying in bed in [facility]. Eyes: No Scleral Icterus Ears/Nose/Mouth/Throat: Mucous Membranes Moist Neck: Trachea Midline Respiratory: Symmetrical Chest Expansion and Respiratory Effort, Clear to Auscultation Cardiovascular: RRR - Normal S1 and S2 Abdominal: NL Sounds; No Tenderness; No Distention Neurological: - - Lethargic, opens eyes when called, doesn't follow commands Result Diagrams: 09/25/18 08:25 09/25/18 08:25 Assess/Plan/Problems-Billing Assessment: Mrs Pressley is a 77yo F with PMH of type 2 DM withe episodes of HHS/ euglycemic acidosis secondary to empagliflozin, HLD, HTN, dementia, s/p right femoral neck fracture s/p hemiarthroplasty 08/08/18, left femoral neck fracture s/p hemiarthroplasty 09/04/18, Takotsubo cardiomyopathy with EF 25-30%, Klebsiella UTI, unstageable pressure ulcer, who [facility] with lethargy and tachycardia, found to have septic shock likely secondary to UTI. - Patient Problems (1) Septic shock Comment: - Presentation compatible with septic shock - tachycardia, leukocytosis , LA>5 - now resolved. Did not require pressors. - Now resolved. (2) UTI (urinary tract infection) Comment: - Hernandez catheter related, present on admission. - Grew Klebsiella last admission - completed treatment with cephalosporins. - F/u culture. - Continue Zosyn #2. (3) Pressure injury of back, unstageable Comment: - 7 x 7 cm pressure injury on her sacral area, with eschar, foul smell. Present on admission. - Will request Surgery consult. - May also be cause of her sepsis. (4) Right femoral vein DVT Comment: - Continue Lovenox. (5) Diabetes mellitus Comment: - Continue low dose Lantu and Lispro SS. (6) Cardiomyopathy Comment: - Takotsubo with EF 25-30% on prior admission - will repeat limited echo to assess EF recovery. (7) Hypokalemia Comment: - Replete. (8) Hypernatremia Comment: - Change IVF to D51/2 NS and monitor. (9) DVT prophylaxis Comment: - Lovenox. (10) DNR (do not resuscitate) Status and Disposition: Inpatient.
[2018-09-25 09:20] LABS: ABS Basophils 0 10^3/ul (0-0.2); ABS Eosinophils 0 10^3/ul (0-0.6); ABS Lymphocytes 0.5 10^3/ul (1.0-4.8); ABS Monocytes 0.5 10^3/ul (0-0.8); ABS Neutrophils 14.1 10^3/ul (1.5-7.7); ABS Nucleated RBC 0 10^3/ul; Eosinophil % 0.1 %; Lymphocyte % 3.2 %; Nucleated Red Blood Cells % 0
[2018-09-25] MEDS: KCL 10 MEQ/50 ML IVPREMIX* 10 MEQ/50 ML BAG IV SCH (10:24)
[2018-09-25] MEDS: Docusate CAP* 100 MG PO SCH (10:42)
[2018-09-25] MEDS: Memantine TAB* 5 MG PO SCH (10:53)
[2018-09-25] MEDS ORDERED: D5W 1/2 NS 1000 ML BAG* 1,000 ML IV SCH (11:00)
[2018-09-25] MEDS ORDERED: Atropine 1% (ORAL/SL)* 15 ML BTL SL PRN (11:23)
--- NOTE | 2018-09-25 11:38 | PN ---
Hospitalist Progress Note Date of Service: 09/25/18 HOSPITALIST ADDENDUM Met with patient's daughter and at bedside. We reviewed her history and condition. They had conversations with other family members before (another son and daughter, and patient's sister), and they're all in agreement patient would not want to pursue any further aggressive therapy and goal now is for comfort care measures only. Will d/c all medications that do not add to comfort, including Lovenox and insulin. Hospice consult requested.
[2018-09-25] MEDS ORDERED: Lorazepam PYXIS KEY PRN (11:40)
[2018-09-25] MEDS: Morphine ORAL CONCENTRATE* 5 MG/0.25 ML ORAL.SYRIN SL PRN ×4 (13:05→22:38)
[2018-09-25] MEDS: LORazepam INJ* 2 MG/ML 1 ML VIAL IV PUSH PRN ×2 (13:50→17:42)
[2018-09-25] MEDS: Dakins Solution 0.125% (1/4 STRENGTH)* 473 ML BTL TOPICAL SCH (18:03)
[2018-09-26] MEDS: Morphine ORAL CONCENTRATE* 5 MG/0.25 ML ORAL.SYRIN SL PRN ×9 (07:38→21:58)
[2018-09-26] MEDS: LORazepam TAB(*) 1 MG SL PRN ×2 (07:44→11:53)
[2018-09-26] MEDS: Dakins Solution 0.125% (1/4 STRENGTH)* 473 ML BTL TOPICAL SCH (10:00)
--- NOTE | 2018-09-26 11:05 | PN ---
Subjective Date of Service: 09/26/18 Interval History: HOSPITALIST PROGRESS NOTE Patient seen and examined at bedside. Care reviewed and d/w Sherri Tan RN. Patient was moaning and tachypneic earlier today. Received Morphine and Lorazepam with good response. Now resting comfortably with family at bedside. Family History: Unchanged from Admission Social History: Unchanged from Admission Past Medical History: Unchanged from Admission Objective Active Medications: Acetaminophen (Tylenol Supp*) 650 mg MT Q6H PRN PRN Reason: PAIN or FEVER Atropine Sulfate (Atropine 1% (Oral/Sl)*) 2 drop SL Q2H PRN PRN Reason: Terminal secretions Lorazepam (Ativan Inj*) 1 mg IV PUSH Q4H PRN PRN Reason: Anxiety/Agitation Last Admin: 09/25/18 17:42 Dose: 1 mg Lorazepam (Ativan Tab(*)) 1 mg SL Q4H PRN PRN Reason: Anxiety/Agitation Last Admin: 09/26/18 07:44 Dose: 1 mg Magnesium Hydroxide (Milk Of Magnesia Liq*) 30 ml PO Q72HR PRN PRN Reason: CONSTIPATION Miscellaneous (Ativan Pyxis Moyer) 1 ea N/A .PYXIS MOYER PRN PRN Reason: PER PROTOCOL Morphine Sulfate (Morphine Oral Concentrate*) 5 mg SL Q1H PRN PRN Reason: Pain/ RR>24 Last Admin: 09/26/18 10:50 Dose: 5 mg Sodium Biphosphate/Sodium Phosphate (Fleet Enema*) 1 bottle MT DAILY PRN PRN Reason: CONSTIPATION Sodium Hypochlorite (Dakins Solution 0.125% (06/12)*) 1 applic TOPICAL DAILY AUTUMN Last Admin: 09/26/18 10:00 Dose: 1 applic Vital Signs - 8 hr 09/26/18 09/26/18 09/26/18 07:38 07:44 07:59 Respiratory 26 26 26 Rate 09/26/18 09/26/18 09/26/18 09:06 09:57 10:50 Respiratory 24 24 22 Rate Oxygen Devices in Use Now: None Appearance: Elderly lady lying in bed in NAD. Respiratory: Symmetrical Chest Expansion and Respiratory Effort, Clear to Auscultation Cardiovascular: RRR - Normal S1 and S2, tachycardic Extremities: - - No mottling Neurological: - - Lethargic, does not respond to voice Result Diagrams: 09/25/18 08:25 09/25/18 08:25 Microbiology and Other Data: Microbiology 09/24/18 16:19 Aerobic Blood Culture - Preliminary Blood Venous No Growth Day 1 Anaerobic Blood Culture - Preliminary 09/24/18 11:11 Urine Culture - Final Urine Klebsiella Aerogenes 09/24/18 16:10 Aerobic Blood Culture - Preliminary Blood Venous No Growth Day 1 Anaerobic Blood Culture - Preliminary No Growth Day 1 09/24/18 13:42 Aerobic Blood Culture - Preliminary Blood Venous No Growth Day 1 Anaerobic Blood Culture - Preliminary No Growth Day 1 Assess/Plan/Problems-Billing Assessment: Mrs Pressley is a 77yo F with PMH of type 2 DM withe episodes of HHS/ euglycemic acidosis secondary to empagliflozin, HLD, HTN, dementia, s/p right femoral neck fracture s/p hemiarthroplasty 08/08/18, left femoral neck fracture s/p hemiarthroplasty 09/04/18, Takotsubo cardiomyopathy with EF 25-30%, Klebsiella UTI, unstageable pressure ulcer, who presents from [facility] with lethargy and tachycardia, found to have septic shock likely secondary to UTI. - Patient Problems (1) Comfort measures only status Comment: - Continue Morphine, Lorazepam, Atropine as needed for comfort. - If she survives the weekend, plan to return to [facility] with Hospice. (2) DNR (do not resuscitate) Status and Disposition: Inpatient. and sister updated at bedside.
[2018-09-26] MEDS: KCL 10 MEQ/50 ML IVPREMIX* 10 MEQ/50 ML BAG IV SCH (14:59)
[2018-09-27] MEDS: LORazepam TAB(*) 1 MG SL PRN ×3 (00:08→23:00)
[2018-09-27] MEDS: Morphine ORAL CONCENTRATE* 5 MG/0.25 ML ORAL.SYRIN SL PRN ×10 (00:09→23:14)
[2018-09-27] MEDS: LORazepam INJ* 2 MG/ML 1 ML VIAL IV PUSH PRN (04:27)
--- NOTE | 2018-09-27 11:29 | PN ---
Subjective Date of Service: 09/27/18 Interval History: HOSPITALIST PROGRESS NOTE Patient seen and examined at bedside. Care reviewed and d/w Sherri Tan RN. She is comfortable now, but received multiple doses of Morphine, and moans with minimal movement. Family History: Unchanged from Admission Social History: Unchanged from Admission Past Medical History: Unchanged from Admission Objective Active Medications: Acetaminophen (Tylenol Supp*) 650 mg PA Q6H PRN PRN Reason: PAIN or FEVER Atropine Sulfate (Atropine 1% (Oral/Sl)*) 2 drop SL Q2H PRN PRN Reason: Terminal secretions Lorazepam (Ativan Tab(*)) 1 mg SL Q4H PRN PRN Reason: Anxiety/Agitation Last Admin: 09/27/18 04:36 Dose: 1 mg Magnesium Hydroxide (Milk Of Magnesia Liq*) 30 ml PO Q72HR PRN PRN Reason: CONSTIPATION Miscellaneous (Ativan Pyxis Moyer) 1 ea N/A .PYXIS MOYER PRN PRN Reason: PER PROTOCOL Morphine Sulfate (Morphine Oral Concentrate*) 10 mg SL Q1H PRN PRN Reason: Pain/ RR>24 Last Admin: 09/27/18 11:03 Dose: 10 mg Sodium Biphosphate/Sodium Phosphate (Fleet Enema*) 1 bottle PA DAILY PRN PRN Reason: CONSTIPATION Sodium Hypochlorite (Dakins Solution 0.125% (06/12)*) 1 applic TOPICAL DAILY AUTUMN Last Admin: 09/26/18 10:00 Dose: 1 applic Vital Signs - 8 hr 09/27/18 09/27/18 09/27/18 04:04 04:36 06:02 Respiratory 20 22 20 Rate 09/27/18 09/27/18 09/27/18 07:54 07:59 10:08 Respiratory 25 25 20 Rate 09/27/18 11:03 Respiratory 20 Rate Oxygen Devices in Use Now: None Appearance: Elderly lady lying in bed in NAD. Respiratory: Symmetrical Chest Expansion and Respiratory Effort, Clear to Auscultation Cardiovascular: RRR - Normal S1 and S2, tachycardic Skin: - - Warm and dry, no mottling Neurological: - - Unresponsive Result Diagrams: 09/25/18 08:25 09/25/18 08:25 Assess/Plan/Problems-Billing Assessment: Mrs Pressley is a 77yo F with PMH of type 2 DM withe episodes of HHS/ euglycemic acidosis secondary to empagliflozin, HLD, HTN, dementia, s/p right femoral neck fracture s/p hemiarthroplasty 08/08/18, left femoral neck fracture s/p hemiarthroplasty 09/04/18, Takotsubo cardiomyopathy with EF 25-30%, Klebsiella UTI, unstageable pressure ulcer, who presents from [facility] with lethargy and tachycardia, found to have septic shock likely secondary to UTI. - Patient Problems (1) Comfort measures only status Comment: - Increase Morphine, continue Lorazepam, Atropine as needed for comfort. - If she survives the weekend, plan to return to [facility] with Hospice. (2) DNR (do not resuscitate) Status and Disposition: Inpatient.
[2018-09-27] MEDS: Dakins Solution 0.125% (1/4 STRENGTH)* 473 ML BTL TOPICAL SCH (11:51)
--- NOTE | 2018-09-28 00:06 | PN ---
Progress Note - Progress Note Date of Service: 09/28/18 Note: Note: Called to patient's bedside. Patient is comfort measures only. Has pressure ulcer, sepsis, UTI. Patient ceased to have respirations at 2327. Examined patient, no apical pulse, no spontaneous respirations. Family at bedside, they are aware. No autopsy requested.
--- NOTE | 2018-09-28 15:01 | DS ---
CC: Dr. Gottlieb* SUMMARY: DATE OF ADMISSION: 09/24/18 DATE OF : 09/27/18 PRIMARY DIAGNOSIS: Sepsis due to decubitus ulcer. SECONDARY DIAGNOSES: 1. Urinary tract infection. 2. Advanced dementia. 3. Type 2 diabetes. 4. Hyperlipidemia. 5. Hypertension. 6. Takotsubo cardiomyopathy, ejection fraction 25% to 30%. 7. History of hyperosmolar hyperglycemic state. 8. History of right femoral hemiarthroplasty on 08/08/18. 9. Osteoporosis. 10. Deep venous thrombosis, right femoral vein. HOSPITAL COURSE: The patient was admitted to the emergency department from [facility] on 09/24/18 with severe sepsis, initially thought to be due to UTI. Initial abdominal ultrasound showed no evidence of cholelithiasis or bile duct dilatation and no hydronephrosis. Chest x-ray on admission showed hyperinflation, no acute disease. A venous Doppler of the lower extremities showed nearly occlusive thrombus in the mid and distal right femoral vein. The patient was initially treated with IV antibiotics for UTI. She also had a 9 x 9 cm deep unstageable pressure ulcer in the sacrum. This may have been the source of sepsis. Initial white count was 26.3, which fell to 15.1 the day after admission. Sedimentation rate was 89. On 09/25/18, sodium was 149, potassium 3.3, creatinine 0.35, albumin 1.6. Urinalysis showed positive nitrites, positive leuk esterase. The patient's clinical condition did not improve once after initiation of antibiotics and fluid resuscitation. Discussion was had with the family about her prognosis and it was elected to have her be comfort measures only. The patient was noted to be distressed with moaning and tachypnea, so she was given intravenous morphine and lorazepam to keep her comfortable. On the evening of 09/27/18, I was called to see the patient who apparently had stopped breathing. She had an apical pulse without spontaneous respirations. Time of is 2327. Family was at the bedside around that time. They do not want autopsy. They will arrange home. [id number]/[facility] #: [id number] MTDD
== END 2018-09-27 23:27 | disposition expired | DRG 871 ==
LOC: ED 10:33 → MEDTELE 13:47 → MED 09-25 17:03
PROVIDERS: ADMIT Internal Medicine; ATTEND Internal Medicine
DX: A41.9 Sepsis, unspecified organism (principal); R65.21 Severe sepsis with septic shock; N39.0 Urinary tract infection, site not specified; I82.411 Acute embolism and thrombosis of right femoral vein; I42.9 Cardiomyopathy, unspecified; E87.0 Hyperosmolality and hypernatremia; L89.150 Pressure ulcer of sacral region, unstageable; B96.1 Klebsiella pneumoniae [K. pneumoniae] as the cause of diseases classified elsewhere; Z51.5 Encounter for palliative care; F03.90 Unspecified dementia, unspecified severity, without behavioral disturbance, psychotic disturbance, mood disturbance, and anxiety; I95.9 Hypotension, unspecified; E11.9 Type 2 diabetes mellitus without complications; E78.5 Hyperlipidemia, unspecified; Z66 Do not resuscitate; I10 Essential (primary) hypertension; E87.6 Hypokalemia; Z96.641 Presence of right artificial hip joint; Z79.01 Long term (current) use of anticoagulants; Z79.84 Long term (current) use of oral hypoglycemic drugs; Z79.1 Long term (current) use of non-steroidal anti-inflammatories (NSAID); Z79.891 Long term (current) use of opiate analgesic; Z79.899 Other long term (current) drug therapy; Z88.1 Allergy status to other antibiotic agents; Z87.891 Personal history of nicotine dependence; Z74.01 Bed confinement status
CPT/HCPCS: 36415; 71045; 76700; 80053; 81003; 81015; 82550; 83605; 83880; 84484; 85025; 85610; 85652; 85730; 86140; 87040; 87076; 87077; 87086; 87186; 87205; 93005; 93970; 99284; A9270-GY; J1650; J2060; J2270; J2543; J3480